=== PATIENT | female | born 1960 | race Caucasian/White ===

== ENCOUNTER → 2016-10-09 | Outpatient (CLI) | payer MEDICAID ==
[~2016-10-09] MED LIST: ACET-1680 PO; ALBU18HF2 IH; AMIO200T7 PO; ASPI325T PO; ATOR40TA64 PO; CLOP75TA33 PO; FLUT1DIS32; FURO40TA5 PO; GUAI118S23; LISI-625 PO; METO25TA6 PO; PANT40TA PO; POTA20TA87 PO; TIOT18CA3 ORAL INH
--- NOTE | 2016-10-09 10:26 | DI ---
Indication: ITS.REASON: R04.2 HEMOPTYSIS PROCEDURE: US THYROID: Encounter: Initial Comparison: Outside ultrasound dated August 23, 2016 Technique: Grayscale and color Doppler sonographic imaging of the thyroid gland was performed. Findings: Thyroid parenchyma is mildly heterogeneous. Right thyroid lobe shows a small hypoechoic 1 x 1 x 0.8 cm lesion in the lateral aspect which is stable from the comparison study allowing for differences in technique. There is also a 0.6 cm similar-appearing hypoechoic nodule in the midportion of the right thyroid lobe. Small hypoechoic 0.8 x 0.6 x 0.7 cm nodule in the superior aspect of the left lobe is also unchanged. There is an oval mixed echogenicity 0.6 x 0.4 x 0.6 cm nodule which is wider than tall in the midportion of the left lobe. This is also unchanged. Thyroid isthmus is normal measuring 0.4 cm in diameter. Right thyroid lobe measures 4.1 x 2.3 x 2 cm in size. Left thyroid lobe measures 4.5 x 1.9 x 1.5 cm in size. Impression: Small benign-appearing bilateral cystic thyroid nodules. These do not meet criteria recommendations for fine-needle aspiration or biopsy. Follow-up ultrasound could be performed in one year to document stability. .
== END ==
LOC: IMA 09:45
PROVIDERS: ATTEND Registered Nurse
DX: E04.2 Nontoxic multinodular goiter (principal); R04.2 Hemoptysis

== ENCOUNTER 2016-10-24 10:34 | Emergency (ER) | payer MEDICAID ==
[~2016-10-24] VITALS: Ht 167.6 cm; Wt 114.0 kg
[2016-10-24 10:35] VITALS: Ht 167.6 cm; Wt 114.0 kg
--- OUTSIDE RECORDS SUMMARY | 2016-10-24 10:38 | XMS REPORT | Referral Summary ---
Author Author [facility] Organization [facility] Address Unknown Phone Unavailable Care Team Providers Care Bench Assembler Operator Name Role Phone Renetta Denney Primary Care Physician [phone] Encounter VC Date(s): 07/31/16 - 07/31/16 [facility] [address] [place] [address] Discharge Disposition: 01-Home or Self Care Attending Physician: Paul Willard MD Vital Signs No data available for this section Problem List Condition Effective Dates Status Health Status Informant At risk for Active infection(Confirmed) 1 COPD(Confirmed) Active Impaired gas Active exchange(Confirmed)2 1Problem added automatically by system based on initiation of At Risk for Infection in Nutrition Plan of Care 2Problem added automatically by system based on initiation of Impaired Gas Exchange Plan of Care Allergies, Adverse Reactions, Alerts No Known Allergies Medications Advair Diskus 500 mcg-50 mcg inhalation powder 1 puffs, Inhalation, BID, in the morning and evening approximately 12 hours apart Start Date: 01/22/15 Status: Ordered Advair HFA 230 mcg-21 mcg/inh inhalation aerosol 2 puffs, Inhalation, BID, 0 Refill(s) Start Date: 12/02/13 Status: Ordered aspirin 325 mg oral tablet 325 mg, Oral, Daily, # 100 tabs, 11 Refill(s), other reason (Rx) Start Date: 12/02/13 Status: Ordered aspirin 81 mg oral tablet, chewable 81 mg 1 tabs, Oral, Daily Start Date: 01/22/15 Status: Ordered atorvastatin 40 mg oral tablet 1 tabs, Oral, Daily, # 30 tabs, 11 Refill(s), other reason (Rx) Start Date: 12/02/13 Status: Ordered clopidogrel 75 mg oral tablet 1 tabs, Oral, Daily, # 30 tabs, 11 Refill(s), other reason (Rx) Start Date: 12/02/13 Stop Date: 11/27/14 Status: Ordered furosemide 40 mg oral tablet 1 tabs, Oral, Daily, # 30 tabs, 0 Refill(s) Start Date: 11/28/13 Status: Ordered Klor-Con M20 20 mEq, Oral, Daily, With or after food, 0 Refill(s) Start Date: 11/28/13 Status: Ordered lisinopril 5 mg oral tablet 1 tabs, Oral, Daily, # 30 tabs, 6 Refill(s), other reason (Rx) Start Date: 12/02/13 Status: Ordered metoprolol tartrate 25 mg oral tablet 1 tabs, Oral, BID, # 60 tabs, 6 Refill(s), other reason (Rx) Start Date: 12/02/13 Status: Ordered nitroglycerin 0.4 mg sublingual tablet 1 tabs, SubLingual, q5min, as needed for chest pain, # 100 tabs, 0 Refill(s) Start Date: 11/28/13 Status: Ordered omeprazole 20 mg oral delayed release capsule 1 caps, Oral, Daily, 0 Refill(s) Start Date: 11/28/13 Status: Ordered Percogesic Original Strength 325 mg-12.5 mg oral tablet 1 tabs, Oral, Daily, pain, 0 Refill(s) Start Date: 11/28/13 Status: Ordered ranitidine 150 mg oral tablet 1 tabs, Oral, Daily, 0 Refill(s) Start Date: 11/28/13 Status: Ordered Spiriva 18 mcg inhalation capsule 1 Each, Inhalation, Daily, use two inhalations of one capsule for each dose, # 30 Each, 0 Refill(s), other reason (Rx) Start Date: 12/02/13 Status: Ordered Tums Ultra 1,000 mg, Chewed, Daily, indigestion, 0 Refill(s) Start Date: 11/28/13 Status: Ordered Ventolin HFA 90 mcg/inh inhalation aerosol 2 puffs, Inhalation, BID, 0 Refill(s) Start Date: 11/28/13 Status: Ordered Ventolin HFA 90 mcg/inh inhalation aerosol 2 puffs, Inhalation, q4hr, Shortness of Breath/Wheezing, 0 Refill(s) Start Date: 11/28/13 Status: Ordered verapamil 180 mg, Oral, Daily, with food Start Date: 01/22/15 Status: Ordered Results Chemistry Most recent to 1 oldest [Reference Range]: Creatinine Lvl 1.17 mg/dL [0.44-1.03 mg/dL] *HI* (07/31/16 12:30 PM) eGFR [>60] 48 1 *ABN* (07/31/16 12:30 PM) 1Result Comment: Multiply eGFR results by 1.21 for race. Immunizations Given and Recorded Vaccine Date Status Refusal Reason pneumococcal 23-polyvalent vaccine1 11/30/13 Given 1Early/Late Reason: Other : its not Procedures Procedure Date Related Diagnosis Body Site Collection of venous blood by venipuncture 07/31/16 Plastic surgery - ear right 1960 section x2 Social History Social History Type Response Smoking Status Unknown if ever smoked Assessment and Plan No data available for this section
--- OUTSIDE RECORDS SUMMARY | 2016-10-24 10:38 | XMS REPORT ---
Author Author Renetta Denney [facility] [employer] Address Unknown Phone Unavailable Care Team Providers Care Holder Pile Driving Name Role Phone Renetta Denney CP Unavailable Allergies No Known Allergies Problems Problem Type Condition Code Onset Dates Condition Status Problem Abdominal pain, generalized 789.07 Active Problem Allergic rhinitis 477.9 Active Problem Shortness of breath 786.05 Active Problem Daytime somnolence R40.0 Active Problem Atherosclerotic heart disease of [place] coronary artery without angina pectoris I25.10 Active Problem Chronic obstructive pulmonary disease, unspecified J44.9 Active Problem Essential (primary) hypertension I10 Active Problem Cardiomegaly 429.3 Active Problem Mixed hyperlipidemia E78.2 Active Problem Adjustment disorder with mixed anxiety and depressed mood F43.23 Active Assessment Chronic obstructive pulmonary disease, unspecified J44.9 Active Problem Mixed hyperlipidemia 272.2 Active Problem Coronary atherosclerosis of unspecified type of vessel, [place] or graft 414.00 Active Problem COPD 496 Active Medications No Known Medications Results No Known Results Summary Purpose eClinicalWorks Submission
--- OUTSIDE RECORDS SUMMARY | 2016-10-24 10:38 | XMS REPORT | CCD ---
Author Author SABRINA GRAFF Organization Unknown Address [address], [place] [id number] Phone 0 Care Team Providers Care Police Clerk Name Role Phone Jerrod MITCHELL Attending Physician 0 Jerrod MITCHELL Primary Surgeon 0 PAUL Galan Nurse Assisstant 0 Vital Signs Unknown or Not Available. Allergies Allergy Code Allergy Type Reaction Status No Known Drug Allergies 0 No known drug allergies Active Procedures Procedure Code Procedure Type Date CHEST [id number] 04/30/2016 History of Immunizations Unknown or Not Available. Problems Unknown or Not Available. Results CARDIAC PANEL - Collect Date/Time: 04/30/2016 10:35 Test Name Code Test Result Test Units Test Ref Range CKMB 1.3 ng/mL L=0.0 H=3.6 CPK 63 U/L L=26 H=308 CKMB% 2.1 % L=0.0 H=4.0 TROPONIN I <0.02 ng/ mL L=0.00 H=0.05 COMP METABOLIC - Collect Date/Time: 04/30/2016 10:35 Test Name Code Test Result Test Units Test Ref Range GLUCOSE 115 mg/dL L=70 H=110 BUN 14 mg/dL L=7 H=18 CREATININE 1.00 mg/ dL L=0.60 H=1.30 AGE 55 YEARS GFR 57.1 SODIUM 140 mmol/L L=136 H=145 POTASSIUM 4.6 mmol/ L L=3.5 H=5.1 CHLORIDE 105 mmol/L L=98 H=107 CO2 31 mmol/L L=21 H=32 CALCIUM 9.0 mg/dL L=8.5 H=10.1 AST 19 U/L L=15 H=37 ALT 33 U/L L=12 H=78 ALKALINE PHOS 169 U/ L L=50 H=136 TOTAL PROTEIN 7.3 g/ dL L=6.4 H=8.2 ALBUMIN 3.7 g/dL L=3.4 H=5.0 TOTAL BILI 0.50 mg/ dL L=0.00 H=1.00 PRO B-TYPE NATRIURETIC PEPTIDE - Collect Date/Time: 04/30/2016 10:35 Test Name Code Test Result Test Units Test Ref Range PBNP 305 pg/mL L=0 H=125 CBC W/ DIFF - Collect Date/Time: 04/30/2016 10:35 Test Name Code Test Result Test Units Test Ref Range WBC 10.2 x10^3 L=4.8 H=10.8 RBC 4.77 x10^6 L=4.20 H=5.40 HEMOGLOBIN 13.1 g/ dL L=12.0 H=16.0 HEMATOCRIT 39.4 % L=37.0 H=47.0 MCV 83 fL L=80 H=100 MCH 27.5 pg L=27.0 H=33.0 MCHC 33.3 g/dL L=33.0 H=37.0 RDW 15.3 % L=11.5 H=14.5 PLATELETS 257 x10^3 L=150 H=450 MPV 9.1 fL L=7.8 H=11.0 NEUTROPHILS 72.1 % L=40.0 H=80.0 LYMPHOCYTES 19.4 % L=20.0 H=45.0 MONOCYTES 6.9 % L=0.0 H=10.0 EOSINOPHILS 1.5 % L=0.0 H=5.0 BASOPHILS 0.1 % L=0.0 H=2.0 REFLEX MAN DIFF NO N /A D-DIMER, QUANTITATIVE - Collect Date/Time: 04/30/2016 10:35 Test Name Code Test Result Test Units Test Ref Range D-DIMER, QUANT 103 ng/mL L=0 H=400 LOWER RESPIRATORY CULTURE - Collect Date/Time: 04/30/2016 11:33 Test Name Code Test Result Test Units Test Ref Range SPEC SOURCE SPUTUM N /A Lower Respiratory Culture 6460-0 Final report N/A Active Medications Unknown or Not Available. Medications Administered During Visit Unknown or Not Available. Encounters Encounter Diagnosis Diagnosis Code Start Date Chronic obstructive pulmonary disease with acute lower respiratory infection J440 04/30/2016 Social History Smoking Status Code Start Date End Date Former smoker [id number] Patient Decision Aids Unknown or Not Available. Discharge Instructions You were admitted to [facility] on 04/30/2016 10:07 with a principal diagnosis of Chronic obstructive pulmon disease w acute lower resp i You had the following tests done: CARDIAC PANEL CBC W/ DIFF COMP METABOLIC D-DIMER, QUANTITATIVE LOWER RESPIRATORY CULTURE PRO B-TYPE NATRIURETIC PEPTIDE You were discharged from [facility] on 04/30/2016 11:34 Should you have any questions prior to discharge, please contact a member of your healthcare team. If you have left the hospital and have any questions, please contact your primary care physician. Chief Complaint and Reason For Visit Chief Complaint Date of Onset Hemoptysis Function Status Unknown or Not Available. Plan of Care Unknown or Not Available. Referral/Transition of Care Unknown or Not Available.
--- OUTSIDE RECORDS SUMMARY | 2016-10-24 10:38 | XMS REPORT | Referral Summary ---
Author Author [facility] Organization [facility] Address Unknown Phone Unavailable Care Team Providers Care Swimming Pool Servicer Name Role Phone Renetta Denney Primary Care Physician [phone] Encounter Date(s): 08/15/16 - 08/15/16 [facility] [address] [place] [address] [phone] Discharge Disposition: 01-Home or Self Care Attending [...] food Start Date: 01/22/15 Status: Ordered Results No data available for this section Immunizations Given and Recorded Vaccine Date Status Refusal Reason pneumococcal 23-polyvalent vaccine1 11/30/13 Given 1Early/Late Reason: Other : its not Procedures Procedure Date Related Diagnosis Body Site Plastic surgery - ear right 1960 section x2 Social History Social History Type Response Smoking Status Unknown if ever smoked Assessment and Plan No data available for this section
--- OUTSIDE RECORDS SUMMARY | 2016-10-24 10:38 | XMS REPORT ---
Author Author Renetta Denney [facility] Address Unknown Phone Unavailable Care Team Providers Care Director [facility] Name Role Phone Renetta Denney Unavailable Allergies No Known Allergies Problems Problem Type Condition Code Onset Dates Condition Status Problem Allergic rhinitis 477.9 Active Problem Shortness of breath 786.05 Active Problem Cardiomegaly 429.3 Active Problem Coronary atherosclerosis of unspecified type of vessel, [place] or graft 414.00 Active Problem Mixed hyperlipidemia 272.2 Active Problem Abdominal pain, generalized 789.07 Active Problem COPD 496 Active Medications Medication Code System Code Instructions Start Date End Date Status Dosage Spiriva HandiHaler [facility] [address]-79 18 MCG Inhalation Once a day Jan 1 capsule Pantoprazole Sodium [facility] [address]-27 40 MG Orally Once a day Mar 25, 2015 1 tablet Atorvastatin Calcium [facility] [address]-18 40 MG Orally Once a day 1 tablet Results No Known Results Summary Purpose eClinicalWorks Submission
--- OUTSIDE RECORDS SUMMARY | 2016-10-24 10:38 | XMS REPORT | Continuity of Care Document ---
Author Author [facility] Organization [facility] Address Unknown Phone Unavailable Care Team Providers Care Graphite Pan Drier Tender Name Role Phone DUYEN WOOD MD Primary Care Physician [phone] Insurance Providers Payer Name Policy Number Subscriber Name Relationship Margarette [employer] [id number] Ruthie Craft 16 Self Advance Directives Directive Response Recorded Date/Time Ordered Resuscitation Status Full Code 07/20/14 10:05am Resuscitation Documents on File No 07/20/14 9:34am Chief Complaint and Reason for Visit Chief Complaint ANTI ARYTHMIC THERAPY Reason for Visit Atrial fibrillation Problems Medical Problems Problem Onset Date Status Atrial fibrillation 07/21/2014 Active Medications Medication Dose Route Sig Days/Qty Instructions Order Date Discontinued Date Status Sodium Bicarbonate 1 Tab PO NEEDED 06/07/10 02/20/12 Discontinued Salmeterol Xinafoate/Fluticasone TWICE A DAY 02/19/12 Active Albuterol Sulfate 18 Gm IH TWICE A DAY 02/19/12 Active Aspirin 81 Mg PO DAILY 02/19/12 07/20/14 Discontinued Verapamil Hcl 180 Mg PO DAILY 02/19/12 07/20/14 Discontinued Ranitidine Hcl 150 Mg PO TWICE A DAY 02/19/12 09/11/13 Discontinued Pravastatin Sodium 20 Mg PO BEDTIME 02/19/12 09/11/13 Discontinued Calcium Carbonate 1 Tab.chew PO TWICE A DAY PRN 02/19/12 07/20/14 Discontinued Acetaminophen/Dp-Hydram Hcl 2 Tab PO BEDTIME 02/20/12 Active Omeprazole 20 Mg PO DAILY 09/11/13 07/21/14 Discontinued Furosemide 1 Tab PO DAILY 07/20/14 Active Metoprolol Tartrate 25 Mg PO TWICE DAILY WITH MEALS Take 1 tab, by mouth , two time a day with meals. 07/20/14 Active Atorvastatin Calcium 1 Tab PO BEDTIME 07/20/14 Active Potassium Chloride 20 Meq PO DAILY 07/20/14 Active Aspirin 325 Mg PO 07/20/14 Active Tiotropium [place] 1 Cap ORAL INH DAILY a day. 07/20/14 Active Lisinopril 5 Mg PO DAILY 07/20/14 Active Clopidogrel Bisulfate 1 Tab PO DAILY 07/20/14 Active Guaifenesin/Codeine Phosphate 07/20/14 Active Amiodarone HCl 400 Mg PO THREE TIMES A DAY For last dose on 07/27/14 PM 6 Days 07/21/14 Active Pantoprazole Sodium 40 Mg PO BEFORE BREAKFAST 30 Qty 07/21/14 Active Amiodarone HCl 200 Mg PO DAILY For First dose on 07/28/14 AM 30 Qty Active Social History Social History Problem Response Recorded Date/Time Chewing Tobacco Status No 09/09/2013 9:56am Hx Substance Use No 09/09/2013 9:56am Hx Alcohol Use No 09/09/2013 9:56am Has the pt used tobacco in the last 12 months No 07/20/2014 9:35am Query Response Start Date Stop Date Smoking Status Former smoker Hospital Discharge Instructions Instructions: Care Instructions: Reason for Hospitalization: RUSTY Hancock was in the hospital because (patient own words): TO START A NEW MEDICATION Discharge Diet: Heart Healthy Discharge Activity: No restriction Follow Up Appointments: Keep scheduled appointment in near future or call [phone] to schedule. FOLLOW UP APPOINTMENT IS ON 08-31-14 AT 2:30 PM. Condition at time of discharge: Good Condition at time of discharge: Good Good Notify Physician If: Fever over 100.4, increase in abdominal pain or other worrisome symptoms. Call Dr. Persaud with blood sugar levels if not controlled. Condition at time of discharge: Good Plan of Care Discharge Date 07/21/14 10:25am Disposition 01 DISCHARGED HOME, SELF-CARE Instructions/Education Provided Atrial Fibrillation Prescriptions See Medications Section Functional Status Query Response Date Recorded Physical Hygiene Self July 21, 2014 8:51am Disabilities None July 21, 2014 8:51am Devices Used None July 21, 2014 8:51am Dressing Self July 21, 2014 8:51am Ambulation Self July 21, 2014 8:51am Diet Self July 21, 2014 8:51am Mental Status Alert Oriented July 21, 2014 8:51am Disabilities None July 21, 2014 8:51am Devices Used None July 21, 2014 8:51am Physical Hygiene Self July 21, 2014 8:51am Dressing Self July 21, 2014 8:51am Ambulation Self July 21, 2014 8:51am Diet Self July 21, 2014 8:51am Allergies, Adverse Reactions, Alerts Allergen Type Severity Reaction Status Last Updated No Known Allergies Active 06/07/10 Immunizations Name Given Type Hx Influenza Vaccination N "I DON'T TAKE THOSE" Historical Hx Pneumococcal Vaccination Y OCTOBER 2013 Historical Hx Influenza Vaccination N "I DON'T TAKE THOSE" Historical Vital Signs Acute Vital Signs Vital Response Date/Time Temperature (Fahrenheit) 97.0 deg F (96.8 - 99.1) Temperature (Calculated Celsius) 36.18824 degrees C (36.0 - 37.3) Temperature Source Oral Pulse Rate (adult) 94 bpm (60 - 100) Respiratory Rate 18 breaths/min (10 - 20) O2 Sat by Pulse Oximetry 94 % (90 - 100) Oxygen Delivery Method Room Air Blood Pressure 147/83 mm Hg Height 5 ft 6 in Weight 244 lb Body Mass Index 39.0 kg/m^2 Results Test Source Date Result Interp. Ref. Range Comments Activated Partial Thromboplast Time September 11, 2013 10:58am 34.9 SEC N 24 -36 Alanine Aminotransferase (ALT/SGPT) July 20, 2014 10:43am 50 U/L N 9- 52 Albumin July 20, 2014 10:43am 4.1 G/DL N 3.5-5.0 Albumin/Globulin Ratio July 20, 2014 10:43am 1.3 RATIO N 1.1-2.2 Alkaline Phosphatase July 20, 2014 10:43am 205 U/L H 38-126 Anion Gap July 21, 2014 4:58am 7 MEQ/L N 5-15 Arterial Blood Base Excess June 07, 2010 11:45am 3.6 MMOL/L H -2.0- 2.0 Arterial Blood HCO3 June 07, 2010 11:45am 24 MEQ/L N 22-26 Arterial Blood Oxygen Saturation June 07, 2010 11:45am 97.0 % N 95.0 -98.0 Arterial Blood Partial Pressure CO2 June 07, 2010 11:45am 23 MMHG L 34-45 Arterial Blood Total CO2 June 07, 2010 11:45am 24.3 MEQ/L N 23-27 Arterial Blood pH June 07, 2010 11:45am 7.620 PH 7.350-7.450 Arterial Blood pO2 at Patient Temp June 07, 2010 11:45am 72 MMHG L 80-100 Aspartate Amino Transf (AST/SGOT) July 20, 2014 10:43am 28 U/L N 14- 36 B-Type Natriuretic Peptide June 07, 2010 11:25am < 15 PG/ML L 15- 100 BUN/Creatinine Ratio July 21, 2014 4:58am 16 RATIO N 6-26 Band Neutrophils # June 09, 2010 8:20am 0.2 T/MM3 - Band Neutrophils % June 09, 2010 8:20am 1.0 % N 0-6 Basophils # (Auto) February 20, 2012 9:20am 0.1 T/MM3 N 0-0.2 COMMENT WILL CALL WHEN THE PT GETS HERE Basophils (%) (Auto) February 20, 2012 9:20am 1.0 % N 0-2 COMMENT WILL CALL WHEN THE PT GETS HERE Blood Urea Nitrogen July 21, 2014 4:58am 17.0 MG/DL N 7-17 Calcium Level July 21, 2014 4:58am 9.5 MG/DL N 8.4-10.2 Calculated Osmolality July 21, 2014 4:58am 275 MOSM/KG N 261-280 Carbon Dioxide Level July 21, 2014 4:58am 30 MEQ/L N 22-30 Chemistry Specimen Hemolysis July 21, 2014 4:58am < 15 0-25 0-25: No Hemolysis.26-70: Slight Hemolysis - can falsely elevate K and Urine Protein. 71-285: Moderate Hemolysis - can falsely elevate K, Troponin I, CA 19-9, PTH, CSF GLucose, and Urine Protein, and can falsely decrease Phenytoin. 286-999: Gross Hemolysis - can falsely elevate K, Troponin I, CA 19-9, PTH, CSF Glucose, and Urine Protine, and can falsely decrease Phenytoin. Recommend specimen recollection. Chloride Level July 21, 2014 4:58am 104 MEQ/L N 98-107 Cholesterol Level June 02, 2012 11:25am 192 MG/DL N 132-199 Cholesterol/HDL Ratio June 02, 2012 11:25am 3.8 RATIO N 0-4.0 Conjugated Bilirubin June 07, 2010 11:25am 0.00 MG/DL N 0.00-0.30 Creatine Kinase MB June 09, 2010 8:20am 0.7 NG/ML N 0-3.4 Creatinine July 21, 2014 4:58am 1.1 MG/DL N 0.7-1.2 D-Dimer June 07, 2010 11:25am 196 NG/ML N 0-230 <224 NG/ML= PRESUMPTIVE NEGATIVE FOR PE OR DVT>224 NG/ML=ADDITIONAL EVALUATION FOR PE OR DVT RECOMMENDED Differential Total Cells Counted June 09, 2010 8:20am 100 % - Eosinophils # (Auto) February 20, 2012 9:20am 0.2 T/MM3 N 0-0.5 COMMENT WILL CALL WHEN THE PT GETS HERE Eosinophils (%) (Auto) February 20, 2012 9:20am 1.9 % N 0-4 COMMENT WILL CALL WHEN THE PT GETS HERE Erythrocyte Sedimentation Rate June 08, 2010 7:35pm 6 MM/HR N 0-20 Free Thyroxine June 08, 2010 2:00pm 1.33 NG/DL N 0.78-2.19 Free Triiodothyronine June 09, 2010 8:20am 2.50 PG/ML L 2.77-5.27 Globulin July 20, 2014 10:43am 3.1 G/DL N 2.4-3.6 Glomerular Filtration Rate Calc July 21, 2014 4:58am 52 - Glucose Level July 21, 2014 4:58am 127 MG/DL H 65-110 HDL Cholesterol Direct June 02, 2012 11:25am 50 MG/DL N 40-60 Hematocrit July 20, 2014 10:43am 38.4 % N 36-46 Hemoglobin July 20, 2014 10:43am 12.3 GM/DL N 12-16 Hepatitis A IgM Antibody August 01, 2011 9:24am Negative - Hepatitis B Core IgM Antibody August 01, 2011 9:24am Negative - Hepatitis B Surface Antigen August 01, 2011 9:24am Negative - Hepatitis C Antibody August 01, 2011 9:24am Negative - Icterus Index July 21, 2014 4:58am < 2 0-7 Immature Granulocyte # (Auto) February 20, 2012 9:20am 0.02 T/MM3 N 0.00- 0.03 COMMENT WILL CALL WHEN THE PT GETS HERE Immature Granulocyte % (Auto) February 20, 2012 9:20am 0.2 % N 0.0-0.5 COMMENT WILL CALL WHEN THE PT GETS HERE LDL Cholesterol, Calculated June 02, 2012 11:25am 142 N 66-159 Lab Scanned Report June 02, 2012 9:09pm LAB TEST FORM REQUEST [id number] - Lymphocytes # (Auto) February 20, 2012 9:20am 2.5 T/MM3 N 1-4.8 COMMENT WILL CALL WHEN THE PT GETS HERE Lymphocytes # (Manual) June 09, 2010 8:20am 0.7 T/MM3 L 1-4.8 Lymphocytes % (Manual) June 09, 2010 8:20am 3.0 % L 23-45 Lymphocytes (%) (Auto) February 20, 2012 9:20am 22.8 % L 23-45 COMMENT WILL CALL WHEN THE PT GETS HERE Magnesium Level July 21, 2014 4:58am 2.1 MG/DL N 1.6-2.3 Mean Corpuscular Hemoglobin July 20, 2014 10:43am 26.9 UUG N 26-34 Mean Corpuscular Hemoglobin Concent July 20, 2014 10:43am 32.0 GM/DL N 31-37 Mean Corpuscular Volume July 20, 2014 10:43am 84.0 UM3 N 80-100 Mean Platelet Volume July 20, 2014 10:43am 11.9 UM3 N 9.4-12.4 Monocytes # (Auto) February 20, 2012 9:20am 0.9 T/MM3 H 0-0.8 COMMENT WILL CALL WHEN THE PT GETS HERE Monocytes # (Manual) June 09, 2010 8:20am 0.4 T/MM3 N 0-0.8 Monocytes % (Manual) June 09, 2010 8:20am 2.0 % N 0-9.0 Monocytes (%) (Auto) February 20, 2012 9:20am 7.7 % N 0-9.0 COMMENT WILL CALL WHEN THE PT GETS HERE Neutrophils # (Auto) February 20, 2012 9:20am 7.3 T/MM3 N 1.8-7.7 COMMENT WILL CALL WHEN THE PT GETS HERE Neutrophils # (Manual) June 09, 2010 8:20am 20.7 T/MM3 H 1.8-7.7 Neutrophils % (Manual) June 09, 2010 8:20am 94.0 % H 33-66 Neutrophils (%) (Auto) February 20, 2012 9:20am 66.4 % H 33-66 COMMENT WILL CALL WHEN THE PT GETS HERE Oxygen Delivery Method (LAB) June 07, 2010 11:45am Room air - Platelet Count July 20, 2014 10:43am 236 T/MM3 N 130-400 Potassium Level July 21, 2014 4:58am 4.3 MEQ/L N 3.6-5 Prothromb Time International Ratio September 11, 2013 10:58am 1.01 N 0.86- 1.10 THERAPUTIC RANGE=2.00-3.00 FOR ANTI-THROMBOSIS THERAPUTIC RANGE=2.50- 3.50 FOR IMPLANTED VALVE RDW Standard Deviation July 20, 2014 10:43am 48.3 FL N 36.9-50.2 Red Blood Count July 20, 2014 10:43am 4.57 M/MM3 N 4.00-5.20 Sodium Level July 21, 2014 4:58am 141 MEQ/L N 134-144 Thyroid Stimulating Hormone (TSH) July 20, 2014 10:43am 0.98 MIU/L N 0.47-4.68 Total Bilirubin July 20, 2014 10:43am 0.30 MG/DL N 0.20-1.30 Total Creatine Kinase June 09, 2010 8:20am < 20 U/L L 30-135 Total Protein July 20, 2014 10:43am 7.2 G/DL N 6.3-8.2 Triglycerides Level June 02, 2012 11:25am 164 MG/DL H 35-135 Troponin I June 09, 2010 8:20am 0.017 ng/ml N 0-0.12 Turbidity July 21, 2014 4:58am < 20 0-20 Unconjugated Bilirubin June 07, 2010 11:25am 0.38 MG/DL N 0.00-1.10 Urine Bilirubin June 07, 2010 12:26pm Negative - Has specimen been collected/obtained? Y Urine Blood June 07, 2010 12:26pm Negative - Has specimen been collected/obtained? Y Urine Collection Type June 07, 2010 12:26pm Voided - Has specimen been collected/obtained? Y Urine Color June 07, 2010 12:26pm Yellow - Has specimen been collected/obtained? Y Urine Glucose (UA) June 07, 2010 12:26pm Negative - Has specimen been collected/obtained? Y Urine Ketones June 07, 2010 12:26pm Negative - Has specimen been collected/obtained? Y Urine Leukocyte Esterase June 07, 2010 12:26pm Negative - Has specimen been collected/obtained? Y Urine Microscopic Not Indicated June 07, 2010 12:26pm Not indicated - Has specimen been collected/obtained? Y Urine Nitrite June 07, 2010 12:26pm Negative - Has specimen been collected/obtained? Y Urine Protein June 07, 2010 12:26pm Negative - Has specimen been collected/obtained? Y Urine Specific Richards June 07, 2010 12:26pm 1.010 L - Has specimen been collected/obtained? Y Urine Turbidity June 07, 2010 12:26pm Clear - Has specimen been collected/obtained? Y Urine Urobilinogen June 07, 2010 12:26pm Normal EU/DL - Has specimen been collected/obtained? Y Urine pH June 07, 2010 12:26pm 7.0 - Has specimen been collected/ obtained? Y VLDL Cholesterol June 02, 2012 11:25am 32.8 MG/DL H 0-28 White Blood Count July 20, 2014 10:43am 10.7 T/MM3 N 4.5-11.0 Gram Stain Sputum-Expectorated Sputum June 08, 2010 7:30am Procedures No known history of procedures. Encounters Encounter Location Date/Time Discharged Inpatient [facility] 07/20/14 8:38am Recent Diagnosis Atrial fibrillation
--- OUTSIDE RECORDS SUMMARY | 2016-10-24 10:38 | XMS REPORT | CCD ---
Author Author SABRINA GRAFF Organization Unknown Address [address], [place] [id number] Phone 0 Care Team Providers Care Director Of Institutional Sales Name Role Phone MARTI BROWN Attending Physician [phone] Vital Signs Unknown or Not Available. Allergies Allergy Code Allergy Type Reaction Status No Known Drug Allergies 0 No known drug allergies Active Procedures Unknown or Not Available. History of Immunizations Unknown or Not Available. Problems Unknown or Not Available. Results Unknown or Not Available. Active Medications Unknown or Not Available. Medications Administered During Visit Unknown or Not Available. Encounters Encounter Diagnosis Diagnosis Code Start Date Abnormal results of pulmonary function studies R942 08/23/2016 Social History Smoking Status Code Start Date End Date Unknown if ever smoked [id number] Patient Decision Aids Unknown or Not Available. Discharge Instructions You were admitted to [facility] on 08/23/2016 14:36 with a principal diagnosis of Abnormal results of pulmonary function studies You were discharged from [facility] on 08/23/2016 14:36 Should you have any questions prior to discharge, please contact a member of your healthcare team. If you have left the hospital and have any questions, please contact your primary care physician. Chief Complaint and Reason For Visit Chief Complaint Date of Onset ULTRASOUND Function Status Unknown or Not Available. Plan of Care Unknown or Not Available. Referral/Transition of Care Unknown or Not Available.
--- OUTSIDE RECORDS SUMMARY | 2016-10-24 10:38 | XMS REPORT ---
Author Author Renetta Denney [facility] Address Unknown Phone Unavailable Care Team Providers Care Senior Materials Scientist Name Role Phone Renetta Denney Unavailable Allergies No Known Allergies Problems Problem Type Condition Code Onset Dates Condition Status Problem Allergic rhinitis 477.9 Active Problem Shortness of breath 786.05 Active Problem Cardiomegaly 429.3 Active Problem Coronary atherosclerosis of unspecified type of vessel, rampart or graft 414.00 Active Problem Mixed hyperlipidemia 272.2 Active Problem Abdominal pain, generalized 789.07 Active Problem COPD 496 Active Medications Medication Code System Code Instructions Start Date End Date Status Dosage Citalopram Hydrobromide [facility] [address]-56 20 MG Orally Once a day Apr 04, 2015 1 tablet Results No Known Results Summary Purpose eClinicalWorks Submission
--- OUTSIDE RECORDS SUMMARY | 2016-10-24 10:38 | XMS REPORT | Continuity of Care Document ---
Demographics Preferred Language Unknown Marital Status Unknown Evangelical Affiliation Unknown Race Unknown Ethnic Group Unknown Author Author [facility] Organization [facility] Address Unknown Phone Unavailable Allergies Active Description Code Type Severity Reaction Onset Reported/Identified Relationship to Patient Clinical Status Yes No Known Allergies No Known Allergies Drug Allergy Unknown N/A 08/21/2016 Medications Problems Procedures Results Test Result Range GRAM STAIN - 08/21/16 11:33 Microbiology FLUID CYTOLOGY - 08/21/16 11:33 FLUID CYTOLOGY SPECIMEN RECEIVED FUNGUS SMEAR - 08/21/16 11:33 Microbiology AFB SMEAR - 08/21/16 11:33 Microbiology VIRUS CULTURE COMPLETE - 08/21/16 11:33 Microbiology Encounters ACCT No. Visit Date/Time Discharge Status Pt. Type Provider Facility Loc./Unit Complaint [id number] 09/04/2016 10:40:00 ACT Unknown [id number] 06/29/2016 09:48:00 ACT Unknown [id number] 06/12/2016 08:54:00 ACT Unknown [id number] 05/30/2016 12:41:00 ACT Unknown [id number] 05/07/2016 14:04:00 ACT Unknown [id number] 12/26/2015 12:53:00 ACT Unknown [id number] 01/07/2014 08:54:00 ACT Unknown [id number] 01/07/2014 08:54:00 ACT Unknown [id number] 11/27/2013 08:15:00 ACT Unknown [id number] 11/04/2013 09:45:00 ACT Unknown [id number] 10/22/2013 13:30:00 ACT Unknown [id number] 09/01/2013 11:13:00 ACT Unknown
--- OUTSIDE RECORDS SUMMARY | 2016-10-24 10:38 | XMS REPORT ---
Author Author Renetta Denney [facility] eClinicalWorks Address Unknown Phone Unavailable Care Team Providers Care Road Machine Runner Name Role Phone Renetta Denney Unavailable Allergies No Known Allergies Problems Problem Type Condition Code Onset Dates Condition Status Problem Allergic rhinitis 477.9 Active Problem Shortness of breath 786.05 Active Problem Cardiomegaly 429.3 Active Problem Coronary atherosclerosis of unspecified type of vessel, [place] or graft 414.00 Active Problem Mixed hyperlipidemia 272.2 Active Problem Abdominal pain, generalized 789.07 Active Problem COPD 496 Active Medications Medication Code System Code Instructions Start Date End Date Status Dosage Ventolin HFA [facility] 85227402173 108 (90 Base) MCG/ACT Inhalation every 4 hrs 2 puffs as needed Results No Known Results Summary Purpose eClinicalWorks Submission
--- OUTSIDE RECORDS SUMMARY | 2016-10-24 10:38 | XMS REPORT | CCD ---
Author Author SABRINA GRAFF Organization Unknown Address [address], [place] [id number] Phone 0 Care Team Providers Care Crop Pest Control Specialist Name Role Phone JANETH CONNER Attending Physician [phone] Vital Signs Unknown or Not Available. Allergies Allergy Code Allergy Type Reaction Status No Known Drug Allergies 0 No known drug allergies Active Procedures Unknown or Not Available. History of Immunizations Unknown or Not Available. Problems Unknown or Not Available. Results ALT/SGPT - Collect Date/Time: 12/08/2015 08:40 Test Name Code Test Result Test Units Test Ref Range ALT 24 U/L L=12 H=78 AST/SGOT - Collect Date/Time: 12/08/2015 08:40 Test Name Code Test Result Test Units Test Ref Range AST 14 U/L L=15 H=37 LIPID PANEL - Collect Date/Time: 12/08/2015 08:40 Test Name Code Test Result Test Units Test Ref Range CHOLESTEROL 137 mg/ dL L=0 H=200 TRIGLYCERIDES 101 mg /dL L=30 H=150 HDL 44 mg/dL L=50 H=60 LDL, CALC 73 mg/dL L=0 H=100 VLDL 20 mg/dL L=0 H=40 CHOL/HDL RISK 3.1 RATIO L=0.0 H=4.4 PT FASTING: ? N/A THYROXINE (T4) FREE - Collect Date/Time: 12/08/2015 08:40 Test Name Code Test Result Test Units Test Ref Range FT4 1.20 ng/dL L=0.76 H=1.46 TSH - Collect Date/Time: 12/08/2015 08:40 Test Name Code Test Result Test Units Test Ref Range TSH 0.77 uIU/mL L=0.36 H=3.74 Active Medications Unknown or Not Available. Medications Administered During Visit Unknown or Not Available. Encounters Encounter Diagnosis Diagnosis Code Start Date Mixed hyperlipidemia E782 12/08/2015 Social History Smoking Status Code Start Date End Date Unknown if ever smoked [id number] Patient Decision Aids Unknown or Not Available. Discharge Instructions You were admitted to [facility] on 12/08/2015 08:34 with a principal diagnosis of Mixed hyperlipidemia You had the following tests done: ALT/ SGPT AST/SGOT LIPID PANEL THYROXINE (T4) FREE TSH You were discharged from [facility] on 12/08/2015 08:34 Should you have any questions prior to discharge, please contact a member of your healthcare team. If you have left the hospital and have any questions, please contact your primary care physician. Chief Complaint and Reason For Visit Chief Complaint Date of Onset LAB Function Status Unknown or Not Available. Plan of Care Unknown or Not Available. Referral/Transition of Care Unknown or Not Available.
--- OUTSIDE RECORDS SUMMARY | 2016-10-24 10:38 | XMS REPORT ---
Author Renetta Schumacher [facility] eClinicalWorks Address Unknown Phone Unavailable Care Team Providers Care Copy Worker Name Role Phone Renetta Denney Unavailable Allergies No Known Allergies Problems Problem Type Condition Code Onset Dates Condition Status Assessment Persistent atrial fibrillation I48.1 Active Assessment Chronic obstructive pulmonary disease, unspecified J44.9 Active Assessment Cardiomegaly I51.7 Active Assessment Other acute sinusitis J01.80 Active Problem Allergic rhinitis 477.9 Active Problem Shortness of breath 786.05 Active Problem Cardiomegaly 429.3 Active Problem Coronary atherosclerosis of unspecified type of vessel, telida or graft 414.00 Active Problem Mixed hyperlipidemia 272.2 Active Problem Abdominal pain, generalized 789.07 Active Problem COPD 496 Active Medications Medication Code System Code Instructions Start Date End Date Status Dosage Albuterol Sulfate [facility] [address]-92 (2.5 MG/3ML) 0.083% Inhalation four times daily as needed November 19, 2013 3 ml Ventolin HFA [facility] [address]-84 108 (90 Base) MCG/ACT Inhalation every 4-6 hours 1-2 puffs Spiriva HandiHaler [facility] [address]-72 18 MCG Inhalation Once a day 1 capsule Furosemide [facility] [address]-19 40 MG Orally Once a day 1 tablet Advair Diskus [facility] [address]-13 500/50 INHALE ONE DOSE BY MOUTH TWICE DAILY Klor-Con M20 [facility] [address]-63 20 MEQ Orally Once a day 1 tablet Aspirin [facility] [address]-64 325 MG Orally Once a day 1 tablet Nitroglycerin [facility] [address]-22 0.4 MG Sublingual every 5 minutes as needed for chest pain. Do not exceed a total of 3 doses in 15 minutes 1 tablet under the tongue and allow to dissolve as needed Ipratropium-Albuterol [facility] [address]-01 0.5-2.5 (3) MG/3ML Inhalation Four times a day November 16, 2013 3 ml Atorvastatin Calcium [facility] [address]-66 40 MG Orally Once a day 1 tablet Pantoprazole Sodium [facility] [address]-97 40 MG Orally Once a day Mar 25, 2015 1 tablet Lisinopril [facility] [address]-60 5 MG Orally Once a day 1 tablet Metoprolol Tartrate [facility] [address]-53 25 MG Orally Twice a day 1 tablet Citalopram Hydrobromide [facility] [address]-10 20 MG Orally Once a day Apr 04, 2015 1/2 tab for a week then 1 tab Amoxicillin [facility] [address]-68 500 MG Orally Twice a day Apr 04, 2015 Apr 14, 2015 1 capsule Clopidogrel Bisulfate [facility] [address]-50 75 MG Orally Once a day 1 tablet Procedures Procedure Coding System Code Date TSH CPT-4 47132 Apr 04, 2015 COMPLETE CBC W/AUTO DIFF WBC CPT-4 74498 Apr 04, 2015 Results No Known Results Summary Purpose eClinicalWorks Submission
--- OUTSIDE RECORDS SUMMARY | 2016-10-24 10:39 | XMS REPORT ---
Author Author Renetta Denney [facility] eClinicalWorks Address Unknown Phone Unavailable Care Team Providers Care Inventory Control Supervisor Name Role Phone Renetta Denney Unavailable Allergies No Known Allergies Problems Problem Type Condition Code Onset Dates Condition Status Problem Allergic rhinitis 477.9 Active Problem Shortness of breath 786.05 Active Problem Cardiomegaly 429.3 Active Problem Coronary atherosclerosis of unspecified type of vessel, [place] or graft 414.00 Active Problem Mixed hyperlipidemia 272.2 Active Problem Abdominal pain, generalized 789.07 Active Problem COPD 496 Active Medications Medication Code System Code Instructions Start Date End Date Status Dosage Ventolin HFA [facility] [address]-45 108 (90 Base) MCG/ACT Inhalation every 4-6 hours 1-2 puffs Results No Known Results Summary Purpose eClinicalWorks Submission
--- OUTSIDE RECORDS SUMMARY | 2016-10-24 10:39 | XMS REPORT | CCD ---
Author Author SABRINA GRAFF Organization Unknown Address [address] [place], [place] [id number] Phone 0 Care Team Providers Care Sales Exhibitor Name Role Phone SHAVON ROSS Attending Physician 0 Vital Signs Unknown or Not Available. [...] Encounters Encounter Diagnosis Diagnosis Code Start Date Cervicalgia M542 05/09/2016 Social History Smoking Status Code Start Date End Date Unknown if ever smoked [id number] Patient Decision Aids Unknown or Not Available. Discharge Instructions You were admitted to [facility] on 05/09/2016 08:39 with a principal diagnosis of Cervicalgia You were discharged from [facility] Should you have any questions prior to discharge, please contact a member of your healthcare team. If you have left the hospital and have any questions, please contact your primary care physician. Chief Complaint and Reason For Visit Chief Complaint Date of Onset PT Function Status Unknown or Not Available. Plan of Care Unknown or Not Available. Referral/Transition of Care Unknown or Not Available.
--- OUTSIDE RECORDS SUMMARY | 2016-10-24 10:39 | XMS REPORT | CCD ---
Author Author SABRINA GRAFF Organization Unknown Address [address] [place], [place] [id number] Phone 0 Care Team Providers Care Investigative Assistant Name Role Phone Jerrod MITCHELL Attending Physician 0 Jerrod MITCHELL Primary Surgeon 0 Vital Signs Unknown or Not Available. Allergies Allergy Code Allergy Type Reaction Status No Known Drug Allergies 0 No known drug allergies Active Procedures Procedure Code Procedure Type Date CHEST [id number] 06/04/2016 History of Immunizations Unknown or Not Available. Problems Unknown or Not Available. Results COMP METABOLIC - Collect Date/Time: 06/04/2016 10:35 Test Name Code Test Result Test Units Test Ref Range GLUCOSE 122 mg/dL L=70 H=110 BUN 25 mg/dL L=7 H=18 CREATININE 1.10 mg/ dL L=0.60 H=1.30 AGE 55 YEARS GFR 51.2 L=60.0 H=120 SODIUM 140 mmol/L L=136 H=145 POTASSIUM 4.0 mmol/ L L=3.5 H=5.1 CHLORIDE 102 mmol/L L=98 H=107 CO2 30 mmol/L L=21 H=32 CALCIUM 8.7 mg/dL L=8.5 H=10.1 AST 20 U/L L=15 H=37 ALT 16 U/L L=12 H=78 ALKALINE PHOS 139 U/ L L=50 H=136 TOTAL PROTEIN 7.1 g/ dL L=6.4 H=8.2 ALBUMIN 4.0 g/dL L=3.4 H=5.0 TOTAL BILI 0.30 mg/ dL L=0.00 H=1.00 CBC W/ DIFF - Collect Date/Time: 06/04/2016 10:35 Test Name Code Test Result Test Units Test Ref Range WBC 10.9 x10^3 L=4.8 H=10.8 RBC 4.41 x10^6 L=4.20 H=5.40 HEMOGLOBIN 12.1 g/ dL L=12.0 H=16.0 HEMATOCRIT 36.9 % L=37.0 H=47.0 MCV 84 fL L=80 H=100 MCH 27.4 pg L=27.0 H=33.0 MCHC 32.7 g/dL L=33.0 H=37.0 RDW 15.3 % L=11.5 H=14.5 PLATELETS 223 x10^3 L=150 H=450 MPV 10.0 fL L=7.8 H=11.0 NEUTROPHILS 73.6 % L=40.0 H=80.0 LYMPHOCYTES 20.8 % L=20.0 H=45.0 MONOCYTES 4.0 % L=0.0 H=10.0 EOSINOPHILS 0.9 % L=0.0 H=5.0 BASOPHILS 0.7 % L=0.0 H=2.0 REFLEX MAN DIFF NO N /A LOWER RESPIRATORY CULTURE - Collect Date/Time: 06/04/2016 10:49 Test Name Code Test Result Test Units Test Ref Range SPEC SOURCE R N/A Lower Respiratory Culture 6460-0 Final report N/A Active Medications Unknown or Not Available. Medications Administered During Visit Unknown or Not Available. Encounters Encounter Diagnosis Diagnosis Code Start Date Acute bronchitis, unspecified J209 2015 Social History Smoking Status Code Start Date End Date Unknown if ever smoked [id number] Patient Decision Aids Unknown or Not Available. Discharge Instructions You were admitted to [facility] on 06/04/2016 10:05 with a principal diagnosis of Acute bronchitis, unspecified You had the following tests done: CBC W / DIFF COMP METABOLIC LOWER RESPIRATORY CULTURE You were discharged from [facility] on 06/04/2016 11:45 Should you have any questions prior to discharge, please contact a member of your healthcare team. If you have left the hospital and have any questions, please contact your primary care physician. Chief Complaint and Reason For Visit Chief Complaint Date of Onset COUGHING UP BLOODY MUCUS Function Status Unknown or Not Available. Plan of Care Unknown or Not Available. Referral/Transition of Care Unknown or Not Available.
--- OUTSIDE RECORDS SUMMARY | 2016-10-24 10:39 | XMS REPORT | CCD ---
Author Author SABRINA GRAFF Organization Unknown Address [address], [place] [id number] Phone 0 Care Team Providers Care Supervisor Felting Name Role Phone Mitchell CHARLES Attending Physician 0 Vital Signs Unknown or Not Available. Allergies Allergy Code Allergy Type Reaction Status No Known Drug Allergies 0 No known drug allergies Active Procedures Procedure Code Procedure Type Date CHEST [id number] 01/16/2016 History of Immunizations Unknown or Not Available. Problems Unknown or Not Available. Results Unknown or Not Available. Active Medications Unknown or Not Available. Medications Administered During Visit Unknown or Not Available. Encounters Encounter Diagnosis Diagnosis Code Start Date Cough R05 01/16/2016 Social History Smoking Status Code Start Date End Date Unknown if ever smoked [id number] Patient Decision Aids Unknown or Not Available. Discharge Instructions You were admitted to [facility] on 01/16/2016 15:29 with a principal diagnosis of Cough You were discharged from [facility] on 01/16/2016 15:29 Should you have any questions prior to discharge, please contact a member of your healthcare team. If you have left the hospital and have any questions, please contact your primary care physician. Chief Complaint and Reason For Visit Chief Complaint Date of Onset XR CHEST RT RIBS Function Status Unknown or Not Available. Plan of Care Unknown or Not Available. Referral/Transition of Care Unknown or Not Available.
--- OUTSIDE RECORDS SUMMARY | 2016-10-24 10:39 | XMS REPORT ---
Author Renetta Schumacher eClinical[employer] Address Unknown Phone Unavailable Care Team Providers Care Patient Access Representative Name Role Phone Renetta Denney Unavailable Allergies, Adverse Reactions, Alerts Substance Reaction Event Type N.K.D.A. Info Not Available Non Drug Allergy Problems Problem Type Condition Code Onset Dates Condition Status Problem COPD 496 Active Problem Shortness of breath 786.05 Active Problem Abdominal pain, generalized 789.07 Active Problem Atherosclerotic heart disease of [place] coronary artery without angina pectoris I25.10 Active Problem Mixed hyperlipidemia E78.2 Active Problem Daytime somnolence R40.0 Active Problem Cardiomegaly 429.3 Active Problem Allergic rhinitis 477.9 Active Problem Adjustment disorder with mixed anxiety and depressed mood F43.23 Active Problem Essential (primary) hypertension I10 Active Assessment Daytime somnolence R40.0 Active Assessment Muscle spasm of right shoulder M62.838 Active Assessment Mixed hyperlipidemia E78.2 Active Assessment Atherosclerotic heart disease of [place] coronary artery without angina pectoris I25.10 Active Assessment Essential (primary) hypertension I10 Active Problem Mixed hyperlipidemia 272.2 Active Assessment Adjustment disorder with mixed anxiety and depressed mood F43.23 Active Problem Coronary atherosclerosis of unspecified type of vessel, [place] or graft 414.00 Active Medications Medication Code System Code Instructions Start Date End Date Status Dosage Melatonin [facility] [address]-62 5 MG Orally Once a day 1 tablet at bedtime as needed with food Xarelto [facility] [address]-89 20 MG Orally Once a day 1 tablet with the evening meal Ventolin HFA [facility] [id number] 108 (90 Base) MCG/ACT Inhalation every 4 hrs 2 puffs as needed Lisinopril [facility] [address]-66 5 MG Orally Once a day 1 tablet Ipratropium-Albuterol [facility] [address]-16 0.5-2.5 (3) MG/3ML Inhalation Four times a day November 16, 2013 3 ml Metoprolol Tartrate [facility] [address]-12 25 MG Orally Twice a day 1 tablet Pantoprazole Sodium [facility] [address]-70 40 MG Orally Once a day Mar 25, 2015 1 tablet Klor-Con M20 [facility] [address]-30 20 MEQ Orally Once a day 1 tablet Advair Diskus [facility] [address]-98 250-50 MCG/DOSE Inhalation Twice a day INHALE ONE DOSE BY MOUTH TWICE DAILY Albuterol Sulfate [facility] [address]-52 (2.5 MG/3ML) 0.083% Inhalation four times daily as needed November 19, 2013 3 ml Nitroglycerin [facility] [address]-65 0.4 MG Sublingual every 5 minutes as needed for chest pain. Do not exceed a total of 3 doses in 15 minutes 1 tablet under the tongue and allow to dissolve as needed Furosemide [facility] [address]-90 40 MG Orally Once a day 1 tablet Spiriva HandiHaler [facility] [address]-64 18 MCG Inhalation Once a day 1 capsule Tylenol Arthritis Pain [facility] [address]-00 650 MG Orally not defined Procedures Procedure Coding System Code Date OFFICE VISIT, EST-LOW COMPLEXITY (15 MIN.) CPT-4 45246 May 07, 2016 Vital Signs Date/Time: May 07, 2016 Temperature 98.3 F Height 65 in Weight 251.8 lbs Blood Pressure Diastolic 62 mm Hg Blood Pressure Systolic 106 mm Hg Cardiac Monitoring Heart Rate 61 /min BMI 41.90 Index Oximetry 98 % Respiratory Rate 16 /min Results No Known Results Summary Purpose eClinicalWorks Submission
--- OUTSIDE RECORDS SUMMARY | 2016-10-24 10:39 | XMS REPORT ---
Author Author Renetta Denney [facility] e[employer] Address Unknown Phone Unavailable Care Team Providers Care It Desktop Support Specialist Name Role Phone Renetta Denney Unavailable Allergies No Known Allergies Problems Problem Type Condition Code Onset Dates Condition Status Problem Allergic rhinitis 477.9 Active Problem Shortness of breath 786.05 Active Problem Cardiomegaly 429.3 Active Problem Coronary atherosclerosis of unspecified type of vessel, [place] or graft 414.00 Active Problem Mixed hyperlipidemia 272.2 Active Problem Abdominal pain, generalized 789.07 Active Problem COPD 496 Active Medications Medication Code System Code Instructions Start Date End Date Status Dosage Pantoprazole Sodium [facility] [address]-20 40 MG Orally Once a day Mar 25, 2015 1 tablet Results No Known Results Summary Purpose eClinicalWorks Submission
--- OUTSIDE RECORDS SUMMARY | 2016-10-24 10:39 | XMS REPORT ---
Author Renetta Schumacher [employer] Address Unknown Phone Unavailable Care Team Providers Care Grinder Set Up Operator Name Role Phone Renetta Denney Unavailable Allergies, Adverse Reactions, Alerts Substance Reaction Event Type N.K.D.A. Info Not Available Non Drug Allergy Problems Problem Type Condition Code Onset Dates Condition Status Assessment Mixed hyperlipidemia E78.2 Active Assessment Chronic obstructive pulmonary disease, unspecified J44.9 Active Assessment Atherosclerotic heart disease of [place] coronary artery without angina pectoris I25.10 Active Problem Allergic rhinitis 477.9 Active Problem Shortness of breath 786.05 Active Problem Cardiomegaly 429.3 Active Problem Coronary atherosclerosis of unspecified type of vessel, [place] or graft 414.00 Active Problem Mixed hyperlipidemia 272.2 Active Problem Abdominal pain, generalized 789.07 Active Problem COPD 496 Active Assessment Other acute sinusitis J01.80 Active Assessment Persistent atrial fibrillation I48.1 Active Assessment Frequency of micturition R35.0 Active Assessment Cardiomegaly I51.7 Active Assessment Adjustment disorder with mixed anxiety and depressed mood F43.23 Active Assessment Shortness of breath R06.02 Active Medications Medication Code System Code Instructions Start Date End Date Status Dosage Albuterol Sulfate [facility] [address]-27 (2.5 MG/3ML) 0.083% Inhalation four times daily as needed November 19, 2013 3 ml Clopidogrel Bisulfate [facility] [address]-15 75 MG Orally Once a day 1 tablet Ipratropium-Albuterol [facility] [address]-26 0.5-2.5 (3) MG/3ML Inhalation Four times a day November 16, 2013 3 ml Lisinopril [facility] [address]-45 5 MG Orally Once a day 1 tablet Pantoprazole Sodium [facility] [address]-22 40 MG Orally Once a day Mar 25, 2015 1 tablet Metoprolol Tartrate [facility] [address]-92 25 MG Orally Twice a day 1 tablet Spiriva HandiHaler [facility] [address]-45 18 MCG Inhalation Once a day 1 capsule Nitroglycerin [facility] [address]-68 0.4 MG Sublingual every 5 minutes as needed for chest pain. Do not exceed a total of 3 doses in 15 minutes 1 tablet under the tongue and allow to dissolve as needed Amoxicillin [facility] [address]-28 500 MG Orally Twice a day Apr 04, 2015 Apr 14, 2015 1 capsule Furosemide [facility] [address]-72 40 MG Orally Once a day 1 tablet Aspirin [facility] [address]-35 325 MG Orally Once a day 1 tablet Advair Diskus [facility] [address]-17 500/50 INHALE ONE DOSE BY MOUTH TWICE DAILY Klor-Con M20 [facility] [address]-64 20 MEQ Orally Once a day 1 tablet Atorvastatin Calcium [facility] [address]-54 40 MG Orally Once a day 1 tablet Ventolin HFA [facility] [address]-51 108 (90 Base) MCG/ACT Inhalation every 4-6 hours 1-2 puffs Citalopram Hydrobromide [facility] [address]-45 20 MG Orally Once a day Apr 04, 2015 1/2 tab for a week then 1 tab Procedures Procedure Coding System Code Date IH CMP CPT-4 65889 Apr 04, 2015 IH LIPID PANEL CPT-4 01781 Apr 04, 2015 URINALYSIS, IN HOUSE CPT-4 22402 Apr 04, 2015 OFFICE VISIT, EST-MOD. COMPLEXITY (25 MIN) CPT-4 88518 Apr 04, 2015 Vital Signs Date/Time: Apr 04, 2015 Height 65 in Weight 227.4 lbs Temperature 98.5 F Blood Pressure Diastolic 70 mm Hg Blood Pressure Systolic 110 mm Hg Cardiac Monitoring Heart Rate 88 /min BMI 37.84 Index Respiratory Rate 24 /min Results Name Result Date Reference Range Unit Abnormality Flag In House CMP Summary Purpose eClinicalWorks Submission
--- NOTE | 2016-10-24 10:50 | NUR ---
PROVIDER DR. Rosmery HERNÁNDEZ IN ROOM WITH PT.
[2016-10-24] MEDS ORDERED: ALBUTEROL/IPRATROPIUM INHAL. 2.5mg-0.5mg/3ml Neb. AEROSOL ONE (11:00)
[2016-10-24] MEDS ORDERED: ASPI81TA2 PO (11:01)
[2016-10-24] MEDS ORDERED: FLUT1DIS3 INH (11:01)
--- NOTE | 2016-10-24 11:02 | ERPDOC ---
Departure Disposition Decision Date: Oct 24, 2016 Disposition Decision Time: 13:31 Disposition: 01 DISCHARGED HOME, SELF-CARE Impression Impression Impression: Primary Impression: COPD (chronic obstructive pulmonary disease) COPD type: COPD with acute exacerbation Qualified Codes: J44.1 - Chronic obstructive pulmonary disease with (acute) exacerbation Additional Impression: Hemoptysis Severity: Moderate Condition: Improved Seen By: Physician only Referrals: Dr. Willard Appointment tomorrow 10/25/2016 Office will call you with appointment time, but if you do not receive a call by 4pm today, call the office directly SHAVON ROSS APRN (Family) Call for appointment Patient Instructions: COPD (Chronic Obstructive Pulmonary Disease) (ED), Hemoptysis (ED) Problems/Meds/Labs Reviewed?: Yes Medications reviewed and manag: Yes Follow up care ordered?: Yes Mental Status: Alert, Oriented Scripts Levofloxacin (Levaquin) 750 Mg Tablet 1 TAB PO DAILY for pneumonia for 7 Days, 0 Refills Prov: NATALIA HERNÁNDEZ DO 10/24/16 Prednisone (Prednisone) 20 Mg Tablet 40 MG PO BIDWM for SHORTNESS OF AIR for 5 Days, #20 TAB 0 Refills Take 2 (20 mg) tablets, by mouth, 2 times a day with meals. Prov: NATALIA HERNÁNDEZ DO 10/24/16 HPI - Cough/URI General Chief Complaint: Dyspnea/Respdistress Stated Complaint: DIFFICULTY BREATHING AND SPITTING UP BLOOD Time Seen by Provider: 10:53 Source: patient (Patient presents to the ER with multiple complaints. Patient apparently has COPD with chroninc cough, hemoptysis and exertional dyspnea. Patient states her exertional dyspnea has been steadily worsening, along with her hemoptysis. 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 Willard in [place], who has recently increased her home Oxygen to 3lpm. Patient also states she has had several X- Rays, CT's and US, all of which have been negative. 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 Limitations: no limitations HPI - Cough/URI Occurred At: home Onset/Timing: Changing over time Duration: other Pain/Severity Scale: Now & Worst: 0/10 Prior Episodes/Possible Cause: frequent episodes Modifying Factors: IMPROVES WITH: inhaler, nebulizer, oxygen, rest, WORSE WITH : activity, coughing Associated Symptoms: cough, fever/chills (Chills), shortness of breath, wheezing, DENIES: chest pain/soreness, dizziness, earache, facial pain, headache , lightheadedness, muscle aches, nasal congestion, nasal drainage, sinus infection, sore throat Hx of Similar Symptoms: Yes Allergies: Coded Allergies: No Known Allergies (Unverified , 10/24/16) Past History Past Medical History Pt denies signifigant PMH Hx Echocardiogram: No Respiratory: COPD, pneumonia GI: GERD Female: UTI Surgical History General: other Family History Family PMH: FOUND: other Vaccines Hx Influenza Vaccination: No ("I DON'T TAKE THOSE") Hx Pneumococcal Vaccination: Yes (OCTOBER 2013) Social History Smoking Status: Unknown if ever smoked Does patient use chewing tobac: No Second Hand Exposure: No Substance Use Type: does not use Substance last used: prior to arrival Housing: house Service: No Occupational Hazard: No Advance Directives: Yes Full Code Record Review Pertinent history updated: Yes Review of Systems Constitutional Constitutional: chills, DENIES: fever Eyes Lids/Accessories: DENIES: erythema, swelling ENMT Ears: DENIES: erythema, pain Balance: DENIES: ataxia, vertigo Sinuses: DENIES: congestion, rhinorrhea Mouth/Throat: DENIES: sore throat Cardiovascular Cardiac: dyspnea on exertion, DENIES: chest pain, orthopnea Rhythm/Rate: DENIES: tachycardia Pulmonary Respiratory: cough, dyspnea, other (Hemoptysis), sputum GI Upper Abdomen: DENIES: nausea, pain, vomiting Lower Abdomen: DENIES: constipation, diarrhea, pain General: DENIES: dysuria Musculoskeletal General: DENIES: cramps, pain, weakness Integumentary Skin: DENIES: color change, itching, rash Neurological General: DENIES: change in strength, headache, numbness, seizures, syncope, vertigo, weakness Psychiatric Psychiatric: DENIES: anxiety, depression, nervousness Hematologic/Lymphatic Hematologic/Lymphatic: DENIES: anemia Allergic/Immunological Allergic/Immunoligical: DENIES: sneezing All other Systems All Other Systems: Reviewed and Negative Physical Exam General General Nourishment: well nourished, well developed, appears stated age, adult , obese General Body Habitus: well groomed Vitals and Pain First Documented Vital Signs Date Time Temp Pulse Resp B/P Pulse Ox O2 Delivery O2 Flow Rate FiO2 10/24/16 10:35 97.6 68 22 125/60 97 Room Air 10/24/16 11:50 3.00 Weight: Kilograms: 114.000 Height (feet): 5 Height (inches): 6.00 Triage Pain Scale: RN VS reviewed by Provider: Yes Eyes (brief) Eyes Brief: found: EOMI, PERRL ENMT (brief) ENMT Brief: FOUND: TM clear, TM good light reflex, mucosa moist, NOT FOUND: pharnyx erythema Neck (brief) Neck: FOUND: trachea midline, NOT FOUND: adenopathy, tenderness, tracheal deviation Respiratory Inspection: NOT FOUND: accessory muscle use, asymmetry, audible stridor, audible wheezing, increased effort Palpation: NOT FOUND: tenderness Auscultation: FOUND: other (clears with cough), rhonchi, wheezes Cardiovascular (brief) Cardiac: FOUND: regular rate, regular rhythm Capillary Refill: <2 sec Pulses: all distal extremities, equal, strong Abdomen (brief) Abdominal Brief: FOUND: bowel normo active x4, soft, NOT FOUND: distended, tender Lymphatic (brief) Lymphatic Brief: NOT FOUND: adenopathy Musculoskeletal (brief) Musculoskeletal Brief: NOT FOUND: spasm, tenderness Integumentary (brief) Integumentary Brief: FOUND: pink, warm Neurologic (brief) Neurological Brief: FOUND: CN w/o gross def to obs, gait w/o gross def to obs, motor-no gross deficits, sensory-no gross deficits, NOT FOUND: ataxia Psychiatric (brief) Psychiatric Brief: FOUND: alert, attentive, normal affect, oriented Differential Diagnoses Differential Diagnoses Considering: Acute Bronchitis, Asthma Exacerbation, COPD Exacerbation, Pneumonia, URI, Viral Syndrome, Other Progress Results/Orders Orders Procedure Category Date Status Time Iv Lock (Ed Only) EDM 10/24/16 Transmitted 10:53 Cbc W/Auto LAB 10/24/16 Complete Diff-Reflex Manual Bmp - Basic Metabolic LAB 10/24/16 Complete Panel Troponin I W LAB 10/24/16 Complete Hemolysis Index EKG EKG 10/24/16 Taken D-Dimer LAB 10/24/16 Complete Chest 1 View RAD 10/24/16 Resulted Methylprednisolone PHA 10/24/16 Complete Sod Succ (Solu-Medrol 11:00 Albuterol/Ipratropium PHA 10/24/16 Complete (Duoneb) 11:00 Lactate - Lactic Acid LAB 10/24/16 Complete Procalcitonin LAB 10/24/16 Complete 11:45 Blood Culture SHAWNA 10/24/16 In Process 11:45 Ct Chest W/Contrast CT 10/24/16 Resulted 11:45 Iohexol (Omnipaque) PHA 10/24/16 Complete 12:00 Normal Saline (Ns) PHA 10/24/16 Complete 12:00 Saline Flush (Iv PHA 10/24/16 Complete Flush) 12:00 Lab Results Laboratory Tests Test 10/24/16 11:15 10/24/16 12:07 White Blood Count 14.6T/MM3 Red Blood Count 3.84M/MM3 Hemoglobin 8.6GM/DL Hematocrit 30.0% Mean Corpuscular Volume 78.1UM3 Mean Corpuscular Hemoglobin 22.4UUG Mean Corpuscular Hemoglobin Concent 28.7GM/DL RDW Standard Deviation 43.4FL Platelet Count 340T/MM3 Mean Platelet Volume 11.6UM3 Immature Granulocyte % (Auto) 0.3% Neutrophils (%) (Auto) 67.9% Lymphocytes (%) (Auto) 17.7% Monocytes (%) (Auto) 5.1% Eosinophils (%) (Auto) 8.5% Basophils (%) (Auto) 0.5% Absolute Immature Granulocyte (auto 0.04T/MM3 Absolute Neutrophils (auto) 10.0T/MM3 Absolute Lymphocytes (auto) 2.6T/MM3 Absolute Monocytes (auto) 0.7T/MM3 Absolute Eosinophils (auto) 1.2T/MM3 Absolute Basophils (auto) 0.1T/MM3 D-Dimer 174NG/ML Turbidity < 20 Sodium Level 142MEQ/L Potassium Level 4.7MEQ/L Chloride Level 96MEQ/L Carbon Dioxide Level 34MEQ/L Anion Gap 12MEQ/L Blood Urea Nitrogen 19.0MG/DL Creatinine 1.2MG/DL Glomerular Filtration Rate Calc 46 BUN/Creatinine Ratio 16RATIO Glucose Level 125MG/DL Calculated Osmolality 276MOSM/KG Calcium Level 9.7MG/DL Icterus Index < 2 Troponin I < 0.012ng/ml Chemistry Specimen Hemolysis < 15 Plasma Lactate 1.4MMOL/L Procalcitonin < 0.05NG/ML Medications Current ED Medications Methylprednisolone Sodium Succinate (Solu-Medrol) 125 mg O ONCE IV Last administered on 10/24/16 11:29; Start 10/24/16 at 11:00; Stop 10/24/16 at 11:01 ; Status DC Albuterol/ Ipratropium (Duoneb) 3 ml O ONCE AEROSOL Last administered on 11:48; Start 10/24/16 at 11:00; Stop 10/24/16 at 11:01; Status DC Iohexol 1 bottle 1 bottle STK-MED ONCE .ROUTE ; Start 10/24/16 at 12:00; Stop at 12:01; Status DC Sodium Chloride (NS) 100 ml @ As Directed STK-MED ONCE .ROUTE ; Start 10/24/16 at 12:00; Stop 10/24/16 at 12:01; Status DC Sodium Chloride (Iv Flush) 10 ml STK-MED ONCE .ROUTE ; Start 10/24/16 at 12:00; Stop 10/24/16 at 12:01; Status DC Progress Progress Patient is resting comfortably, reports breathing easier I recommended admission, but the patient refused. EKG EKG : Rate: 60-100 Rhythm: sinus Allen: normal QRS: normal Intervals: normal ST/T: non-specific changes Interpreted by: signing physician EKG ScImage/Picomm EKG interpreted in ScImage/Pic: No Consult/PCP Consult/PCP : Physician Contacted: Dr. Willard Time Called: 13:31 Time of first response: 13:45 Type of discussion: Phone Consult/PCP Discussion Details I spoke with Evette, in Dr. Willard's Office Will have the Doctor call us back I spoke with Dr. Willard at 13:45 hours Discussed patient examination, History, Labs and CT findings Comments 1. Start on Prednisone 2. Levaquin 3. Disk of CT results 4. Patient to follow in the office tomorrow, Xray Xray : Reason for Exam: Cough / Hemoptysis Xray: CXR Portable Interpretation: Abnormal, Reviewed Written Report (Bilateral patchy airspace disease, possibly pneumonia. [place] Neoplasm, COntrast chest CT Recommended) CT CT : Reason for Exam: Cough / Dyspnea / Hemoptysis CT: Chest IV contrast Interpretation: Abnormal, Reviewed Written Report (Scatterred Ground glass opacities throughout both lungs. Differential, hypersensitivity Pneumonitis/ drug reaction, Pulmonary Vasculitis, Pulmonary Hemorrhage and Atypical/fungal/ viral pneumonitis) NATALIA HERNÁNDEZ DO Oct 24, 2016 11:02
[2016-10-24] MEDS ORDERED: PANT40TA27 PO (11:04)
[2016-10-24] MEDS ORDERED: RANI150T7 PO (11:07)
[2016-10-24] MEDS ORDERED: CHOL200024 PO (11:07)
[2016-10-24] MEDS ORDERED: MELA1TAB17 PO (11:07)
[2016-10-24] MEDS ORDERED: CYAN100099 PO (11:07)
--- OUTSIDE RECORDS SUMMARY | 2016-10-24 11:08 | XMS REPORT | Continuity of Care Document ---
Author Author [facility] Organization [facility] Address Unknown Phone Unavailable Care Team Providers Care Cell Technician Name Role Phone DUYEN WOOD MD Primary Care Physician [phone] Insurance Providers Payer Name Policy Number Subscriber Name Relationship Margarette [employer] [id number] Ruthie Craft 16 Self Advance Directives Directive [...] Aspirin 325 Mg PO 07/20/14 Active Tiotropium [place] 1 Cap ORAL INH DAILY a day. [...] scheduled appointment in near future or call [phone] to schedule. FOLLOW UP APPOINTMENT IS ON [...] F (96.8 - 99.1) Temperature (Calculated Celsius) 36.63415 degrees C (36.0 - 37.3) Temperature Source [...] 02, 2012 9:09pm LAB TEST FORM REQUEST [id number] - Lymphocytes # (Auto) February 20, 2012 [...] Has specimen been collected/obtained? Y Urine Specific [place] June 07, 2010 12:26pm 1.010 L - [...] procedures. Encounters Encounter Location Date/Time Discharged Inpatient [facility] 07/20/14 8:38am Recent Diagnosis Atrial fibrillation
--- OUTSIDE RECORDS SUMMARY | 2016-10-24 11:09 | XMS REPORT | Continuity of Care Document ---
Demographics Preferred Language Unknown Marital Status Unknown Baptism Affiliation Unknown Race Unknown Ethnic Group Unknown Author Author [facility] Organization [facility] Address Unknown Phone Unavailable Allergies Active Description [...] Status Pt. Type Provider Facility Loc./Unit Complaint [id number] 09/04/2016 10:40:00 ACT Unknown [id number] 06/29/2016 09:48:00 ACT Unknown [id number] 06/12/2016 08:54:00 ACT Unknown [id number] 05/30/2016 12:41:00 ACT Unknown [id number] 05/07/2016 14:04:00 ACT Unknown [id number] 12/26/2015 12:53:00 ACT Unknown [id number] 01/07/2014 08:54:00 ACT Unknown [id number] 01/07/2014 08:54:00 ACT Unknown [id number] 11/27/2013 08:15:00 ACT Unknown [id number] 11/04/2013 09:45:00 ACT Unknown [id number] 10/22/2013 13:30:00 ACT Unknown [id number] 09/01/2013 11:13:00 ACT Unknown
[2016-10-24 11:23] LABS: BASOPHILS # (AUTO) 0.1 T/MM3 (0-0.2); BASOPHILS % (AUTO) 0.5 % (0-2); EOSINOPHILS # (AUTO) 1.2 T/MM3 (0-0.5); EOSINOPHILS % (AUTO) 8.5 % (0-4); HGB - HEMOGLOBIN 8.6 GM/DL (12-16); IMMATURE GRANULOCYTE # (AUTO) 0.04 T/MM3 (0.00-0.03); IMMATURE GRANULOCYTE % (AUTO) 0.3 % (0.0-0.5); LYMPHOCYTES # (AUTO) 2.6 T/MM3 (1-4.8); LYMPHOCYTES % (AUTO) 17.7 % (23-45); MEAN CORPUSCULAR HGB 22.4 UUG (26-34); MEAN CORPUSCULAR HGB CONC(MCHC 28.7 GM/DL (31-37); MEAN CORPUSCULAR VOLUME 78.1 UM3 (80-100); MEAN PLATELET VOLUME 11.6 UM3 (9.4-12.4); MONOCYTES # (AUTO) 0.7 T/MM3 (0-0.8); MONOCYTES % (AUTO) 5.1 % (0-9.0); NEUTROPHILS % (AUTO) 67.9 % (33-66); RED BLOOD COUNT 3.84 M/MM3 (4.00-5.20); WBC - WHITE BLOOD COUNT 14.6 T/MM3 (4.5-11.0)
--- NOTE | 2016-10-24 11:25 | NUR ---
XRAY PORTABLE XRAY IN ROOM.
[2016-10-24 11:32] LABS: ANION GAP 12 MEQ/L (5-15); BUN/CREATININE RATIO 16 RATIO (6-26); CALCIUM 9.7 MG/DL (8.4-10.2); CHLORIDE 96 MEQ/L (98-107); CO2 - CARBON DIOXIDE 34 MEQ/L (22-30); CREATININE 1.2 MG/DL (0.7-1.2); GLOMERULAR FILTRATION RATE 46; GLUCOSE 125 MG/DL (65-110); POTASSIUM 4.7 MEQ/L (3.6-5); SODIUM 142 MEQ/L (134-144)
--- NOTE | 2016-10-24 11:34 | DI ---
Indication: ITS.REASON: cough/hemoptysis PROCEDURE: CHEST 1 VIEW: Encounter: Initial Comparison: January 13, 2014 Findings: New patchy bilateral airspace consolidation and interstitial prominence. No pleural effusion or pneumothorax. Heart size and mediastinal contours are stable. Impression: Bilateral patchy airspace disease could be due to pneumonia. Given the history of hemoptysis other considerations include pulmonary hemorrhage and potentially neoplasm/metastatic disease. Contrast enhanced chest CT may be helpful for further evaluation. Radiographic follow-up after therapy is recommended to document clearance. .
[2016-10-24 11:50] VITALS: O2SAT 93
[2016-10-24] MEDS ORDERED: SALINE FLUSH 10ml SYRINGE ONE (12:00)
[2016-10-24] MEDS ORDERED: NORMAL SALINE 100 ML ONE (12:00)
[2016-10-24] MEDS ORDERED: IOHEXOL 300 MG/ML 75ml INJECTION ONE (12:00)
--- NOTE | 2016-10-24 13:22 | DI ---
Indication: ITS.REASON: Pneumonia / Hemoptysis / ? Neoplasm PROCEDURE: CT CHEST W/CONTRAST: Encounter: Initial Comparison: Chest x-ray from today Technique: Axial CT images were performed through the chest after the administration of intravenous contrast. Coronal and sagittal two-dimensional reformats. Automated Exposure Control and Iterative Reconstruction dose reducing techniques were utilized. Contrast: Omnipaque 300 74 mL Findings: There are scattered groundglass opacities seen throughout both lungs with a seemingly random distribution. There is mild upper lobe bronchiectasis seen in a few locations. There is no discrete pulmonary mass appreciated. No lobar consolidative pneumonia. No pneumothorax or effusion. The central airways are patent. No axillary or mediastinal adenopathy. Heart size is normal. No pericardial effusion. The upper abdomen shows cholelithiasis but no acute findings. Bone windows are unremarkable. Impression: Scattered groundglass opacities throughout both lungs. Differential diagnosis includes hypersensitivity pneumonitis/drug reaction, pulmonary vasculitis, pulmonary hemorrhage and atypical/fungal/viral pneumonitis. This does not have a typical appearance for metastatic disease. Recommend clinical and laboratory correlation. Bronchoscopy with lavage could be helpful for further evaluation. .
--- NOTE | 2016-10-24 14:09 | NUR ---
REPORT REPORT GIVEN TO SARA SALEEM.
[2016-10-24] MEDS ORDERED: LEVO750T20 PO (14:11)
[2016-10-24] MEDS ORDERED: PRED20TA PO (14:11)
[2016-10-24 14:20] VITALS: BP 108/57; PULSE 74; RESP 22; TEMP 97.6; O2SAT 93
== END 2016-10-24 14:20 | disposition home or self-care (01) ==
LOC: ED 10:34
DX: J44.1 Chronic obstructive pulmonary disease with (acute) exacerbation (principal); R04.2 Hemoptysis; Z99.81 Dependence on supplemental oxygen
CPT/HCPCS: 36415; 71010; 71260; 80048; 83605; 84145; 84484; 85025; 85379; 87040; 93005; 94640; 96374; 99284; J2930; J7050; Q9967

== ENCOUNTER 2016-12-31 11:22 | Inpatient (IN) ==
--- NOTE | 2016-12-31 11:42 | Emergency Department Report ---
General Adult HPI - General Chief complaint: Syncope Stated complaint: Syncope Time Seen by Provider: 12/31/16 11:40 Source: patient, EMS Mode of arrival: EMS Limitations: no limitations - History of Present Illness HPI narrative: 56-year-old female presents the emergency department with a chief complaint of 2 syncopal episodes earlier today. Patient did not suffer any trauma or injury. Patient denies any pain or discomfort. Patient was seen and evaluated at [facility] earlier today when she had her 2nd syncopal episode and was transferred to [facility] via EMS. Patient has a history of coronary artery disease with stent placement in the past. Patient also notes bilateral lower extremity edema which is symmetric. She has no other complaints or associated symptoms. Patient uses chronic home oxygen at 3 L nasal cannula. Patient has noted symptoms as stated above in an intermittent manner. - Related Data Home Medications Medication Instructions Recorded Confirmed Albuterol Sulfate [Ventolin Hfa] 2 puff INH Q4-6HR PRN #0 02/19/12 12/31/16 Atorvastatin Calcium 40 mg PO HS #0 07/20/14 12/31/16 Furosemide 40 mg PO DAILY #0 07/20/14 12/31/16 Lisinopril 5 mg PO DAILY #0 tab 07/20/14 12/31/16 Metoprolol Tartrate 25 mg PO BIDWM #0 07/20/14 12/31/16 Potassium Chloride 20 meq PO DAILY #0 tab 07/20/14 12/31/16 Aspirin 81 mg PO DAILY #0 10/24/16 12/31/16 Cholecalciferol (Vitamin D3) 2,000 unit PO DAILY #0 10/24/16 12/31/16 [Vitamin D3] Cyanocobalamin (Vitamin B-12) 1,000 mcg PO DAILY #0 10/24/16 12/31/16 [B-12] Fluticasone/Salmeterol [Advair 1 puff INH BID #0 10/24/16 12/31/16 250-50 Diskus] Pantoprazole Sodium 40 mg PO DAILY #0 10/24/16 12/31/16 raNITIdine HCl [Ranitidine HCl] 150 mg PO BID #0 10/24/16 12/31/16 Acetaminophen [Arthritis Pain 1,300 mg PO TID PRN 12/31/16 12/31/16 Relief] Folic Acid [Folate] 1 mg PO DAILY 12/31/16 12/31/16 Melatonin 15 mg PO HS 12/31/16 12/31/16 Nitroglycerin 0.4 mg SL Q5MIN3 PRN 12/31/16 12/31/16 Tiotropium Handihaler [Spiriva] 1 cap INH DAILY 12/31/16 12/31/16 Allergies Allergy/AdvReac Type Severity Reaction Status Date / Time No Known Allergies Allergy Verified 12/31/16 11:58 Review of Systems Constitutional: Denies: fever, chills Eyes: Denies: eye pain, vision change ENT: Denies: ear pain, throat pain Cardiovascular: Reports: syncope. Denies: chest pain, palpitations Respiratory: Denies: cough, dyspnea Gastrointestinal: Denies: abdominal pain, nausea, vomiting, diarrhea Genitourinary: Denies: urgency, dysuria Musculoskeletal: Denies: back pain, joint swelling Integumentary: Denies: erythema, rash Neurological: Denies: headache, numbness Psychiatric: Denies: anxiety, depression Endocrine: Denies: fatigue, heat or cold intolerance Hematological/Lymphatic: Denies: easy bleeding, easy bruising Allergic/Immunologic: Denies: facial swelling, urticaria PFSH Patient Stated Medical History Seizures No Cardiac Arrhythmia Yes: paroxysmal atril fib Hypertension Yes: primary pulmonary htn Hypotension No Diabetes Mellitus Type 1 No Diabetes Mellitus Type 2 No Anemia No Panic Disorder No Now No CAD, COPD Surgical History: Cardiac catheterization Family History: Reviewed and noncontributory. - Social History Smoking status: Current every day smoker Substance use type: does not use Alcohol intake frequency: does not drink Physical Exam - Limitations Limitations: no limitations - General General appearance: alert, in no apparent distress - Normal Exams: Head:: Normocephalic without trauma Eyes:: Pupils are PERRLA w/ EOMI, No scleral icterus, irritation, or foreign bodies noted ENMT:: No facial trauma, nasal exudates, pharyngeal erythema, or exudates are noted Dental: No fractured, loose, or missing teeth noted Neck:: Full range of motion, without adenopathy, JVD, bruits or thyromegaly Chest/Respirations:: with good airflow, and symmetry bilaterally Cardiovascular:: Regular rate and rhythm, without murmur or gallop (Scattered end expiratory wheezes and rhonchi bilaterally.), Pulses 2+ all extremities, capillary refill, <2 seconds all extremities Abdomen:: Bowel sounds positive, soft, non-tender, non-distended, no hepatosplenomegaly, masses or bruits noted Lymphatic:: No lymphadenopathy, or lymphedema noted Musculoskeletal:: No tenderness, or deformity noted, good range of motion, all extremities Integumentary:: No rashes, hives, or bruising noted, hair and nails, without abnormality Neurological:: Patient is alert, and oriented, cranial nerves, motor/sensory/ cerebellar, exams w/o gross deficits, to observation Psychiatric:: Patient exhibits, appropriate attention, emotion and affect Course Vital Signs Temperature 99 F 12/31/16 11:25 Pulse Rate 66 12/31/16 11:25 Respiratory Rate 26 H 12/31/16 11:25 Blood Pressure 118/56 12/31/16 11:25 Pulse Oximetry 93 12/31/16 11:25 Temperature 99 F 12/31/16 11:25 Pulse Rate 84 12/31/16 14:00 Respiratory Rate 20 12/31/16 14:00 Blood Pressure 130/59 12/31/16 14:00 Pulse Oximetry 95 12/31/16 14:00 Medical Decision Making - [facility] Narrative Medical decision making narrative: Labs / imaging were discussed in detail with the patient and family and questions are answered. Patient does not have any new productive cough. Patient states that she is typically wheezy at baseline and the COPD is why she is on the oxygen supplementation. Patient is given gentle IV hydration. She is admitted to the hospital in improved condition to the service of her answering service operator Dr. Blanc is in agreement with the current plan of management. Patient is admitted to the hospital in improved condition. No further orders from accepting physician who is in agreement with the current plan of management. Patient is in agreement with the current plan of management. - Differential Diagnosis AK, syncope, metabolic disorder, dehydration - Lab Data Result diagrams: 12/31/16 12:01 12/31/16 12:01 Lab Results 12/31/16 12/31/16 Range/Units 12:01 12:01 WBC 12.5 H (4.5-11.0) T/MM3 RBC 4.30 (4.00-5.20) M/MM3 Hgb 8.1 L (12-16) GM/DL Hct 30.1 L (36-46) % MCV 70.0 L (80-100) UM3 MCH 18.8 L (26-34) UUG MCHC 26.9 L (31-37) GM/DL RDW Std Deviation 48.3 (36.9-50.2) FL Plt Count 259 (130-400) T/MM3 MPV 11.4 (9.4-12.4) UM3 Immature Gran % (Auto) 0.2 (0.0-0.5) % Neut % (Auto) 74.8 H (33-66) % Lymph % (Auto) 18.2 L (23-45) % [place] % (Auto) 5.5 (0-9.0) % Eos % (Auto) 1.1 (0-4) % Baso % (Auto) 0.2 (0-2) % Neut # 9.3 H (1.8-7.7) T/MM3 Lymph # 2.3 (1-4.8) T/MM3 [place] # 0.7 (0-0.8) T/MM3 Eos # 0.1 (0-0.5) T/MM3 Baso # 0.0 (0-0.2) T/MM3 Abs Immat Gran (auto) 0.03 (0.00-0.03) T/MM3 Turbidity < 20 (0-20) Sodium 141 (134-144) MEQ/L Potassium 4.0 (3.6-5) MEQ/L Chloride 98 (98-107) MEQ/L Carbon Dioxide 35 H (22-30) MEQ/L Anion Gap 8 (5-15) MEQ/L BUN 23.0 H (7-17) MG/DL Creatinine 1.2 (0.7-1.2) MG/DL GFR Calculation 46 BUN/Creatinine Ratio 19 (6-26) RATIO Glucose 97 (65-110) MG/DL Calculated Osmolality 275 (261-280) MOSM/KG Calcium 9.6 (8.4-10.2) MG/DL Total Bilirubin 0.70 (0.20-1.30) MG/DL Icterus Index < 2 (0-7) AST 18 (14-36) U/L ALT 47 (9-52) U/L Alkaline Phosphatase 118 (38-126) U/L Troponin I 0.018 (0-0.12) ng/ml B-Natriuretic Peptide 647 H (0-175) pg/mL Total Protein 6.7 (6.3-8.2) G/DL Albumin 4.2 (3.5-5.0) G/DL Globulin 2.5 (2.4-3.6) G/DL Albumin/Globulin Ratio 1.7 (1.1-2.2) RATIO Specimen Hemolysis < 15 (0-25) - Radiology Data CXR - No acute processes. - EKG Data EKG #1 EKG results narrative: Sinus rhythm. 66 bpm. Normal EKG. No STEMI. Normal intervals. Disposition Prescriptions: No Action Furosemide 40 mg PO DAILY #0 Metoprolol Tartrate 25 mg PO BIDWM #0 Atorvastatin Calcium 40 mg PO HS #0 Lisinopril 5 mg PO DAILY #0 tab Fluticasone/Salmeterol [Advair 250-50 Diskus] 1 puff INH BID #0 Pantoprazole Sodium 40 mg PO DAILY #0 Cholecalciferol (Vitamin D3) [Vitamin D3] 2,000 unit PO DAILY #0 Melatonin 15 mg PO HS Folic Acid [Folate] 1 mg PO DAILY Acetaminophen [Arthritis Pain Relief] 1,300 mg PO TID PRN PRN Reason: Pain Albuterol Sulfate [Ventolin Hfa] 2 puff INH Q4-6HR PRN #0 PRN Reason: Prn Orders Potassium Chloride 20 meq PO DAILY #0 tab Aspirin 81 mg PO DAILY #0 raNITIdine HCl [Ranitidine HCl] 150 mg PO BID #0 Cyanocobalamin (Vitamin B-12) [B-12] 1,000 mcg PO DAILY #0 Nitroglycerin 0.4 mg SL Q5MIN3 PRN PRN Reason: Chest Pain Tiotropium Handihaler [Spiriva] 1 cap INH DAILY Referrals: Renetta Denney, [facility]ER [Family Provider] - Time of Disposition: 13:00 (Admit. Dr. Blanc. ) - Seen By: physician
[2016-12-31] MEDS ORDERED: ALBUTEROL/IPRATROPIUM 2.5mg-0.5mg/3ml NEB AEROSOL ONE (11:49)
--- NOTE | 2016-12-31 12:33 | XRay Report ---
Indication: SOB PROCEDURE: XR chest 1V: Encounter: Initial Comparison: October 24, 2016 Findings: Aeration of the lungs has improved with resolution of most of the prior airspace disease. No new focal consolidative process. No pleural effusion or pneumothorax. Heart size and mediastinal contours are stable. Pulmonary vascularity appears normal. Impression: Improved aeration of the lungs. No focal pneumonia. .
[2016-12-31] MEDS ORDERED: NS 1,000 ML IV ONE (12:49)
[2016-12-31 15:05] VITALS: BMI 40.7
[2016-12-31] MEDS ORDERED: --POM--ALBUTEROL HFA INHALER 8gm ORAL INH PRN (15:12)
--- NOTE | 2016-12-31 15:20 | Cardiology History & Physical ---
History of Present Illness Chief complaint: Syncope, Dyspnea HPI: This is a 56-year-old female well known to Dr. Blanc service, she presented the emergency department with a chief complaint of 2 syncopal episodes earlier today and 3 last week. Patient did not suffer any trauma or injury. Patient denies any pain or discomfort. Patient was [facility] and [facility] earlier today when she had her 2nd syncopal episode and was transferred to [facility] via EMS. Patient has a history of coronary artery disease with stent placement in the past and a history of AFIB. She was on Pradaxa but it was DC'd approximately 3 months ago for hemoptysis and recommended to f/u with PCP for work up. Patient also notes bilateral lower extremity edema which is symmetric, onset 1 month ago. She has exertional SOA that is baseline for her. Patient uses chronic home oxygen at 3 L nasal cannula. Review of Systems - Constitutional Constitutional: Present: fatigue - EENMT Eyes: Absent: loss of vision Balance: Absent: vertigo - Cardiovascular Cardiovascular: Present: syncope, dyspnea on exertion. Absent: chest pain, palpitations Vascular: Present: pedal edema - Respiratory Respiratory: Present: cough, dyspnea on exertion, wheezing - Gastrointestinal Gastrointestinal: Absent: abdominal pain, nausea - Musculoskeletal Musculoskeletal: Absent: abnormal gait - Integumentary/Breasts Integumentary: Absent: erythema, rash - Neurological Neurological: Present: focal weakness, frequent falls - Psychiatric Psychiatric: Absent: behavioral changes - Endocrine Endocrine: Absent: excessive sweating, palpitations PFSH Patient Stated Medical History Seizures No Hearing Loss Yes: LEFT HEARING AIDE, DEAF IN RIGHT EAR Cardiac Arrhythmia Yes: paroxysmal atril fib Hypertension Yes: primary pulmonary htn Hypotension No Myocardial Infarction Yes: 2013 Other Cardiology Yes: STENT PLACED IN 2013 Chronic Obstructive Pulmonary Yes Disease (COPD) Pneumonia Yes Diabetes Mellitus Type 1 No Diabetes Mellitus Type 2 No Hx Incontinence Yes Anemia No Surgical History: Cardiac catheterization Family History: Mother with CAD - Social History Smoking status: Former smoker Substance use type: does not use Medications Home Medications Medication Instructions Recorded Confirmed Type Albuterol Sulfate [Ventolin Hfa] 2 puff INH Q4-6HR PRN #0 02/19/12 12/31/16 History Atorvastatin Calcium 40 mg PO HS #0 07/20/14 12/31/16 History Furosemide 40 mg PO DAILY #0 07/20/14 12/31/16 History Lisinopril 5 mg PO DAILY #0 tab 07/20/14 12/31/16 History Potassium Chloride 20 meq PO DAILY #0 tab 07/20/14 12/31/16 History Aspirin 81 mg PO DAILY #0 10/24/16 12/31/16 History Cholecalciferol (Vitamin D3) 2,000 unit PO DAILY #0 10/24/16 12/31/16 History [Vitamin D3] Cyanocobalamin (Vitamin B-12) 1,000 mcg PO DAILY #0 10/24/16 12/31/16 History [B-12] Fluticasone/Salmeterol [Advair 1 puff INH BID #0 10/24/16 12/31/16 History 250-50 Diskus] Pantoprazole Sodium 40 mg PO DAILY #0 10/24/16 12/31/16 History raNITIdine HCl [Ranitidine HCl] 150 mg PO BID #0 10/24/16 12/31/16 History Acetaminophen [Arthritis Pain 1,300 mg PO TID PRN 12/31/16 12/31/16 History Relief] Folic Acid [Folate] 1 mg PO DAILY 12/31/16 12/31/16 History Melatonin 15 mg PO HS 12/31/16 12/31/16 History Nitroglycerin 0.4 mg SL Q5MIN3 PRN 12/31/16 12/31/16 History Tiotropium Handihaler [Spiriva] 1 cap INH DAILY 12/31/16 12/31/16 History Allergies Allergy/AdvReac Type Severity Reaction Status Date / Time No Known Allergies Allergy Verified 12/31/16 11:58 Exam Vital signs: Temperature 96.8 F 12/31/16 14:44 Pulse Rate 80 12/31/16 14:44 Respiratory Rate 20 12/31/16 14:44 Blood Pressure 127/59 12/31/16 14:44 Pulse Oximetry 93 12/31/16 14:44 Oxygen Delivery Method Nasal Cannula Oxygen Flow Rate 3 - Constitutional no acute distress - Routine HEENT Exam Head: Present: normocephalic, atraumatic Eye: Present: PERRL, conjunctivae pink ENT: Present: mucous membranes moist - Routine Neck Exam Absent: JVD, carotid bruit - Routine Chest/Breast/Axilla Exam Chest wall: Absent: tenderness, pacemaker - Routine Respiratory Exam Present: wheezes - Routine Cardiovascular Exam Present: no murmur, irregular rhythm. Absent: JVD - Routine Abdominal Exam Present: soft, normoactive bowel sounds. Absent: non tender, distended - Routine Back/Spine/Pelvis Exam Back/Spine: Present: kyphosis - Routine Skin Exam Present: intact - Routine Neurological Exam Present: alert, oriented X3 - Routine Psychiatric Exam Present: normal affect Results 01/03/17 04:15 01/03/17 04:15 Intake and Output 12/31/16 12/31/16 12/31/16 06:59 14:59 22:59 Intake Total 0 / 1000 Output Total 350 / 350 Balance -350 / 650 Intake: Oral 0 / 0 Output: Urine 350 / 350 Other: Weight 118.7 kg Patient Weight 01/01/17 06:59 Weight 118.7 kg Abnormal Lab Results 12/31/16 12/31/16 12/31/16 12:01 12:01 15:32 WBC 12.5 H RBC 4.30 Hgb 8.1 L Hct 30.1 L MCV 70.0 L MCH 18.8 L MCHC 26.9 L RDW Std Deviation 48.3 Plt Count 259 MPV 11.4 Immature Gran % (Auto) 0.2 Neut % (Auto) 74.8 H Lymph % (Auto) 18.2 L [place] % (Auto) 5.5 Eos % (Auto) 1.1 Baso % (Auto) 0.2 Neut # 9.3 H Lymph # 2.3 [place] # 0.7 Eos # 0.1 Baso # 0.0 Abs Immat Gran (auto) 0.03 Absolute Retic Percent Retic Immature Retic Fraction Retic Hgb Content CHr INR APTT Turbidity < 20 Sodium 141 Potassium 4.0 Chloride 98 Carbon Dioxide 35 H Anion Gap 8 BUN 23.0 H Creatinine 1.2 GFR Calculation 46 BUN/Creatinine Ratio 19 Glucose 97 Calculated Osmolality 275 Calcium 9.6 Magnesium 2.0 Total Bilirubin 0.70 Icterus Index < 2 AST 18 ALT 47 Alkaline Phosphatase 118 Troponin I 0.018 0.016 B-Natriuretic Peptide 647 H Total Protein 6.7 Albumin 4.2 Globulin 2.5 Albumin/Globulin Ratio 1.7 TSH Free T4 Specimen Hemolysis < 15 < 15 Stool Occult Blood Specimen Comment Tests Not Done Reason Tests Not Done Blood Type Antibody Screen Crossmatch ([facility]) Blood Product Request 0712/31/16 12/31/16 15:32 15:32 18:42 WBC 11.5 H RBC 4.22 Hgb 7.8 L Hct 29.2 L MCV 69.2 L MCH 18.5 L MCHC 26.7 L RDW Std Deviation 47.4 Plt Count 238 MPV 11.2 Immature Gran % (Auto) 0.2 Neut % (Auto) 71.0 H Lymph % (Auto) 22.2 L [place] % (Auto) 5.4 Eos % (Auto) 1.0 Baso % (Auto) 0.2 Neut # 8.2 H Lymph # 2.6 [place] # 0.6 Eos # 0.1 Baso # 0.0 Abs Immat Gran (auto) 0.02 Absolute Retic 0.1051 H Percent Retic 2.5 H Immature Retic Fraction 17.6 H Retic Hgb Content CHr 20.3 L INR APTT Turbidity Sodium Potassium Chloride Carbon Dioxide Anion Gap BUN Creatinine GFR Calculation BUN/Creatinine Ratio Glucose Calculated Osmolality Calcium Magnesium Total Bilirubin Icterus Index AST ALT Alkaline Phosphatase Troponin I B-Natriuretic Peptide Total Protein Albumin Globulin Albumin/Globulin Ratio TSH Cancelled 0.94 Free T4 Cancelled Specimen Hemolysis Stool Occult Blood Specimen Comment Tests Not Done Reason Tests Not Done Blood Type Antibody Screen Crossmatch ([facility]) Blood Product Request 12/31/16 12/31/16 12/31/16 19:15 19:16 20:27 WBC RBC Hgb Hct MCV MCH MCHC RDW Std Deviation Plt Count MPV Immature Gran % (Auto) Neut % (Auto) Lymph % (Auto) [place] % (Auto) Eos % (Auto) Baso % (Auto) Neut # Lymph # [place] # Eos # Baso # Abs Immat Gran (auto) Absolute Retic Percent Retic Immature Retic Fraction Retic Hgb Content CHr INR Cancelled APTT Cancelled Turbidity Sodium Potassium Chloride Carbon Dioxide Anion Gap BUN Creatinine GFR Calculation BUN/Creatinine Ratio Glucose Calculated Osmolality Calcium Magnesium Total Bilirubin Icterus Index AST ALT Alkaline Phosphatase Troponin I B-Natriuretic Peptide Total Protein Albumin Globulin Albumin/Globulin Ratio TSH Free T4 Specimen Hemolysis Stool Occult Blood Specimen Comment Lab to recollect Tests Not Done Inr Reason Tests Not Done Clotted specimen Blood Type O Positive Antibody Screen Negative Crossmatch ([facility]) See Detail Blood Product Request 12/31/16 12/31/16 12/31/16 22:00 22:06 22:06 WBC RBC Hgb 7.7 L Hct MCV MCH MCHC RDW Std Deviation Plt Count MPV Immature Gran % (Auto) Neut % (Auto) Lymph % (Auto) [place] % (Auto) Eos % (Auto) Baso % (Auto) Neut # Lymph # [place] # Eos # Baso # Abs Immat Gran (auto) Absolute Retic Percent Retic Immature Retic Fraction Retic Hgb Content CHr INR 1.02 APTT 25.4 Turbidity Sodium Potassium Chloride Carbon Dioxide Anion Gap BUN Creatinine GFR Calculation BUN/Creatinine Ratio Glucose Calculated Osmolality Calcium Magnesium Total Bilirubin Icterus Index AST ALT Alkaline Phosphatase Troponin I B-Natriuretic Peptide Total Protein Albumin Globulin Albumin/Globulin Ratio TSH Free T4 Specimen Hemolysis Stool Occult Blood Specimen Comment Tests Not Done Reason Tests Not Done Blood Type Antibody Screen Crossmatch ([facility]) Blood Product Request 1 unit pc issued 01/01/17 01/01/17 01/01/17 03:01 09:19 09:19 WBC RBC Hgb Hct MCV MCH MCHC RDW Std Deviation Plt Count MPV Immature Gran % (Auto) Neut % (Auto) Lymph % (Auto) [place] % (Auto) Eos % (Auto) Baso % (Auto) Neut # Lymph # [place] # Eos # Baso # Abs Immat Gran (auto) Absolute Retic Percent Retic Immature Retic Fraction Retic Hgb Content CHr INR APTT Turbidity Sodium Potassium Chloride Carbon Dioxide Anion Gap BUN Creatinine GFR Calculation BUN/Creatinine Ratio Glucose Calculated Osmolality Calcium Magnesium Total Bilirubin Icterus Index AST ALT Alkaline Phosphatase Troponin I B-Natriuretic Peptide Total Protein Albumin Globulin Albumin/Globulin Ratio TSH Free T4 Specimen Hemolysis Stool Occult Blood Negative Negative Specimen Comment Tests Not Done Reason Tests Not Done Blood Type Antibody Screen Crossmatch ([facility]) Blood Product Request 1 unit pc issued 01/01/17 01/01/17 01/01/17 09:55 09:55 09:55 WBC 10.6 RBC 4.63 Hgb 9.6 L D Hct 33.6 L D MCV 72.6 L MCH 20.7 L MCHC 28.6 L RDW Std Deviation 53.0 H Plt Count 246 MPV 11.3 Immature Gran % (Auto) 0.6 H Neut % (Auto) 77.3 H Lymph % (Auto) 16.0 L [place] % (Auto) 4.4 Eos % (Auto) 1.4 Baso % (Auto) 0.3 Neut # 8.2 H Lymph # 1.7 [place] # 0.5 Eos # 0.2 Baso # 0.0 Abs Immat Gran (auto) 0.06 H Absolute Retic Percent Retic Immature Retic Fraction Retic Hgb Content CHr INR APTT Turbidity < 20 Sodium 140 Potassium 4.7 Chloride 100 Carbon Dioxide 35 H Anion Gap 5 BUN 20.0 H Creatinine 1.2 GFR Calculation 46 BUN/Creatinine Ratio 17 Glucose 133 H Calculated Osmolality 274 Calcium 9.4 Magnesium 2.1 Total Bilirubin 1.10 Icterus Index < 2 AST 21 ALT 36 Alkaline Phosphatase 98 Troponin I 0.018 B-Natriuretic Peptide Total Protein 6.2 L Albumin 3.9 Globulin 2.3 L Albumin/Globulin Ratio 1.7 TSH Free T4 Specimen Hemolysis < 15 < 15 Stool Occult Blood Specimen Comment Tests Not Done Reason Tests Not Done Blood Type Antibody Screen Crossmatch ([facility]) Blood Product Request APTT 25.4 SEC (24-36) 12/31/16 22:06 - Imaging and Cardiology Echo: pending EKG results: image reviewed Imaging & Cardiology Narrative: 12/31/16 15:31 Tele in ED shows frequent PVC's, Bigeminal - EKG Interpretation EKG: sinus rhythm EKG interpretations - EKG EKG results cardiology: sinus rhythm, no acute changes EKG shows: sinus rhythm Hospital Course This is a general summary of the patient's hospital course. For more details refer to the complete medical record. Pt was placed in a tele bed, tele showed AFib rate as high at 160, converting to SR w/bigeminal and trigeminal runs. Breathing tx intiated. DVT Prophylaxis: SCD's Assessment and Plan (1) Syncope and collapse Problem details: Patient was anemic and transfused with PRBCs Status: Resolved Monitor, orthostatic vital signs. Acute anemia, will consult hospitalist, Dr. Kate, thank you. (2) Atrial fibrillation Problem details: Currently in SR, Started on Sotalol for antiarrhythmic therapy Status: Chronic Not an anticoagulant candidate 2/2 anemia, continue home metoprolol for rate control. Consider AAT if persistent. (3) CAD (coronary artery disease), [place] coronary artery Status: Acute Troponin mildly elevated, likley secondary to anemia. Will trend out. Hold ASA due to acute anemia. (4) COPD (chronic obstructive pulmonary disease) Status: Chronic respiratory therapy consult (5) Anemia Problem details: Iron deficient Status: Resolved Hospitalist consult - Attestation Attestation Narrative: 01/06/17 11:15 Recommendation After examining the patient I agree with the above assessment. I am involved in the formulation of the patient's plan of care. Sepsis Assessment - Evaluation Sepsis screening result: No Definite Risk
[2016-12-31] MEDS ORDERED: ENOXAPARIN 40 MG/0.4 ML INJECTION SQ SCH (18:15)
--- NOTE | 2016-12-31 18:47 | Consult Note ---
Consult Information - Data of Consult Patient: new to practice Requesting Physician: Froylan Blanc MD Primary Care Provider: Renetta Denney APRN Family Provider: Renetta Denney APRN - Consult Narrative Reason for consult: Anemia History of present illness: This is a pt that came for syncope. We are consulted for anemia. Pt is a 56 YO obese WF that came for syncope and was noted to be anemic. Pt states she had anemia on one of her pregnancies, but does not recall having anemia recently. She was admitted for syncope. Noted her HR going progressively higher and higher. Per my discussion with her RN - as high as 170. Pt states she is dizzy. She states she is on home O2, is not particularly dyspneic. No melena, no hematochezia no recent blood loss. States she was placed on a Blood thinner that starts with an "X" (Xarelto?) and stated having hemoptysis and was changed to ASA. Pt currently with a HR in the 160's in telemetry denies any CP or SOB while at rest. Discussed the possibilty of a bleed and transfussion. Pt got very anxious and requested her daughter to come to discuss this. [facility] Patient Stated Medical History Seizures No Hearing Loss Yes: LEFT HEARING AIDE, DEAF IN RIGHT EAR Cardiac Arrhythmia Yes: paroxysmal atril fib Hypertension Yes: primary pulmonary htn Hypotension No Myocardial Infarction Yes: 2013 Other Cardiology Yes: STENT PLACED IN 2013 Chronic Obstructive Pulmonary Yes Disease (COPD) Pneumonia Yes Diabetes Mellitus Type 1 No Diabetes Mellitus Type 2 No Hx Incontinence Yes Anemia No Surgical History: Cardiac catheterization - Social History Smoking status: Former smoker Review of Systems - Constitutional Constitutional: Present: fatigue - EENMT Eyes: Present: as per HPI Ears: Present: as per HPI Balance: Present: vertigo Mouth/Throat: Present: as per HPI - Cardiovascular Cardiovascular: Present: syncope. Absent: chest pain, palpitations Vascular: Present: see HPI - Gastrointestinal Gastrointestinal: Absent: change in bowel habits, change in stool character, coffee ground emesis, constipation, diarrhea, hematemesis, hematochezia, melena - Integumentary/Breasts Integumentary: Absent: erythema, rash - Neurological Neurological: Present: dizziness - Psychiatric Psychiatric: Present: as per HPI - Endocrine Endocrine: Present: as per HPI - Hematologic/Lymphatic Hematologic/Lymphatic: Present: as per HPI Medications Home Medications Medication Instructions Recorded Confirmed Type Albuterol Sulfate [Ventolin Hfa] 2 puff INH Q4-6HR PRN #0 02/19/12 12/31/16 History Atorvastatin Calcium 40 mg PO HS #0 07/20/14 12/31/16 History Furosemide 40 mg PO DAILY #0 07/20/14 12/31/16 History Lisinopril 5 mg PO DAILY #0 tab 07/20/14 12/31/16 History Metoprolol Tartrate 25 mg PO BIDWM #0 07/20/14 12/31/16 History Potassium Chloride 20 meq PO DAILY #0 tab 07/20/14 12/31/16 History Aspirin 81 mg PO DAILY #0 10/24/16 12/31/16 History Cholecalciferol (Vitamin D3) 2,000 unit PO DAILY #0 10/24/16 12/31/16 History [Vitamin D3] Cyanocobalamin (Vitamin B-12) 1,000 mcg PO DAILY #0 10/24/16 12/31/16 History [B-12] Fluticasone/Salmeterol [Advair 1 puff INH BID #0 10/24/16 12/31/16 History 250-50 Diskus] Pantoprazole Sodium 40 mg PO DAILY #0 10/24/16 12/31/16 History raNITIdine HCl [Ranitidine HCl] 150 mg PO BID #0 10/24/16 12/31/16 History Acetaminophen [Arthritis Pain 1,300 mg PO TID PRN 12/31/16 12/31/16 History Relief] Folic Acid [Folate] 1 mg PO DAILY 12/31/16 12/31/16 History Melatonin 15 mg PO HS 12/31/16 12/31/16 History Nitroglycerin 0.4 mg SL Q5MIN3 PRN 12/31/16 12/31/16 History Tiotropium Handihaler [Spiriva] 1 cap INH DAILY 12/31/16 12/31/16 History Allergies Allergy/AdvReac Type Severity Reaction Status Date / Time No Known Allergies Allergy Verified 12/31/16 11:58 Exam Vital Signs: Temperature 96.8 F 12/31/16 14:44 Pulse Rate 160 H 12/31/16 17:48 Respiratory Rate 24 12/31/16 16:35 Blood Pressure 127/91 H 12/31/16 16:35 Pulse Oximetry 95 12/31/16 16:35 Oxygen Delivery Method Nasal Cannula Oxygen Flow Rate 3 Telemetry Rhythm: Sinus Tachycardia Height: 5 ft 7.2 in Weight: 118.7 kg Body Mass Index: 40.7 - Constitutional Present: mild distress - Routine HEENT Exam Head: Present: normocephalic Eye: Present: EOMI, PERRL - Routine Neck Exam Present: supple. Absent: JVD Comments: Neck is short and thick. - Routine Chest/Breast/Axilla Exam Chest wall: Absent: tenderness Breast: Absent: tenderness Axillae: Absent: lymphadenopathy - Routine Respiratory Exam Present: CTA bilaterally. Absent: accessory muscle use - Routine Cardiovascular Exam Present: tachycardia - Routine Abdominal Exam Present: soft, non distended, non tender - Routine Extremities Exam Absent: cyanosis, clubbing, edema - Routine Skin Exam Comments: Multiple skin tags over her neck and back. - Routine Neurological Exam Present: alert, oriented X3, CN II-XII intact - Routine Psychiatric Exam Present: normal affect, cooperative, anxious Results - Labs CBC & Chem 7: 12/31/16 18:42 12/31/16 12:01 Assessment and Plan Assessment and Plan: This is a 56 YO female with obesity who came for syncope. Labs show anemia, probably acute. Will recheck her H.H now, and check anemia studies, may need a transfussion. Preliminary diagnosis 1) Anemia - symptoms point to acute anemia H.H is dropping - pt is not agreeable to a transfussion until daughter comes, she was notified. - Check B12, Folate, Ferritin, retic count, Occult blood in stools. - May need a transfussion ] - Fall precautions - Orthostatic BP checkups Q8H x 3 - Start IVF, I have requested 4Units of PRBC. Will initially give 2 units - Change PPI to IV - Add PT/INR, PTT to blood in lab. 2) Syncope could be related to GI bleed. - H Pylori stool Ag ordered. - Hemoccults ordered. Dr Blanc, we thank you for this consult will be following pt with you. Hospital Course Summary Disclaimer: The visit summary below is not to be considered part of the above Progress Note. Sepsis Assessment - Evaluation Sepsis screening result: No Definite Risk
[2016-12-31] MEDS ORDERED: ACETAMINOPHEN 325 MG TABLET PO ONE (18:52)
[2016-12-31] MEDS: FLUTICASONE ORAL INH SCH (20:07)
[2016-12-31] MEDS: SALMETEROL ORAL INH SCH (20:07)
[2016-12-31] MEDS: RANITIDINE 150 MG TABLET PO SCH (22:35)
[2016-12-31] MEDS: PANTOPRAZOLE 40 MG INJECTION IVP SCH (22:35)
[2016-12-31] MEDS: ATORVASTATIN 40 MG TABLET PO SCH (22:36)
[2017-01-01] MEDS ORDERED: MELATONIN 5 MG TABLET PO PRN (01:20)
[2017-01-01] MEDS: MELATONIN 1 MG TABLET PO SCH ×2 (01:45→22:09)
[2017-01-01] MEDS ORDERED: MELATONIN 1 MG TABLET PO PRN (06:38)
[2017-01-01] MEDS ORDERED: --POM--PANTOPRAZOLE 40 MG TABLET PO SCH (09:00)
[2017-01-01] MEDS ORDERED: POLYETHYL. GLYCOL 3350 BOTTLE 238 GM PO SCH (09:00)
[2017-01-01] MEDS ORDERED: ASPIRIN *EC* 81 MG TABLET PO SCH (09:00)
--- NOTE | 2017-01-01 09:04 | Progress Note ---
Subjective: Pt states she is feeling much better. Received 2 U of PRBC. Anemia studies done but pending. Telemetry NRS in the 90's with some PVC's Objective Vital signs: Temperature 97.0 F 01/01/17 03:00 Pulse Rate 95 01/01/17 07:37 Respiratory Rate 20 01/01/17 03:00 Blood Pressure 121/65 01/01/17 07:37 Pulse Oximetry 98 01/01/17 03:00 Oxygen Delivery Method Nasal Cannula Oxygen Flow Rate 3 Rhythm: Normal Sinus Rhythm, Premature Ventricular Contractions Weight: 119.3 kg - Constitutional Present: no acute distress, obese - Routine HEENT Exam Head: Present: normocephalic, atraumatic Eye: Present: EOMI, PERRL - Routine Cardiovascular Exam Present: irregular rhythm - Routine Abdominal Exam Present: soft, non distended, non tender - Routine Extremities Exam Absent: cyanosis, clubbing, edema - Routine Neurological Exam Present: alert, oriented X3, CN II-XII intact - Routine Psychiatric Exam Present: normal affect, cooperative, good insight Results - Labs CBC & Chem 7: 12/31/16 22:06 12/31/16 12:01 Assessment and Plan Assessment and Plan: This is a 56 YO female with obesity who came for syncope. Labs show anemia, most likely acute since there was a drop from 8.1 eary on 12/31 to 7.8 on the evening of 12/31. Pt was given 2 U of PRBC with improvement of her symptoms. Last set of orthostatic was normal. DIAGNOSIS 1) Acute Anemia, with syncope - symptoms point to acute anemia H.H is dropping - pt is not agreeable to a transfussion until daughter comes, she was notified. - (DONE PENDING) B12, Folate, Ferritin, retic count, Occult blood in stools. - Gave 2 U of PRBC - Follow seria H/H next one at 10am today - Fall precautions - Continue IV PPI. 2) Syncope could be related to GI bleed. - H Pylori stool Ag ordered. - Hemoccults ordered. Prevention SCD's + PPI Sepsis Assessment - Evaluation Sepsis screening result: No Definite Risk Hospital Course Summary Disclaimer: The visit summary below is not to be considered part of the above Progress Note.
[2017-01-01] MEDS: TIOTROPIUM ORAL INH SCH (09:20)
[2017-01-01] MEDS: HANDIHALER ORAL INH SCH (09:20)
[2017-01-01] MEDS: FLUTICASONE ORAL INH SCH ×2 (09:21→20:08)
[2017-01-01] MEDS: SALMETEROL ORAL INH SCH ×2 (09:21→20:08)
[2017-01-01] MEDS: PANTOPRAZOLE 40 MG INJECTION IVP SCH (09:33)
[2017-01-01] MEDS: SALINE FLUSH 10ml SYRINGE IVF PRN ×2 (09:34→17:31)
[2017-01-01] MEDS: LISINOPRIL 5 MG TABLET PO SCH (09:35)
[2017-01-01] MEDS: FOLIC ACID 1 MG TABLET PO SCH (09:35)
[2017-01-01] MEDS: RANITIDINE 150 MG TABLET PO SCH ×2 (09:35→22:03)
[2017-01-01] MEDS: CYANOCOBALAMIN 1000 MCG PO SCH (09:36)
--- NOTE | 2017-01-01 11:27 | Cardiology Progress Note ---
Subjective Principal diagnosis: Syncope, Anemia, Afib <Dora Mccartyca L - 01/01/17 11:38> Interval history: Pt was transfused 2 units PRBC's yesterday evening. Tele showed a run of Afib RVR yesterday afternoon, converted to SR bigeminy, trigeminy. Pt had a singular episode of dizziness/pre syncope while lying in bed after a 5 min run of trigeminy, prior to blood transfusion. She reports feeling significantly better today, after the PRBC's. ORthostatic vitals stable. Denies dizziness, chest pain , palpitations. LE edema resolved. <Dora Mccartyca L - 01/01/17 11:38> Exam Vital signs: Temperature 97.8 F 01/03/17 11:42 Pulse Rate 60 01/03/17 11:42 Respiratory Rate 18 01/03/17 11:42 Blood Pressure 115/67 01/03/17 11:42 Pulse Oximetry 96 01/03/17 11:42 Oxygen Delivery Method Nasal Cannula Oxygen Flow Rate 3 <Froylan Blanc - 01/06/17 11:16> Temperature 97.0 F 01/01/17 03:00 Pulse Rate 73 01/01/17 10:57 Respiratory Rate 16 01/01/17 09:23 Blood Pressure 102/60 01/01/17 10:57 Pulse Oximetry 98 01/01/17 09:22 Oxygen Delivery Method Nasal Cannula Oxygen Flow Rate 3 <Ximena Mccartyecca L - 01/01/17 11:38> - Constitutional no acute distress <BertramfarzadiXimenaCarlotta L - 01/01/17 11:38> - Routine HEENT Exam Head: Present: normocephalic, atraumatic <BertramfarzadXimena helmsCarlotta L - 01/01/17 11:38> Eye: Present: PERRL, conjunctivae pink <BertramfarzadiCarlotta L - 01/01/17 11:38> - Routine Neck Exam Absent: JVD <BertramfarzadiCarlotta L - 01/01/17 11:38> - Routine Respiratory Exam Present: CTA bilaterally (significantly improved aeration) <LulXimenaCarlotta L - 01/01/17 11:38> - Routine Cardiovascular Exam Present: irregular rhythm <BertramfarzadiCarlotta L - 01/01/17 11:38> - Routine Abdominal Exam Present: soft, normoactive bowel sounds <Carlotta Mccarty - 01/01/17 11:38> - Routine Extremities Exam Present: no edema <Carlotta Mccarty - 01/01/17 11:38> - Routine Skin Exam Present: intact <Carlotta Mccarty - 01/01/17 11:38> - Routine Neurological Exam Present: alert, oriented X3 <Carlotta Mccarty - 01/01/17 11:38> - Routine Psychiatric Exam Present: normal affect <Carlotta Mccarty - 01/01/17 11:38> Hospital Course This is a general summary of the patient's hospital course. For more details refer to the complete medical record. <Froylan Blanc - 01/06/17 11:16> This is a general summary of the patient's hospital course. For more details refer to the complete medical record. Laboratory Results - last 24 hr 12/31/16 12/31/16 12/31/16 12:01 12:01 15:32 WBC 12.5 H RBC 4.30 Hgb 8.1 L Hct 30.1 L MCV 70.0 L MCH 18.8 L MCHC 26.9 L RDW Std Deviation 48.3 Plt Count 259 MPV 11.4 Immature Gran % (Auto) 0.2 Neut % (Auto) 74.8 H Lymph % (Auto) 18.2 L [place] % (Auto) 5.5 Eos % (Auto) 1.1 Baso % (Auto) 0.2 Neut # 9.3 H Lymph # 2.3 [place] # 0.7 Eos # 0.1 Baso # 0.0 Abs Immat Gran (auto) 0.03 Absolute Retic Percent Retic Immature Retic Fraction Retic Hgb Content CHr INR APTT Turbidity < 20 Sodium 141 Potassium 4.0 Chloride 98 Carbon Dioxide 35 H Anion Gap 8 BUN 23.0 H Creatinine 1.2 GFR Calculation 46 BUN/Creatinine Ratio 19 Glucose 97 Calculated Osmolality 275 Calcium 9.6 Magnesium 2.0 Total Bilirubin 0.70 Icterus Index < 2 AST 18 ALT 47 Alkaline Phosphatase 118 Troponin I 0.018 0.016 B-Natriuretic Peptide 647 H Total Protein 6.7 Albumin 4.2 Globulin 2.5 Albumin/Globulin Ratio 1.7 TSH Free T4 Specimen Hemolysis < 15 < 15 Stool Occult Blood Specimen Comment Tests Not Done Reason Tests Not Done Blood Type Antibody Screen Crossmatch ([facility]) Blood Product Request 12/31/16 12/31/16 12/31/16 15:32 15:32 18:42 WBC 11.5 H RBC 4.22 Hgb 7.8 L Hct 29.2 L MCV 69.2 L MCH 18.5 L MCHC 26.7 L RDW Std Deviation 47.4 Plt Count 238 MPV 11.2 Immature Gran % (Auto) 0.2 Neut % (Auto) 71.0 H Lymph % (Auto) 22.2 L [place] % (Auto) 5.4 Eos % (Auto) 1.0 Baso % (Auto) 0.2 Neut # 8.2 H Lymph # 2.6 [place] # 0.6 Eos # 0.1 Baso # 0.0 Abs Immat Gran (auto) 0.02 Absolute Retic 0.1051 H Percent Retic 2.5 H Immature Retic Fraction 17.6 H Retic Hgb Content CHr 20.3 L INR APTT Turbidity Sodium Potassium Chloride Carbon Dioxide Anion Gap BUN Creatinine GFR Calculation BUN/Creatinine Ratio Glucose Calculated Osmolality Calcium Magnesium Total Bilirubin Icterus Index AST ALT Alkaline Phosphatase Troponin I B-Natriuretic Peptide Total Protein Albumin Globulin Albumin/Globulin Ratio TSH Cancelled 0.94 Free T4 Cancelled Specimen Hemolysis Stool Occult Blood Specimen Comment Tests Not Done Reason Tests Not Done Blood Type Antibody Screen Crossmatch ([facility]) Blood Product Request 12/31/16 12/31/16 12/31/16 19:15 19:16 20:27 WBC RBC Hgb Hct MCV MCH MCHC RDW Std Deviation Plt Count MPV Immature Gran % (Auto) Neut % (Auto) Lymph % (Auto) [place] % (Auto) Eos % (Auto) Baso % (Auto) Neut # Lymph # [place] # Eos # Baso # Abs Immat Gran (auto) Absolute Retic Percent Retic Immature Retic Fraction Retic Hgb Content CHr INR Cancelled APTT Cancelled Turbidity Sodium Potassium Chloride Carbon Dioxide Anion Gap BUN Creatinine GFR Calculation BUN/Creatinine Ratio Glucose Calculated Osmolality Calcium Magnesium Total Bilirubin Icterus Index AST ALT Alkaline Phosphatase Troponin I B-Natriuretic Peptide Total Protein Albumin Globulin Albumin/Globulin Ratio TSH Free T4 Specimen Hemolysis Stool Occult Blood Specimen Comment Lab to recollect Tests Not Done Inr Reason Tests Not Done Clotted specimen Blood Type O Positive Antibody Screen Negative Crossmatch ([facility]) See Detail Blood Product Request 12/31/16 12/31/16 12/31/16 22:00 22:06 22:06 WBC RBC Hgb 7.7 L Hct MCV MCH MCHC RDW Std Deviation Plt Count MPV Immature Gran % (Auto) Neut % (Auto) Lymph % (Auto) [place] % (Auto) Eos % (Auto) Baso % (Auto) Neut # Lymph # [place] # Eos # Baso # Abs Immat Gran (auto) Absolute Retic Percent Retic Immature Retic Fraction Retic Hgb Content CHr INR 1.02 APTT 25.4 Turbidity Sodium Potassium Chloride Carbon Dioxide Anion Gap BUN Creatinine GFR Calculation BUN/Creatinine Ratio Glucose Calculated Osmolality Calcium Magnesium Total Bilirubin Icterus Index AST ALT Alkaline Phosphatase Troponin I B-Natriuretic Peptide Total Protein Albumin Globulin Albumin/Globulin Ratio TSH Free T4 Specimen Hemolysis Stool Occult Blood Specimen Comment Tests Not Done Reason Tests Not Done Blood Type Antibody Screen Crossmatch ([facility]) Blood Product Request 1 unit pc issued 01/01/17 01/01/17 01/01/17 03:01 09:19 09:19 WBC RBC Hgb Hct MCV MCH MCHC RDW Std Deviation Plt Count MPV Immature Gran % (Auto) Neut % (Auto) Lymph % (Auto) [place] % (Auto) Eos % (Auto) Baso % (Auto) Neut # Lymph # [place] # Eos # Baso # Abs Immat Gran (auto) Absolute Retic Percent Retic Immature Retic Fraction Retic Hgb Content CHr INR APTT Turbidity Sodium Potassium Chloride Carbon Dioxide Anion Gap BUN Creatinine GFR Calculation BUN/Creatinine Ratio Glucose Calculated Osmolality Calcium Magnesium Total Bilirubin Icterus Index AST ALT Alkaline Phosphatase Troponin I B-Natriuretic Peptide Total Protein Albumin Globulin Albumin/Globulin Ratio TSH Free T4 Specimen Hemolysis Stool Occult Blood Negative Negative Specimen Comment Tests Not Done Reason Tests Not Done Blood Type Antibody Screen Crossmatch ([facility]) Blood Product Request 1 unit pc issued 01/01/17 01/01/17 01/01/17 09:55 09:55 09:55 WBC 10.6 RBC 4.63 Hgb 9.6 L D Hct 33.6 L D MCV 72.6 L MCH 20.7 L MCHC 28.6 L RDW Std Deviation 53.0 H Plt Count 246 MPV 11.3 Immature Gran % (Auto) 0.6 H Neut % (Auto) 77.3 H Lymph % (Auto) 16.0 L [place] % (Auto) 4.4 Eos % (Auto) 1.4 Baso % (Auto) 0.3 Neut # 8.2 H Lymph # 1.7 [place] # 0.5 Eos # 0.2 Baso # 0.0 Abs Immat Gran (auto) 0.06 H Absolute Retic Percent Retic Immature Retic Fraction Retic Hgb Content CHr INR APTT Turbidity < 20 Sodium 140 Potassium 4.7 Chloride 100 Carbon Dioxide 35 H Anion Gap 5 BUN 20.0 H Creatinine 1.2 GFR Calculation 46 BUN/Creatinine Ratio 17 Glucose 133 H Calculated Osmolality 274 Calcium 9.4 Magnesium 2.1 Total Bilirubin 1.10 Icterus Index < 2 AST 21 ALT 36 Alkaline Phosphatase 98 Troponin I 0.018 B-Natriuretic Peptide Total Protein 6.2 L Albumin 3.9 Globulin 2.3 L Albumin/Globulin Ratio 1.7 TSH Free T4 Specimen Hemolysis < 15 < 15 Stool Occult Blood Specimen Comment Tests Not Done Reason Tests Not Done Blood Type Antibody Screen Crossmatch ([facility]) Blood Product Request <Carlotta Mccarty - 01/01/17 11:38> DVT Prophylaxis: SCD's <Carlotta Mccarty - 01/01/17 11:38> Progress Note-A&P (1) Syncope and collapse Problem details: Patient was anemic and transfused with PRBCs Status: Resolved (2) Atrial fibrillation Problem details: Currently in SR, Started on Sotalol for antiarrhythmic therapy Status: Chronic (3) CAD (coronary artery disease), [place] coronary artery Status: Acute (4) COPD (chronic obstructive pulmonary disease) Status: Chronic (5) Anemia Problem details: Iron deficient Status: Resolved <Froylan Blanc - 01/06/17 11:16> (1) Syncope and collapse Status: Acute Assessment and plan: Hospital service, Dr. Kate, working up acute anemia. 2 units of PRBC, occult stool neg. Troponin mildly elevated, trend further. ECHO from 08/2016 shows 60% EF, mildly elevatd Pa pressures, no significant vavlular dz. (2) Atrial fibrillation Status: Chronic Assessment and plan: Not an anticoag candidate 2/2 to anemia. Remain on metoprolol 25mg bid for rate control (3) CAD (coronary artery disease), [place] coronary artery Status: Acute Assessment and plan: risk management, trend troponin, no ischemic ECG changes, (4) COPD (chronic obstructive pulmonary disease) Status: Chronic Assessment and plan: RT therapy, O2/NC prn keep sats >92 (5) Anemia Status: Acute Assessment and plan: underwent transfusion of 2 units of PRBC's, work up per hospitalist team <Carlotta Mccarty - 01/01/17 12:44> - Time Spent With Patient Total time spent is greater than 50% in coordination of care (as documented) at patient's floor/unit and/or counseling patient: <Froylan Blanc - 01/06/17 11:16> Total time spent is greater than 50% in coordination of care (as documented) at patient's floor/unit and/or counseling patient: <Carlotta Mccarty - 01/01/17 11:38> less than 15 minutes <Carlotta Mccarty - 01/01/17 11:38> - Attestation Attestation Narrative: Recommendation After examining the patient I agree with the above assessment. I am involved in the formulation of the patient's plan of care. <Froylan Blanc - 01/06/17 11:16> Sepsis Assessment - Evaluation Sepsis screening result: No Definite Risk <Carlotta Mccarty - 01/01/17 11:38>
[2017-01-01] MEDS: ATORVASTATIN 40 MG TABLET PO SCH (22:10)
[2017-01-02] MEDS: SALINE FLUSH 10ml SYRINGE IVF PRN ×3 (03:36→17:37)
--- NOTE | 2017-01-02 08:00 | Progress Note ---
Subjective: Pt states she is well today, again has been dizzy. She states she has something in her throat (Lambert was told about this by her pulmonary MD) but could not recall. H/H remains stable. Objective Vital signs: Temperature 96.1 F L 01/02/17 07:25 Pulse Rate 84 01/02/17 07:25 Respiratory Rate 24 01/02/17 07:25 Blood Pressure 129/66 01/02/17 07:25 Pulse Oximetry 95 01/02/17 07:25 Oxygen Delivery Method Nasal Cannula Oxygen Flow Rate 3 Rhythm: Normal Sinus Rhythm, Premature Ventricular Contractions Weight: 119.3 kg - Constitutional Present: no acute distress, well developed, obese - Routine HEENT Exam Head: Present: normocephalic, atraumatic Eye: Present: EOMI, PERRL - Routine Respiratory Exam Present: CTA bilaterally - Routine Cardiovascular Exam Present: RRR - Routine Abdominal Exam Present: soft, non distended, non tender - Routine Extremities Exam Absent: cyanosis, clubbing, edema - Routine Neurological Exam Present: alert, oriented X3, CN II-XII intact Results - Labs CBC & Chem 7: 01/02/17 04:19 01/02/17 04:19 Assessment and Plan Assessment and Plan: This is a 56 YO female with obesity who came for syncope. On 12/31 her H.H was dropping rather fast from 8.1 early on 12/31, to 7.8 on the evening of 12/31. At that time pt was dizzy, and her resting HR was 140 with increases to the 170's with minor activity, she was orthostatic. Pt was given 2 U of PRBC with improvement of her symptoms. She states in the past she was given Xarelto and this caused her to have hemoptysis and it was stopped. She denies having any melena, hematochezia, hematuria or any new episodes of hemoptysis. DIAGNOSIS 1) ANEMIA, OF IRON DEFICIENCY ACUTE SUPERIMPOSED ON CHRONIC - Anemia W/U suggests iron deficiency. This lady most likely has chronic blood loss and had acute blood loss as well. Her hemoccult is negative X 1, Would be better to get at least a second sample. Will check CT abdomen and pelvis to R/O occult bleed (retroperitoneal for example) and review her pulmonary MD notes ( Dr Downs @ [facility]). She says she has "Something" in her throat ? not sure if this could be a diverticula ([place] - these can bleed) or a mass ? - B12 and Folate normal - Iron is LOW at 21 - TIBC 412 (N) - Saturation - 5% - Ferritin -10.5 - S/P transfussion of 2 U of PRBC (01/01) - Continue IV PPI. - CT abd/pelvis - Follow up another H.H in the PM - if stable may consider D/C after review of Dr Downs records and CT report. - Prior to pt leaving arrangements should be made for elective EGD/Colonoscopy and if needed small jenna endoscopy (Virtual - capsule study) 2) Syncope could be related to GI bleed. - H Pylori stool Ag ordered. - Hemoccults X 1 NEGATIVE. 3) BS is going up will observe, pt denies H.O DM. Prevention SCD's + PPI Sepsis Assessment - Evaluation Sepsis screening result: No Definite Risk Hospital Course Summary Disclaimer: The visit summary below is not to be considered part of the above Progress Note.
[2017-01-02] MEDS: HANDIHALER ORAL INH SCH (08:24)
[2017-01-02] MEDS: TIOTROPIUM ORAL INH SCH (08:24)
[2017-01-02] MEDS: FLUTICASONE ORAL INH SCH ×2 (08:30→19:28)
[2017-01-02] MEDS: SALMETEROL ORAL INH SCH ×2 (08:30→19:28)
[2017-01-02] MEDS ORDERED: POLYETHYL GLYCOL 3350 17gm PACKET PO SCH ×2 (09:00→11:30)
--- NOTE | 2017-01-02 09:05 | CT Scan Report ---
Indication: Check for occult bleed. PROCEDURE: CT abdomen pelvis wo con: Encounter: Initial Comparison: CT abdomen dated June 15, 2013 Technique: Axial CT images were performed through the abdomen and pelvis without intravenous contrast. Coronal and sagittal two-dimensional reformats. Automated Exposure Control and Iterative Reconstruction dose reducing techniques were utilized. Findings: Mild atelectasis in the lower lobes of pleural scarring in the left lower lobe. The liver shows no contour deforming mass. Prominent gallstone within the gallbladder. Small hiatal hernia. The spleen is unremarkable. The pancreas is fatty replaced. The adrenal glands are normal. Kidneys are stable with a left renal cyst. No abdominal or pelvic lymphadenopathy. The bladder is within normal limits. Uterus and ovaries are normal for age. No free fluid or hemorrhage seen within the abdomen or pelvis. Sigmoid diverticulosis without evidence of acute diverticulitis. No evidence of a bowel obstruction. Bone windows are unremarkable. Impression: No evidence of abdominal or pelvic hemorrhage. No acute disease process seen. .
[2017-01-02] MEDS: LISINOPRIL 5 MG TABLET PO SCH (09:35)
[2017-01-02] MEDS: PANTOPRAZOLE 40 MG INJECTION IVP SCH (09:36)
[2017-01-02] MEDS: FOLIC ACID 1 MG TABLET PO SCH (09:36)
[2017-01-02] MEDS: RANITIDINE 150 MG TABLET PO SCH ×2 (09:36→21:14)
[2017-01-02] MEDS: CYANOCOBALAMIN 1000 MCG PO SCH (09:37)
[2017-01-02] MEDS ORDERED: POLYETHYL GLYCOL 3350 17gm PACKET PO PRN (11:22)
--- NOTE | 2017-01-02 13:56 | Cardiology Progress Note ---
Subjective Principal diagnosis: Syncope, Anemia, Afib <Angeline Bell 01/02/17 14:01> Interval history: Britt was seen in her room on [facility]. States she is feeling much better but is concerned where she is bleeding. Tele shows a run of Afib RVR, converted to SR bigeminy, trigeminy. Denies dizziness, chest pain, palpitations. LE edema resolved. <Angeline Bell 01/02/17 14:01> Exam Vital signs: Temperature 97.8 F 01/03/17 11:42 Pulse Rate 60 01/03/17 11:42 Respiratory Rate 18 01/03/17 11:42 Blood Pressure 115/67 01/03/17 11:42 Pulse Oximetry 96 01/03/17 11:42 Oxygen Delivery Method Nasal Cannula Oxygen Flow Rate 3 <Froylan Blanc - 01/06/17 11:20> Temperature 98.3 F 01/02/17 11:41 Pulse Rate 93 01/02/17 11:39 Respiratory Rate 24 01/02/17 11:41 Blood Pressure 129/64 01/02/17 11:39 Pulse Oximetry 95 01/02/17 11:41 Oxygen Delivery Method Nasal Cannula Oxygen Flow Rate 3 <Angeline Bell 01/02/17 14:01> - Constitutional no acute distress, obese, cooperative <Angeline Bell [facility] 01/02/17 14:01> - Routine HEENT Exam ENT: Present: mucous membranes moist <Angeline Bell 01/02/17 14:01> - Routine Neck Exam Absent: JVD, carotid bruit <Angeline Bell 01/02/17 14:01> - Routine Chest/Breast/Axilla Exam Chest wall: Absent: tenderness <Angeline Bell 01/02/17 14:01> - Routine Respiratory Exam Present: CTA bilaterally. Absent: rales, wheezes <Angeline Bell 01/02/17 14:01> - Routine Cardiovascular Exam Present: no murmur. Absent: irregular rhythm <Angeline Bell 01/02/17 14:01 > - Routine Abdominal Exam Present: soft, non tender <Angeline Bell 01/02/17 14:01> - Routine Extremities Exam Absent: edema <Angeline Bell - 01/02/17 14:01> - Routine Skin Exam Present: intact <Angeline Bell - 01/02/17 14:01> - Routine Neurological Exam Present: alert, oriented X3 <Angeline Bell - 01/02/17 14:01> - Routine Psychiatric Exam Present: normal affect, normal thought process <Angeline Bell - 01/02/17 14: 01> Hospital Course This is a general summary of the patient's hospital course. For more details refer to the complete medical record. <Froylan Blanc - 01/06/17 11:20> This is a general summary of the patient's hospital course. For more details refer to the complete medical record. <Angeline Bell - 01/02/17 14:01> Hospital course: 12/31/16 Pt was placed in a tele bed, tele showed AFib rate as high at 160, converting to SR w/bigeminal and trigeminal runs. Breathing tx intiated. Monitor, orthostatic vital signs. Acute anemia, will consult hospitalist, Dr. Kate, thank you. Not an anticoagulant candidate 2/2 anemia, continue home metoprolol for rate control. Consider AAT if persistent. Hold ASA due to acute anemia. 01/01/17 Hospital service, Dr. Kate, working up acute anemia. 2 units of PRBC, occult stool neg. ECHO from 08/2016 shows 60% EF, mildly elevatd Pa pressures, no significant vavlular dz. no ischemic ECG changes, Not an anticoag candidate 2/2 to anemia. Remain on metoprolol 25mg bid for rate control 01/02/17 Change Metoprolol to Sotalol 40mg BID. EKG now and again in the morning. Will need continuous telemetry monitoring overnight due to pro-arrhythmic effects of Sotalol. May discharge tomorrow if HGB stable <Angeline Bell - 01/02/17 14:01> Progress Note-A&P (1) Syncope and collapse Problem details: Patient was anemic and transfused with PRBCs Status: Resolved (2) Atrial fibrillation Problem details: Currently in SR, Started on Sotalol for antiarrhythmic therapy Status: Chronic (3) CAD (coronary artery disease), [place] coronary artery Status: Acute (4) COPD (chronic obstructive pulmonary disease) Status: Chronic (5) Anemia Problem details: Iron deficient Status: Resolved <Froylan Blanc - 01/06/17 11:20> (1) Syncope and collapse Status: Acute (2) Atrial fibrillation Status: Chronic Assessment and plan: Change Metoprolol to Sotalol 40mg BID. EKG now and again in the morning. Will need continuous telemetry monitoring overnight due to pro-arrhythmic effects of Sotalol. May discharge tomorrow if HGB stable (3) CAD (coronary artery disease), [place] coronary artery Status: Acute (4) COPD (chronic obstructive pulmonary disease) Status: Chronic (5) Anemia Status: Acute <Angeline Bell - 01/03/17 13:00> - Time Spent With Patient Total time spent is greater than 50% in coordination of care (as documented) at patient's floor/unit and/or counseling patient: <Froylan Blanc - 01/06/17 11:20> Total time spent is greater than 50% in coordination of care (as documented) at patient's floor/unit and/or counseling patient: <Angeline Bell - 01/02/17 14:01> less than 15 minutes <Angeline Bell - 01/03/17 13:00> - Attestation Attestation Narrative: Recommendation After examining the patient I agree with the above assessment. I am involved in the formulation of the patient's plan of care. <Froylan Blanc 01/06/17 11:20> Sepsis Assessment - Evaluation Sepsis screening result: No Definite Risk <Angeline Bell - 01/02/17 14:01>
[2017-01-02] MEDS: SOTALOL 80 MG TABLET PO SCH ×2 (14:19→17:36)
[2017-01-02] MEDS: MULTI-VITAMIN + MINERAL TABLET PO SCH (14:20)
--- NOTE | 2017-01-02 14:52 | Echocardiogram ---
DATE OF PROCEDURE December 31, 2016 This is a two-dimensional echo with spectral Doppler, color-flow and M-mode. It was obtained in a patient with edema and shortness of breath. Left atrial dimension is normal. Left ventricle end-diastolic dimension is normal. Left ventricle wall thickness is normal. LV systolic function is normal with ejection fraction of 70%. Right atrium is normal. Right ventricle is normal. Aortic root dimension is normal. Mitral, aortic, tricuspid, and pulmonary valves are morphologically normal with trace of mitral and trace of tricuspid regurgitation with normal estimated pulmonary artery systolic pressure of 19. There is no pericardial effusion. IMPRESSION 1. Normal LV systolic function with ejection fraction of 70%. 2. Trace of mitral regurgitation. 3. Trace of tricuspid regurgitation with normal estimated pulmonary artery systolic pressure of 19. MTDD
--- NOTE | 2017-01-02 16:58 | XRay Report ---
INDICATION: Check for infiltrates ? of alveolar hemorrhage PROCEDURE: CHEST 2-VIEWS UPRIGHT (PA & LAT) Encounter: Initial COMPARISON: December 31, 2016 FINDINGS: The lungs are stable in appearance. No new airspace disease. There is no pleural effusion or pneumothorax. The heart size, mediastinal contours and pulmonary vascularity are unchanged. IMPRESSION: Stable chest without acute cardiopulmonary disease. .
[2017-01-02] MEDS: FERROUS SULFATE 324 MG TABLET PO SCH (17:36)
[2017-01-02] MEDS: ATORVASTATIN 40 MG TABLET PO SCH (21:14)
[2017-01-02] MEDS: MELATONIN 1 MG TABLET PO SCH (21:14)
[2017-01-03] MEDS: SALINE FLUSH 10ml SYRINGE IVF PRN ×2 (05:39→10:04)
[2017-01-03] MEDS: SOTALOL 80 MG TABLET PO SCH (05:39)
[2017-01-03] MEDS: HANDIHALER ORAL INH SCH (07:08)
[2017-01-03] MEDS: TIOTROPIUM ORAL INH SCH (07:08)
[2017-01-03 07:41] VITALS: RESP 18
[2017-01-03] MEDS: FLUTICASONE ORAL INH SCH (09:09)
[2017-01-03] MEDS: SALMETEROL ORAL INH SCH (09:09)
[2017-01-03] MEDS: FERROUS SULFATE 324 MG TABLET PO SCH (09:56)
[2017-01-03] MEDS: FOLIC ACID 1 MG TABLET PO SCH (09:56)
[2017-01-03] MEDS: PANTOPRAZOLE 40 MG INJECTION IVP SCH (09:57)
[2017-01-03] MEDS: MULTI-VITAMIN + MINERAL TABLET PO SCH (09:57)
[2017-01-03] MEDS: LISINOPRIL 5 MG TABLET PO SCH (09:57)
[2017-01-03] MEDS: CYANOCOBALAMIN 1000 MCG PO SCH (09:57)
[2017-01-03] MEDS: RANITIDINE 150 MG TABLET PO SCH (09:57)
--- NOTE | 2017-01-03 11:15 | Progress Note ---
<Farzana Rivera V - Last Filed: 01/03/17 11:12> Subjective: Ruthie is seen today in follow up. She is up at side of bed and states that she had some double vision earlier this morning following Sotolol dose however it has now resolved. She had similar symptoms yesterday with Sotolol. Denies feeling lightheaded,dizzy, chest pain or other symptoms. Her bowels have moved several times today however she states this is normal. Pulse noted 50-60's. Objective Vital signs: Temperature 95.9 F L 01/03/17 07:39 Pulse Rate 59 L 01/03/17 08:00 Respiratory Rate 18 01/03/17 07:39 Blood Pressure 126/69 01/03/17 07:39 Pulse Oximetry 94 01/03/17 07:39 Oxygen Delivery Method Nasal Cannula Oxygen Flow Rate 3 Rhythm: Sinus Bradycardia Weight: 119.7 kg - Constitutional Present: no acute distress - Routine HEENT Exam Head: Present: normocephalic, atraumatic Eye: Present: EOMI, PERRL ENT: Present: mucous membranes moist - Routine Respiratory Exam Present: CTA bilaterally - Routine Cardiovascular Exam Present: RRR, S1, S2 - Routine Abdominal Exam Present: soft, normoactive bowel sounds - Routine Extremities Exam Present: full ROM - Routine Back/Spine/Pelvis Exam Back/Spine: Present: full ROM - Routine Skin Exam Present: intact, dry, warm - Routine Neurological Exam Present: alert, oriented X3, CN II-XII intact - Routine Psychiatric Exam Present: normal affect Results - Labs CBC & Chem 7: 01/03/17 04:15 01/03/17 04:15 Assessment and Plan Assessment and Plan: 01/03/17 Cardiac care as per Dr Blanc Anemia- Hgb remains stable at 9.0. Received 2 units of PRBCs on 01/01. Hemocult stool x2 negative. B12 and Folate normal, Iron is LOW at 21 Continue PO Iron BID Continue PPI for GI protection H-Pylori pending Recommend follow up with PCP for CBC on sunday 01/07. Also discuss with PCP regarding scheduling EGD/Colonoscopy for further workup in the outpatinet setting Continue with chronic oxygen, Spiriva and albuterol inhaler use Prevention- SCD's + PPI Pt verbalizes her wish to discharge today Sepsis Assessment - Evaluation Sepsis screening result: No Definite Risk Hospital Course Summary Disclaimer: The visit summary below is not to be considered part of the above Progress Note. Hospital Course: 12/31/16 Pt was placed in a tele bed, tele showed AFib rate as high at 160, converting to SR w/bigeminal and trigeminal runs. Breathing tx intiated. Monitor, orthostatic vital signs. Acute anemia, will consult hospitalist, Dr. Kate, thank you. Not an anticoagulant candidate 2/2 anemia, continue home metoprolol for rate control. Consider AAT if persistent. Hold ASA due to acute anemia. 01/01/17 Hospital service, Dr. Kate, working up acute anemia. 2 units of PRBC, occult stool neg. ECHO from 08/2016 shows 60% EF, mildly elevatd Pa pressures, no significant vavlular dz. no ischemic ECG changes, Not an anticoag candidate 2/2 to anemia. Remain on metoprolol 25mg bid for rate control 01/02/17 Change Metoprolol to Sotalol 40mg BID. EKG now and again in the morning. Will need continuous telemetry monitoring overnight due to pro-arrhythmic effects of Sotalol. May discharge tomorrow if HGB stable 01/03/17 Cardiac care as per Dr Balnc Anemia- Hgb remains stable at 9.0. Received 2 units of PRBCs on 01/01. Hemocult stool x2 negative. B12 and Folate normal, Iron is LOW at 21 Continue PO Iron BID Continue PPI for GI protection H-Pylori pending Recommend follow up with PCP for CBC on sunday 01/07. Also discuss with PCP regarding scheduling EGD/Colonoscopy for further workup in the outpatinet setting Continue with chronic oxygen, Spiriva and albuterol inhaler use Prevention- SCD's + PPI <Giselle Torres - Last Filed: 01/03/17 17:11> Objective Vital signs: Temperature 97.8 F 01/03/17 11:42 Pulse Rate 60 01/03/17 11:42 Respiratory Rate 18 01/03/17 11:42 Blood Pressure 115/67 01/03/17 11:42 Pulse Oximetry 96 01/03/17 11:42 Oxygen Delivery Method Nasal Cannula Oxygen Flow Rate 3 Results - Labs CBC & Chem 7: 01/03/17 04:15 01/03/17 04:15 Assessment and Plan (1) CAD (coronary artery disease), [place] coronary artery Status: Acute (2) Vasovagal syncope Status: Acute (3) Atrial fibrillation Problem details: Currently in SR, Started on Sotalol for antiarrhythmic therapy Status: Chronic (4) COPD (chronic obstructive pulmonary disease) Status: Chronic (5) Anemia Problem details: Iron deficient Status: Resolved (6) Syncope and collapse Problem details: Patient was anemic and transfused with PRBCs Status: Resolved Assessment and Plan: I have independently evaluated and examined this patient. I reviewed the chart, the patient's history, and the RN ONCOLOGY's documented findings as above. We discussed and formulated the assessment and plan as above with additions as below: Mrs. Craft describes increased drowsiness and mild diplopia yesterday evening and today which worsens after doses of sotalol. In retrospect she thinks she was sleepy than usual yesterday morning which would precede initiation of sotalol but she doesn't recall the visual symptoms. She denies focal weakness or numbness in her arms or legs. She been able to ambulate to and from the bathroom. Gaze is conjugate and pupils are round and symmetric. EOMI with patient describing increasing difficulty with blurring of vision and some double vision on far right and far left gaze. No nystagmus is present. Facial structures are symmetric, tongue midline. [employer] are symmetric and the patient is able to raise each knee off the ground with symmetric power. Respirations nonlabored, good airflow, breath sounds clear. Hemoglobin stable following transfusion, further outpatient evaluation as described above. Continue iron supplement twice a day. Mild bradycardia-heart rate around 60. If persistent excessive fatigue and visual changes may need to reconsider sotalol or dose. Stable for discharge from my perspective. Hospital Course Summary Disclaimer: The visit summary below is not to be considered part of the above Progress Note.
[2017-01-03 11:43] VITALS: BP 115/67; PULSE 60; TEMP 97.8; O2SAT 96
--- NOTE | 2017-01-03 14:05 | Discharge Summary ---
<Angeline Bell - Last Filed: 01/03/17 14:18> Discharge Information Date of admission: 01/01/17 11:15 Anticipated date of discharge: 01/03/17 Attending Physician: Froylan Blanc MD Primary care physician: Renetta Denney APRN - Discharge Diagnosis (1) Syncope and collapse Problem Details: Patient was anemic and transfused with PRBCs Status: Resolved (2) Atrial fibrillation Qualifiers: Atrial fibrillation type: paroxysmal Qualified Code(s): I48.0 - Paroxysmal atrial fibrillation Problem Details: Currently in SR, Started on Sotalol for antiarrhythmic therapy Status: Chronic (3) CAD (coronary artery disease), [place] coronary artery Status: Acute (4) COPD (chronic obstructive pulmonary disease) Status: Chronic (5) Anemia Status: Resolved - Laboratory Labs: 01/03/17 04:15 01/03/17 04:15 Laboratory Results - last 48 hr 12/31/16 01/01/17 01/01/17 18:42 17:48 22:20 WBC RBC Hgb 9.5 L Hct MCV MCH MCHC RDW Std Deviation Plt Count MPV Immature Gran % (Auto) Neut % (Auto) Lymph % (Auto) [place] % (Auto) Eos % (Auto) Baso % (Auto) Neut # Lymph # [place] # Eos # Baso # Abs Immat Gran (auto) Neutrophils % (Manual) Band Neutrophils % Lymphocytes % (Manual) Monocytes % (Manual) Eosinophils % (Manual) Neutrophils # (Manual) Band Neutrophils # Lymphocytes # (Manual) Monocytes # (Manual) Eosinophils # (Manual) Nucleated RBCs RBC Morph Comment Haptoglobin Turbidity Sodium Potassium Chloride Carbon Dioxide Anion Gap BUN Creatinine GFR Calculation BUN/Creatinine Ratio Glucose Calculated Osmolality Calcium Magnesium Iron 21 L TIBC 412 % Saturation 5 L Ferritin 10.5 L Total Bilirubin Icterus Index AST ALT Alkaline Phosphatase Lactate Dehydrogenase Total Protein Albumin Globulin Albumin/Globulin Ratio Vitamin B12 > 1000 H Folate > 20.0 H Specimen Hemolysis Ur Collection Type Urine, clean catch Urine Color Yellow Urine Clarity Clear Urine pH 6.5 Ur Specific [place] 1.010 L Urine Protein Negative Urine Glucose (UA) Negative Urine Ketones Negative Urine Occult Blood Negative Urine Nitrate Negative Urine Bilirubin Negative Urine Urobilinogen 0.2 Ur Leukocyte Esterase Negative Urinalysis Comment Microscopic not ind. 01/02/17 01/02/17 01/02/17 04:15 04:19 04:19 WBC 9.6 RBC 4.45 Hgb 9.1 L Hct 32.7 L MCV 73.5 L MCH 20.4 L MCHC 27.8 L RDW Std Deviation 53.5 H Plt Count 232 MPV 12.0 Immature Gran % (Auto) Not performed Neut % (Auto) Not performed Lymph % (Auto) Not performed [place] % (Auto) Not performed Eos % (Auto) Not performed Baso % (Auto) Not performed Neut # Not performed Lymph # Not performed Kim[place] # Not performed Eos # Not performed Baso # Not performed Abs Immat Gran (auto) Not performed Neutrophils % (Manual) 69.0 H Band Neutrophils % 3.0 Lymphocytes % (Manual) 20.0 L Monocytes % (Manual) 5.0 Eosinophils % (Manual) 3.0 Neutrophils # (Manual) 6.6 Band Neutrophils # 0.3 Lymphocytes # (Manual) 1.9 Monocytes # (Manual) 0.5 Eosinophils # (Manual) 0.3 Nucleated RBCs 1 RBC Morph Comment Abnormal Haptoglobin Turbidity < 20 Sodium 137 Potassium 4.1 Chloride 99 Carbon Dioxide 35 H Anion Gap 3 L BUN 17.0 Creatinine 1.2 GFR Calculation 46 BUN/Creatinine Ratio 14 Glucose 127 H Calculated Osmolality 268 Calcium 9.3 Magnesium Iron TIBC % Saturation Ferritin Total Bilirubin 0.50 Icterus Index < 2 AST 20 ALT 40 Alkaline Phosphatase 95 Lactate Dehydrogenase 769 H Total Protein 5.8 L Albumin 3.6 Globulin 2.2 L Albumin/Globulin Ratio 1.6 Vitamin B12 Folate Specimen Hemolysis < 15 Ur Collection Type Urine Color Urine Clarity Urine pH Ur Specific [place] Urine Protein Urine Glucose (UA) Urine Ketones Urine Occult Blood Urine Nitrate Urine Bilirubin Urine Urobilinogen Ur Leukocyte Esterase Urinalysis Comment 01/02/17 01/02/17 01/03/17 11:12 15:41 04:15 WBC 8.9 9.4 RBC 4.55 4.46 Hgb 9.5 L 9.0 L Hct 33.6 L 33.2 L MCV 73.8 L 74.4 L MCH 20.9 L 20.2 L MCHC 28.3 L 27.1 L RDW Std Deviation 54.7 H 55.7 H Plt Count 258 244 MPV 11.2 11.8 Immature Gran % (Auto) Neut % (Auto) Lymph % (Auto) [place] % (Auto) Eos % (Auto) Baso % (Auto) Neut # Lymph # [place] # Eos # Baso # Abs Immat Gran (auto) Neutrophils % (Manual) Band Neutrophils % Lymphocytes % (Manual) Monocytes % (Manual) Eosinophils % (Manual) Neutrophils # (Manual) Band Neutrophils # Lymphocytes # (Manual) Monocytes # (Manual) Eosinophils # (Manual) Nucleated RBCs RBC Morph Comment Haptoglobin 162 Turbidity Sodium Potassium Chloride Carbon Dioxide Anion Gap BUN Creatinine GFR Calculation BUN/Creatinine Ratio Glucose Calculated Osmolality Calcium Magnesium Iron TIBC % Saturation Ferritin Total Bilirubin Icterus Index AST ALT Alkaline Phosphatase Lactate Dehydrogenase Total Protein Albumin Globulin Albumin/Globulin Ratio Vitamin B12 Folate Specimen Hemolysis Ur Collection Type Urine Color Urine Clarity Urine pH Ur Specific [place] Urine Protein Urine Glucose (UA) Urine Ketones Urine Occult Blood Urine Nitrate Urine Bilirubin Urine Urobilinogen Ur Leukocyte Esterase Urinalysis Comment 01/03/17 04:15 WBC RBC Hgb Hct MCV MCH MCHC RDW Std Deviation Plt Count MPV Immature Gran % (Auto) Neut % (Auto) Lymph % (Auto) [place] % (Auto) Eos % (Auto) Baso % (Auto) Neut # Lymph # [place] # Eos # Baso # Abs Immat Gran (auto) Neutrophils % (Manual) Band Neutrophils % Lymphocytes % (Manual) Monocytes % (Manual) Eosinophils % (Manual) Neutrophils # (Manual) Band Neutrophils # Lymphocytes # (Manual) Monocytes # (Manual) Eosinophils # (Manual) Nucleated RBCs RBC Morph Comment Haptoglobin Turbidity < 20 Sodium 139 Potassium 4.5 Chloride 98 Carbon Dioxide 35 H Anion Gap 6 BUN 16.0 Creatinine 1.1 GFR Calculation 51 BUN/Creatinine Ratio 15 Glucose 112 H Calculated Osmolality 270 Calcium 9.5 Magnesium 2.1 Iron TIBC % Saturation Ferritin Total Bilirubin Icterus Index < 2 AST ALT Alkaline Phosphatase Lactate Dehydrogenase Total Protein Albumin Globulin Albumin/Globulin Ratio Vitamin B12 Folate Specimen Hemolysis < 15 Ur Collection Type Urine Color Urine Clarity Urine pH Ur Specific [place] Urine Protein Urine Glucose (UA) Urine Ketones Urine Occult Blood Urine Nitrate Urine Bilirubin Urine Urobilinogen Ur Leukocyte Esterase Urinalysis Comment - Radiology Radiology: Date of Exam: 01/02/17 Ordering Provider: Anand Kate MD Type of Exam(s): CT abdomen pelvis wo con Reason for Exam(s): Check for occult bleed. Indication: Check for occult bleed. PROCEDURE: CT abdomen pelvis wo con: Encounter: Initial Comparison: CT abdomen dated June 15, 2013 Technique: Axial CT images were performed through the abdomen and pelvis without intravenous contrast. Coronal and sagittal two-dimensional reformats. Automated Exposure Control and Iterative Reconstruction dose reducing techniques were utilized. Findings: Mild atelectasis in the lower lobes of pleural scarring in the left lower lobe. The liver shows no contour deforming mass. Prominent gallstone within the gallbladder. Small hiatal hernia. The spleen is unremarkable. The pancreas is fatty replaced. The adrenal glands are normal. Kidneys are stable with a left renal cyst. No abdominal or pelvic lymphadenopathy. The bladder is within normal limits. Uterus and ovaries are normal for age. No free fluid or hemorrhage seen within the abdomen or pelvis. Sigmoid diverticulosis without evidence of acute diverticulitis. No evidence of a bowel obstruction. Bone windows are unremarkable. Impression: No evidence of abdominal or pelvic hemorrhage. No acute disease process seen. Date of Exam: 01/02/17 Ordering Provider: Anand Kate MD Type of Exam(s): XR chest 2V Reason for Exam(s): Check for infiltrates ? of alveolar hemorrhage INDICATION: Check for infiltrates ? of alveolar hemorrhage PROCEDURE: CHEST 2-VIEWS UPRIGHT (PA & LAT) Encounter: Initial COMPARISON: December 31, 2016 FINDINGS: The lungs are stable in appearance. No new airspace disease. There is no pleural effusion or pneumothorax. The heart size, mediastinal contours and pulmonary vascularity are unchanged. IMPRESSION: Stable chest without acute cardiopulmonary disease. History of Present Illness HPI: This is a 56-year-old female well known to Dr. Blanc service, she presented the emergency department with a chief complaint of 2 syncopal episodes earlier today and 3 last week. Patient did not suffer any trauma or injury. Patient denies any pain or discomfort. [facility] when she had her 2nd syncopal episode and was transferred to [facility] via EMS. Patient has a history of coronary artery disease with stent placement in the past and a history of AFIB. She was on Pradaxa but it was DC'd approximately 3 months ago for hemoptysis and recommended to f/u with PCP for work up. Patient also notes bilateral lower extremity edema which is symmetric, onset 1 month ago. She has exertional SOA that is baseline for her. Patient uses chronic home oxygen at 3 L nasal cannula. Hospital Course This is a general summary of the patient's hospital course. For more details refer to the complete medical record. Hospital course: 12/31/16 Pt was placed in a tele bed, tele showed AFib rate as high at 160, converting to SR w/bigeminal and trigeminal runs. Breathing tx intiated. Monitor, orthostatic vital signs. Acute anemia, will consult hospitalist, Dr. Kate, thank you. Not an anticoagulant candidate 2/2 anemia, continue home metoprolol for rate control. Consider AAT if persistent. Hold ASA due to acute anemia. 01/01/17 Hospital service, Dr. Ktae, working up acute anemia. 2 units of PRBC, occult stool neg. ECHO from 08/2016 shows 60% EF, mildly elevatd Pa pressures, no significant vavlular dz. no ischemic ECG changes, Not an anticoag candidate 2/2 to anemia. Remain on metoprolol 25mg bid for rate control 01/02/17 Change Metoprolol to Sotalol 40mg BID. EKG now and again in the morning. Will need continuous telemetry monitoring overnight due to pro-arrhythmic effects of Sotalol. May discharge tomorrow if HGB stable. 01/03/17 Discharged to home with appointment for Holter monitor, prescriptions for 3 repeat CBCs, on Saturday, then 1 week and 3 weeks. Instructed to follow up with PCP regarding anemia Exam Vital signs: Temperature 97.8 F 01/03/17 11:42 Pulse Rate 60 01/03/17 11:42 Respiratory Rate 18 01/03/17 11:42 Blood Pressure 115/67 01/03/17 11:42 Pulse Oximetry 96 01/03/17 11:42 Oxygen Delivery Method Nasal Cannula Oxygen Flow Rate 3 - Constitutional no acute distress, obese, cooperative - Routine HEENT Exam ENT: Present: mucous membranes moist - Routine Neck Exam Absent: JVD, carotid bruit - Routine Chest/Breast/Axilla Exam Chest wall: Absent: tenderness - Routine Respiratory Exam Present: CTA bilaterally. Absent: rales, crackles - Routine Cardiovascular Exam Present: irregular rhythm. Absent: no murmur - Routine Abdominal Exam Present: soft, normoactive bowel sounds - Routine Extremities Exam Present: edema (LE) - Routine Skin Exam Present: intact - Routine Neurological Exam Present: alert, oriented X3 - Routine Psychiatric Exam Present: normal affect, normal thought process Results 01/03/17 04:15 01/03/17 04:15 CBC 01/02/17 01/03/17 Range/Units 15:41 04:15 WBC 8.9 9.4 (4.5-11.0) T/MM3 RBC 4.55 4.46 (4.00-5.20) M/MM3 Hgb 9.5 L 9.0 L (12-16) GM/DL Hct 33.6 L 33.2 L (36-46) % Plt Count 258 244 (130-400) T/MM3 Comprehensive Metabolic Panel 01/03/17 Range/Units 04:15 Sodium 139 (134-144) MEQ/L Potassium 4.5 (3.6-5) MEQ/L Chloride 98 (98-107) MEQ/L Carbon Dioxide 35 H (22-30) MEQ/L BUN 16.0 (7-17) MG/DL Creatinine 1.1 (0.7-1.2) MG/DL Glucose 112 H (65-110) MG/DL Calcium 9.5 (8.4-10.2) MG/DL Intake and Output 01/02/17 01/03/17 01/03/17 22:59 06:59 14:59 Intake Total 550 / 550 500 / 500 790 / 790 Output Total 450 / 450 650 / 650 925 / 925 Balance 100 / 100 -150 / -150 -135 / -135 Intake: Oral 550 / 550 500 / 500 790 / 790 Output: Urine 450 / 450 650 / 650 925 / 925 Other: # Voids 1 1 # Bowel Movements 1 Weight 263 lb 14.293 oz Patient Weight 01/04/17 06:59 Weight 263 lb 14.293 oz - Imaging and Cardiology EKG results: image reviewed - EKG Interpretation EKG: sinus rhythm (QT/QTc 374/389) Discharge Plan - Med Rec/Dispo Referrals/Follow Up: Froylan Blanc MD [Physician] - 01/04/17 2:00 pm [place] Instructions: Syncope (DC) Additional Instructions: Please check lab on Saturday, then in 1 week and 3 weeks, Follow up with PCP FOR A FOLLOW-UP EGD/COLONOSCOPY. Have 24H Holter monitor placed tomorrow at 2:00pm and then follow up on 01/18/17 at 9:20 Prescriptions: New Sotalol [Betapace] 40 mg PO ACBID #60 tablet Continue Furosemide 40 mg PO DAILY #0 Atorvastatin Calcium 40 mg PO HS #0 Lisinopril 5 mg PO DAILY #0 tab Fluticasone/Salmeterol [Advair 250-50 Diskus] 1 puff INH BID #0 Pantoprazole Sodium 40 mg PO DAILY #0 Cholecalciferol (Vitamin D3) [Vitamin D3] 2,000 unit PO DAILY #0 Melatonin 15 mg PO HS Folic Acid [Folate] 1 mg PO DAILY Acetaminophen [Arthritis Pain Relief] 1,300 mg PO TID PRN PRN Reason: Pain Albuterol Sulfate [Ventolin Hfa] 2 puff INH Q4-6HR PRN #0 PRN Reason: Prn Orders Potassium Chloride 20 meq PO DAILY #0 tab Aspirin 81 mg PO DAILY #0 raNITIdine HCl [Ranitidine HCl] 150 mg PO BID #0 Cyanocobalamin (Vitamin B-12) [B-12] 1,000 mcg PO DAILY #0 Nitroglycerin 0.4 mg SL Q5MIN3 PRN PRN Reason: Chest Pain Tiotropium Handihaler [Spiriva] 1 cap INH DAILY Discontinued Metoprolol Tartrate 25 mg PO BIDWM #0 - Disposition 01 Discharged Home, Self-Care <Froylan Blanc - Last Filed: 01/06/17 11:24> Discharge Information Date of admission: 01/01/17 11:15 Attending Physician: Froylan Blanc MD Primary care physician: Renetta Denney, TECHNICAL TRAINING MANAGER - Discharge Diagnosis (1) Syncope and collapse Problem Details: Patient was anemic and transfused with PRBCs Status: Resolved (2) Atrial fibrillation Qualifiers: Atrial fibrillation type: paroxysmal Qualified Code(s): I48.0 - Paroxysmal atrial fibrillation Problem Details: Currently in SR, Started on Sotalol for antiarrhythmic therapy Status: Chronic (3) CAD (coronary artery disease), [place] coronary artery Status: Acute (4) COPD (chronic obstructive pulmonary disease) Status: Chronic (5) Anemia Problem Details: Iron deficient Status: Resolved - Laboratory Labs: 01/03/17 04:15 01/03/17 04:15 Hospital Course This is a general summary of the patient's hospital course. For more details refer to the complete medical record. Exam Vital signs: Temperature 97.8 F 01/03/17 11:42 Pulse Rate 60 01/03/17 11:42 Respiratory Rate 18 01/03/17 11:42 Blood Pressure 115/67 01/03/17 11:42 Pulse Oximetry 96 01/03/17 11:42 Oxygen Delivery Method Nasal Cannula Oxygen Flow Rate 3 Results 01/03/17 04:15 01/03/17 04:15 Discharge Plan - Med Rec/Dispo - Attestation Attestation Narrative: 01/06/17 11:24 Recommendation After examining the patient I agree with the above assessment. I am involved in the formulation of the patient's plan of care.
== END 2017-01-03 16:12 | disposition home or self-care (01) | DRG 812 ==
LOC: ED 11:22 → SRG 11:22
PROVIDERS: ADMIT Internal Medicine Cardiovascular Disease; ATTEND Internal Medicine Cardiovascular Disease

== ENCOUNTER 2017-02-20 07:39 | Inpatient (IN) ==
[2017-02-20 08:12] VITALS: BMI 43.4
[2017-02-20] MEDS: LR 1,000 ML IV SCH ×2 (09:05→12:15)
--- NOTE | 2017-02-20 09:23 | Anesthesia Preoperative Report ---
Anesthesia Preoperative Record - Date and Time Date: 02/20/17 Preoperative Diagnosis: C scope/EGD D50.9 Proposed Procedure: EGD, colonoscopy NPO Since Date: 02/19/17 NPO Since Time: 23:00 Allergies/Adverse Reactions: Allergies Allergy/AdvReac Type Severity Reaction Status Date / Time No Known Allergies Allergy Verified 12/31/16 11:58 - Vital Signs Vital Signs: Temperature 97.7 F 02/20/17 08:11 Pulse Rate 70 02/20/17 08:44 Respiratory Rate 19 02/20/17 08:11 Blood Pressure 138/67 02/20/17 08:11 Pulse Oximetry 93 02/20/17 08:11 Oxygen Delivery Method Nasal Cannula Oxygen Flow Rate 3 Height and Weight: Height 5 ft 6 in Weight 122 kg Body Mass Index 43.4 - Medications Inpatient Medications: Current Medications Lactated Ringer's (Lactated Ringers) 1,000 mls @ 50 mls/hr IV .Q20H NIGEL Last Admin: 02/20/17 09:05 Dose: 50 mls/hr Lidocaine HCl (Xylocaine-Mpf 1% Vial) 1 mg ID O ONE Stop: 02/20/17 15:38 Last Admin: 02/20/17 09:05 Dose: 1 mg Home Medications: Home Medications Medication Instructions Recorded Confirmed Type Albuterol Sulfate [Ventolin Hfa] 2 puff INH Q4-6HR PRN #0 02/19/12 02/20/17 History Atorvastatin Calcium 40 mg PO HS #0 07/20/14 02/20/17 History Furosemide 40 mg PO DAILY #0 07/20/14 02/20/17 History Potassium Chloride 20 meq PO DAILY #0 tab 07/20/14 02/20/17 History Aspirin 81 mg PO DAILY #0 10/24/16 02/20/17 History Cholecalciferol (Vitamin D3) 2,000 unit PO DAILY #0 10/24/16 02/20/17 History [Vitamin D3] Cyanocobalamin (Vitamin B-12) 2 tab PO DAILY #0 10/24/16 02/20/17 History [B-12] Fluticasone/Salmeterol [Advair 1 puff INH BID #0 10/24/16 02/20/17 History 250-50 Diskus] Pantoprazole Sodium 40 mg PO DAILY #0 10/24/16 02/20/17 History Acetaminophen [Arthritis Pain 1,300 mg PO TID PRN 12/31/16 02/20/17 History Relief] Melatonin 5 mg PO HS 12/31/16 02/20/17 History Nitroglycerin 0.4 mg SL Q5MIN3 PRN 12/31/16 02/20/17 History Tiotropium Handihaler [Spiriva] 1 cap INH DAILY 12/31/16 02/20/17 History Metoprolol Tartrate [Lopressor] 25 mg PO BID 02/20/17 02/20/17 History PredniSONE [Deltasone] 10 mg PO DAILY 02/20/17 02/20/17 History Ropinirole [Requip] 0.25 mg PO HS 02/20/17 02/20/17 History Is Patient on Beta Hood?: No - Medical History Respiratory: Reports: Asthma, Chronic Obstructive Pulmonary Disease (COPD) (3L O2 at all times, + SOB with exertion) Cardiovascular: Reports: Angina (hx), Coronary Artery Disease, Myocardial Infarction (2013 stent- asymptomatic since ) Gastrointestional: Reports: Gastroesophageal Reflux Disease, Gastrointestinal Bleeding Neuro/Musculoskeletal: Denies: Cerebrovascular Accident, Seizures Other History: DENIES: Anesthesia Reactions - Surgical History HEENT Surgeries: Reports: Ear Surgery (HX CHILD) Cardiac Surgeries/Treatments: Reports: Cardiac Catheterization (2014) Respiratory Surgery/Treatments: Reports: Oxygen Administration (CONTINUOUS 3L O2 ) Reproductive Surgery/Treatment: Reports: Section, Tubal Ligation Anesthesia Reactions: None Hx Family Anesthesia Reaction: No History of Motion Sickness: No - Social History Smoking Status: Former smoker Hx Chewing Tobacco Use: No Second Hand Exposure: No Substance Use Type: does not use - Physical Exam Respiratory Exam: Present: wheezing (slight- pt denies SOB and states this is her norm. Took neb tx this am) Cardiovascular Exam: Present: regular rate and rhythm - Airway Assessment Mallampati Score: II TMD: 3 Fingerbreadths Neck Extension: good Teeth: upper dentures (left at home) Overall Assessment: may be difficult mask vent - ASA ASA Score: 3 - Plan Anesthesia: General TIVA - Discussion Discussion: Discussed risks/options/alternatives of anesthesia and questions answered. Patient consents. Nursing pain assessment noted. Present for Discussion: family member Attestation Statement: Prior to the delivery of any anesthetic medication, I examined the patient, developed the plan, obtained the patient's consent and discussed the risk and benefits of the procedure with the patient/guardian. - Additional Information Seen by Anesthesia: Yes
[2017-02-20] MEDS ORDERED: PROPOFOL 500 MG/50 ML VIAL IV ONE ×2 (09:52→09:53)
[2017-02-20] MEDS ORDERED: LIDOCAINE VISCOUS 2% ORAL LIQUID 15ml ONE (10:51)
[2017-02-20] MEDS ORDERED: ESMOLOL 100 MG/10 ML INJECTION IVP ONE (11:51)
[2017-02-20] MEDS ORDERED: CETACAINE SPRAY 20 G ONE (12:02)
[2017-02-20] MEDS ORDERED: Ipratropium Inh NEB 0.02% (0.5mg/2.5ml) AEROSOL PRN (12:40)
--- NOTE | 2017-02-20 13:03 | General Surgery Procedure Note ---
Date of Procedure: 02/20/17 Surgeon: Guanako Anesthesia: General TIVA ASA Score: 3 Postoperative Diagnosis: Hiatal hernia, multiple colon polyps, possible submucosal mass of ascending colon, iron deficiency anemia Procedure: EGD, Colonoscopy with polypectomies and biopsies Complications: A-fib with RVR during procedure. Difficulty maintaining O2 sats with lung problems.
[2017-02-20] MEDS ORDERED: AMIODARONE 150 MG in NS 100 ML IV ONE (14:00)
[2017-02-20] MEDS ORDERED: FLUMAZENIL 0.5mg/5ml INJECTION IVP ONE (14:17)
[2017-02-20] MEDS ORDERED: FentaNYL 100 MCG/2 ML INJECTION IVP ONE (14:17)
[2017-02-20] MEDS ORDERED: MIDAZOLAM 2mg/2ml INJECTION IVP ONE (14:17)
--- NOTE | 2017-02-20 14:23 | Cardiology History & Physical ---
History of Present Illness Chief complaint: atrial fibrillation HPI: Ruthie is a 56 year old patient who is well known to Dr. Blanc's practice who has a history of syncope and collapse, atrial fibrillation, CAD, COPD and anemia who underwent a colonoscopy earlier today by Dr. Mujica and was then found to be in A Fib RVR in the recovery room. She remained NPO and after obtaining consent from next of kin, she was given sedation and direct cardioversion was successful to convert to sinus rhythm. She is placed in CCU for observation and antiarrhythmic therapy on Sotalol. Review of Systems - Constitutional Constitutional: Absent: chills, fever(s) - EENMT Eyes: Present: change in vision Balance: Absent: vertigo Mouth/Throat: Absent: sore throat - Cardiovascular Cardiovascular: Present: palpitations, edema. Absent: syncope Vascular: Present: pedal edema - Respiratory Respiratory: Present: cough, dyspnea, wheezing - Gastrointestinal Gastrointestinal: Absent: diarrhea, nausea, vomiting - Genitourinary Genitourinary: Absent: dysuria - Integumentary/Breasts Integumentary: Absent: rash - Neurological Neurological: Present: numbness. Absent: dizziness, headache(s) - Endocrine Endocrine: Present: heat intolerance - Hematologic/Lymphatic Hematologic/Lymphatic: Present: easy bruising PFSH Patient Stated Medical History Cerebrovascular Accident No Seizures No Hearing Loss Angina Yes: hx Cardiac Arrhythmia Yes: paroxysmal atril fib Coronary Artery Disease Yes Hypertension Yes Hypotension No Myocardial Infarction Yes: 2013 stent- asymptomatic since Other Cardiology Yes: STENT PLACED IN 2013 Asthma Yes Bronchitis Yes Chronic Obstructive Pulmonary Yes: 3L O2 at all times, + SOB with exertion Disease (COPD) Pneumonia Yes Sleep Apnea No Diabetes Mellitus Type 1 No Diabetes Mellitus Type 2 No Gastroesophageal Reflux Yes Disease Gastrointestinal Bleeding Yes Hepatitis Yes: TORIBIO Hx Incontinence Yes Anemia Yes Anesthesia Reactions No Blood Transfusions Yes: no reaction Depression Yes Panic Disorder No Post Menopausal Yes Now No Clinic Medical History Hypoxemia (Chronic Medical) Screener Operator: Dr. Paul Willard 3L ON Restless leg syndrome (Chronic Medical) Bronchitis (Acute Medical) Nonalcoholic steatohepatitis (TORIBIO) (Chronic Medical) Myocardial infarct (Resolved Medical 10/2013) Iron deficiency anemia (Acute Medical) Diagnosed 12/31/2016 - treated with transfusion 2 units pRBCs. Depression (Chronic Medical) Hypertension (Chronic Medical) High cholesterol (Chronic Medical) Syncope and collapse (Chronic Medical) Patient was anemic and transfused with PRBCs Atrial fibrillation (Chronic Medical) Currently in SR, Started on Sotalol for antiarrhythmic therapy CAD (coronary artery disease), king salmon coronary artery (Chronic Medical) Stenting of LAD 11/28/2013 COPD (chronic obstructive pulmonary disease) (Chronic Medical) Hearing loss of right ear (Chronic Medical) Surgical History: * Cardiac catheterization with stent placement in LAD - [address] Perez at [facility] [place]. Medtronic Resolute Integrity RX stent. * Heart cath - 02/20/2012. * Right ear surgery - 1959. * section - 07/27/1988. * section - 04/18/1984 Family History: Family History Daughter Cervical cancer Mother Heart attack High blood pressure Father Cancer - Social History Smoking status: Former smoker Substance use type: does not use Alcohol intake frequency: a few times a month Household members: spouse Current occupational status: disabled Does patient use chewing tobacco?: No Medications Home Medications Medication Instructions Recorded Confirmed Type Albuterol Sulfate [Ventolin Hfa] 2 puff INH Q4-6HR PRN #0 02/19/12 02/20/17 History Atorvastatin Calcium 40 mg PO HS #0 07/20/14 02/20/17 History Furosemide 40 mg PO DAILY #0 07/20/14 02/20/17 History Potassium Chloride 20 meq PO DAILY #0 tab 07/20/14 02/20/17 History Aspirin 81 mg PO DAILY #0 10/24/16 02/20/17 History Cholecalciferol (Vitamin D3) 2,000 unit PO DAILY #0 10/24/16 02/20/17 History [Vitamin D3] Cyanocobalamin (Vitamin B-12) 2 tab PO DAILY #0 10/24/16 02/20/17 History [B-12] Fluticasone/Salmeterol [Advair 1 puff INH BID #0 10/24/16 02/20/17 History 250-50 Diskus] Pantoprazole Sodium 40 mg PO DAILY #0 10/24/16 02/20/17 History Acetaminophen [Arthritis Pain 1,300 mg PO TID PRN 12/31/16 02/20/17 History Relief] Melatonin 5 mg PO HS 12/31/16 02/20/17 History Nitroglycerin 0.4 mg SL Q5MIN3 PRN 12/31/16 02/20/17 History Tiotropium Handihaler [Spiriva] 1 cap INH DAILY 12/31/16 02/20/17 History Metoprolol Tartrate [Lopressor] 25 mg PO BID 02/20/17 02/20/17 History PredniSONE [Deltasone] 10 mg PO DAILY 02/20/17 02/20/17 History Ropinirole [Requip] 0.25 mg PO HS 02/20/17 02/20/17 History Allergies Allergy/AdvReac Type Severity Reaction Status Date / Time No Known Allergies Allergy Verified 12/31/16 11:58 Exam Vital signs: Temperature 97.6 F 02/20/17 12:25 Pulse Rate 93 02/20/17 14:15 Respiratory Rate 30 H 02/20/17 14:15 Blood Pressure 133/71 02/20/17 14:15 Pulse Oximetry 95 02/20/17 14:15 Oxygen Delivery Method BiPAP Oxygen Flow Rate 15 - Constitutional mild distress, morbidly obese, cooperative - Routine HEENT Exam Head: Present: normocephalic ENT: Present: mucous membranes moist - Routine Neck Exam Absent: JVD, carotid bruit - Routine Chest/Breast/Axilla Exam Chest wall: Absent: tenderness - Routine Respiratory Exam Present: decreased breath sounds, wheezes (bilateral). Absent: CTA bilaterally - Routine Cardiovascular Exam Present: RRR, no murmur. Absent: JVD - Routine Abdominal Exam Present: soft, normoactive bowel sounds - Routine Extremities Exam Present: edema - Routine Skin Exam Present: intact, dry, warm - Routine Neurological Exam Present: alert, oriented X3 - Routine Psychiatric Exam Present: normal affect, normal thought process Results 02/21/17 05:25 02/21/17 05:25 Intake and Output 02/19/17 02/20/17 02/20/17 22:59 06:59 14:59 Intake Total 1000 / 1000 Balance 1000 / 1000 Intake: IV 1000 / 1000 Lactated Ringers 1,000 ml 1000 / 1000 @ 50 mls/hr IV .Q20H [facility] Rx#:[id number] Other: # Voids 1 Weight 268 lb 15.423 oz Patient Weight 02/21/17 06:59 Weight 268 lb 15.423 oz Laboratory Results - last 48 hr 02/20/17 02/20/17 02/20/17 08:42 09:15 15:41 Glucometer 118 112 Magnesium 1.8 Specimen Hemolysis < 15 Laboratory Results - last 48 hr 02/20/17 02/20/17 02/20/17 08:42 09:15 15:41 Glucometer 118 112 Magnesium 1.8 Specimen Hemolysis < 15 Laboratory Results - last 48 hr 02/20/17 02/20/17 02/20/17 08:42 09:15 15:41 Glucometer 118 112 Magnesium 1.8 Troponin I 0.026 TSH 1.00 Specimen Hemolysis < 15 - Imaging and Cardiology EKG results: image reviewed - EKG Interpretation EKG: sinus rhythm (occasional PVCs) EKG interpretations - EKG EKG results cardiology: sinus rhythm - Dysrhythmias Ventricular dysrhythmias: ventricular premature complexes Hospital Course This is a general summary of the patient's hospital course. For more details refer to the complete medical record. Time spent with patient: 25 - 35 minutes Assessment and Plan (1) Atrial fibrillation with RVR Problem details: acute on chronic Current visit: Yes Status: Acute S/P DCCV, started on Sotalol. Now sinus with frequent PACs and occasional PVCs. Continue to monitor cardiac telemetry and repeat EKG in the morning. Patient underwent colonoscopy without active bleeding, HGB 11.1 today, will start Lovenox and monitor for worsening anemia. (2) Hypoxemia Problem details: Screener Operator: Dr. Paul Willard 3L ON Current visit: No Status: Chronic Continue Bi-Pap, (3) CAD (coronary artery disease), king salmon coronary artery Problem details: Stenting of LAD 11/28/2013 Current visit: No Status: Chronic (4) COPD (chronic obstructive pulmonary disease) Current visit: No Status: Chronic (5) Hypertension Current visit: No Status: Chronic Continue home Lasix (6) High cholesterol Current visit: No Status: Chronic - Attestation Attestation Narrative: 02/21/17 14:50 Recommendation After examining the patient I agree with the above assessment. I am involved in the formulation of the patient's plan of care. Sepsis Assessment - Evaluation Sepsis screening result: No Definite Risk
--- NOTE | 2017-02-20 14:42 | DC Cardioversion ---
DATE OF PROCEDURE February 20, 2017 INDICATIONS The patient is a 56-year-old lady who had colonoscopy and during colonoscopy this morning she went into atrial fibrillation and was referred for DC cardioversion. INFORMED CONSENT Informed consent was obtained after explaining the procedure and the potential risks to the patient who agreed to proceed with the procedure. PROCEDURE 1. DC cardioversion. Conscious sedation was performed using Versed and fentanyl. Anterior-posterior Zoll pads were applied. 360 joules of energy was delivered in synchronized manner and patient converted from atrial fibrillation to sinus rhythm. She tolerated the procedure well with no complications. IMPRESSION 1. Successful DC cardioversion of atrial fibrillation to sinus rhythm. PLAN Will start her on anticoagulation and start her on antiarrhythmics to maintain sinus. MARTHAD
[2017-02-20] MEDS ORDERED: AMIODARONE 900 MG in NS 500ml 500 ML IV SCH (14:45)
[2017-02-20] MEDS ORDERED: LIDOCAINE 1% (10mg/ml) 2mL INJ PF SDV ID ONE (15:37)
--- NOTE | 2017-02-20 16:03 | XRay Report ---
Indication: atrial fibrillation PROCEDURE: XR chest 1V: Encounter: Initial Comparison: January 02, 2017 Findings: New airspace consolidation in the left mid to lower lung field. Right lung appears stable and grossly clear. No pneumothorax. No obvious pleural effusion. Heart size and mediastinal contours are stable. Pulmonary vascularity is slightly indistinct. Impression: New airspace consolidation in the left lung could be due to pneumonia, aspiration or atelectasis. .
[2017-02-20] MEDS: SOTALOL 80 MG TABLET PO SCH (16:10)
[2017-02-20] MEDS ORDERED: ALBUTEROL 2.5mg/3ml (0.083%) NEB AEROSOL PRN (17:11)
[2017-02-20] MEDS ORDERED: NITROGLYCERIN 0.4 MG SUBLINGUAL TABLET SL PRN (17:11)
--- NOTE | 2017-02-20 17:51 | Anesthesia Postoperative Note ---
- Date and Time Date: 02/20/17 Time: 17:50 - Status Patient Participated in Evaluation: Other (questioned RN) Vital Signs: Temperature 97.2 F 02/20/17 14:19 Pulse Rate 83 02/20/17 16:30 Respiratory Rate 27 H 02/20/17 16:30 Blood Pressure 161/74 H 02/20/17 16:30 Pulse Oximetry 95 02/20/17 16:30 Oxygen Delivery Method BiPAP Oxygen Flow Rate 50 Fraction of Inspired Oxygen 50 SaO2/FiO2 Ratio 182 Respiratory Function: Airway Patent (currently resting with BiPAP) Cardiovascular Function: Irregular Pulse (SR with ectopic beats) Mental Status: Alert and Oriented (per RN) Pain Intensity: 0 Unable to Assess Pain Due to: Patient Sleeping Hydration: Taking PO Fluids Complications During Recover: None Apparent - Follow-Up Instructions Instructions: Per Surgeon
[2017-02-20] MEDS ORDERED: MELATONIN 5 MG TABLET PO SCH (21:00)
[2017-02-20] MEDS: ATORVASTATIN 40 MG TABLET PO SCH (22:57)
[2017-02-20] MEDS: MELATONIN 5 MG TABLET PO SCH (22:59)
[2017-02-20] MEDS: ROPINIROLE 0.25 MG TABLET PO SCH (23:00)
[2017-02-21] MEDS: SOTALOL 80 MG TABLET PO SCH (06:12)
[2017-02-21] MEDS: PANTOPRAZOLE 40 MG TABLET PO SCH (06:12)
[2017-02-21] MEDS ORDERED: FUROSEMIDE 40 MG/4 ML INJECTION IVP ONE (07:15)
[2017-02-21] MEDS: TIOTROPIUM 18mcg/cap HANDIHALER ORAL INH SCH (08:16)
[2017-02-21] MEDS: ASPIRIN 81 MG CHEWABLE TABLET PO SCH (10:58)
[2017-02-21] MEDS: CYANOCOBALAMIN (B-12) 500mcg TABLET PO SCH (10:58)
[2017-02-21] MEDS: PredniSONE 10 MG TABLET PO SCH (10:59)
[2017-02-21] MEDS: FUROSEMIDE 40 MG TABLET PO SCH (10:59)
[2017-02-21] MEDS ORDERED: DiltiaZEM 25 MG/5 ML INJECTION IVP ONE (11:20)
[2017-02-21] MEDS ORDERED: DiltiaZEM Drip 125 MG in NS 100 ML IV SCH (12:00)
[2017-02-21] MEDS: ENOXAPARIN 120 MG/0.8 ML INJECTION SQ SCH ×2 (12:30→21:43)
--- NOTE | 2017-02-21 13:40 | Consult Note ---
<Farzana Rivera V - Last Filed: 02/21/17 14:10> Consult Information - Data of Consult Patient: known to practice within the last 3 years Consult date: 02/21/17 Requesting Physician: Froylan Blanc MD Primary Care Provider: Renetta Denney APRN - Consult Narrative Reason for consult: hypoxia History of present illness: Ruthie is a 56 yr old female who is known to the hospitalist service from admission in December 2016 at which time she had a syncopal episode and was found to be anemic. During that hospitalization, she did receive a blood transfusion and hemoglobin was monitored. She was scheduled for a outpatient colonoscopy yesterday 02/20/17 and the care of Dr. Mujica. Postoperatively in the recovery room. She was found to be in atrial fibrillation with RVR and was then admitted to the ICU under care of Dr. Blanc. She underwent a direct cardioversion that was successful and was monitored on Sotalol overnight. It is reported that both during the procedure as well as in PACU yesterday she required manual Bagging with BVM for adequate oxygenation. Overnight she refused to use Bi-pap due to feeling claustrophobic. An ABG was ordered this morning revealing a pH of 7.360, pCO2 78, pO2 58, bicarbonate 44. While off Bi- pap she is requiring 12 liters of oxygen by nasal cannula to maintain saturations. Given continuing and worsening respiratory needs. The hospitalist services were consulted by cardiology team for further evaluation and treatment. Ruthie is seen in the ICU while eating lunch. She is currently on 12 liters with mild respiratory distress during conversation. She denies having any pain on examination. [facility] Medical History Chronic Hypoxemia-Uses 3 L chronically ( Online Marketing Director: Dr. Paul Willard Nonalcoholic steatohepatitis (TORIBIO) Myocardial infarct-10/2013 Iron deficiency anemia-12/31/2016 - treated with transfusion 2 units pRBCs. Depression Hypertension Hypercholesterolemia Atrial fibrillation CAD- resighini coronary artery Stenting of LAD 11/28/2013 COPD (chronic obstructive pulmonary disease) GERD RLS Hearing loss of right ear-chronic Depression Surgical History: * Cardiac catheterization with stent placement in LAD - [address] Perez at [facility]. Medtronic Resolute Integrity RX stent. * Heart cath - 02/20/2012. * Right ear surgery reconstruction - 1959. * section - 07/27/1988. 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 Blanc Review of Systems Comprehensive ROS: completed and no additional positive findings except those as stated - Cardiovascular Cardiovascular: Present: dyspnea on exertion, orthopnea Medications Home Medications Medication Instructions Recorded Confirmed Type Albuterol Sulfate [Ventolin Hfa] 2 puff INH Q4-6HR PRN #0 02/19/12 02/20/17 History Atorvastatin Calcium 40 mg PO HS #0 07/20/14 02/20/17 History Furosemide 40 mg PO DAILY #0 07/20/14 02/20/17 History Potassium Chloride 20 meq PO DAILY #0 tab 07/20/14 02/20/17 History Aspirin 81 mg PO DAILY #0 10/24/16 02/20/17 History Cholecalciferol (Vitamin D3) 2,000 unit PO DAILY #0 10/24/16 02/20/17 History [Vitamin D3] Cyanocobalamin (Vitamin B-12) 2 tab PO DAILY #0 10/24/16 02/20/17 History [B-12] Fluticasone/Salmeterol [Advair 1 puff INH BID #0 10/24/16 02/20/17 History 250-50 Diskus] Pantoprazole Sodium 40 mg PO DAILY #0 10/24/16 02/20/17 History Acetaminophen [Arthritis Pain 1,300 mg PO TID PRN 12/31/16 02/20/17 History Relief] Melatonin 5 mg PO HS 12/31/16 02/20/17 History Nitroglycerin 0.4 mg SL Q5MIN3 PRN 12/31/16 02/20/17 History Tiotropium Handihaler [Spiriva] 1 cap INH DAILY 12/31/16 02/20/17 History Metoprolol Tartrate [Lopressor] 25 mg PO BID 02/20/17 02/20/17 History PredniSONE [Deltasone] 10 mg PO DAILY 02/20/17 02/20/17 History Ropinirole [Requip] 0.25 mg PO HS 02/20/17 02/20/17 History Allergies Allergy/AdvReac Type Severity Reaction Status Date / Time No Known Allergies Allergy Verified 12/31/16 11:58 Exam Vital Signs: Temperature 99.3 F 02/21/17 04:00 Pulse Rate 120 H 02/21/17 12:00 Respiratory Rate 39 H 02/21/17 11:45 Blood Pressure 107/72 02/21/17 11:00 Pulse Oximetry 99 02/21/17 11:30 Oxygen Delivery Method High Flow Nasal Cannula Oxygen Flow Rate 8 Fraction of Inspired Oxygen 12 SaO2/FiO2 Ratio 182 Telemetry Rhythm: A-fib with RVR Height/Weight/BMI: Height 1.68 m Weight 122 kg Body Mass Index 43.4 - Constitutional Present: mild distress, obese - Routine HEENT Exam Head: Present: normocephalic (Right ear defect and reconstruction with deafness) Eye: Present: EOMI ENT: Present: mucous membranes moist - Routine Neck Exam Present: supple, full ROM - Routine Respiratory Exam Present: wheezes, crackles (coarse breath sounds bilateral bases) - Routine Cardiovascular Exam Present: S1, S2, irregular rhythm (atrial fibrillation, RVR) - Routine Abdominal Exam Present: soft, normoactive bowel sounds - Routine Extremities Exam Present: full ROM - Routine Back/Spine/Pelvis Exam Back/Spine: Present: full ROM - Routine Skin Exam Present: intact, dry, warm - Routine Neurological Exam Present: alert, oriented X3, moving all extremities CN 3-12 intact - Routine Psychiatric Exam Present: normal affect, normal thought process Results - Labs CBC & Chem 7: 02/21/17 05:25 02/21/17 05:25 - ABG Interpretation ABG results: 02/21/17 10:47 ABG pH 7.360 ABG pCO2 78 H* ABG pO2 58 L ABG HCO3 44 H ABG Total CO2 46.5 H ABG O2 Saturation 89.0 L ABG Base Excess 15.1 H Assessment and Plan (1) Atrial fibrillation with RVR Problem details: acute on chronic Current visit: Yes Status: Acute (2) Acute respiratory failure with hypoxia Current visit: Yes Status: Acute DVT Prophylaxis: Lovenox Resuscitation Status: Full Code Assessment and Plan: Impression Acute respiratory failure with known chronic hypoxia COPD with chronic oxygen dependence Atrial fibrillation with rapid ventricular rate Coronary artery disease Anemia Hypertension Hypercholesterolemia Plan Continue cardiac care as per Dr. Blanc. Unfortunately, patient did go into atrial fibrillation RVR this morning. Currently on Cardizem drip. Chest x-ray reviewed, there is concern for infiltrate versus atelectasis. Given the patient did have respiratory decline yesterday requiring manual bagging Postoperatively, accompanied with increased leukocytosis and increased oxygen needs. Will cover patient for possible aspiration pneumonia. Have ordered Unasym 3 gm IV BID for antimicrobial coverage. Given the pulmonary complexity will place consultation to Dr Frye for his expertise. Did place albuterol on hold as this can influence increased heart rate. Can utilize scheduled Xopenex. Lovenox 120 twice a day for anticoagulation Monitor routine labs. Hemoglobin remained stable at 10.5. Colon Polypectomy performed yesterday, pathology pending. Appreciate medical consultation. The hospitalist services will continue to follow patient medically manage her existing comorbidities. At time of discharge her medical care will return to her primary care provider, Renetta Darling APRN at [facility] Course Summary Disclaimer: The visit summary below is not to be considered part of the above Progress Note. Hospital Course: 02/21/17 14:09 Impression Acute respiratory failure with known chronic hypoxia COPD with chronic oxygen dependence Atrial fibrillation with rapid ventricular rate Coronary artery disease Anemia Hypertension Hypercholesterolemia Plan Continue cardiac care as per Dr. Blanc. Unfortunately, patient did go into atrial fibrillation RVR this morning. Currently on Cardizem drip. Chest x-ray reviewed, there is concern for infiltrate versus atelectasis. Given the patient did have respiratory decline yesterday requiring manual bagging Postoperatively, accompanied with increased leukocytosis and increased oxygen needs. Will cover patient for possible aspiration pneumonia. Have ordered Unasym 3 gm IV BID for antimicrobial coverage. Given the pulmonary complexity will place consultation to Dr Frye for his expertise. Did place albuterol on hold as this can influence increased heart rate. Can utilize scheduled Xopenex. Lovenox 120 twice a day for anticoagulation Monitor routine labs. Hemoglobin remained stable at 10.5. Colon Polypectomy performed yesterday, pathology pending. Appreciate medical consultation. The hospitalist services will continue to follow patient medically manage her existing comorbidities. At time of discharge her medical care will return to her primary care provider, Renetta Darling APRN at [facility] Sepsis Assessment - Evaluation Sepsis screening result: No Definite Risk <Giselle Torres - Last Filed: 02/21/17 16:29> Consult Information - Data of Consult Requesting Physician: Froylan Blanc MD Primary Care Provider: Renetta Denney APRN [facility] Patient Stated Medical History Cerebrovascular Accident No Seizures No Hearing Loss Angina Yes: hx Cardiac Arrhythmia Yes: paroxysmal atril fib Coronary Artery Disease Yes Hypertension Yes Hypotension No Myocardial Infarction Yes: 2013 stent- asymptomatic since Other Cardiology Yes: STENT PLACED IN 2013 Asthma Yes Bronchitis Yes Chronic Obstructive Pulmonary Yes: 3L O2 at all times, + SOB with exertion Disease (COPD) Pneumonia Yes Sleep Apnea No Diabetes Mellitus Type 1 No Diabetes Mellitus Type 2 No Gastroesophageal Reflux Yes Disease Gastrointestinal Bleeding Yes Hepatitis Yes: TORIBIO Hx Incontinence Yes Anemia Yes Anesthesia Reactions No Blood Transfusions Yes: no reaction Depression Yes Panic Disorder No Post Menopausal Yes Now No Clinic Medical History Hypoxemia (Chronic Medical) Online Marketing Director: Dr. Paul Willard 3L ON Restless leg syndrome (Chronic Medical) Bronchitis (Acute Medical) Nonalcoholic steatohepatitis (TORIBIO) (Chronic Medical) Myocardial infarct (Resolved Medical 10/2013) Iron deficiency anemia (Acute Medical) Diagnosed 12/31/2016 - treated with transfusion 2 units pRBCs. Depression (Chronic Medical) Hypertension (Chronic Medical) High cholesterol (Chronic Medical) Syncope and collapse (Chronic Medical) Patient was anemic and transfused with PRBCs Atrial fibrillation (Chronic Medical) Currently in SR, Started on Sotalol for antiarrhythmic therapy CAD (coronary artery disease), resighini coronary artery (Chronic Medical) Stenting of LAD 11/28/2013 COPD (chronic obstructive pulmonary disease) (Chronic Medical) Hearing loss of right ear (Chronic Medical) Family History: Family History (Last Reviewed 02/21/17 @ 11:37 by Hesham Beltran, SPIN TABLE OPERATOR) Daughter Cervical cancer Mother Heart attack High blood pressure Father Cancer Exam Vital Signs: Temperature 99.3 F 02/21/17 04:00 Pulse Rate 120 H 02/21/17 12:00 Respiratory Rate 22 02/21/17 15:56 Blood Pressure 107/72 02/21/17 11:00 Pulse Oximetry 92 02/21/17 15:56 Oxygen Delivery Method BiPAP Oxygen Flow Rate 8 Fraction of Inspired Oxygen 50 SaO2/FiO2 Ratio 184 Height/Weight/BMI: Height 1.68 m Weight 122.7 kg Body Mass Index 43.4 Results - Labs CBC & Chem 7: 02/21/17 05:25 02/21/17 05:25 Microbiology Results: Microbiology 02/21/17 14:55 Sputum, Expectorated Gram Stain - Final 02/21/17 14:55 Sputum, Expectorated Sputum Culture - Preliminary Culture Initiated - Results Pending - ABG Interpretation ABG results: 02/21/17 10:47 ABG pH 7.360 ABG pCO2 78 H* ABG pO2 58 L ABG HCO3 44 H ABG Total CO2 46.5 H ABG O2 Saturation 89.0 L ABG Base Excess 15.1 H Assessment and Plan (1) Acute and chronic respiratory failure with hypoxia Current visit: Yes Status: Acute (2) Acute and chronic respiratory failure with hypercapnia Current visit: Yes Status: Acute (3) Atrial fibrillation with RVR Problem details: acute on chronic Current visit: Yes Status: Acute Assessment and Plan: I have independently evaluated and examined this patient. I reviewed the chart, the patient's history, and the METAL FILER/PA's documented findings as above. We discussed and formulated the assessment and plan as above with additions as below: Mrs. Craft is an obese female who underwent endoscopic studies as described yesterday for evaluation of an deficiency anemia. She required ventilatory assistance during the procedures. Her DPOA is at bedside and reports that the patient has had a chronic cough typically productive of clear sputum although for several days secretions of been slightly discolored and today have been "nasty". The patient is somnolent having received lorazepam prior to midline placement prior to my arrival and does not awaken to respond to questions. DPOA is not aware of any emesis yesterday prior to, during, or after the procedures. She indicated the patient had a recent MRI of the brain demonstrating significant sinusitis for which ENT follow-up as scheduled early next week. Study is not available for review in the [facility] EMR. Hypoxia was identified yesterday with identification of hypercarbia (compensated) by blood gases morning. The patient moans slightly to exam but does not participate otherwise. Temperature 99.3 Breath sounds are diminished with faint rhonchi and wheezing at the posterior lateral left lung field. Cardiac rhythm is regular with sinus rhythm now demonstrated on telemetry. Trace edema bilateral lower extremities Leukocytosis noted in addition to previously described blood gas abnormalities. Chest x-ray reviewed by myself-infiltrate at the left base from prior film last admission. Patient has known chronic hypoxic respiratory failure typically on 3 L. Blood gas clearly is compatible with chronic hypercarbia which may be slightly worse now than at baseline. BiPAP is being utilized. Probable obesity hypoventilation syndrome. Dr. Frye consulted and case discussed with him. Plans reviewed with Dr. Blanc earlier today. Patient is high risk for aspiration during endoscopic procedures yesterday empirically covered with Unasyn. Sputum culture to be obtained. Morbid obesity-BMI 43.7 and acute on chronic hypoxic/hypercarbic respiratory failure should be added to list of impressions. Hospital Course Summary Disclaimer: The visit summary below is not to be considered part of the above Progress Note.
--- NOTE | 2017-02-21 13:56 | Cardiology Progress Note ---
Subjective Principal diagnosis: A Fib RVR <Angeline Bell - 02/21/17 13:58> Interval history: Ruthie is seen in her room in CCU, her [id number] is at the bedside. Explained to the patient that her heart is likely responding to the issues with the lungs when is returned to atrial fibrillation earlier this morning. She denies chest pain or feeling palpitations. <Angeline Bell - 02/22/17 11:58> Exam Vital signs: Temperature 96.5 F L 02/25/17 03:43 Pulse Rate 99 02/25/17 08:35 Respiratory Rate 15 02/25/17 11:50 Blood Pressure 147/89 H 02/25/17 07:33 Pulse Oximetry 96 02/25/17 07:33 Oxygen Delivery Method Nasal Cannula,High Flow Nasal Cannula Oxygen Flow Rate 6 Fraction of Inspired Oxygen 40 SaO2/FiO2 Ratio 184 <Froylan Blanc - 02/25/17 15:15> Temperature 99.3 F 02/21/17 04:00 Pulse Rate 120 H 02/21/17 12:00 Respiratory Rate 39 H 02/21/17 11:45 Blood Pressure 107/72 02/21/17 11:00 Pulse Oximetry 99 02/21/17 11:30 Oxygen Delivery Method High Flow Nasal Cannula Oxygen Flow Rate 8 Fraction of Inspired Oxygen 12 SaO2/FiO2 Ratio 182 <Angeline Bell 02/21/17 13:58> - Constitutional mild distress, morbidly obese, cooperative <Angeline Bell 02/21/17 13:58> - Routine HEENT Exam Head: Present: normocephalic <Angeline Bell 02/21/17 13:58> ENT: Present: mucous membranes moist <Angeline Bell 02/21/17 13:58> - Routine Neck Exam Absent: JVD, carotid bruit <Angeline Bell 02/21/17 13:58> - Routine Chest/Breast/Axilla Exam Chest wall: Absent: tenderness <Angeline Bell 02/21/17 13:58> - Routine Respiratory Exam Present: decreased breath sounds, wheezes (bilateral). Absent: CTA bilaterally <Angeline Bell 02/21/17 13:58> - Routine Cardiovascular Exam Present: no murmur, irregular rhythm. Absent: JVD <Angeline Bell - 02/21/17 13:58> - Routine Abdominal Exam Present: soft, normoactive bowel sounds <Angeline Bell 02/21/17 13:58> - Routine Extremities Exam Present: no edema <Angeline Bell 02/21/17 13:58> - Routine Skin Exam Present: intact, dry, warm <Angeline Bell 02/21/17 13:58> - Routine Neurological Exam Present: alert, oriented X3 <Angeline Bell 02/21/17 13:58> - Routine Psychiatric Exam Present: normal affect, normal thought process <Angeline Bell 02/21/17 13: 58> - Additional findings Additional findings: Laboratory Results - last 48 hr 02/20/17 02/20/17 02/20/17 08:42 09:15 15:41 WBC RBC Hgb Hct MCV MCH MCHC RDW Std Deviation Plt Count MPV Immature Gran % (Auto) Neut % (Auto) Lymph % (Auto) [place] % (Auto) Eos % (Auto) Baso % (Auto) Neut # Lymph # [place] # Eos # Baso # Abs Immat Gran (auto) Neutrophils % (Manual) Band Neutrophils % Lymphocytes % (Manual) Monocytes % (Manual) Neutrophils # (Manual) Band Neutrophils # Lymphocytes # (Manual) Monocytes # (Manual) RBC Morph Comment ABG pH ABG pCO2 ABG pO2 ABG HCO3 ABG Total CO2 ABG O2 Saturation ABG Base Excess O2 Delivery Method FiO2 (liters per min) Turbidity Sodium Potassium Chloride Carbon Dioxide Anion Gap BUN Creatinine GFR Calculation BUN/Creatinine Ratio Glucose Glucometer 118 112 Calculated Osmolality Calcium Magnesium 1.8 Icterus Index Troponin I 0.026 TSH 1.00 Specimen Hemolysis < 15 02/20/17 02/20/17 02/21/17 18:49 18:49 05:25 WBC 17.4 H 18.8 H RBC 4.68 4.47 Hgb 11.1 L 10.5 L Hct 39.7 38.3 MCV 84.8 85.7 MCH 23.7 L 23.5 L MCHC 28.0 L 27.4 L RDW Std Deviation 72.8 H 71.7 H Plt Count 276 238 MPV 11.7 11.8 Immature Gran % (Auto) Not performed Neut % (Auto) Not performed Lymph % (Auto) Not performed [place] % (Auto) Not performed Eos % (Auto) Not performed Baso % (Auto) Not performed Neut # Not performed Lymph # Not performed [place] # Not performed Eos # Not performed Baso # Not performed Abs Immat Gran (auto) Not performed Neutrophils % (Manual) 90.0 H Band Neutrophils % 4.0 Lymphocytes % (Manual) 5.0 L Monocytes % (Manual) 1.0 Neutrophils # (Manual) 15.7 H Band Neutrophils # 0.7 Lymphocytes # (Manual) 0.9 L Monocytes # (Manual) 0.2 RBC Morph Comment Normal ABG pH ABG pCO2 ABG pO2 ABG HCO3 ABG Total CO2 ABG O2 Saturation ABG Base Excess O2 Delivery Method FiO2 (liters per min) Turbidity < 20 Sodium 142 Potassium 4.4 Chloride 97 L Carbon Dioxide 39 H Anion Gap 6 BUN 11.0 Creatinine 0.9 GFR Calculation 64 BUN/Creatinine Ratio 12 Glucose 110 Glucometer Calculated Osmolality 273 Calcium 9.2 Magnesium Icterus Index < 2 Troponin I TSH Specimen Hemolysis 18 02/21/17 02/21/17 02/21/17 05:25 05:51 10:47 WBC RBC Hgb Hct MCV MCH MCHC RDW Std Deviation Plt Count MPV Immature Gran % (Auto) Neut % (Auto) Lymph % (Auto) [place] % (Auto) Eos % (Auto) Baso % (Auto) Neut # Lymph # [place] # Eos # Baso # Abs Immat Gran (auto) Neutrophils % (Manual) Band Neutrophils % Lymphocytes % (Manual) Monocytes % (Manual) Neutrophils # (Manual) Band Neutrophils # Lymphocytes # (Manual) Monocytes # (Manual) RBC Morph Comment ABG pH 7.360 ABG pCO2 78 H* ABG pO2 58 L ABG HCO3 44 H ABG Total CO2 46.5 H ABG O2 Saturation 89.0 L ABG Base Excess 15.1 H O2 Delivery Method Nasal cannula, liter FiO2 (liters per min) 12 Turbidity < 20 Sodium 141 Potassium 4.1 Chloride 96 L Carbon Dioxide 43 H* Anion Gap 2 L BUN 12.0 Creatinine 1.0 GFR Calculation 57 BUN/Creatinine Ratio 12 Glucose 144 H Glucometer Calculated Osmolality 274 Calcium 9.3 Magnesium 2.0 Icterus Index < 2 Troponin I 0.018 TSH Specimen Hemolysis < 15 < 15 Acetaminophen (Tylenol Arthritis) 1,300 mg PO TID PRN PRN Reason: Pain Albuterol Sulfate (Proventil Neb (0.083%)) 2.5 mg AEROSOL Q4-6HR PRN PRN Reason: PRN orders Aspirin (Asa) 81 mg PO DAILY [facility] Last Admin: 02/21/17 10:58 Dose: 81 mg Atorvastatin Calcium (Lipitor) 40 mg PO HS [facility] Last Admin: 02/20/17 22:57 Dose: 40 mg Cholecalciferol (Vit. D-3) 2,000 unit PO DAILY [facility] Last Admin: 02/21/17 10:58 Dose: 2,000 unit Cyanocobalamin (Vit. B-12) 1,000 mcg PO DAILY [facility] Last Admin: 02/21/17 10:58 Dose: 1,000 mcg Diltiazem HCl (Cardizem Cd) 360 mg PO DAILY [facility] Enoxaparin Sodium (Lovenox) 120 mg SQ BID [facility] Last Admin: 02/21/17 12:30 Dose: 120 mg Furosemide (Lasix) 40 mg PO DAILY [facility] Last Admin: 02/21/17 10:59 Dose: 40 mg Diltiazem HCl 125 mg/ Sodium (Chloride) 125 mls @ 0 mls/hr IV PRN NIGEL PRN Reason: Protocol Last Infusion: 02/21/17 13:21 Dose: 10 mls/hr Ampicillin Sodium/Sulbactam (Sodium 3 g/ Sodium Chloride) 100 mls @ 200 mls/hr IV Q12H [facility] Ipratropium [place] (Atrovent (0.02%)) 0.5 mg AEROSOL PRN PRN Last Admin: 02/20/17 13:06 Dose: 0.5 mg Levalbuterol HCl (Xopenex 1.25mg/3ml) 1.25 mg AEROSOL RTTID [facility] Lorazepam (Ativan Inj) 0.5 - 1 mg IVP Q2H PRN Melatonin (Melatonin) 15 mg PO HS [facility] Last Admin: 02/20/17 22:59 Dose: 15 mg Nitroglycerin (Nitrostat) 0.4 mg SL Q5MIN3 PRN PRN Reason: Chest pain Pantoprazole Sodium (Protonix Tab) 40 mg PO ACB [facility] Last Admin: 02/21/17 06:12 Dose: 40 mg Potassium Chloride (K-Dur) 20 meq PO WB [facility] Last Admin: 02/21/17 10:59 Dose: 20 meq Prednisone (Deltasone) 10 mg PO WB [facility] Last Admin: 02/21/17 10:59 Dose: 10 mg Ropinirole HCl (Requip) 0.25 mg PO HS [facility] Last Admin: 02/20/17 23:00 Dose: 0.25 mg Fluticasone/Salmeterol (Advair Diskus) 1 puff ORAL INH BID [facility] Last Admin: 02/21/17 10:40 Dose: 1 puff Tiotropium [place] (Spiriva) 1 cap ORAL INH DAILY [facility] Last Admin: 02/21/17 08:16 Dose: 1 cap <Angeline Bell 02/21/17 13:58> Progress Note-A&P (1) CAD (coronary artery disease), [place] coronary artery Problem details: Stenting of LAD 11/28/2013 Status: Chronic Current Visit: No (2) COPD (chronic obstructive pulmonary disease) Status: Chronic Current Visit: No (3) High cholesterol Status: Chronic Current Visit: No (4) Hypertension Status: Chronic Current Visit: No (5) Hypoxemia Problem details: [employer] Drier Tender: Dr. Paul Willard 3L ON Status: Chronic Current Visit: No (6) Atrial fibrillation with RVR Problem details: acute on chronic Status: Acute Current Visit: Yes <Froylan Blanc - 02/25/17 15:15> (1) CAD (coronary artery disease), [place] coronary artery Problem details: Stenting of LAD 11/28/2013 Status: Chronic Current Visit: No (2) COPD (chronic obstructive pulmonary disease) Status: Chronic Current Visit: No (3) High cholesterol Status: Chronic Current Visit: No (4) Hypertension Status: Chronic Current Visit: No (5) Hypoxemia Problem details: [employer] Drier Tender: Dr. Paul Willard 3L ON Status: Chronic Assessment and plan: Consult the hospitalist service for assistance with management of possible aspiration pneumonia? Thank you Dr. Torres. Current Visit: No (6) Atrial fibrillation with RVR Problem details: acute on chronic Status: Acute Assessment and plan: - Plan is rate control and refer for ablation as an outpatient - Start Cardizem 360mg po daily, May need to add BB as well but will avoid if possible due to respiratory. - Lovenox 1mg/kg SQ BID for stroke prevention, monitor for decrease in HGB Current Visit: Yes <Angeline Bell 08/25/17 11:57> - Time Spent With Patient Total time spent is greater than 50% in coordination of care (as documented) at patient's floor/unit and/or counseling patient: <Froylan Blanc 02/25/17 15:15> Total time spent is greater than 50% in coordination of care (as documented) at patient's floor/unit and/or counseling patient: <Angeline Bell 02/21/17 13:58> less than 15 minutes <Angeline Bell 02/21/17 14:15> - Attestation Attestation Narrative: Recommendation After examining the patient I agree with the above assessment. I am involved in the formulation of the patient's plan of care. <Froylan Blanc 02/25/17 15:15> Sepsis Assessment - Evaluation Sepsis screening result: No Definite Risk <Angeline Bell 02/21/17 13:58> Hospital Course Summary Disclaimer: The visit summary below is not to be considered part of the above Progress Note. <Froylan Blanc 02/25/17 15:15> The visit summary below is not to be considered part of the above Progress Note. <Angeline Bell 02/21/17 13:58>
[2017-02-21] MEDS: DiltiaZEM CD 360 MG CAPSULE PO SCH (14:29)
[2017-02-21] MEDS: AMPICILLIN/SULBACTAM 3 G in NS 100 ML IV SCH ×2 (14:29→15:30)
--- NOTE | 2017-02-21 14:37 | Pulmonology Consult Note ---
History of Present Illness Consult date: 02/21/17 Requesting physician: Froylan Blanc Chief complaint: possible pneumonia History of present illness: 56 year old lady with colonoscopy done 02/20/17. Post op she developed acute hypoxemic respiratory failure. CXR shows dense left basilar consolidation. I was asked to see her regarding her respiratory problems. She was found to have atrial fibrillation post op as well. she is admitted by Dr Blanc for management of that. She underwent d/c cardioversion. She is currently on 12 lpm HFNC. She is normally on 3 lpm at home. She is a patient of Dr Willard with the diagnosis of COPD. on 12 lpm HFNC. She has also been treated with bipap but she is not very tolerant of that. The notes from the hospitalist [employer]OCIATE PROF[employer]STATIST[employer] indicate: Ruthie is a 56 yr old female who is known to the hospitalist service from admission in December 2016 at which time she had a syncopal episode and was found to be anemic. During that hospitalization, she did receive a blood transfusion and hemoglobin was monitored. She was scheduled for a outpatient colonoscopy yesterday 02/20/17 and the care of Dr. Mujica. Postoperatively in the recovery room. She was found to be in atrial fibrillation with RVR and was then admitted to the ICU under care of Dr. Blanc. She underwent a direct cardioversion that was successful and was monitored on Sotalol overnight. It is reported that both during the procedure as well as in PACU yesterday she required manual Bagging with BVM for adequate oxygenation. Overnight she refused to use Bi-pap due to feeling claustrophobic. An ABG was ordered this morning revealing a pH of 7.360, pCO2 78, pO2 58, bicarbonate 44. While off Bi- pap she is requiring 12 liters of oxygen by nasal cannula to maintain saturations. Given continuing and worsening respiratory needs. The hospitalist services were consulted by cardiology team for further evaluation and treatment. Ruthie is seen in the ICU while eating lunch. She is currently on 12 liters with mild respiratory distress during conversation. She denies having any pain on examination. PFSH Medical History Chronic Hypoxemia-Uses 3 L chronically ( [place] [facility] Director: Dr. Paul Willard Nonalcoholic steatohepatitis (TORIBIO) Myocardial infarct-10/2013 Iron deficiency anemia-12/31/2016 - treated with transfusion 2 units pRBCs. Depression Hypertension Hypercholesterolemia Atrial fibrillation CAD- [place] coronary artery Stenting of LAD 11/28/2013 COPD (chronic obstructive pulmonary disease) GERD RLS Hearing loss of right ear-chronic Depression Surgical History: * Cardiac catheterization with stent placement in LAD - [address] Perez at [facility]. Medtronic Resolute Integrity RX stent. * Heart cath - 02/20/2012. * Right ear surgery reconstruction - 1959. * section - 07/27/1988. * section - 04/18/1984 Family History: Family History Mother Heart attack High blood pressure Father Cancer - Social History Smoking status: Former smoker (quit 6 years ago) Substance use type: does not use Alcohol intake: current Alcohol intake frequency: holidays/special occasions only Does patient use chewing tobacco?: No Social history: [facility] provider [facility] Blanc Review of Systems All systems: reviewed and no additional remarkable complaints except as stated PFSH Patient Stated Medical History Cerebrovascular Accident No Seizures No Hearing Loss Angina Yes: hx Cardiac Arrhythmia Yes: paroxysmal atril fib Coronary Artery Disease Yes Hypertension Yes Hypotension No Myocardial Infarction Yes: 2013 stent- asymptomatic since Other Cardiology Yes: STENT PLACED IN 2013 Asthma Yes Bronchitis Yes Chronic Obstructive Pulmonary Yes: 3L O2 at all times, + SOB with exertion Disease (COPD) Pneumonia Yes Sleep Apnea No Diabetes Mellitus Type 1 No Diabetes Mellitus Type 2 No Gastroesophageal Reflux Yes Disease Gastrointestinal Bleeding Yes Hepatitis Yes: TORIBIO Hx Incontinence Yes Anemia Yes Anesthesia Reactions No Blood Transfusions Yes: no reaction Depression Yes Panic Disorder No Post Menopausal Yes Now No Clinic Medical History Hypoxemia (Chronic Medical) [place] Library Director: Dr. Paul Willard 3L ON Restless leg syndrome (Chronic Medical) Bronchitis (Acute Medical) Nonalcoholic steatohepatitis (TORIBIO) (Chronic Medical) Myocardial infarct (Resolved Medical 10/2013) Iron deficiency anemia (Acute Medical) Diagnosed 12/31/2016 - treated with transfusion 2 units pRBCs. Depression (Chronic Medical) Hypertension (Chronic Medical) High cholesterol (Chronic Medical) Syncope and collapse (Chronic Medical) Patient was anemic and transfused with PRBCs Atrial fibrillation (Chronic Medical) Currently in SR, Started on Sotalol for antiarrhythmic therapy CAD (coronary artery disease), [place] coronary artery (Chronic Medical) Stenting of LAD 11/28/2013 COPD (chronic obstructive pulmonary disease) (Chronic Medical) Hearing loss of right ear (Chronic Medical) Surgical History: * Cardiac catheterization with stent placement in LAD - [address] Perez at [facility]. Medtronic Resolute Integrity RX stent. * Heart cath - 02/20/2012. * Right ear surgery reconstruction - 1959. * section - 07/27/1988. * section - 04/18/1984 Family History: Family History (Last Reviewed 02/21/17 @ 11:37 by Hesham Beltran, [employer]) Daughter Cervical cancer Mother Heart attack High blood pressure Father Cancer - Social History Smoking status: Former smoker (quit 6 years ago) Does patient use chewing tobacco?: No Medications Home Medications Medication Instructions Recorded Confirmed Type Albuterol Sulfate [Ventolin Hfa] 2 puff INH Q4-6HR PRN #0 02/19/12 02/20/17 History Atorvastatin Calcium 40 mg PO HS #0 07/20/14 02/20/17 History Furosemide 40 mg PO DAILY #0 07/20/14 02/20/17 History Potassium Chloride 20 meq PO DAILY #0 tab 07/20/14 02/20/17 History Aspirin 81 mg PO DAILY #0 10/24/16 02/20/17 History Cholecalciferol (Vitamin D3) 2,000 unit PO DAILY #0 10/24/16 02/20/17 History [Vitamin D3] Cyanocobalamin (Vitamin B-12) 2 tab PO DAILY #0 10/24/16 02/20/17 History [B-12] Fluticasone/Salmeterol [Advair 1 puff INH BID #0 10/24/16 02/20/17 History 250-50 Diskus] Pantoprazole Sodium 40 mg PO DAILY #0 10/24/16 02/20/17 History Metoprolol Tartrate [Lopressor] 25 mg PO BID 02/20/17 02/20/17 History PredniSONE [Deltasone] 10 mg PO DAILY 02/20/17 02/20/17 History Ropinirole [Requip] 0.25 mg PO HS 02/20/17 02/20/17 History Allergies Allergy/AdvReac Type Severity Reaction Status Date / Time No Known Allergies Allergy Verified 12/31/16 11:58 Exam Vital signs: Temperature 99.3 F 02/21/17 04:00 Pulse Rate 120 H 02/21/17 12:00 Respiratory Rate 39 H 02/21/17 11:45 Blood Pressure 107/72 02/21/17 11:00 Pulse Oximetry 99 02/21/17 11:30 Oxygen Delivery Method High Flow Nasal Cannula Oxygen Flow Rate 8 Fraction of Inspired Oxygen 12 SaO2/FiO2 Ratio 182 - Constitutional no acute distress, cooperative - Routine HEENT Exam Head: Present: normocephalic, atraumatic Eye: Present: PERRL ENT: Present: mucous membranes moist - Routine Neck Exam Present: supple. Absent: JVD - Routine Respiratory Exam Present: decreased breath sounds, prolonged expiratory phase. Absent: accessory muscle use - Routine Cardiovascular Exam Present: RRR, S1, S2, no murmur - Routine Abdominal Exam Present: soft - Routine Extremities Exam Absent: cyanosis, clubbing - Routine Skin Exam Present: intact. Absent: cyanosis - Routine Neurological Exam Present: alert, oriented X3 Results - Laboratory Findings CBC and BMP: 02/21/17 05:25 02/21/17 05:25 ABG ABG pH 7.360 (7.350-7.450) 02/21/17 10:47 ABG pCO2 78 MMHG (34-45) H* 02/21/17 10:47 ABG pO2 58 MMHG (80-100) L 02/21/17 10:47 ABG O2 Saturation 89.0 % (95.0-98.0) L 02/21/17 10:47 Abnormal lab findings: Abnormal Labs 02/20/17 02/20/17 02/21/17 18:49 18:49 05:25 WBC 17.4 H 18.8 H Hgb 11.1 L 10.5 L MCH 23.7 L 23.5 L MCHC 28.0 L 27.4 L RDW Std Deviation 72.8 H 71.7 H Neutrophils % (Manual) 90.0 H Lymphocytes % (Manual) 5.0 L Neutrophils # (Manual) 15.7 H Lymphocytes # (Manual) 0.9 L ABG pCO2 ABG pO2 ABG HCO3 ABG Total CO2 ABG O2 Saturation ABG Base Excess Chloride 97 L Carbon Dioxide 39 H Anion Gap Glucose 02/21/17 02/21/17 05:25 10:47 WBC Hgb MCH MCHC RDW Std Deviation Neutrophils % (Manual) Lymphocytes % (Manual) Neutrophils # (Manual) Lymphocytes # (Manual) ABG pCO2 78 H* ABG pO2 58 L ABG HCO3 44 H ABG Total CO2 46.5 H ABG O2 Saturation 89.0 L ABG Base Excess 15.1 H Chloride 96 L Carbon Dioxide 43 H* Anion Gap 2 L Glucose 144 H - Diagnostic Findings Chest x-ray: report reviewed, image reviewed Assessment and Plan (1) Pneumonia Current visit: Yes Status: Acute dense LLL consolidation. Leukocytosis suggestive of acute process. I will repeat a CXR and if needed CT chest. IV Unasyn to cover possible aspiration. Sputum C and S is pending. (2) Acute and chronic respiratory failure with hypercapnia Current visit: Yes Status: Acute She is an excellent candidate for a home vent to mask. She has high risk of deterioration and increased morbidity and mortality unless we can control her hypercapnic failure. I recommend BIPAP ST while she is in the hospital and we will transition her to pressure ventilation as an outpatient (3) Atrial fibrillation with RVR Problem details: acute on chronic Current visit: Yes Status: Acute controlled following cardioversion and medical therapy (4) COPD (chronic obstructive pulmonary disease) Current visit: No Status: Chronic managed on prednisone, advair and Spiriva. Recommend nebulized albuterol/ ipratropium while she is in the hospital.
--- NOTE | 2017-02-21 14:57 | Operative Note ---
DATE OF OPERATION 02/20/2017 SURGEON Yoav Mujica MD PREOPERATIVE DIAGNOSIS Iron deficiency anemia. POSTOPERATIVE DIAGNOSES 1. 1.5 cm sessile polyp of the ascending colon. 2. 0.5 cm sessile polyp of the cecum. 3. Less than 0.5 cm sessile polyp of the cecum. 4. Possible 2 cm submucosal mass of the ascending colon. 5. Less than 0.5 cm sessile polyp of the hepatic flexure. 6. 1 cm pedunculated polyp of the distal transverse colon. 7. 0.5 cm sessile polyp of the descending colon. 8. 0.7 cm sessile polyps of the sigmoid colon x 2. 9. Multiple, less than 0.5 cm sessile polyps of the sigmoid colon (grossly consistent with hyperplastic polyps, five polyps removed). 10. Iron-deficiency anemia. 11. Moderate sliding hiatal hernia. PROCEDURE 1. Esophagogastroduodenoscopy. 2. Colonoscopy with hot snare polypectomy x 5, hot biopsy forceps polypectomy x 5, mucosal biopsies of the ascending colon, and cold biopsy forceps polypectomy x 3. ANESTHESIA TIVA ASA CLASS 3 INDICATIONS The patient is a 56-year-old female who had been diagnosed with iron deficiency anemia. She was in need of upper and lower endoscopy prior to additional cardiac workup so that if anticoagulation or antiplatelet therapy were needed it would be reasonable to start the therapy without risk of further anemia. FINDINGS EGD was normal. Colonoscopy revealed multiple polyps as described above. There was also an apparent submucosal mass that seemed consistent with a submucosal lipoma in the ascending colon. It was also possibly simply a fold of the colon causing the appearance of a submucosal mass. Some small apparently hyperplastic polyps were left in the region of the sigmoid colon, but five were biopsied. The larger polyps were able to be totally removed. DESCRIPTION OF PROCEDURE After informed consent was obtained the patient was taken to the endoscopy suite and placed in left lateral decubitus position. IV anesthesia was administered by the anesthesia team. A bite block was inserted followed by an Olympus video gastroscope. The gastroscope was advanced into the esophagus under direct vision. It was then advanced to the third portion of the duodenum under direct vision. Scope was slowly withdrawn examining the mucosa circumferentially. In the stomach the scope was retroflexed to examine the cardiac and fundic portions of the stomach. A moderate-sized hiatal hernia was noted. The scope was withdrawn into the esophagus and the GE junction was noted to be approximately 4 cm proximal to the diaphragmatic hiatus. The distal esophagus was grossly normal. The scope was withdrawn examining the esophagus circumferentially. During EGD, in combination with sedation the patient had had some hypoxia and so anesthesia managed this with an oral airway and assistance of the patient's spontaneous respirations with an Ambu bag. Once the patient was stabilized, she was repositioned for colonoscopy. DESCRIPTION OF PROCEDURE A digital rectal exam was performed and was normal. An Olympus video colonoscope with an AmplifEYE device was inserted and retroflexed to examine the distal rectum. No significant internal hemorrhoidal tissue was noted. The patient had received a MiraLAX/Dulcolax bowel prep the day prior. The bowel prep was good with minimal residual adherent contents of the colon that were able to be irrigated with the colonoscope and then evacuated. These were predominantly in the right colon. The scope was advanced to the level of the cecum without difficulty. Cecum was identified by the appendiceal orifice and ileocecal valve. There had been a large polyp in the ascending colon that was the first polyp removed. A polypectomy snare was placed around the base of the polyp and tightened to elevate the mucosa. The snare was used to divide the base of the polyp with cautery. This did appear to excise the polyp completely with one application of the snare. Attempts were made to remove the polyp with biopsy forceps but it would not withdraw into the colonoscope, so it was retrieved via a suction trap and retrieved fragments of the polyp were sent to pathology. The scope was returned to the cecum and two small polyps were encountered. The larger 0.5 cm polyp was encircled with the polypectomy snare and removed with snare polypectomy technique. It was retrieved via biopsy forceps and sent to pathology. The smaller polyp was grasped with hot biopsy forceps and the mucosa was elevated. Cautery was applied to destroy the base of the polyp and the polyp was removed and was sent to pathology. In the ascending colon there was another confluence of folds versus a subcutaneous mass that did not appear to be polypoid in etiology, but to confirm this biopsies of the mucosa overlying the region were taken and were sent to pathology. The scope was withdrawn to the hepatic flexure where a small, less than 0.5 cm polyp was noted. It was removed with hot biopsy forceps polypectomy technique and sent to pathology. The scope was withdrawn to the distal transverse colon where a larger pedunculated polyp was noted. The snare was placed around the stalk of the polyp and the polyp was removed with a snare polypectomy technique. It was suctioned against the end of the scope and the scope was withdrawn to retrieve the polyp which was sent to pathology. The scope was reintroduced back to the level of the polypectomy and slowly withdrawn. In the descending colon a polyp was noted that was removed with hot biopsy forceps polypectomy technique. It was sent to pathology. In the sigmoid colon there were two larger 0.7 cm polyps that were able to be resected and retrieved via a snare polypectomy technique and withdrawn with biopsy forceps. These polyps were sent to pathology. In the sigmoid colon there were multiple other smaller polyps. Two of the larger polyps were removed with hot biopsy forceps polypectomy technique and three of the smaller polyps were removed with cold biopsy forceps polypectomy technique. All of these five polyps were sent to pathology for analysis. The scope was withdrawn to the rectum. The carbon dioxide insufflation was evacuated and the scope was removed. The patient did have episodes of apparent atrial fibrillation with rapid ventricular response up to a pulse of 130-150. Anesthesia was also managing this throughout the procedure. The patient was transferred to the recovery room in stable condition but still with the irregular heart rhythm. Cardiology was consulted at this point in time. Please see other documentation. RECOMMENDATIONS 1. Await pathology results to determine if further management is needed or when the next repeat colonoscopy would be recommended. 2. Continue with cardiac workup and management of current conditions and other issues. After one week of allowing the polypectomy sites to heal, I think it would be reasonable to start antiplatelet or anticoagulation if needed. If antiplatelet and anticoagulation can safely be withheld for two weeks, this would be advantageous given the larger polypectomy site in the ascending colon. MTDD
[2017-02-21] MEDS: DiltiaZEM Drip 125 MG in NS 100 ML IV PRN (21:06)
[2017-02-21] MEDS: ATORVASTATIN 40 MG TABLET PO SCH (21:43)
[2017-02-21] MEDS: MELATONIN 5 MG TABLET PO SCH (21:44)
[2017-02-21] MEDS: ROPINIROLE 0.25 MG TABLET PO SCH (21:45)
[2017-02-22] MEDS: AMPICILLIN/SULBACTAM 3 G in NS 100 ML IV SCH ×2 (01:13→13:47)
[2017-02-22] MEDS: PANTOPRAZOLE 40 MG TABLET PO SCH (06:45)
[2017-02-22] MEDS ORDERED: DiltiaZEM 25 MG/5 ML INJECTION IVP ONE (07:10)
[2017-02-22] MEDS: DiltiaZEM Drip 125 MG in NS 100 ML IV PRN ×3 (07:35→23:48)
--- NOTE | 2017-02-22 07:40 | Pulmonology Progress Note ---
Subjective Principal diagnosis: A Fib RVR Interval history: Back in A fib. No chest pain. mild cough and sputum. wore bipap all night Exam Vital signs: Temperature 97.4 F 02/22/17 04:00 Pulse Rate 80 02/22/17 04:00 Respiratory Rate 22 02/22/17 06:58 Blood Pressure 137/73 02/22/17 04:00 Pulse Oximetry 100 02/22/17 06:58 Oxygen Delivery Method Nasal Cannula Oxygen Flow Rate 2 Fraction of Inspired Oxygen 50 SaO2/FiO2 Ratio 184 - Constitutional no acute distress Comments: no agitation or somnolence - Routine HEENT Exam Eye: Present: PERRL. Absent: conjunctival icterus - Routine Neck Exam Present: supple, full ROM - Routine Respiratory Exam Present: decreased breath sounds Comments: mild rales, decreased breath sounds on left - Routine Cardiovascular Exam Present: tachycardia. Absent: murmur - Routine Abdominal Exam Present: soft. Absent: guarding Progress Note-A&P (1) Pneumonia Status: Acute Assessment and plan: CXR 02/21 shows volume loss and possible small effusion left base. Still fairly dense consolidation as well. WBC improved on Unasyn Gram stain of sputum = Gram + cocci pairs/clusters, culture pending. continue current. repeat CXR. If not improving over the weekend check CT chest Add expansion therapies to RT treatments today (EZPAP, Therapep or IPPB) Current Visit: Yes (2) Acute and chronic respiratory failure with hypercapnia Status: Acute Assessment and plan: PCO2 controlled, baseline 78. Tolerating BIPAP 18/6, rate 12, FiO2 40%. Wore last night. Current Visit: Yes (3) Atrial fibrillation with RVR Problem details: acute on chronic Status: Acute Assessment and plan: Back in Afib, RVR following cardioversion yesterday. Cardizem ordered. No contraindication to Amiodarone if needed Current Visit: Yes (4) COPD (chronic obstructive pulmonary disease) Status: Chronic Assessment and plan: Add Duoneb with expansion therapy q4 [place] Current Visit: No - Time Spent With Patient Total time spent is greater than 50% in coordination of care (as documented) at patient's floor/unit and/or counseling patient: less than 15 minutes Sepsis Assessment - Evaluation Sepsis screening result: Sepsis Risk
[2017-02-22] MEDS ORDERED: FALL RISK - PHARMACY CONSULT MC PRN (08:11)
--- NOTE | 2017-02-22 08:29 | XRay Report ---
Indication: pneumonia PROCEDURE: XR chest 1V: Encounter: Initial Comparison: February 20, 2017 Findings: Continued severe airspace consolidation in the left lower lobe. Possible left effusion as well. Developing consolidation in the medial right base. No gross pneumothorax. Heart size is obscured. Mediastinal contours are stable. Impression: Bilateral lower lobe airspace disease could be due to pneumonia or aspiration. .
[2017-02-22] MEDS: TIOTROPIUM 18mcg/cap HANDIHALER ORAL INH SCH (09:06)
[2017-02-22] MEDS: ASPIRIN 81 MG CHEWABLE TABLET PO SCH (09:16)
[2017-02-22] MEDS: DiltiaZEM CD 360 MG CAPSULE PO SCH ×2 (09:17→11:31)
[2017-02-22] MEDS: FUROSEMIDE 40 MG TABLET PO SCH (09:17)
[2017-02-22] MEDS: ENOXAPARIN 120 MG/0.8 ML INJECTION SQ SCH ×2 (09:17→20:56)
[2017-02-22] MEDS: CYANOCOBALAMIN (B-12) 500mcg TABLET PO SCH (09:18)
[2017-02-22] MEDS: PredniSONE 10 MG TABLET PO SCH (09:49)
[2017-02-22] MEDS: ALBUTEROL/IPRATROPIUM 2.5mg-0.5mg/3ml NEB IPPB SCH ×3 (11:35→21:35)
--- NOTE | 2017-02-22 12:12 | Cardiology Progress Note ---
Subjective Principal diagnosis: A Fib RVR <Angeline Bell - 02/22/17 12:27> Interval history: Ruthie is seen in her room in CCU, her sister in law is at the bedside. She is sitting up in the recliner in mild distress with O2 / NC at 15L. I explained that the goal at this time is heart rate control and anticoagulation for now with Ablation in the future at some point. She denies chest pain or pressure, no dizziness or lightheadedness. <Angeline Bell Gerald - 02/22/17 15:50> Exam Vital signs: Temperature 96.5 F L 02/25/17 03:43 Pulse Rate 99 02/25/17 08:35 Respiratory Rate 15 02/25/17 11:50 Blood Pressure 147/89 H 02/25/17 07:33 Pulse Oximetry 96 02/25/17 07:33 Oxygen Delivery Method Nasal Cannula,High Flow Nasal Cannula Oxygen Flow Rate 6 Fraction of Inspired Oxygen 40 SaO2/FiO2 Ratio 184 <JayashreeFroylan - 02/25/17 15:18> Temperature 99.1 F 02/22/17 07:30 Pulse Rate 150 H 02/22/17 09:45 Respiratory Rate 23 02/22/17 11:34 Blood Pressure 131/73 02/22/17 09:45 Pulse Oximetry 94 02/22/17 09:45 Oxygen Delivery Method Nasal Cannula Oxygen Flow Rate 15 Fraction of Inspired Oxygen 50 SaO2/FiO2 Ratio 184 <Angeline Bell - 02/22/17 12:27> - Constitutional mild distress, obese, cooperative <Ray,Angeline Duarte - 02/22/17 12:27> - Routine HEENT Exam Head: Present: normocephalic <Angeline Bell - 02/22/17 12:27> ENT: Present: mucous membranes moist <RayAngeline - 02/22/17 12:27> - Routine Chest/Breast/Axilla Exam Chest wall: Absent: tenderness <Angeline Bell Gerald Leonel 02/22/17 12:27> - Routine Respiratory Exam Present: decreased breath sounds (left), rales. Absent: CTA bilaterally < RayAngeline knight Gerald 02/22/17 12:27> - Routine Cardiovascular Exam Present: no murmur, tachycardia. Absent: JVD <Angeline Bell 02/22/17 12:27 > - Routine Abdominal Exam Present: soft, normoactive bowel sounds <Angeline Bell - 02/22/17 12:27> - Routine Skin Exam Present: intact, dry, warm <Angeline Bell - 02/22/17 12:27> - Routine Neurological Exam Present: alert, oriented X3 <Angeline Bell - 02/22/17 12:27> - Routine Psychiatric Exam Present: normal affect, normal thought process <Angeline Bell - 02/22/17 12: 27> - Additional findings Additional findings: Laboratory Results - last 48 hr 02/20/17 02/20/17 02/20/17 15:41 18:49 18:49 WBC 17.4 H RBC 4.68 Hgb 11.1 L Hct 39.7 MCV 84.8 MCH 23.7 L MCHC 28.0 L RDW Std Deviation 72.8 H Plt Count 276 MPV 11.7 Immature Gran % (Auto) Not performed Neut % (Auto) Not performed Lymph % (Auto) Not performed [place] % (Auto) Not performed Eos % (Auto) Not performed Baso % (Auto) Not performed Neut # Not performed Lymph # Not performed [place] # Not performed Eos # Not performed Baso # Not performed Abs Immat Gran (auto) Not performed Neutrophils % (Manual) 90.0 H Band Neutrophils % 4.0 Lymphocytes % (Manual) 5.0 L Monocytes % (Manual) 1.0 Neutrophils # (Manual) 15.7 H Band Neutrophils # 0.7 Lymphocytes # (Manual) 0.9 L Monocytes # (Manual) 0.2 RBC Morph Comment Normal ABG pH ABG pCO2 ABG pO2 ABG HCO3 ABG Total CO2 ABG O2 Saturation ABG Base Excess O2 Delivery Method FiO2 (liters per min) Turbidity < 20 Sodium 142 Potassium 4.4 Chloride 97 L Carbon Dioxide 39 H Anion Gap 6 BUN 11.0 Creatinine 0.9 GFR Calculation 64 BUN/Creatinine Ratio 12 Glucose 110 Calculated Osmolality 273 Calcium 9.2 Magnesium 1.8 Icterus Index < 2 Troponin I 0.026 Plasma Lactate TSH 1.00 Specimen Hemolysis < 15 18 02/21/17 02/21/17 02/21/17 05:25 05:25 05:51 WBC 18.8 H RBC 4.47 Hgb 10.5 L Hct 38.3 MCV 85.7 MCH 23.5 L MCHC 27.4 L RDW Std Deviation 71.7 H Plt Count 238 MPV 11.8 Immature Gran % (Auto) Neut % (Auto) Lymph % (Auto) [place] % (Auto) Eos % (Auto) Baso % (Auto) Neut # Lymph # [place] # Eos # Baso # Abs Immat Gran (auto) Neutrophils % (Manual) Band Neutrophils % Lymphocytes % (Manual) Monocytes % (Manual) Neutrophils # (Manual) Band Neutrophils # Lymphocytes # (Manual) Monocytes # (Manual) RBC Morph Comment ABG pH ABG pCO2 ABG pO2 ABG HCO3 ABG Total CO2 ABG O2 Saturation ABG Base Excess O2 Delivery Method FiO2 (liters per min) Turbidity < 20 Sodium 141 Potassium 4.1 Chloride 96 L Carbon Dioxide 43 H* Anion Gap 2 L BUN 12.0 Creatinine 1.0 GFR Calculation 57 BUN/Creatinine Ratio 12 Glucose 144 H Calculated Osmolality 274 Calcium 9.3 Magnesium 2.0 Icterus Index < 2 Troponin I 0.018 Plasma Lactate TSH Specimen Hemolysis < 15 < 15 02/21/17 02/21/17 02/21/17 10:47 18:29 22:34 WBC RBC Hgb Hct MCV MCH MCHC RDW Std Deviation Plt Count MPV Immature Gran % (Auto) Neut % (Auto) Lymph % (Auto) [place] % (Auto) Eos % (Auto) Baso % (Auto) Neut # Lymph # [place] # Eos # Baso # Abs Immat Gran (auto) Neutrophils % (Manual) Band Neutrophils % Lymphocytes % (Manual) Monocytes % (Manual) Neutrophils # (Manual) Band Neutrophils # Lymphocytes # (Manual) Monocytes # (Manual) RBC Morph Comment ABG pH 7.360 ABG pCO2 78 H* ABG pO2 58 L ABG HCO3 44 H ABG Total CO2 46.5 H ABG O2 Saturation 89.0 L ABG Base Excess 15.1 H O2 Delivery Method Nasal cannula, liter FiO2 (liters per min) 12 Turbidity Sodium Potassium Chloride Carbon Dioxide Anion Gap BUN Creatinine GFR Calculation BUN/Creatinine Ratio Glucose Calculated Osmolality Calcium Magnesium Icterus Index Troponin I Plasma Lactate 1.1 1.7 TSH Specimen Hemolysis 02/22/17 02/22/17 04:54 04:54 WBC 14.7 H RBC 4.20 Hgb 10.0 L Hct 36.6 MCV 87.1 MCH 23.8 L MCHC 27.3 L RDW Std Deviation 72.8 H Plt Count 214 MPV 10.9 Immature Gran % (Auto) 0.3 Neut % (Auto) 84.1 H Lymph % (Auto) 8.0 L [place] % (Auto) 6.5 Eos % (Auto) 1.0 Baso % (Auto) 0.1 Neut # 12.3 H Lymph # 1.2 [place] # 1.0 H Eos # 0.1 Baso # 0.0 Abs Immat Gran (auto) 0.04 H Neutrophils % (Manual) Band Neutrophils % Lymphocytes % (Manual) Monocytes % (Manual) Neutrophils # (Manual) Band Neutrophils # Lymphocytes # (Manual) Monocytes # (Manual) RBC Morph Comment ABG pH ABG pCO2 ABG pO2 ABG HCO3 ABG Total CO2 ABG O2 Saturation ABG Base Excess O2 Delivery Method FiO2 (liters per min) Turbidity < 20 Sodium 142 Potassium 4.1 Chloride 95 L Carbon Dioxide 44 H* Anion Gap 3 L BUN 15.0 Creatinine 1.0 GFR Calculation 57 BUN/Creatinine Ratio 15 Glucose 146 H Calculated Osmolality 277 Calcium 9.2 Magnesium Icterus Index < 2 Troponin I Plasma Lactate TSH Specimen Hemolysis < 15 Acetaminophen (Tylenol Arthritis) 1,300 mg PO TID PRN PRN Reason: Pain Albuterol/Ipratropium (Duoneb) 3 ml IPPB Q4WA [facility] Last Admin: 02/22/17 11:35 Dose: 3 ml Aspirin (Asa) 81 mg PO DAILY [facility] Last Admin: 02/22/17 09:16 Dose: 81 mg Atorvastatin Calcium (Lipitor) 40 mg PO HS [facility] Last Admin: 02/21/17 21:43 Dose: 40 mg Cholecalciferol (Vit. D-3) 2,000 unit PO DAILY [facility] Last Admin: 02/22/17 09:18 Dose: 2,000 unit Cyanocobalamin (Vit. B-12) 1,000 mcg PO DAILY [facility] Last Admin: 02/22/17 09:18 Dose: 1,000 mcg Digoxin (Lanoxin) 500 mcg IVP DAILY [facility] Last Admin: 02/22/17 12:17 Dose: 500 mcg Diltiazem HCl (Cardizem Cd) 360 mg PO DAILY [facility] Last Admin: 02/22/17 11:31 Dose: 360 mg Enoxaparin Sodium (Lovenox) 120 mg SQ BID [facility] Last Admin: 02/22/17 09:17 Dose: 120 mg Furosemide (Lasix) 40 mg PO DAILY [facility] Last Admin: 02/22/17 09:17 Dose: 40 mg Ampicillin Sodium/Sulbactam (Sodium 3 g/ Sodium Chloride) 100 mls @ 200 mls/hr IV Q12H [facility] Last Infusion: 02/22/17 01:43 Dose: Infused Diltiazem HCl 125 mg/ Sodium (Chloride) 125 mls @ 0 mls/hr IV PRN PRN PRN Reason: Protocol Last Infusion: 02/22/17 08:16 Dose: 15 mls/hr Lorazepam (Ativan Inj) 0.5 - 1 mg IVP Q2H PRN Last Admin: 02/22/17 03:03 Dose: 0.5 mg Melatonin (Melatonin) 15 mg PO HS [facility] Last Admin: 02/21/17 21:44 Dose: 15 mg Nitroglycerin (Nitrostat) 0.4 mg SL Q5MIN3 PRN PRN Reason: Chest pain Pantoprazole Sodium (Protonix Tab) 40 mg PO ACB [facility] Last Admin: 02/22/17 06:45 Dose: 40 mg Potassium Chloride (K-Dur) 20 meq PO WB [facility] Last Admin: 02/22/17 07:57 Dose: 20 meq Prednisone (Deltasone) 10 mg PO WB [facility] Last Admin: 02/22/17 09:49 Dose: Not Given Ropinirole HCl (Requip) 0.25 mg PO HS [facility] Last Admin: 02/21/17 21:45 Dose: 0.25 mg Fluticasone/Salmeterol (Advair Diskus) 1 puff ORAL INH BID [facility] Last Admin: 02/22/17 10:05 Dose: 1 puff Tiotropium [place] (Spiriva) 1 cap ORAL INH DAILY [facility] Last Admin: 02/22/17 09:06 Dose: 1 cap <Angeline Bell M - 02/22/17 12:27> Progress Note-A&P (1) CAD (coronary artery disease), [place] coronary artery Problem details: Stenting of LAD 11/28/2013 Status: Chronic Current Visit: No (2) COPD (chronic obstructive pulmonary disease) Status: Chronic Current Visit: No (3) High cholesterol Status: Chronic Current Visit: No (4) Hypertension Status: Chronic Current Visit: No (5) Hypoxemia Problem details: 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 Thank you Dr. Torres. Current Visit: No (6) Atrial fibrillation with RVR Problem details: acute on chronic Status: Acute Assessment and plan: Back in Afib RVR as of 614 this morning, rate 150s, gave bolus IV cardizem, restarted drip - Plan is rate control and refer for ablation as an outpatient - Continue Cardizem 360mg po daily, Continue Cardizem drip as need for rate control. - Digoxin 500mcg IV x1 - Add Metoprolol 25mg PO TID, nurses instructed to give 2 doses today. - Lovenox 1mg/kg SQ BID for stroke prevention, monitor for decrease in HGB Current Visit: Yes <Angeline Bell - 02/22/17 15:47> - Time Spent With Patient Total time spent is greater than 50% in coordination of care (as documented) at patient's floor/unit and/or counseling patient: <Froylan Blanc - 02/25/17 15:18> Total time spent is greater than 50% in coordination of care (as documented) at patient's floor/unit and/or counseling patient: <Angeline Bell - 02/22/17 12:27> 25 - 35 minutes <Angeline Bell - 02/22/17 15:50> - Attestation Attestation Narrative: Recommendation After examining the patient I agree with the above assessment. I am involved in the formulation of the patient's plan of care. <Froylan Blanc - 02/25/17 15:18> Sepsis Assessment - Evaluation Sepsis screening result: No Definite Risk <RayAngeline Duarte - 02/22/17 12:27> Hospital Course Summary Disclaimer: The visit summary below is not to be considered part of the above Progress Note. <PaulaFroylan tamez - 02/25/17 15:18> The visit summary below is not to be considered part of the above Progress Note. <Angeline Bell - 02/22/17 12:27> Hospital Course: 02/21/17 14:09 Impression Acute respiratory failure with known chronic hypoxia COPD with chronic oxygen dependence Atrial fibrillation with rapid ventricular rate Coronary artery disease Anemia Hypertension Hypercholesterolemia Plan Continue cardiac care as per Dr. Blanc. Unfortunately, patient did go into atrial fibrillation RVR this morning. Currently on Cardizem drip. Chest x-ray reviewed, there is concern for infiltrate versus atelectasis. Given the patient did have respiratory decline yesterday requiring manual bagging Postoperatively, accompanied with increased leukocytosis and increased oxygen needs. Will cover patient for possible aspiration pneumonia. Have ordered Unasym 3 gm IV BID for antimicrobial coverage. Given the pulmonary complexity will place consultation to Dr Frye for his expertise. Did place albuterol on hold as this can influence increased heart rate. Can utilize scheduled Xopenex. Lovenox 120 twice a day for anticoagulation Monitor routine labs. Hemoglobin remained stable at 10.5. Colon Polypectomy performed yesterday, pathology pending. Appreciate medical consultation. The hospitalist services will continue to follow patient medically manage her existing comorbidities. At time of discharge her medical care will return to her primary care provider, Renetta Darling APRN at [facility] 02/22/17 Cardiology Back in Afib RVR as of 614 this morning, rate 150s, gave bolus IV cardizem, restarted drip - Plan is rate control and refer for ablation as an outpatient - Continue Cardizem 360mg po daily, Continue Cardizem drip as need for rate control. - Digoxin 500mcg IV x1 - Add Metoprolol 25mg PO TID, nurses instructed to give 2 doses today. <Angeline Bell - 02/22/17 15:50>
[2017-02-22] MEDS: DIGOXIN 500 MCG/2 ML INJECTION IVP SCH (12:17)
[2017-02-22] MEDS ORDERED: METOPROLOL 5mg/5ml INJECTION IVP ONE (12:29)
[2017-02-22] MEDS ORDERED: NS FLUSH BAG 500ml IV PRN (13:50)
[2017-02-22] MEDS ORDERED: PredniSONE 20 MG TABLET PO SCH (14:56)
--- NOTE | 2017-02-22 15:01 | Progress Note ---
Subjective: Mrs. Craft was seen this am, her DPOA joined us prior to my departure to provide supplemental hx. The pt used BiPAP overnight and reports minimal dyspnea currently although his had increased cough with green/islas sputum production. Atrial fibrillation with RVR returned about 6:30 this morning and she is currently on a diltiazem drip with persistent tachycardia but she denied chest pain and indicated no lightheadedness or discomfort. She denies nausea or heartburn, and reports no fever. The patient refused prednisone this morning advising the nurse that she has been tapering herself off and is currently taking half a tablet every other day. In further discussion with the patient and her DPOA history was obtained of the patient being on prednisone 40 mg 3 times a day starting in May and continuing until 3 weeks ago when the patient began tapering the medication on her own. Her DPOA reports that the patient gained approximately 90 pounds during that time interval. She briefly stopped taking prednisone and lost 25 pounds over 4-5 days. Objective Vital signs: Temperature 99.1 F 02/22/17 07:30 Pulse Rate 141 H 02/22/17 13:00 Respiratory Rate 22 02/22/17 13:00 Blood Pressure 109/76 02/22/17 13:00 Pulse Oximetry 94 02/22/17 13:00 Oxygen Delivery Method Nasal Cannula Oxygen Flow Rate 15L Fraction of Inspired Oxygen 50% EXAM General-NAD, mild confusion-unable to recall dosing information regarding home medications HEENT-conjunctiva clear, sclera anicteric, conjugate gaze Lungs-respirations nonlabored, diminished breath sounds throughout, slightly coarse at the bases bilaterally, wheezing left base Cardiac-regular, tachycardia, S1-S2-heart rate approximately 145 at time of assessment; atrial fibrillation on monitor Abd-obese, soft, nontender, diminished bowel sounds Ext-+1 edema bilateral lower extremities Neuro-MAEW Psych-anxious - Height/Weight/BMI: Height 1.68 m Weight 124.5 kg Body Mass Index 43.4 Results - Labs CBC & Chem 7: 02/22/17 04:54 02/22/17 04:54 Microbiology Results: Microbiology 02/21/17 14:55 Sputum, Expectorated Gram Stain - few gram-positive cocci in clusters and pairs; presence of leukocytes not noted 02/21/17 14:55 Sputum, Expectorated Sputum Culture - Preliminary Culture Initiated - Results Pending - ABG Interpretation ABG results: 02/21/17 10:47 ABG pH 7.360 ABG pCO2 78 H* ABG pO2 58 L ABG HCO3 44 H ABG Total CO2 46.5 H ABG O2 Saturation 89.0 L ABG Base Excess 15.1 H Assessment and Plan (1) Acute and chronic respiratory failure with hypoxia Current visit: Yes Status: Acute (2) Acute and chronic respiratory failure with hypercapnia Current visit: Yes Status: Acute (3) Atrial fibrillation with RVR Problem details: acute on chronic Current visit: Yes Status: Acute Resuscitation Status: Full Code Assessment and Plan: Acute respiratory failure with known chronic hypoxia COPD with chronic oxygen dependence Aspiration pneumonia Hypersensitivity pneumonitis Chronic steroid use Atrial fibrillation with rapid ventricular rate Coronary artery disease Anemia Hypertension Hypercholesterolemia Morbid obesity-BMI 43.7 on admission Mrs. Craft describes excessively high dose prednisone therapy for prolonged time period which makes no sense. This was discussed with both Dr. Frye and subsequently Dr. Willard. The patient was initially evaluated for hemoptysis and underwent CT chest demonstrating bilateral infiltrates. Bronchoscopy was performed and ultimately patient was treated for chronic hypersensitivity pneumonitis with steroids however not at the dose that the patient and her DPOA thought she was on and apparently took nor was the described duration of therapy intended. Dr. Willard additionally indicated that they've been trying to schedule outpatient sleep study and medical approval has been pending. Hypoxia is persistent. Good tolerance of BiPAP and will reassess blood gas in the morning. Have advised patient that prednisone should be utilized currently and tapered after acute respiratory symptoms stabilized. Chest x-ray in a.m. Continue Unasyn pending culture results. Blood pressure stable, minor [id number] to be monitored. Discussed with cardiology in addition to pulmonology; also discussed with nursing. - Time spent with patient greater than 35 minutes Coordination of Care: >50% of visit spent providing counseling/coordination of care Sepsis Assessment - Evaluation Sepsis screening result: No Definite Risk Hospital Course Summary Disclaimer: The visit summary below is not to be considered part of the above Progress Note. Hospital Course: 02/21/17 14:09 Impression Acute respiratory failure with known chronic hypoxia COPD with chronic oxygen dependence Atrial fibrillation with rapid ventricular rate Coronary artery disease Anemia, normocytic Hypertension Hypercholesterolemia Plan Continue cardiac care as per Dr. Blanc. Unfortunately, patient did go into atrial fibrillation RVR this morning. Currently on Cardizem drip. Chest x-ray reviewed, there is concern for infiltrate versus atelectasis. Given the patient did have respiratory decline yesterday requiring manual bagging Postoperatively, accompanied with increased leukocytosis and increased oxygen needs. Will cover patient for possible aspiration pneumonia. Have ordered Unasym 3 gm IV BID for antimicrobial coverage. Given the pulmonary complexity will place consultation to Dr Frye for his expertise. Did place albuterol on hold as this can influence increased heart rate. Can utilize scheduled Xopenex. Lovenox 120 twice a day for anticoagulation Monitor routine labs. Hemoglobin remained stable at 10.5. Colon Polypectomy performed yesterday, pathology pending. Appreciate medical consultation. The hospitalist services will continue to follow patient medically manage her existing comorbidities. At time of discharge her medical care will return to her primary care provider, Renetta Darling APRN at [facility] 02/22/17 Cardiology Back in Afib RVR as of 614 this morning, rate 150s, gave bolus IV cardizem, restarted drip - Plan is rate control and refer for ablation as an outpatient - Continue Cardizem 360mg po daily, Continue Cardizem drip as need for rate control. - Digoxin 500mcg IV x1 with 250mcg IV Q6h X2. - May need to add BB as well but will avoid if possible due to respiratory. - Lovenox 1mg/kg SQ BID for stroke prevention, monitor for decrease in HGB 02/22/17 15:30-Brian Mrs. Craft describes excessively high dose prednisone therapy for prolonged time period which makes no sense. This was discussed with both Dr. Frye and subsequently Dr. Willard. The patient was initially evaluated for hemoptysis and underwent CT chest demonstrating bilateral infiltrates. Bronchoscopy was performed and ultimately patient was treated for chronic hypersensitivity pneumonitis with steroids however not at the dose that the patient and her DPOA thought she was on and apparently took nor was the described duration of therapy intended. Dr. Willard additionally indicated that they've been trying to schedule outpatient sleep study and medical approval has been pending. Hypoxia is persistent. Good tolerance of BiPAP and will reassess blood gas in the morning. Have advised patient that prednisone should be utilized currently and tapered after acute respiratory symptoms stabilized. Chest x-ray in a.m. Continue Unasyn pending culture results. Blood pressure stable, minor [id number] to be monitored.
[2017-02-22] MEDS: MethylPREDNISolone 4 MG TABLET PO SCH (17:05)
[2017-02-22] MEDS: MELATONIN 5 MG TABLET PO SCH (20:56)
[2017-02-22] MEDS: ROPINIROLE 0.25 MG TABLET PO SCH (20:57)
[2017-02-22] MEDS: ATORVASTATIN 40 MG TABLET PO SCH (20:57)
[2017-02-23] MEDS: AMPICILLIN/SULBACTAM 3 G in NS 100 ML IV SCH ×2 (01:37→13:01)
[2017-02-23] MEDS: PANTOPRAZOLE 40 MG TABLET PO SCH (05:39)
[2017-02-23] MEDS: ALBUTEROL/IPRATROPIUM 2.5mg-0.5mg/3ml NEB IPPB SCH ×4 (07:32→21:59)
[2017-02-23] MEDS: ENOXAPARIN 120 MG/0.8 ML INJECTION SQ SCH ×2 (08:35→21:45)
[2017-02-23] MEDS: DIGOXIN 500 MCG/2 ML INJECTION IVP SCH (08:35)
[2017-02-23] MEDS: CYANOCOBALAMIN (B-12) 500mcg TABLET PO SCH (08:35)
[2017-02-23] MEDS: ASPIRIN 81 MG CHEWABLE TABLET PO SCH (08:36)
[2017-02-23] MEDS: DiltiaZEM CD 360 MG CAPSULE PO SCH (08:36)
[2017-02-23] MEDS: FUROSEMIDE 40 MG TABLET PO SCH (08:36)
[2017-02-23] MEDS: MethylPREDNISolone 4 MG TABLET PO SCH (10:46)
[2017-02-23] MEDS: TIOTROPIUM 18mcg/cap HANDIHALER ORAL INH SCH (11:30)
--- NOTE | 2017-02-23 13:47 | Pulmonology Progress Note ---
Subjective Principal diagnosis: A Fib RVR Interval history: up to chair. no distress. still on HFNC at 15 lpm. ABG stable. Still with some coughing and sputum. Sputum culture is pending still. Remains on Unasyn CXR is improving. Exam Vital signs: Temperature 97 F 02/23/17 04:00 Pulse Rate 87 02/23/17 12:00 Respiratory Rate 41 H 02/23/17 12:00 Blood Pressure 111/61 02/23/17 12:00 Pulse Oximetry 88 L 02/23/17 12:00 Oxygen Delivery Method High Flow Nasal Cannula Oxygen Flow Rate 15 Fraction of Inspired Oxygen 45 SaO2/FiO2 Ratio 184 - Constitutional no acute distress, obese - Routine HEENT Exam Head: Present: normocephalic, atraumatic - Routine Neck Exam Present: supple, full ROM - Routine Respiratory Exam Present: decreased breath sounds. Absent: respiratory distress - Routine Cardiovascular Exam Present: irregularly irregular - Routine Abdominal Exam Present: soft - Routine Extremities Exam Absent: cyanosis, clubbing Progress Note-A&P (1) Pneumonia Status: Acute Assessment and plan: doing well on Unasyn. CXR is improving with better aeration left lung base. We will recheck Saturday AM. Watch for final sputum culture Current Visit: Yes (2) Acute and chronic respiratory failure with hypercapnia Status: Acute Assessment and plan: Encourage BIPAP use at night and with naps. wean O2 as tolerated to keep sats > 90%. ABG is improved Current Visit: Yes (3) Atrial fibrillation with RVR Problem details: acute on chronic Status: Acute Current Visit: Yes (4) COPD (chronic obstructive pulmonary disease) Status: Chronic Assessment and plan: Possible history of hypersensitivity pneumonitis. continue oral corticosteroids and wean as tolerated. Current Visit: No - Time Spent With Patient Total time spent is greater than 50% in coordination of care (as documented) at patient's floor/unit and/or counseling patient: less than 15 minutes Sepsis Assessment - Evaluation Sepsis screening result: Severe Sepsis Risk
--- NOTE | 2017-02-23 15:55 | Cardiology Progress Note ---
Subjective Principal diagnosis: A Fib RVR <Brooklyn Lyons - 02/23/17 16:20> Interval history: F/U A-fib. Pt is seen in ICU sitting up in chair in no distress. still in Af-ib, HR better controlled 80's to 90-'s. O2 sats goo on HFNC at 15 lpm cont. She states she was able to wear to Bipap longer last night. ABG better. Denies chest pain, palpitations or SOB while sitting in chair. <Brooklyn Lyons - 02/23/17 16:20> Exam Vital signs: Temperature 96.5 F L 02/25/17 03:43 Pulse Rate 99 02/25/17 08:35 Respiratory Rate 15 02/25/17 11:50 Blood Pressure 147/89 H 02/25/17 07:33 Pulse Oximetry 96 02/25/17 07:33 Oxygen Delivery Method Nasal Cannula,High Flow Nasal Cannula Oxygen Flow Rate 6 Fraction of Inspired Oxygen 40 SaO2/FiO2 Ratio 184 <Froylan Blanc - 02/25/17 15:22> Temperature 97 F 02/23/17 04:00 Pulse Rate 109 H 02/23/17 20:30 Respiratory Rate 35 H 02/23/17 20:30 Blood Pressure 135/69 02/23/17 20:30 Pulse Oximetry 95 02/23/17 20:30 Oxygen Delivery Method High Flow Nasal Cannula Oxygen Flow Rate 15 Fraction of Inspired Oxygen 45 SaO2/FiO2 Ratio 184 <JesusVictorino camachov - 02/23/17 22:02> Temperature 97 F 02/23/17 04:00 Pulse Rate 87 02/23/17 12:00 Respiratory Rate 24 02/23/17 13:55 Blood Pressure 111/61 02/23/17 12:00 Pulse Oximetry 96 02/23/17 13:55 Oxygen Delivery Method High Flow Nasal Cannula Oxygen Flow Rate 15 Fraction of Inspired Oxygen 45 SaO2/FiO2 Ratio 184 <Brooklyn Lyons - 02/23/17 16:20> - Constitutional no acute distress, obese <Brooklyn Lyons 02/23/17 16:20> - Routine HEENT Exam Head: Present: normocephalic <Brooklyn Lyons 02/23/17 16:20> ENT: Present: mucous membranes moist <Brooklyn Lyons 02/23/17 16:20> - Routine Neck Exam Absent: JVD <Brooklyn Lyons 02/23/17 16:20> - Routine Respiratory Exam Present: decreased breath sounds. Absent: respiratory distress <Brooklyn Lyons 02/23/17 16:20> - Routine Cardiovascular Exam Present: irregularly irregular <Brooklyn Lyons 02/23/17 16:20> - Routine Abdominal Exam Present: soft <Brooklyn Lyons 02/23/17 16:20> - Routine Extremities Exam Present: edema (+1) <Brooklyn Lyons 02/23/17 16:20> - Routine Skin Exam Present: intact, dry, warm <Brooklyn Lyons 02/23/17 16:20> - Routine Neurological Exam Present: alert, oriented X3 <Brooklyn Lyons 02/23/17 16:20> - Routine Psychiatric Exam Present: normal affect <Brooklyn Lyons 02/23/17 16:20> Progress Note-A&P (1) CAD (coronary artery disease), [place] coronary artery Problem details: Stenting of LAD 11/28/2013 Status: Chronic Current Visit: No (2) COPD (chronic obstructive pulmonary disease) Status: Chronic Current Visit: No (3) High cholesterol Status: Chronic Current Visit: No (4) Hypertension Status: Chronic Current Visit: No (5) Hypoxemia Problem details: Barrel Bander: Dr. Paul Willard 3L ON Status: Chronic Current Visit: No (6) Atrial fibrillation with RVR Problem details: acute on chronic Status: Acute Current Visit: Yes <Froylan Blanc - 02/25/17 15:22> (1) CAD (coronary artery disease), [place] coronary artery Problem details: Stenting of LAD 11/28/2013 Status: Chronic Assessment and plan: Cont ASA and statin. Current Visit: No (2) COPD (chronic obstructive pulmonary disease) Status: Chronic Assessment and plan: Managed by ultrasound technician. Current Visit: No (3) High cholesterol Status: Chronic Current Visit: No (4) Hypertension Status: Chronic Current Visit: No (5) Hypoxemia Problem details: Barrel Bander: Dr. Paul Willard 3L ON Status: Chronic Assessment and plan: Barrel Bander consulted, Dr. Frye / Dr. Willard. - Maintaining O2 sats > 90 - cont on 15 L hifow and Bipap at night. . Current Visit: No (6) Atrial fibrillation with RVR Problem details: acute on chronic Status: Acute Assessment and plan: Afib - chronic at this point - plan on rate control. - HR 80's to 90's today - better controlled after starting metoprolol yest, - Cont Metoprolol 25mg PO TID - Change Dig 25mg po daily from Dig 5mg IV daily - received 2 doses - dig level in 5 days. - Cont Lovenox 1mg/kg SQ BID for stroke prevention, monitor for decrease in HGB - Will change to oral anticoagulant when HR better controlled (otherwise may consider ablation sooner.) - Plan to refer to EPS for ablation in the future as outpt. Current Visit: Yes <Brooklyn Lyons - 02/23/17 15:52> (1) CAD (coronary artery disease), [place] coronary artery Problem details: Stenting of LAD 11/28/2013 Status: Chronic Current Visit: No (2) COPD (chronic obstructive pulmonary disease) Status: Chronic Current Visit: No (3) High cholesterol Status: Chronic Current Visit: No (4) Hypertension Status: Chronic Current Visit: No (5) Hypoxemia Problem details: Barrel Bander: Dr. Paul Willard 3L ON Status: Chronic Current Visit: No (6) Atrial fibrillation with RVR Problem details: acute on chronic Status: Acute Current Visit: Yes <Clifford Lee - 02/23/17 22:02> - Time Spent With Patient Total time spent is greater than 50% in coordination of care (as documented) at patient's floor/unit and/or counseling patient: <Froylan Blanc - 02/25/17 15:22> Total time spent is greater than 50% in coordination of care (as documented) at patient's floor/unit and/or counseling patient: <Clifford Lee - 02/23/17 22:02> Total time spent is greater than 50% in coordination of care (as documented) at patient's floor/unit and/or counseling patient: <Brooklyn Lyons - 02/23/17 16:20> 25 - 35 minutes <Brooklyn Lyons - 02/23/17 16:20> - Attestation Attestation Narrative: Recommendation After examining the patient I agree with the above assessment. I am involved in the formulation of the patient's plan of care. <Fabrizio Blancin - 02/25/17 15:22> Sepsis Assessment - Evaluation Sepsis screening result: Severe Sepsis Risk <Brooklyn Lyons - 02/23/17 16:20 > Hospital Course Summary Disclaimer: The visit summary below is not to be considered part of the above Progress Note. <Fabrizio Blancin - 02/25/17 15:22> The visit summary below is not to be considered part of the above Progress Note. <Clifford Lee - 02/23/17 22:02> The visit summary below is not to be considered part of the above Progress Note. <Brooklyn Lyons - 02/23/17 16:20> Hospital Course: 02/21/17 14:09 Impression Acute respiratory failure with known chronic hypoxia COPD with chronic oxygen dependence Atrial fibrillation with rapid ventricular rate Coronary artery disease Anemia Hypertension Hypercholesterolemia Plan Continue cardiac care as per Dr. Blanc. Unfortunately, patient did go into atrial fibrillation RVR this morning. Currently on Cardizem drip. Chest x-ray reviewed, there is concern for infiltrate versus atelectasis. Given the patient did have respiratory decline yesterday requiring manual bagging Postoperatively, accompanied with increased leukocytosis and increased oxygen needs. Will cover patient for possible aspiration pneumonia. Have ordered Unasym 3 gm IV BID for antimicrobial coverage. Given the pulmonary complexity will place consultation to Dr Frye for his expertise. Did place albuterol on hold as this can influence increased heart rate. Can utilize scheduled Xopenex. Lovenox 120 twice a day for anticoagulation Monitor routine labs. Hemoglobin remained stable at 10.5. Colon Polypectomy performed yesterday, pathology pending. Appreciate medical consultation. The hospitalist services will continue to follow patient medically manage her existing comorbidities. At time of discharge her medical care will return to her [facility] 02/22/17 Cardiology Back in Afib RVR as of 614 this morning, rate 150s, gave bolus IV cardizem, restarted drip - Plan is rate control and refer for ablation as an outpatient - Continue Cardizem 360mg po daily, Continue Cardizem drip as need for rate control. - Digoxin 500mcg IV x1 - Add Metoprolol 25mg PO TID, nurses instructed to give 2 doses today. 02/23/17 16:15 chronic A-fib, HR better controlled after addition of metoprolol. Afib - chronic at this point - plan on rate control. - HR 80's to 90's today - better controlled after starting metoprolol yest, - Cont Metoprolol 25mg PO TID - Change Dig 25mg po daily from Dig 5mg IV daily - received 2 doses - dig level in 5 days. - Cont Lovenox 1mg/kg SQ BID for stroke prevention, monitor for decrease in HGB - Will change to oral anticoagulant when HR better controlled (otherwise may consider ablation sooner.) - Plan to refer to EPS for ablation in the future as outpt. <Brooklyn Lyons - 02/23/17 16:20> Addendum entered and electronically signed by Brooklyn Lyons APRN 02/23/17 16:22: Stop Cardizem gtt at 5 mg/hr
--- NOTE | 2017-02-23 17:58 | Progress Note ---
Subjective: Mrs. Hong has redeveloped minor hemoptysis (presenting symptom prior to pulmonary workup last year) since anticoagulation has been resumed. She reports that dyspnea is improving but that cough and sputum persist. She is noted some swelling in her legs which is worse than it was prior to hospitalization. She denied chest pain and is not aware of palpitations. She denied nausea or vomiting and reports that she tolerated BiPAP well last night. Telemetry continues to show atrial fibrillation with low-grade tachycardia. Objective Vital signs: Temperature 97 F 02/23/17 04:00 Pulse Rate 115 H 02/23/17 16:00 Respiratory Rate 24 02/23/17 13:55 Blood Pressure 111/61 02/23/17 12:00 Pulse Oximetry 96 02/23/17 13:55 Oxygen Delivery Method High Flow Nasal Cannula Oxygen Flow Rate 15 I/O 1383/600 Weight is up 2.5 kg from admission EXAM General-NAD, alert, hard of hearing HEENT-PER, EOMI, conjunctiva clear Lungs-respirations nonlabored, diminished airflow throughout, faint wheezing anteriorly/posteriorly, inspiratory/expiratory crackles nursing home up posterior lung hendrix Cardiac-irregular rhythm, S1-S2, low-grade tachycardia Abd-obese, soft, nontender, bowel sounds present Ext-+2 edema bilateral lower extremities Neuro-moving extremities well Psych-cooperative - Height/Weight/BMI: Height 1.68 m Weight 124.5 kg Body Mass Index 43.4 Results - Labs CBC & Chem 7: 02/23/17 04:30 02/23/17 04:30 Labs: A.m. blood gas: 7.41/64/79/41 90% saturated on 15 L per nasal cannula Accu-Cheks 179-225 Microbiology Results: Microbiology 02/23/17 10:00 Sputum, Expectorated Gram Stain -moderate WBCs, mixed dulce per chart report 02/23/17 10:00 Sputum, Expectorated Sputum Culture - Preliminary Culture Initiated - Results Pending 02/21/17 14:55 Sputum, Expectorated Gram Stain - few gram-positive cocci in clusters and gram-positive cocci in pairs 02/21/17 14:55 Sputum, Expectorated Sputum Culture - Preliminary Culture Initiated - Results Pending - ABG Interpretation ABG results: 02/21/17 02/23/17 10:47 07:10 ABG pH 7.360 7.410 ABG pCO2 78 H* 64 H* ABG pO2 58 L 59 L ABG HCO3 44 H 41 H ABG Total CO2 46.5 H 42.6 H ABG O2 Saturation 89.0 L 90.0 L ABG Base Excess 15.1 H 13.3 H - Imaging and Cardiology Chest x-ray Status: image reviewed by me (increased interstitial markings bilaterally, left lower lobe infiltrate-slightly less dense than on prior film) Assessment and Plan (1) Acute and chronic respiratory failure with hypoxia Current visit: Yes Status: Acute (2) Acute and chronic respiratory failure with hypercapnia Current visit: Yes Status: Acute (3) Atrial fibrillation with RVR Problem details: acute on chronic Current visit: Yes Status: Acute DVT Prophylaxis: Lovenox GI Prophylaxis: Protonix Resuscitation Status: Full Code Assessment and Plan: Assessment: Acute respiratory failure with known chronic hypoxia COPD with chronic oxygen dependence Aspiration pneumonia Hypersensitivity pneumonitis Chronic steroid use Atrial fibrillation with rapid ventricular rate Hyperglycemia, likely steroid-induced Coronary artery disease Anemia Hypertension Hypercholesterolemia Morbid obesity-BMI 43.7 on admission Plan: Clinically stable although continues to require high flow oxygen to maintain saturation. Tolerating nocturnal BiPAP, recommended she use BiPAP with naps. PCO2 improved on today's blood gas with ventilatory support. Sputum cultures pending but afebrile on Unasyn and chest x-ray slightly improved. Persistent leukocytosis however steroids on board will interfere with interpretation of white count. Moderate hyperglycemia, diabetes not reported. Check A1c; corrective insulin available. Blood pressure well-controlled, low-grade tachycardia persists-medications being managed by Dr. Balnc service. Discussed with Brooklyn Lyons APRN, nursing, chest x-ray reviewed by myself, laboratory data reviewed. Sepsis Assessment - Evaluation Sepsis screening result: Severe Sepsis Risk Hospital Course Summary Disclaimer: The visit summary below is not to be considered part of the above Progress Note. Hospital Course: 02/21/17 14:09 Impression Acute respiratory failure with known chronic hypoxia COPD with chronic oxygen dependence Atrial fibrillation with rapid ventricular rate Coronary artery disease Anemia Hypertension Hypercholesterolemia Plan Continue cardiac care as per Dr. Blanc. Unfortunately, patient did go into atrial fibrillation RVR this morning. Currently on Cardizem drip. Chest x-ray reviewed, there is concern for infiltrate versus atelectasis. Given the patient did have respiratory decline yesterday requiring manual bagging Postoperatively, accompanied with increased leukocytosis and increased oxygen needs. Will cover patient for possible aspiration pneumonia. Have ordered Unasym 3 gm IV BID for antimicrobial coverage. Given the pulmonary complexity will place consultation to Dr Frye for his expertise. Did place albuterol on hold as this can influence increased heart rate. Can utilize scheduled Xopenex. Lovenox 120 twice a day for anticoagulation Monitor routine labs. Hemoglobin remained stable at 10.5. Colon Polypectomy performed yesterday, pathology pending. Appreciate medical consultation. The hospitalist services will continue to follow patient medically manage her existing comorbidities. At time of discharge her medical care will return to her primary care provider, Renetta Darling APRN at [facility] 02/22/17 Cardiology Back in Afib RVR as of 614 this morning, rate 150s, gave bolus IV cardizem, restarted drip - Plan is rate control and refer for ablation as an outpatient - Continue Cardizem 360mg po daily, Continue Cardizem drip as need for rate control. - Digoxin 500mcg IV x1 - Add Metoprolol 25mg PO TID, nurses instructed to give 2 doses today. 02/23/17 16:15 chronic A-fib, HR better controlled after addition of metoprolol. Afib - chronic at this point - plan on rate control. - HR 80's to 90's today - better controlled after starting metoprolol yest, - Cont Metoprolol 25mg PO TID - Change Dig 25mg po daily from Dig 5mg IV daily - received 2 doses - dig level in 5 days. - Cont Lovenox 1mg/kg SQ BID for stroke prevention, monitor for decrease in HGB - Will change to oral anticoagulant when HR better controlled (otherwise may consider ablation sooner.) - Plan to refer to EPS for ablation in the future as outpt.
[2017-02-23] MEDS: ATORVASTATIN 40 MG TABLET PO SCH (21:44)
[2017-02-23] MEDS: INSULIN ASPART 100unit/ml INJECTION SQ PRN (21:44)
[2017-02-23] MEDS: ROPINIROLE 0.25 MG TABLET PO SCH (21:44)
[2017-02-23] MEDS: MELATONIN 5 MG TABLET PO SCH (23:14)
[2017-02-24] MEDS: AMPICILLIN/SULBACTAM 3 G in NS 100 ML IV SCH (01:46)
[2017-02-24] MEDS: ALBUTEROL/IPRATROPIUM 2.5mg-0.5mg/3ml NEB IPPB SCH ×5 (01:48→22:25)
[2017-02-24] MEDS: FUROSEMIDE 40 MG TABLET PO SCH (08:23)
[2017-02-24] MEDS: ASPIRIN 81 MG CHEWABLE TABLET PO SCH (08:23)
[2017-02-24] MEDS: DiltiaZEM CD 360 MG CAPSULE PO SCH (08:23)
[2017-02-24] MEDS: PANTOPRAZOLE 40 MG TABLET PO SCH (08:23)
[2017-02-24] MEDS: CYANOCOBALAMIN (B-12) 500mcg TABLET PO SCH (08:25)
[2017-02-24] MEDS: MethylPREDNISolone 4 MG TABLET PO SCH (08:25)
[2017-02-24] MEDS: ENOXAPARIN 120 MG/0.8 ML INJECTION SQ SCH ×2 (08:26→22:09)
[2017-02-24] MEDS: DIGOXIN 125 MCG TABLET PO SCH (08:27)
--- NOTE | 2017-02-24 09:28 | XRay Report ---
Indication: pneumonia, atelectasis PROCEDURE: XR chest 1V: Encounter: Initial Comparison: February 21, 2017 Findings: Improving aeration of the left base with residual consolidation in the left mid to lower lung field. Right basilar airspace disease is unchanged. Increased interstitial prominence, similar to the prior study. No gross pneumothorax or right-sided effusion. Cardiac silhouette remains enlarged. Mediastinal contours are stable. Impression: Improved appearance of the left lower lobe. .
[2017-02-24] MEDS: TIOTROPIUM 18mcg/cap HANDIHALER ORAL INH SCH (10:40)
[2017-02-24] MEDS: CLINDAMYCIN 300 MG CAPSULE PO SCH ×4 (12:16→22:09)
[2017-02-24] MEDS: INSULIN ASPART 100unit/ml INJECTION SQ PRN ×3 (14:25→20:04)
--- NOTE | 2017-02-24 16:32 | Cardiology Progress Note ---
Subjective Principal diagnosis: A Fib RVR Interval history: F/U A-fib. Pt is seen in ICU sitting up in chair in no distress. still in A-fib HR controlled in 70's to 90's. HR up to 101 with activity. She her O2 decreased from 15L to 5LHFNC. But she desated , therefore increased to 7LHFNC. Now O2 sats > 90% on 7L. She states she was able to wear to Bipap only with the relaxing medicine. The mask in claustrophobic. Denies chest pain, or SOB and she does not feel palpitations. she gets SOB with movement to the commode. She coughed up some dark brown this am. No active bleed. Pt and family want pt to DC to home with home health assistance including house keeping. Exam Vital signs: Temperature 96.8 F 02/24/17 10:00 Pulse Rate 87 02/24/17 13:00 Respiratory Rate 24 02/24/17 14:16 Blood Pressure 130/69 02/24/17 13:00 Pulse Oximetry 92 02/24/17 13:00 Oxygen Delivery Method High Flow Nasal Cannula Oxygen Flow Rate 5 Fraction of Inspired Oxygen 45 SaO2/FiO2 Ratio 184 - Constitutional no acute distress, obese, cooperative - Routine HEENT Exam ENT: Present: mucous membranes moist - Routine Neck Exam Absent: JVD - Routine Respiratory Exam Present: dyspnea (with activity), crackles (in bases ) - Routine Cardiovascular Exam Present: no murmur, irregular rhythm - Routine Abdominal Exam Present: soft, non tender - Routine Extremities Exam Present: edema (+2 pitting in legs luciano. ) - Routine Skin Exam Present: intact, dry, warm - Routine Neurological Exam Present: alert, oriented X3 - Routine Psychiatric Exam Present: normal affect - Additional findings Additional findings: 02/23/2017 CXR Findings: Improving aeration of the left base with residual consolidation in the left mid to lower lung field. Right basilar airspace disease is unchanged. Increased interstitial prominence, similar to the prior study. No gross pneumothorax or right-sided effusion. Cardiac silhouette remains enlarged. Mediastinal contours are stable. Impression: Improved appearance of the left lower lobe. Laboratory Results - last 24 hr 02/23/17 02/24/17 02/24/17 20:08 04:38 10:15 Turbidity < 20 Sodium 139 Potassium 4.5 Chloride 95 L Carbon Dioxide 39 H Anion Gap 5 BUN 22.0 H Creatinine 1.1 GFR Calculation 51 BUN/Creatinine Ratio 20 Glucose 174 H Glucometer 259 150 Hemoglobin A1c 5.6 L Calculated Osmolality 275 Calcium 9.3 Icterus Index < 2 Specimen Hemolysis < 15 02/24/17 14:19 Turbidity Sodium Potassium Chloride Carbon Dioxide Anion Gap BUN Creatinine GFR Calculation BUN/Creatinine Ratio Glucose Glucometer 230 Hemoglobin A1c Calculated Osmolality Calcium Icterus Index Specimen Hemolysis Intake & Output 02/22/17 02/23/17 02/24/17 02/25/17 06:59 06:59 06:59 06:59 Intake Total 505.000 / 344.338 6535.166 / 5941.865 4462.500 / 1606.500 240 / 240 Output Total 775 / 775 600 / 600 701 / 701 1025 / 1025 Balance -270.000 / -270.000 783.166 / 783.166 905.500 / 905.500 -785 / -785 Weight 270 lb 8.115 oz 274 lb 7.608 oz 277 lb 12.519 oz Acetaminophen (Tylenol Arthritis) 1,300 mg PO TID PRN PRN Reason: Pain Last Admin: 02/24/17 08:24 Dose: 1,300 mg Albuterol/Ipratropium (Duoneb) 3 ml IPPB Q4WA [facility] Last Admin: 02/24/17 07:08 Dose: 3 ml Aspirin (Asa) 81 mg PO DAILY [facility] Last Admin: 02/24/17 08:23 Dose: 81 mg Atorvastatin Calcium (Lipitor) 40 mg PO HS [facility] Last Admin: 02/23/17 21:44 Dose: 40 mg Cholecalciferol (Vit. D-3) 2,000 unit PO DAILY [facility] Last Admin: 02/24/17 08:24 Dose: 2,000 unit Clindamycin HCl (Cleocin) 300 mg PO QID [facility] Last Admin: 02/24/17 16:28 Dose: 300 mg Cyanocobalamin (Vit. B-12) 1,000 mcg PO DAILY [facility] Last Admin: 02/24/17 08:25 Dose: 1,000 mcg Digoxin (Lanoxin) 125 mcg PO DAILY [facility] Last Admin: 02/24/17 08:27 Dose: 125 mcg Diltiazem HCl (Cardizem Cd) 360 mg PO DAILY [facility] Last Admin: 02/24/17 08:23 Dose: 360 mg Enoxaparin Sodium (Lovenox) 120 mg SQ BID [facility] Last Admin: 02/24/17 08:26 Dose: 120 mg Furosemide (Lasix) 40 mg PO DAILY [facility] Last Admin: 02/24/17 08:23 Dose: 40 mg Insulin Aspart (Novolog) 0 unit SQ SS PRN; Protocol PRN Reason: Hyperglycemia Last Admin: 02/24/17 14:25 Dose: 3 unit Lorazepam (Ativan Inj) 0.5 - 1 mg IVP Q2H PRN Last Admin: 02/24/17 03:49 Dose: 0.5 mg Melatonin (Melatonin) 15 mg PO HS [facility] Last Admin: 02/23/17 23:14 Dose: 15 mg Methylprednisolone (Medrol) 16 mg PO DAILY [facility] Last Admin: 02/24/17 08:25 Dose: 16 mg Metoprolol Tartrate (Lopressor) 25 mg PO TID [facility] Last Admin: 02/24/17 16:28 Dose: 25 mg Nitroglycerin (Nitrostat) 0.4 mg SL Q5MIN3 PRN PRN Reason: Chest pain Pantoprazole Sodium (Protonix Tab) 40 mg PO ACB [facility] Last Admin: 02/24/17 08:23 Dose: 40 mg Potassium Chloride (K-Dur) 20 meq PO WB [facility] Last Admin: 02/24/17 08:39 Dose: 20 meq Ropinirole HCl (Requip) 0.25 mg PO HS [facility] Last Admin: 02/23/17 21:44 Dose: 0.25 mg Fluticasone/Salmeterol (Advair Diskus) 1 puff ORAL INH BID [facility] Last Admin: 02/24/17 09:26 Dose: 1 puff Sodium Chloride (Normal Saline) 500 ml IV PRN PRN Last Admin: 02/22/17 13:53 Dose: 500 ml Tiotropium Ayr (Spiriva) 1 cap ORAL INH DAILY [facility] Last Admin: 02/24/17 10:40 Dose: 1 cap Progress Note-A&P (1) CAD (coronary artery disease), nikolai coronary artery Problem details: Stenting of LAD 11/28/2013 Status: Chronic Assessment and plan: Cont ASA and statin. Current Visit: No (2) COPD (chronic obstructive pulmonary disease) Status: Chronic Assessment and plan: Managed by manager clinical research. O2 sats > 90%. On 7 L HFNC. Cont on steroid taper. Breathing treatments. Current Visit: No (3) High cholesterol Status: Chronic Current Visit: No (4) Hypertension Status: Chronic Assessment and plan: Well controlled. Current Visit: No (5) Hypoxemia Problem details: Sports Medicine Specialist: Dr. Paul Willard 3L ON Status: Chronic Assessment and plan: Sports Medicine Specialist consulted, Dr. Frye / Dr. Willard. - Maintaining O2 sats > 90 - on 7 L hifow and Bipap at night. . Current Visit: No (6) Atrial fibrillation with RVR Problem details: acute on chronic Status: Acute Assessment and plan: Afib - chronic at this point - plan on rate control. - HR 70's to 90's today and yesterday. HR upto 101 with activity. - Cont Metoprolol 25mg PO TID - Cont Dig 25mg po daily - dig level in 4 days. - Cont Lovenox 1mg/kg SQ BID for stroke prevention, Hbg stable. - Will change to oral anticoagulant in am. - Plan to refer to EPS for ablation in the future as outpt. Current Visit: Yes - Time Spent With Patient Total time spent is greater than 50% in coordination of care (as documented) at patient's floor/unit and/or counseling patient: 25 - 35 minutes - Attestation Attestation Narrative: Provided heart failure instructions: weight daily, no salt diet. Provided A-fib information verbally and in writing. Sepsis Assessment - Evaluation Sepsis screening result: Sepsis Risk Hospital Course Summary Disclaimer: The visit summary below is not to be considered part of the above Progress Note. Hospital Course: 02/21/17 14:09 Impression Acute respiratory failure with known chronic hypoxia COPD with chronic oxygen dependence Atrial fibrillation with rapid ventricular rate Coronary artery disease Anemia Hypertension Hypercholesterolemia Plan Continue cardiac care as per Dr. Blanc. Unfortunately, patient did go into atrial fibrillation RVR this morning. Currently on Cardizem drip. Chest x-ray reviewed, there is concern for infiltrate versus atelectasis. Given the patient did have respiratory decline yesterday requiring manual bagging Postoperatively, accompanied with increased leukocytosis and increased oxygen needs. Will cover patient for possible aspiration pneumonia. Have ordered Unasym 3 gm IV BID for antimicrobial coverage. Given the pulmonary complexity will place consultation to Dr Frye for his expertise. Did place albuterol on hold as this can influence increased heart rate. Can utilize scheduled Xopenex. Lovenox 120 twice a day for anticoagulation Monitor routine labs. Hemoglobin remained stable at 10.5. Colon Polypectomy performed yesterday, pathology pending. Appreciate medical consultation. The hospitalist services will continue to follow patient medically manage her existing comorbidities. At time of discharge her medical care will return to her primary care provider, Renetta Darling APRN at [facility] 02/22/17 Cardiology Back in Afib RVR as of 614 this morning, rate 150s, gave bolus IV cardizem, restarted drip - Plan is rate control and refer for ablation as an outpatient - Continue Cardizem 360mg po daily, Continue Cardizem drip as need for rate control. - Digoxin 500mcg IV x1 - Add Metoprolol 25mg PO TID, nurses instructed to give 2 doses today. 02/23/17 16:15 chronic A-fib, HR better controlled after addition of metoprolol. Afib - chronic at this point - plan on rate control. - HR 80's to 90's today - better controlled after starting metoprolol yest, - Cont Metoprolol 25mg PO TID - Change Dig 25mg po daily from Dig 5mg IV daily - received 2 doses - dig level in 5 days. - Cont Lovenox 1mg/kg SQ BID for stroke prevention, monitor for decrease in HGB - Will change to oral anticoagulant when HR better controlled (otherwise may consider ablation sooner.) - Plan to refer to EPS for ablation in the future as outpt. 02/24/17 17:06 Pt is seen in ICU sitting up in chair in no distress. still in A-fib HR controlled in 70's to 90's. HR up to 101 with activity. She her O2 decreased from 15L to 5LHFNC. But she desated , therefore increased to 7LHFNC. Now O2 sats > 90% on 7L. She states she was able to wear to Bipap only with the relaxing medicine. The mask in claustrophobic. Denies chest pain, or SOB and she does not feel palpitations. she gets SOB with movement to the commode. She coughed up some dark brown this am. No active bleed. Hbg stable. 08/27/17 17:07 Afib - chronic at this point - plan on rate control. - HR 70's to 90's today and yesterday. HR upto 101 with activity. - Cont Metoprolol 25mg PO TID - Cont Dig 25mg po daily - dig level in 4 days. - Cont Lovenox 1mg/kg SQ BID for stroke prevention, Hbg stable. - Will change to oral anticoagulant in am. - Plan to refer to EPS for ablation in the future as outpt. Transferred to floor. Ok with Dr Torres per nursing. consulted PT for DC planning.
--- NOTE | 2017-02-24 17:26 | Progress Note ---
Subjective: Ruthie was up in a chair with visitors the bedside. She reports that she generally feels good today. She denied dyspnea and reports that cough has improved in the sputum production is decreasing. She indicated that she feels swollen in her extremities. Nursing reports that she was in sinus rhythm overnight but reverted back to atrial fibrillation with fairly good rate control this morning. She tolerated BiPAP overnight and has been weaned to 5 L supplemental O2 by nasal cannula this morning. The patient denied palpitations, nausea, fevers, or lightheadedness. Her appetite tight is been good. Objective Vital signs: Temperature 96.8 F 02/24/17 10:00 Pulse Rate 86 02/24/17 16:00 Respiratory Rate 24 02/24/17 14:16 Blood Pressure 130/69 02/24/17 13:00 Pulse Oximetry 92 02/24/17 13:00 Oxygen Delivery Method High Flow Nasal Cannula Oxygen Flow Rate 5 I/O 5625/3101-cumulative since admission, weight up 4 kg from admission EXAM General-NAD, alert HEENT-oropharynx clear, conjugate gaze Lungs-respirations nonlabored, decreased airflow throughout, breath sounds clear , no wheezing present Cardiac-irregular rhythm, S1-S2 Abd-soft, nontender, diminished bowel sounds, obese Ext-+1 edema bilateral lower extremities, no edema noted upper extremities Neuro-moving upper extremities spontaneously/symmetrically Psych-in good spirits, interacts normally - Height/Weight/BMI: Height 1.68 m Weight 126 kg Body Mass Index 43.4 Results - Labs CBC & Chem 7: 02/23/17 04:30 02/24/17 04:38 Labs: Accu-Cheks 259 yesterday evening; 150-230 postprandially today Microbiology Results: Microbiology 02/21/17 14:55 Sputum, Expectorated Gram Stain - Final 02/21/17 14:55 Sputum, Expectorated Sputum Culture - Final Staphylococcus aureus-CIARA Normal Priya 02/23/17 10:00 Sputum, Expectorated Gram Stain - Final 02/23/17 10:00 Sputum, Expectorated Sputum Culture - Preliminary Early growth - ABG Interpretation ABG results: 02/21/17 02/23/17 10:47 07:10 ABG pH 7.360 7.410 ABG pCO2 78 H* 64 H* ABG pO2 58 L 59 L ABG HCO3 44 H 41 H ABG Total CO2 46.5 H 42.6 H ABG O2 Saturation 89.0 L 90.0 L ABG Base Excess 15.1 H 13.3 H Assessment and Plan (1) Acute and chronic respiratory failure with hypoxia Current visit: Yes Status: Acute (2) Acute and chronic respiratory failure with hypercapnia Current visit: Yes Status: Acute (3) Atrial fibrillation with RVR Problem details: acute on chronic Current visit: Yes Status: Acute DVT Prophylaxis: Lovenox Resuscitation Status: Full Code Assessment and Plan: Assessment: Acute respiratory failure with known chronic hypoxia COPD with chronic oxygen dependence Aspiration pneumonia-CIARA cultured Hypersensitivity pneumonitis Chronic steroid use Atrial fibrillation with rapid ventricular rate Hyperglycemia, likely steroid-induced; A1c 5.6 Coronary artery disease Anemia Hypertension Hypercholesterolemia Morbid obesity-BMI 43.7 on admission Plan: Clinically stable, oxygenation improving. Sensitive staph aureus cultured. Unasyn discontinued, oral clindamycin initiated. Tolerating nocturnal BiPAP, recommended she use BiPAP with naps. PCO2 improved on today's blood gas with ventilatory support. Weight up, edema present, and fluid balance positive-extra dose Lasix tonight and reassess in the morning Moderate hyperglycemia, A1c 5.6-consistent with steroid/stress induced; corrective insulin available. Blood pressure well-controlled, low-grade tachycardia persists-medications being managed by Dr. Blanc service. Discussed with Brooklyn Lyons APRN, nursing, laboratory data reviewed. Sepsis Assessment - Evaluation Sepsis screening result: Sepsis Risk Hospital Course Summary Disclaimer: The visit summary below is not to be considered part of the above Progress Note. Hospital Course: 02/21/17 14:09 Impression Acute respiratory failure with known chronic hypoxia COPD with chronic oxygen dependence Atrial fibrillation with rapid ventricular rate Coronary artery disease Anemia Hypertension Hypercholesterolemia Plan Continue cardiac care as per Dr. Blanc. Unfortunately, patient did go into atrial fibrillation RVR this morning. Currently on Cardizem drip. Chest x-ray reviewed, there is concern for infiltrate versus atelectasis. Given the patient did have respiratory decline yesterday requiring manual bagging Postoperatively, accompanied with increased leukocytosis and increased oxygen needs. Will cover patient for possible aspiration pneumonia. Have ordered Unasym 3 gm IV BID for antimicrobial coverage. Given the pulmonary complexity will place consultation to Dr Frye for his expertise. Did place albuterol on hold as this can influence increased heart rate. Can utilize scheduled Xopenex. Lovenox 120 twice a day for anticoagulation Monitor routine labs. Hemoglobin remained stable at 10.5. Colon Polypectomy performed yesterday, pathology pending. Appreciate medical consultation. The hospitalist services will continue to follow patient medically manage her existing comorbidities. At time of discharge her medical care will return to her primary care provider, Renetta Darling APRN at [facility] 02/22/17 Cardiology Back in Afib RVR as of 614 this morning, rate 150s, gave bolus IV cardizem, restarted drip - Plan is rate control and refer for ablation as an outpatient - Continue Cardizem 360mg po daily, Continue Cardizem drip as need for rate control. - Digoxin 500mcg IV x1 - Add Metoprolol 25mg PO TID, nurses instructed to give 2 doses today. 02/23/17 16:15 chronic A-fib, HR better controlled after addition of metoprolol. Afib - chronic at this point - plan on rate control. - HR 80's to 90's today - better controlled after starting metoprolol yest, - Cont Metoprolol 25mg PO TID - Change Dig 25mg po daily from Dig 5mg IV daily - received 2 doses - dig level in 5 days. - Cont Lovenox 1mg/kg SQ BID for stroke prevention, monitor for decrease in HGB - Will change to oral anticoagulant when HR better controlled (otherwise may consider ablation sooner.) - Plan to refer to EPS for ablation in the future as outpt. 02/24/17 17:06 Pt is seen in ICU sitting up in chair in no distress. still in A-fib HR controlled in 70's to 90's. HR up to 101 with activity. She her O2 decreased from 15L to 5LHFNC. But she desated , therefore increased to 7LHFNC. Now O2 sats > 90% on 7L. She states she was able to wear to Bipap only with the relaxing medicine. The mask in claustrophobic. Denies chest pain, or SOB and she does not feel palpitations. she gets SOB with movement to the commode. She coughed up some dark brown this am. No active bleed. Hbg stable. 02/24/17 17:07 Afib - chronic at this point - plan on rate control. - HR 70's to 90's today and yesterday. HR upto 101 with activity. - Cont Metoprolol 25mg PO TID - Cont Dig 25mg po daily - dig level in 4 days. - Cont Lovenox 1mg/kg SQ BID for stroke prevention, Hbg stable. - Will change to oral anticoagulant in am. - Plan to refer to EPS for ablation in the future as outpt. Transferred to floor. Ok with Dr Torres per nursing. consulted PT for DC planning.
[2017-02-24] MEDS ORDERED: FUROSEMIDE 20 MG/2 ML INJECTION IVP ONE (17:33)
[2017-02-24] MEDS: ATORVASTATIN 40 MG TABLET PO SCH (22:09)
[2017-02-24] MEDS: MELATONIN 5 MG TABLET PO SCH (22:09)
[2017-02-24] MEDS: ROPINIROLE 0.25 MG TABLET PO SCH (22:09)
[2017-02-25] MEDS: PANTOPRAZOLE 40 MG TABLET PO SCH (06:53)
[2017-02-25] MEDS: ALBUTEROL/IPRATROPIUM 2.5mg-0.5mg/3ml NEB IPPB SCH ×4 (07:00→22:00)
[2017-02-25] MEDS: ASPIRIN 81 MG CHEWABLE TABLET PO SCH (08:34)
[2017-02-25] MEDS: MethylPREDNISolone 4 MG TABLET PO SCH (08:34)
[2017-02-25] MEDS: ENOXAPARIN 120 MG/0.8 ML INJECTION SQ SCH (08:34)
[2017-02-25] MEDS: CLINDAMYCIN 300 MG CAPSULE PO SCH ×4 (08:34→21:08)
[2017-02-25] MEDS: FUROSEMIDE 40 MG TABLET PO SCH (08:35)
[2017-02-25] MEDS: DIGOXIN 125 MCG TABLET PO SCH (08:35)
[2017-02-25] MEDS: CYANOCOBALAMIN (B-12) 500mcg TABLET PO SCH (08:35)
[2017-02-25] MEDS: DiltiaZEM CD 360 MG CAPSULE PO SCH (08:35)
[2017-02-25] MEDS: TIOTROPIUM 18mcg/cap HANDIHALER ORAL INH SCH (09:32)
--- NOTE | 2017-02-25 11:23 | Cardiology Progress Note ---
Subjective Principal diagnosis: A Fib RVR <Angeline Bell - 02/25/17 11:23> Interval history: F/U A-fib. Ruthie is seen sitting up in the recliner. She denies chest pain or pressure, she asks about discharge plans and states she is ready to go home. <Angeline Bell - 02/26/17 14:07> Exam Vital signs: Temperature 96.0 F L 02/27/17 08:00 Pulse Rate 67 02/27/17 08:00 Respiratory Rate 20 02/27/17 11:20 Blood Pressure 155/82 H 02/27/17 08:00 Pulse Oximetry 95 02/27/17 08:00 <Froylan Blanc - 02/28/17 10:30> Temperature 96.5 F L 02/25/17 03:43 Pulse Rate 99 02/25/17 08:35 Respiratory Rate 16 02/25/17 09:25 Blood Pressure 147/89 H 02/25/17 07:33 Pulse Oximetry 96 02/25/17 07:33 Oxygen Delivery Method Nasal Cannula,High Flow Nasal Cannula Oxygen Flow Rate 6 Fraction of Inspired Oxygen 40 SaO2/FiO2 Ratio 184 <Angeline Bell - 02/25/17 11:23> - Constitutional mild distress, morbidly obese, cooperative <Angeline Bell 02/26/17 14:07> - Routine HEENT Exam Head: Present: normocephalic <Angeline Bell 02/26/17 14:07> ENT: Present: mucous membranes moist <Angeline Bell 02/26/17 14:07> - Routine Neck Exam Absent: JVD, carotid bruit <Angeline Bell 02/26/17 14:07> - Routine Chest/Breast/Axilla Exam Chest wall: Absent: tenderness <Angeline Bell 02/26/17 14:07> - Routine Respiratory Exam Present: dyspnea (with activity), crackles (bibasilar). Absent: CTA bilaterally , rales <Angeline Bell 02/26/17 14:07> - Routine Cardiovascular Exam Present: no murmur, irregularly irregular <Angeline Bell 02/26/17 14:07> - Routine Abdominal Exam Present: soft, normoactive bowel sounds <Angeline Bell - 02/26/17 14:07> - Routine Extremities Exam Present: edema <Angeline Bell - 02/26/17 14:07> - Routine Skin Exam Present: intact, dry, warm <Angeline Bell - 02/26/17 14:07> - Routine Neurological Exam Present: alert, oriented X3 <Angeline Bell - 02/26/17 14:07> - Routine Psychiatric Exam Present: normal affect, normal thought process <Angeline Bell 02/26/17 14: 07> Progress Note-A&P (1) CAD (coronary artery disease), [place] coronary artery Problem details: Stenting of LAD 11/28/2013 Status: Chronic (2) COPD (chronic obstructive pulmonary disease) Status: Chronic (3) High cholesterol Status: Chronic (4) Hypertension Status: Chronic (5) Hypoxemia Problem details: Marker Machine Attendant: Dr. Paul Willard 3L ON Status: Chronic (6) Atrial fibrillation with RVR Problem details: acute on chronic Status: Acute <PaulaarleenLashon helmsFroylan - 02/28/17 10:30> (1) CAD (coronary artery disease), [place] coronary artery Problem details: Stenting of LAD 11/28/2013 Status: Chronic Assessment and plan: Cont ASA and statin. (2) COPD (chronic obstructive pulmonary disease) Status: Chronic Assessment and plan: Managed by legal contracts specialist. O2 sats > 90%. On 7 L HFNC. Cont on steroid taper. Breathing treatments. (3) High cholesterol Status: Chronic (4) Hypertension Status: Chronic Assessment and plan: Well controlled. 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 Paul Willard 3L ON Status: Chronic Assessment and plan: Marker Machine Attendant consulted, Dr. Frye / Dr. Willard. - Maintaining O2 sats > 90 - on 7 L hifow and Bipap at night. . (6) Atrial fibrillation with RVR Problem details: acute on chronic Status: Acute Assessment and plan: Afib - chronic at this point - plan on rate control. - HR 70's to 90's today. - Cont Metoprolol 25mg PO TID - Cont Dig 125mcg po daily - dig level tomorrow. - Hold Lovenox, Hbg 8.7 today, recheck this afternoon. - Plan to refer to EPS for ablation in the future as outpt. <Angeline Bell - 02/26/17 14:03> - Time Spent With Patient Total time spent is greater than 50% in coordination of care (as documented) at patient's floor/unit and/or counseling patient: <Lashon Blancsein - 02/28/17 10:30> Total time spent is greater than 50% in coordination of care (as documented) at patient's floor/unit and/or counseling patient: <Angeline Bell - 02/25/17 11:23> less than 15 minutes <Angeline Bell - 02/26/17 14:07> - Attestation Attestation Narrative: Recommendation After examining the patient I agree with the above assessment. I am involved in the formulation of the patient's plan of care. <Froylan Blanc - 02/28/17 10:30> Sepsis Assessment - Evaluation Sepsis screening result: No Definite Risk <RayAngeline knight 02/25/17 11:23> Hospital Course Summary Disclaimer: The visit summary below is not to be considered part of the above Progress Note. <JayashreeFroylan - 02/28/17 10:30> The visit summary below is not to be considered part of the above Progress Note. <RayAngeline knight - 02/25/17 11:23> Hospital Course: 02/21/17 14:09 Impression Acute respiratory failure with known chronic hypoxia COPD with chronic oxygen dependence Atrial fibrillation with rapid ventricular rate Coronary artery disease Anemia Hypertension Hypercholesterolemia Plan Continue cardiac care as per Dr. Blanc. Unfortunately, patient did go into atrial fibrillation RVR this morning. Currently on Cardizem drip. Chest x-ray reviewed, there is concern for infiltrate versus atelectasis. Given the patient did have respiratory decline yesterday requiring manual bagging Postoperatively, accompanied with increased leukocytosis and increased oxygen needs. Will cover patient for possible aspiration pneumonia. Have ordered Unasym 3 gm IV BID for antimicrobial coverage. Given the pulmonary complexity will place consultation to Dr Frye for his expertise. Did place albuterol on hold as this can influence increased heart rate. Can utilize scheduled Xopenex. Lovenox 120 twice a day for anticoagulation Monitor routine labs. Hemoglobin remained stable at 10.5. Colon Polypectomy performed yesterday, pathology pending. Appreciate medical consultation. The hospitalist services will continue to follow patient medically manage her existing comorbidities. At time of discharge her medical care will [facility] Cardiology Back in Afib RVR as of 614 this morning, rate 150s, gave bolus IV cardizem, restarted drip - Plan is rate control and refer for ablation as an outpatient - Continue Cardizem 360mg po daily, Continue Cardizem drip as need for rate control. - Digoxin 500mcg IV x1 - Add Metoprolol 25mg PO TID, nurses instructed to give 2 doses today. 02/23/17 16:15 chronic A-fib, HR better controlled after addition of metoprolol. Afib - chronic at this point - plan on rate control. - HR 80's to 90's today - better controlled after starting metoprolol yest, - Cont Metoprolol 25mg PO TID - Change Dig 25mg po daily from Dig 5mg IV daily - received 2 doses - dig level in 5 days. - Cont Lovenox 1mg/kg SQ BID for stroke prevention, monitor for decrease in HGB - Will change to oral anticoagulant when HR better controlled (otherwise may consider ablation sooner.) - Plan to refer to EPS for ablation in the future as outpt. 02/24/17 17:06 Pt is seen in ICU sitting up in chair in no distress. still in A-fib HR controlled in 70's to 90's. HR up to 101 with activity. She her O2 decreased from 15L to 5LHFNC. But she desated , therefore increased to 7LHFNC. Now O2 sats > 90% on 7L. She states she was able to wear to Bipap only with the relaxing medicine. The mask in claustrophobic. Denies chest pain, or SOB and she does not feel palpitations. she gets SOB with movement to the commode. She coughed up some dark brown this am. No active bleed. Hbg stable. 02/24/17 17:07 Afib - chronic at this point - plan on rate control. - HR 70's to 90's today and yesterday. HR upto 101 with activity. - Cont Metoprolol 25mg PO TID - Cont Dig 125mcg po daily - dig level in 4 days. - Cont Lovenox 1mg/kg SQ BID for stroke prevention, Hbg stable. - Will change to oral anticoagulant in am. - Plan to refer to EPS for ablation in the future as outpt. Transferred to floor. Ok with Dr Torres per nursing. consulted PT for DC planning. 02/25/17 11:22 <Angeline Bell - 02/25/17 11:23>
--- NOTE | 2017-02-25 16:31 | Progress Note ---
<Madison Vences - Last Filed: 02/25/17 16:39> Subjective: Patient is today lying in her bed. She arouses easily from rest. She states she is feeling very well. Her breathing is much better. She is looking forward to going home tomorrow. No chest pain. No abdominal pain. Reports bowels are moving. Nurses noted a red/brown BM today. Objective Vital signs: Temperature 97.1 F 02/25/17 16:00 Pulse Rate 60 02/25/17 16:00 Respiratory Rate 22 02/25/17 16:00 Blood Pressure 117/66 02/25/17 16:00 Pulse Oximetry 95 02/25/17 16:00 Height/Weight/BMI: Height 1.68 m Weight 126.4 kg Body Mass Index 43.4 - Constitutional Present: no acute distress, well nourished, well developed, obese - Routine HEENT Exam Head: Present: normocephalic, atraumatic - Routine Respiratory Exam Present: CTA bilaterally, diminished air movement. Absent: wheezes - Routine Cardiovascular Exam Present: irregularly irregular. Absent: murmur - Routine Abdominal Exam Present: soft, normoactive bowel sounds, non distended. Absent: tenderness - Routine Extremities Exam Present: edema (2-3+ bilateral pitting), normal capillary refill - Routine Skin Exam Present: dry, warm - Routine Neurological Exam Present: alert, oriented X3 - Routine Lymphatic Exam Lymphatic: Absent: adenopathy - Routine Psychiatric Exam Present: normal affect, normal thought process Results - Labs CBC & Chem 7: 02/25/17 13:44 02/25/17 03:38 Microbiology Results: Microbiology 02/21/17 14:55 Sputum, Expectorated Gram Stain - Final 02/21/17 14:55 Sputum, Expectorated Sputum Culture - Final Staphylococcus aureus Normal Priya 02/23/17 10:00 Sputum, Expectorated Gram Stain - Final 02/23/17 10:00 Sputum, Expectorated Sputum Culture - Preliminary Early growth - ABG Interpretation ABG results: 02/21/17 02/23/17 10:47 07:10 ABG pH 7.360 7.410 ABG pCO2 78 H* 64 H* ABG pO2 58 L 59 L ABG HCO3 44 H 41 H ABG Total CO2 46.5 H 42.6 H ABG O2 Saturation 89.0 L 90.0 L ABG Base Excess 15.1 H 13.3 H Assessment and Plan (1) Atrial fibrillation with RVR Problem details: acute on chronic Current visit: Yes Status: Acute (2) Acute and chronic respiratory failure with hypercapnia Current visit: Yes Status: Acute Assessment and Plan: Assessment: Melena - likely from recent polypectomy Anemia - likely acute blood loss anemia Acute respiratory failure with known chronic hypoxia COPD with chronic oxygen dependence Aspiration pneumonia-CIARA cultured Hypersensitivity pneumonitis Chronic steroid use Atrial fibrillation with rapid ventricular rate Hyperglycemia, likely steroid-induced; A1c 5.6 Coronary artery disease Hypertension -controlled Hypercholesterolemia Morbid obesity-BMI 43.7 on admission Plan: Weight remains up, edema still present, give extra dose Lasix IV again now and reassess in the morning. BMP in am. Cardiac medications being managed by Dr. Blanc service. Lovenox being held due to melena. She will need to resume anticoagulation given her atrial fibrillation when bleeding stops. Hemoglobin dropped from 10.2 (on 04/25) to 8.9 today (04/27). Will follow. CBC in am. Sepsis Assessment - Evaluation Sepsis screening result: No Definite Risk Hospital Course Summary Disclaimer: The visit summary below is not to be considered part of the above Progress Note. Hospital Course: 02/21/17 14:09 Impression Acute respiratory failure with known chronic hypoxia COPD with chronic oxygen dependence Atrial fibrillation with rapid ventricular rate Coronary artery disease Anemia Hypertension Hypercholesterolemia Plan Continue cardiac care as per Dr. Blanc. Unfortunately, patient did go into atrial fibrillation RVR this morning. Currently on Cardizem drip. Chest x-ray reviewed, there is concern for infiltrate versus atelectasis. Given the patient did have respiratory decline yesterday requiring manual bagging Postoperatively, accompanied with increased leukocytosis and increased oxygen needs. Will cover patient for possible aspiration pneumonia. Have ordered Unasym 3 gm IV BID for antimicrobial coverage. Given the pulmonary complexity will place consultation to Dr Frye for his expertise. Did place albuterol on hold as this can influence increased heart rate. Can utilize scheduled Xopenex. Lovenox 120 twice a day for anticoagulation Monitor routine labs. Hemoglobin remained stable at 10.5. Colon Polypectomy performed yesterday, pathology pending. Appreciate medical consultation. The hospitalist services will continue to follow patient medically manage her existing comorbidities. At time of discharge her medical care will return to her primary care provider, Renetta Darling APRN at [facility] 02/22/17 Cardiology Back in Afib RVR as of 614 this morning, rate 150s, gave bolus IV cardizem, restarted drip - Plan is rate control and refer for ablation as an outpatient - Continue Cardizem 360mg po daily, Continue Cardizem drip as need for rate control. - Digoxin 500mcg IV x1 - Add Metoprolol 25mg PO TID, nurses instructed to give 2 doses today. 02/23/17 16:15 chronic A-fib, HR better controlled after addition of metoprolol. Afib - chronic at this point - plan on rate control. - HR 80's to 90's today - better controlled after starting metoprolol yest, - Cont Metoprolol 25mg PO TID - Change Dig 25mg po daily from Dig 5mg IV daily - received 2 doses - dig level in 5 days. - Cont Lovenox 1mg/kg SQ BID for stroke prevention, monitor for decrease in HGB - Will change to oral anticoagulant when HR better controlled (otherwise may consider ablation sooner.) - Plan to refer to EPS for ablation in the future as outpt. 02/24/17 17:06 Pt is seen in ICU sitting up in chair in no distress. still in A-fib HR controlled in 70's to 90's. HR up to 101 with activity. She her O2 decreased from 15L to 5LHFNC. But she desated , therefore increased to 7LHFNC. Now O2 sats > 90% on 7L. She states she was able to wear to Bipap only with the relaxing medicine. The mask in claustrophobic. Denies chest pain, or SOB and she does not feel palpitations. she gets SOB with movement to the commode. She coughed up some dark brown this am. No active bleed. Hbg stable. 02/24/17 17:07 Afib - chronic at this point - plan on rate control. - HR 70's to 90's today and yesterday. HR upto 101 with activity. - Cont Metoprolol 25mg PO TID - Cont Dig 125mcg po daily - dig level in 4 days. - Cont Lovenox 1mg/kg SQ BID for stroke prevention, Hbg stable. - Will change to oral anticoagulant in am. - Plan to refer to EPS for ablation in the future as outpt. Transferred to floor. Ok with Dr Torres per nursing. consulted PT for DC planning. 02/25/17 Weight remains up, edema still present, give extra dose Lasix IV again now and reassess in the morning. Cardiac medications being managed by Dr. Blanc service. Lovenox being held due to melena. She will need to resume anticoagulation given her atrial fibrillation when bleeding stops. Hemoglobin dropped from 10.2 (on 04/25) to 8.9 today (04/27). <Giselle Torres - Last Filed: 02/25/17 17:13> Objective Vital signs: Temperature 97.1 F 02/25/17 16:00 Pulse Rate 60 02/25/17 16:00 Respiratory Rate 20 02/25/17 16:26 Blood Pressure 117/66 02/25/17 16:00 Pulse Oximetry 95 02/25/17 16:00 Oxygen Delivery Method High Flow Nasal Cannula Oxygen Flow Rate 6 Fraction of Inspired Oxygen 40 SaO2/FiO2 Ratio 184 Height/Weight/BMI: Height 1.68 m Weight 126.4 kg Body Mass Index 43.4 Results - Labs CBC & Chem 7: 02/25/17 13:44 02/25/17 03:38 Microbiology Results: Assessment and Plan (1) Atrial fibrillation with RVR Problem details: acute on chronic Current visit: Yes Status: Acute (2) Acute and chronic respiratory failure with hypercapnia Current visit: Yes Status: Acute Assessment and Plan: I have independently evaluated and examined this patient. I reviewed the chart, the patient's history, and the PRINTER TECHNICIAN/PA's documented findings as above. We discussed and formulated the assessment and plan as above with additions as below: Ruthie for that she felt great this morning. She denied dyspnea and has minimal cough or sputum production. The patient denied any GI symptoms when seen but nursing subsequently advised us of some rectal bleeding as noted above. Respirations are nonlabored with faint crackles at the right base. Irregular rhythm with distant heart tones Obese abdomen, soft and nontender Lovenox on hold-Dr. Mujica notified of bleeding in the event any intervention needed but unlikely at this point. Discussed with cardiology. Hemoglobin stable this afternoon; if further bloody stools will repeat hemoglobin again tonight. Discussed with Dr. Frye-anticipate home with Trilogy for ventilatory support. Day 5 antibiotics for aspiration. Telemetry reviewed by myself-atrial fibrillation with adequate rate control. Hospital Course Summary Disclaimer: The visit summary below is not to be considered part of the above Progress Note.
[2017-02-25] MEDS ORDERED: FUROSEMIDE 20 MG/2 ML INJECTION IVP ONE (17:09)
[2017-02-25] MEDS: ROPINIROLE 0.25 MG TABLET PO SCH (21:08)
[2017-02-25] MEDS: MELATONIN 5 MG TABLET PO SCH (21:09)
[2017-02-25] MEDS: ATORVASTATIN 40 MG TABLET PO SCH (21:09)
[2017-02-26] MEDS: PANTOPRAZOLE 40 MG TABLET PO SCH (06:46)
[2017-02-26] MEDS: ALBUTEROL/IPRATROPIUM 2.5mg-0.5mg/3ml NEB IPPB SCH ×5 (08:07→20:05)
[2017-02-26] MEDS: CYANOCOBALAMIN (B-12) 500mcg TABLET PO SCH (09:22)
[2017-02-26] MEDS: ASPIRIN 81 MG CHEWABLE TABLET PO SCH (09:22)
[2017-02-26] MEDS: MethylPREDNISolone 4 MG TABLET PO SCH (09:22)
[2017-02-26] MEDS: CLINDAMYCIN 300 MG CAPSULE PO SCH ×4 (09:22→20:26)
[2017-02-26] MEDS: FUROSEMIDE 40 MG TABLET PO SCH (09:23)
[2017-02-26] MEDS: DIGOXIN 125 MCG TABLET PO SCH (09:23)
--- NOTE | 2017-02-26 09:23 | XRay Report ---
INDICATION: pneumonia PROCEDURE: CHEST 2-VIEWS UPRIGHT (PA & LAT) Encounter: Initial COMPARISON: February 23, 2017 FINDINGS: Improving aeration of the left lung with residual left lower lobe consolidation and a small left effusion. New right basilar atelectasis. No pneumothorax. Heart size and mediastinal contours are stable. Impression: Improving left lung pneumonia. .
[2017-02-26] MEDS: DiltiaZEM CD 360 MG CAPSULE PO SCH (09:31)
[2017-02-26] MEDS: TIOTROPIUM 18mcg/cap HANDIHALER ORAL INH SCH (11:10)
--- NOTE | 2017-02-26 12:16 | Progress Note ---
<Madison Vences - Last Filed: 02/26/17 12:12> Subjective: Patient is seen sitting up in bed. She reports she feels good. She wants to go home. She feels her breathing is good. No chest pain, no nausea or vomiting. Bowels are moving. Nurses report she still had a slight amount of blood with a bowel movement last evening. Nurses report she had quite a bit of urine output with the extra IV dose of Lasix. Objective Vital signs: Temperature 96.9 F 02/26/17 08:00 Pulse Rate 79 02/26/17 09:23 Respiratory Rate 20 02/26/17 11:25 Blood Pressure 157/83 H 02/26/17 08:00 Pulse Oximetry 97 02/26/17 10:19 Oxygen Delivery Method Nasal Cannula Oxygen Flow Rate 3 Height/Weight/BMI: Height 1.68 m Weight 123.6 kg Body Mass Index 43.4 - Constitutional Present: no acute distress, well nourished, well developed, obese - Routine HEENT Exam Head: Present: normocephalic, atraumatic ENT: Present: mucous membranes moist - Routine Respiratory Exam Present: CTA bilaterally. Absent: wheezes Comments: There are very faint rales right lower lobe - Routine Cardiovascular Exam Present: RRR, S1, S2. Absent: murmur - Routine Abdominal Exam Present: soft, normoactive bowel sounds, non distended. Absent: tenderness - Routine Extremities Exam Present: edema (2+ pitting bilaterally), normal capillary refill - Routine Skin Exam Present: dry, warm - Routine Neurological Exam Present: alert, oriented X3 - Routine Lymphatic Exam Lymphatic: Absent: adenopathy - Routine Psychiatric Exam Present: normal affect, normal thought process, cooperative Results - Labs CBC & Chem 7: 02/26/17 04:19 02/26/17 04:19 Microbiology Results: Microbiology 02/21/17 14:55 Sputum, Expectorated Gram Stain - Final 02/21/17 14:55 Sputum, Expectorated Sputum Culture - Final Staphylococcus aureus Normal Priya 02/23/17 10:00 Sputum, Expectorated Gram Stain - Final 02/23/17 10:00 Sputum, Expectorated Sputum Culture - Preliminary Early growth - ABG Interpretation ABG results: 02/21/17 02/23/17 10:47 07:10 ABG pH 7.360 7.410 ABG pCO2 78 H* 64 H* ABG pO2 58 L 59 L ABG HCO3 44 H 41 H ABG Total CO2 46.5 H 42.6 H ABG O2 Saturation 89.0 L 90.0 L ABG Base Excess 15.1 H 13.3 H Assessment and Plan (1) Atrial fibrillation with RVR Problem details: acute on chronic Current visit: Yes Status: Acute (2) Acute and chronic respiratory failure with hypercapnia Current visit: Yes Status: Acute Assessment and Plan: Impression: Melena - likely from recent polypectomy Anemia - likely acute blood loss anemia Leukocytosis-likely steroid-induced Acute respiratory failure with known chronic hypoxia COPD with chronic oxygen dependence Aspiration pneumonia-CIARA cultured Hypersensitivity pneumonitis Chronic steroid use Atrial fibrillation with rapid ventricular rate-converted spontaneously to normal sinus rhythm 02/26/17 Hyperglycemia, likely steroid-induced; A1c 5.6 Coronary artery disease Hypertension -controlled Hypercholesterolemia Morbid obesity-BMI 43.7 on admission Plan: Lovenox remains on hold. She continued to have small amount of blood with stools yesterday. Hemoglobin is down to 8.4 from 8.9 yesterday. She has diuresed with the extra dose of 40 mg IV Lasix the past 2 days and has lost 3 kg. Creatinine has slowly trended up over the past few days to 1.3. She converted to normal sinus rhythm at approximately 650 this morning. She continues in normal sinus rhythm with rates in the 70s. Will discuss further plan of care with attending, Dr. Torres Sepsis Assessment - Evaluation Sepsis screening result: No Definite Risk Hospital Course Summary Disclaimer: The visit summary below is not to be considered part of the above Progress Note. Hospital Course: 02/21/17 14:09 Impression Acute respiratory failure with known chronic hypoxia COPD with chronic oxygen dependence Atrial fibrillation with rapid ventricular rate Coronary artery disease Anemia Hypertension Hypercholesterolemia Plan Continue cardiac care as per Dr. Blanc. Unfortunately, patient did go into atrial fibrillation RVR this morning. Currently on Cardizem drip. Chest x-ray reviewed, there is concern for infiltrate versus atelectasis. Given the patient did have respiratory decline yesterday requiring manual bagging Postoperatively, accompanied with increased leukocytosis and increased oxygen needs. Will cover patient for possible aspiration pneumonia. Have ordered Unasym 3 gm IV BID for antimicrobial coverage. Given the pulmonary complexity will place consultation to Dr Frye for his expertise. Did place albuterol on hold as this can influence increased heart rate. Can utilize scheduled Xopenex. Lovenox 120 twice a day for anticoagulation Monitor routine labs. Hemoglobin remained stable at 10.5. Colon Polypectomy performed yesterday, pathology pending. Appreciate medical consultation. The hospitalist services will continue to follow patient medically manage her existing comorbidities. At time of discharge her medical care will return to her primary care provider, Renetta Darling APRN at [facility] 02/22/17 Cardiology Back in Afib RVR as of 614 this morning, rate 150s, gave bolus IV cardizem, restarted drip - Plan is rate control and refer for ablation as an outpatient - Continue Cardizem 360mg po daily, Continue Cardizem drip as need for rate control. - Digoxin 500mcg IV x1 - Add Metoprolol 25mg PO TID, nurses instructed to give 2 doses today. 02/23/17 16:15 chronic A-fib, HR better controlled after addition of metoprolol. Afib - chronic at this point - plan on rate control. - HR 80's to 90's today - better controlled after starting metoprolol yest, - Cont Metoprolol 25mg PO TID - Change Dig 25mg po daily from Dig 5mg IV daily - received 2 doses - dig level in 5 days. - Cont Lovenox 1mg/kg SQ BID for stroke prevention, monitor for decrease in HGB - Will change to oral anticoagulant when HR better controlled (otherwise may consider ablation sooner.) - Plan to refer to EPS for ablation in the future as outpt. 02/24/17 17:06 Pt is seen in ICU sitting up in chair in no distress. still in A-fib HR controlled in 70's to 90's. HR up to 101 with activity. She her O2 decreased from 15L to 5LHFNC. But she desated , therefore increased to 7LHFNC. Now O2 sats > 90% on 7L. She states she was able to wear to Bipap only with the relaxing medicine. The mask in claustrophobic. Denies chest pain, or SOB and she does not feel palpitations. she gets SOB with movement to the commode. She coughed up some dark brown this am. No active bleed. Hbg stable. 02/24/17 17:07 Afib - chronic at this point - plan on rate control. - HR 70's to 90's today and yesterday. HR upto 101 with activity. - Cont Metoprolol 25mg PO TID - Cont Dig 125mcg po daily - dig level in 4 days. - Cont Lovenox 1mg/kg SQ BID for stroke prevention, Hbg stable. - Will change to oral anticoagulant in am. - Plan to refer to EPS for ablation in the future as outpt. Transferred to floor. Ok with Dr Torres per nursing. consulted PT for DC planning. 02/25/17 Weight remains up, edema still present, give extra dose Lasix IV again now and reassess in the morning. Cardiac medications being managed by Dr. Jayashree avila. Lovenox being held due to melena. She will need to resume anticoagulation given her atrial fibrillation when bleeding stops. Hemoglobin dropped from 10.2 (on 04/25) to 8.9 today (04/27). 02/26/17 Lovenox remains on hold. She continued to have small amount of blood with stools yesterday. Hemoglobin is down to 8.4 from 8.9 yesterday. She has diuresed with the extra dose of 40 mg IV Lasix the past 2 days and has lost 3 kg. Creatinine has slowly trended up over the past few days to 1.3. She converted to normal sinus rhythm at approximately 650 this morning. She continues in normal sinus rhythm with rates in the 70s. <Giselle Torres - Last Filed: 02/26/17 14:56> Objective Vital signs: Temperature 96.9 F 02/26/17 08:00 Pulse Rate 79 02/26/17 09:23 Respiratory Rate 20 02/26/17 11:25 Blood Pressure 157/83 H 02/26/17 08:00 Pulse Oximetry 97 02/26/17 10:19 Height/Weight/BMI: Height 1.68 m Weight 123.6 kg Body Mass Index 43.4 Results - Labs CBC & Chem 7: 02/26/17 04:19 02/26/17 04:19 Microbiology Results: - ABG Interpretation ABG results: Assessment and Plan (1) Atrial fibrillation with RVR Problem details: acute on chronic Current visit: Yes Status: Acute (2) Acute and chronic respiratory failure with hypercapnia Current visit: Yes Status: Acute Assessment and Plan: I have independently evaluated and examined this patient. I reviewed the chart, the patient's history, and the CROP ROLLER/PA's documented findings as above. We discussed and formulated the assessment and plan as above with additions as below: Ruthie continues to describe feeling well. She had minor difficulty wearing BiPAP overnight because the posterior strap was tight but reports she worked most of the night. Nursing reports small amount of blood in the stool this morning but improved from yesterday. Rhythm converted to sinus earlier today and she is titrated to 3 L supplemental oxygen-usual flow rate at home. NAD, alert Respirations nonlabored with good airflow, breath sounds clear bilaterally Regular rhythm, +2 edema bilateral lower extremities Chest x-ray reviewed by myself-significant improvement in left lower lobe infiltrate, minimal residual Discussed with cardiology-continued with hold anticoagulation due to GI blood loss; repeat hemoglobin in a.m.-anticipate discharge home tomorrow if hemoglobin stable and no further dysrhythmias. BUN/creatinine up slightly as previously noted, no supplemental Lasix to be given at this time. Multiple conversations with case management throughout the day, discussed with nursing. [id number] being coordinated-for clarity the patient has: - Chronic hypercapnic respiratory failure and - Acute on chronic hypoxic respiratory failure Hospital Course Summary Disclaimer: The visit summary below is not to be considered part of the above Progress Note.
--- NOTE | 2017-02-26 14:03 | Cardiology Progress Note ---
Subjective Principal diagnosis: A Fib RVR <Angeline Bell - 02/26/17 14:03> Interval history: F/U A-fib. Ruthie is seen in her room on Medical. She asks when she can go home. She denies chest pain or palpitations. She remains on O2/NC at 3L <Angeline Bell - 02/26/17 14:03> Exam Vital signs: Temperature 96.0 F L 02/27/17 08:00 Pulse Rate 67 02/27/17 08:00 Respiratory Rate 20 02/27/17 11:20 Blood Pressure 155/82 H 02/27/17 08:00 Pulse Oximetry 95 02/27/17 08:00 <Froylan Blanc - 02/28/17 10:39> Temperature 96.9 F 02/26/17 08:00 Pulse Rate 79 02/26/17 09:23 Respiratory Rate 20 02/26/17 11:25 Blood Pressure 157/83 H 02/26/17 08:00 Pulse Oximetry 97 02/26/17 10:19 <Angeline Bell 02/26/17 14:03> - Constitutional no acute distress, morbidly obese, cooperative <Angeline Bell 02/26/17 14: 14> - Routine HEENT Exam Head: Present: normocephalic <Angeline Bell 02/26/17 14:14> ENT: Present: mucous membranes moist <Angeline Bell 02/26/17 14:14> - Routine Neck Exam Absent: JVD, carotid bruit <Angeline Bell 02/26/17 14:14> - Routine Chest/Breast/Axilla Exam Chest wall: Absent: tenderness <Angeline Bell 02/26/17 14:14> - Routine Respiratory Exam Present: dyspnea (with activity), wheezes (bibasilar). Absent: CTA bilaterally <Angeline Bell 02/26/17 14:14> - Routine Cardiovascular Exam Present: RRR, no murmur. Absent: JVD <Angeline Bell 02/26/17 14:14> - Routine Abdominal Exam Present: soft, normoactive bowel sounds <Angeline Bell 02/26/17 14:14> - Routine Extremities Exam Present: edema <Angeline Bell - 02/26/17 14:14> - Routine Skin Exam Present: intact, dry, warm <Angeline Bell - 02/26/17 14:14> - Routine Neurological Exam Present: alert, oriented X3 <Angeline Bell - 02/26/17 14:14> - Routine Psychiatric Exam Present: normal affect, normal thought process <Angeline Bell - 02/26/17 14: 14> Progress Note-A&P (1) CAD (coronary artery disease), [place] coronary artery Problem details: Stenting of LAD 11/28/2013 Status: Chronic (2) COPD (chronic obstructive pulmonary disease) Status: Chronic (3) High cholesterol Status: Chronic (4) Hypertension Status: Chronic (5) Hypoxemia Problem details: Division Service Manager: Dr. Paul Willard 3L ON Status: Chronic (6) Atrial fibrillation with RVR Problem details: acute on chronic Status: Acute <PaulaarleenLashon helmsFroylan - 02/28/17 10:39> (1) CAD (coronary artery disease), [place] coronary artery Problem details: Stenting of LAD 11/28/2013 Status: Chronic Assessment and plan: Cont ASA and statin. (2) COPD (chronic obstructive pulmonary disease) Status: Chronic Assessment and plan: Managed by pants maker. O2 sats > 90%. On 7 L HFNC. Cont on steroid taper. Breathing treatments. (3) High cholesterol Status: Chronic (4) Hypertension Status: Chronic Assessment and plan: Well controlled. (5) Hypoxemia Problem details: Division Service Manager: Dr. Paul Willard 3L ON Status: Chronic Assessment and plan: Division Service Manager consulted, Dr. Frye / Dr. Willard. - Maintaining O2 sats > 90 - on 7 L hifow and Bipap at night. . (6) Atrial fibrillation with RVR Problem details: acute on chronic Status: Acute Assessment and plan: Afib - self converted this am. - HR 70's to 90's today. - Cont Metoprolol 25mg PO TID - Cont Dig 125mcg po daily - dig level pending. - Lovenox stopped as Hbg 8.4 today, - Plan to refer to EPS for ablation in the future as outpt. <Angeline Bell - 02/26/17 14:07> - Time Spent With Patient Total time spent is greater than 50% in coordination of care (as documented) at patient's floor/unit and/or counseling patient: <Froylan Blanc - 02/28/17 10:39> Total time spent is greater than 50% in coordination of care (as documented) at patient's floor/unit and/or counseling patient: <Angeline Bell - 02/26/17 14:03> less than 15 minutes <Angeline Bell - 02/26/17 14:14> - Attestation Attestation Narrative: Recommendation After examining the patient I agree with the above assessment. I am involved in the formulation of the patient's plan of care. <Froylan Blanc - 02/28/17 10:39> Sepsis Assessment - Evaluation Sepsis screening result: No Definite Risk <Angeline Bell 02/26/17 14:03> Hospital Course Summary Disclaimer: The visit summary below is not to be considered part of the above Progress Note. <Froylan Blanc - 02/28/17 10:39> The visit summary below is not to be considered part of the above Progress Note. <Angeline Bell - 02/26/17 14:03> Hospital Course: 02/21/17 14:09 Impression Acute respiratory failure with known chronic hypoxia COPD with chronic oxygen dependence Atrial fibrillation with rapid ventricular rate Coronary artery disease Anemia Hypertension Hypercholesterolemia Plan Continue cardiac care as per Dr. Blanc. Unfortunately, patient did go into atrial fibrillation RVR this morning. Currently on Cardizem drip. Chest x-ray reviewed, there is concern for infiltrate versus atelectasis. Given the patient did have respiratory decline yesterday requiring manual bagging Postoperatively, accompanied with increased leukocytosis and increased oxygen needs. Will cover patient for possible aspiration pneumonia. Have ordered Unasym 3 gm IV BID for antimicrobial coverage. Given the pulmonary complexity will place consultation to Dr Frye for his expertise. Did place albuterol on hold as this can influence increased heart rate. Can utilize scheduled Xopenex. Lovenox 120 twice a day for anticoagulation Monitor routine labs. Hemoglobin remained stable at 10.5. Colon Polypectomy performed yesterday, pathology pending. Appreciate medical consultation. The hospitalist services will continue to follow patient medically manage her existing comorbidities. At time of discharge her medical care will [facility]17 Cardiology Back in Afib RVR as of 614 this morning, rate 150s, gave bolus IV cardizem, restarted drip - Plan is rate control and refer for ablation as an outpatient - Continue Cardizem 360mg po daily, Continue Cardizem drip as need for rate control. - Digoxin 500mcg IV x1 - Add Metoprolol 25mg PO TID, nurses instructed to give 2 doses today. 02/23/17 16:15 chronic A-fib, HR better controlled after addition of metoprolol. Afib - chronic at this point - plan on rate control. - HR 80's to 90's today - better controlled after starting metoprolol yest, - Cont Metoprolol 25mg PO TID - Change Dig 25mg po daily from Dig 5mg IV daily - received 2 doses - dig level in 5 days. - Cont Lovenox 1mg/kg SQ BID for stroke prevention, monitor for decrease in HGB - Will change to oral anticoagulant when HR better controlled (otherwise may consider ablation sooner.) - Plan to refer to EPS for ablation in the future as outpt. 02/24/17 17:06 Pt is seen in ICU sitting up in chair in no distress. still in A-fib HR controlled in 70's to 90's. HR up to 101 with activity. She her O2 decreased from 15L to 5LHFNC. But she desated , therefore increased to 7LHFNC. Now O2 sats > 90% on 7L. She states she was able to wear to Bipap only with the relaxing medicine. The mask in claustrophobic. Denies chest pain, or SOB and she does not feel palpitations. she gets SOB with movement to the commode. She coughed up some dark brown this am. No active bleed. Hbg stable. 02/24/17 17:07 Afib - chronic at this point - plan on rate control. - HR 70's to 90's today and yesterday. HR upto 101 with activity. - Cont Metoprolol 25mg PO TID - Cont Dig 125mcg po daily - dig level in 4 days. - Cont Lovenox 1mg/kg SQ BID for stroke prevention, Hbg stable. - Will change to oral anticoagulant in am. - Plan to refer to EPS for ablation in the future as outpt. Transferred to floor. Ok with Dr Torres per nursing. consulted PT for DC planning. 02/25/17 Weight remains up, edema still present, give extra dose Lasix IV again now and reassess in the morning. Cardiac medications being managed by Dr. Jayashree avila. Lovenox being held due to melena. She will need to resume anticoagulation given her atrial fibrillation when bleeding stops. Hemoglobin dropped from 10.2 (on 04/25) to 8.9 today (04/27). 02/25/17 Cardiology Afib - chronic at this point - plan on rate control. - HR 70's to 90's today. - Cont Metoprolol 25mg PO TID - Cont Dig 125mcg po daily - dig level tomorrow. - Hold Lovenox, Hbg 8.7 today, recheck this afternoon. - Plan to refer to EPS for ablation in the future as outpt. 02/26/17 Lovenox remains on hold. She continued to have small amount of blood with stools yesterday. Hemoglobin is down to 8.4 from 8.9 yesterday. She has diuresed with the extra dose of 40 mg IV Lasix the past 2 days and has lost 3 kg. Creatinine has slowly trended up over the past few days to 1.3. She converted to normal sinus rhythm at approximately 650 this morning. She continues in normal sinus rhythm with rates in the 70s. 02/26/17 Cardiology Afib - self converted this am. - HR 70's to 90's today. - Cont Metoprolol 25mg PO TID - Cont Dig 125mcg po daily - dig level pending. - Lovenox stopped as Hbg 8.4 today, - Plan to refer to EPS for ablation in the future as outpt. <Angeline Bell - 02/26/17 14:14>
--- NOTE | 2017-02-26 15:51 | Pulmonology Progress Note ---
Subjective Principal diagnosis: A Fib RVR Interval history: doing well. on 6 lpm O2 by NC. wants to go home. eating well Exam Vital signs: Temperature 96.9 F 02/26/17 08:00 Pulse Rate 79 02/26/17 09:23 Respiratory Rate 20 02/26/17 15:36 Blood Pressure 157/83 H 02/26/17 08:00 Pulse Oximetry 97 02/26/17 10:19 - Constitutional no acute distress - Routine HEENT Exam Head: Present: normocephalic - Routine Neck Exam Present: supple, full ROM - Routine Respiratory Exam Present: decreased breath sounds - Routine Cardiovascular Exam Present: RRR, S1, S2. Absent: murmur - Routine Abdominal Exam Present: soft. Absent: guarding Progress Note-A&P (1) Pneumonia Status: Acute Assessment and plan: CXR reviewed. much improved aeration LLL. Need to followup until clear or CT scan should be performed to rule out mass lesion Current Visit: Yes (2) Acute and chronic respiratory failure with hypercapnia Status: Acute Assessment and plan: recommend Bipap ST at night and with exertion. We will follow up as outpatient to ensure compliance Current Visit: Yes (3) Atrial fibrillation with RVR Problem details: acute on chronic Status: Acute Assessment and plan: controlled and followed by Dr Blanc Current Visit: Yes (4) COPD (chronic obstructive pulmonary disease) Status: Chronic Assessment and plan: continue neb bronchodilators, will follow as outpatient. Current Visit: No - Time Spent With Patient Total time spent is greater than 50% in coordination of care (as documented) at patient's floor/unit and/or counseling patient: less than 15 minutes Sepsis Assessment - Evaluation Sepsis screening result: No Definite Risk
[2017-02-26] MEDS ORDERED: MethylPREDNISolone 4 MG TABLET PO SCH (18:46)
[2017-02-26] MEDS: ROPINIROLE 0.25 MG TABLET PO SCH (20:26)
[2017-02-26] MEDS: ATORVASTATIN 40 MG TABLET PO SCH (20:26)
[2017-02-26] MEDS: INSULIN ASPART 100unit/ml INJECTION SQ PRN (21:17)
[2017-02-26] MEDS: MELATONIN 5 MG TABLET PO SCH (21:19)
[2017-02-27] MEDS: PANTOPRAZOLE 40 MG TABLET PO SCH (05:37)
[2017-02-27] MEDS: ALBUTEROL/IPRATROPIUM 2.5mg-0.5mg/3ml NEB IPPB SCH ×3 (07:52→11:31)
[2017-02-27] MEDS: FUROSEMIDE 40 MG TABLET PO SCH (08:15)
[2017-02-27] MEDS: DiltiaZEM CD 360 MG CAPSULE PO SCH (08:18)
[2017-02-27] MEDS: DIGOXIN 125 MCG TABLET PO SCH (08:19)
[2017-02-27] MEDS: ASPIRIN 81 MG CHEWABLE TABLET PO SCH (08:21)
[2017-02-27] MEDS: CYANOCOBALAMIN (B-12) 500mcg TABLET PO SCH (08:23)
[2017-02-27] MEDS: CLINDAMYCIN 300 MG CAPSULE PO SCH (08:26)
[2017-02-27] MEDS: TIOTROPIUM 18mcg/cap HANDIHALER ORAL INH SCH ×2 (08:30→09:16)
[2017-02-27 08:32] VITALS: BP 155/82; PULSE 67; TEMP 96; O2SAT 95
[2017-02-27] MEDS ORDERED: MethylPREDNISolone 4 MG TABLET PO SCH ×2 (09:27→11:08)
[2017-02-27] MEDS ORDERED: AMOX/CLAV 875 MG/125 MG TABLET PO SCH (10:00)
--- NOTE | 2017-02-27 10:00 | Progress Note ---
Subjective: The patient states she is feeling well this morning. She wants to be discharged today because she has an appointment for hearing aids this afternoon that she has been waiting for for 3 months. She denies shortness of breath. She wore her mask with Trilogy vent last night and tolerated it well. She is eating and drinking well. She denies any chest pain. She had a small amount of blood in her stools yesterday but it was less than the day before. She denies any lightheadedness. She is up walking without difficulties. She is on her usual 3 L of oxygen at rest. Objective Vital signs: Temperature 96.0 F L 02/27/17 08:00 Pulse Rate 67 02/27/17 08:00 Respiratory Rate 18 02/27/17 08:00 Blood Pressure 155/82 H 02/27/17 08:00 Pulse Oximetry 95 02/27/17 08:00 Height/Weight/BMI: Height 1.68 m Weight 123.6 kg Body Mass Index 43.4 Comments: GEN-alert, oriented, no acute distress CV-regular rate and rhythm CHEST-clear to auscultation bilaterally ABD-soft, nontender with positive bowel sounds -no Crowley EXT-+1-2 pretibial edema, the patient states she has had edema for a month at least NEURO-no focal deficits SKIN-warm and dry and without rashes Results - Labs CBC & Chem 7: 02/27/17 04:09 02/27/17 04:09 Microbiology Results: Microbiology 02/23/17 10:00 Sputum, Expectorated Gram Stain - Final 02/23/17 10:00 Sputum, Expectorated Sputum Culture - Final Haemophilus influenzae Normal Respiratory Priya 02/21/17 14:55 Sputum, Expectorated Gram Stain - Final 02/21/17 14:55 Sputum, Expectorated Sputum Culture - Final Staphylococcus aureus Normal Priya - ABG Interpretation ABG results: 02/21/17 02/23/17 10:47 07:10 ABG pH 7.360 7.410 ABG pCO2 78 H* 64 H* ABG pO2 58 L 59 L ABG HCO3 44 H 41 H ABG Total CO2 46.5 H 42.6 H ABG O2 Saturation 89.0 L 90.0 L ABG Base Excess 15.1 H 13.3 H Assessment and Plan (1) Atrial fibrillation with RVR Problem details: acute on chronic Current visit: Yes Status: Acute (2) Acute and chronic respiratory failure with hypercapnia Current visit: Yes Status: Acute Assessment and Plan: Impression Melena - likely from recent polypectomy-improved Anemia - likely acute blood loss anemia-slight drop in hemoglobin today, Lovenox was previously discontinued Leukocytosis-likely steroid-induced Acute respiratory failure with known chronic hypoxia COPD with chronic oxygen dependence Aspiration pneumonia-CIARA and Haemophilus influenza from sputum Hypersensitivity pneumonitis Chronic steroid use Atrial fibrillation with rapid ventricular rate-converted spontaneously to normal sinus rhythm 02/26/17 Hyperglycemia, likely steroid-induced; A1c 5.6 Coronary artery disease Hypertension -controlled Hypercholesterolemia Morbid obesity-BMI 43.7 on admission Plan Discussed today with Dr. Mujica regarding patient's mild drop in hemoglobin which she is tolerating well. He stated that with her anticoagulation being stopped, she could be discharged to home with follow-up hemoglobin tomorrow. Hemoglobin needs to be called to Dr. Mujica and the [facility]. Regarding the patient's nocturnal hypoxia, she did qualify for a trilogy ventilator and started that last night and has done well. She will be dismissed to home with her trilogy event at the same settings. Regarding pneumonia with sputum positive for OSS a and Haemophilus influenza, I did speak with Dr. Frye and the patient will be discharged on Augmentin for 1 week. Regarding the patient's steroid use, will give 8 mg of prednisone daily until she is seen in follow-up by Dr. Frye and he can decide at that time on further tapering. The patient will follow-up with Dr. Frye regarding pneumonia and possible hypersensitivity pneumonitis. She will need follow-up chest x-ray or CAT scan to make sure her infiltrate completely clears. The patient states she does have a home nebulizer and has albuterol and Atrovent for her nebulizer. Greater than 35 minutes of time was spent seeing and evaluating the patient today and talking with case management, respiratory therapy, Dr. Frye, Dr. Cochran, and with ARIANNA Marcus for Dr. Blanc. Sepsis Assessment - Evaluation Sepsis screening result: No Definite Risk Hospital Course Summary Disclaimer: The visit summary below is not to be considered part of the above Progress Note. Hospital Course: 02/21/17 14:09 Impression Acute respiratory failure with known chronic hypoxia COPD with chronic oxygen dependence Atrial fibrillation with rapid ventricular rate Coronary artery disease Anemia Hypertension Hypercholesterolemia Plan Continue cardiac care as per Dr. Blanc. Unfortunately, patient did go into atrial fibrillation RVR this morning. Currently on Cardizem drip. Chest x-ray reviewed, there is concern for infiltrate versus atelectasis. Given the patient did have respiratory decline yesterday requiring manual bagging Postoperatively, accompanied with increased leukocytosis and increased oxygen needs. Will cover patient for possible aspiration pneumonia. Have ordered Unasym 3 gm IV BID for antimicrobial coverage. Given the pulmonary complexity will place consultation to Dr Frye for his expertise. Did place albuterol on hold as this can influence increased heart rate. Can utilize scheduled Xopenex. Lovenox 120 twice a day for anticoagulation Monitor routine labs. Hemoglobin remained stable at 10.5. Colon Polypectomy performed yesterday, pathology pending. Appreciate medical consultation. The hospitalist services will continue to follow patient medically manage her existing comorbidities. At time of discharge her medical care will return to her primary care provider, Renetta Darling APRN at [facility] 02/22/17 Cardiology Back in Afib RVR as of 614 this morning, rate 150s, gave bolus IV cardizem, restarted drip - Plan is rate control and refer for ablation as an outpatient - Continue Cardizem 360mg po daily, Continue Cardizem drip as need for rate control. - Digoxin 500mcg IV x1 - Add Metoprolol 25mg PO TID, nurses instructed to give 2 doses today. 02/23/17 16:15 chronic A-fib, HR better controlled after addition of metoprolol. Afib - chronic at this point - plan on rate control. - HR 80's to 90's today - better controlled after starting metoprolol yest, - Cont Metoprolol 25mg PO TID - Change Dig 25mg po daily from Dig 5mg IV daily - received 2 doses - dig level in 5 days. - Cont Lovenox 1mg/kg SQ BID for stroke prevention, monitor for decrease in HGB - Will change to oral anticoagulant when HR better controlled (otherwise may consider ablation sooner.) - Plan to refer to [facility] for ablation in the future as outpt. 02/24/17 17:06 Pt is seen in ICU sitting up in chair in no distress. still in A-fib HR controlled in 70's to 90's. HR up to 101 with activity. She her O2 decreased from 15L to 5LHFNC. But she desated , therefore increased to 7LHFNC. Now O2 sats > 90% on 7L. She states she was able to wear to Bipap only with the relaxing medicine. The mask in claustrophobic. Denies chest pain, or SOB and she does not feel palpitations. she gets SOB with movement to the commode. She coughed up some dark brown this am. No active bleed. Hbg stable. 02/24/17 17:07 Afib - chronic at this point - plan on rate control. - HR 70's to 90's today and yesterday. HR upto 101 with activity. - Cont Metoprolol 25mg PO TID - Cont Dig 125mcg po daily - dig level in 4 days. - Cont Lovenox 1mg/kg SQ BID for stroke prevention, Hbg stable. - Will change to oral anticoagulant in am. - Plan to refer to EPS for ablation in the future as outpt. Transferred to floor. Ok with Dr Torres per nursing. consulted PT for DC planning. 02/25/17 Weight remains up, edema still present, give extra dose Lasix IV again now and reassess in the morning. Cardiac medications being managed by Dr. Blanc service. Lovenox being held due to melena. She will need to resume anticoagulation given her atrial fibrillation when bleeding stops. Hemoglobin dropped from 10.2 (on 04/25) to 8.9 today (04/27). 02/25/17 Cardiology Afib - chronic at this point - plan on rate control. - HR 70's to 90's today. - Cont Metoprolol 25mg PO TID - Cont Dig 125mcg po daily - dig level tomorrow. - Hold Lovenox, Hbg 8.7 today, recheck this afternoon. - Plan to refer to EPS for ablation in the future as outpt. 02/26/17 Lovenox remains on hold. She continued to have small amount of blood with stools yesterday. Hemoglobin is down to 8.4 from 8.9 yesterday. She has diuresed with the extra dose of 40 mg IV Lasix the past 2 days and has lost 3 kg. Creatinine has slowly trended up over the past few days to 1.3. She converted to normal sinus rhythm at approximately 650 this morning. She continues in normal sinus rhythm with rates in the 70s. 02/26/17 Cardiology Afib - self converted this am. - HR 70's to 90's today. - Cont Metoprolol 25mg PO TID - Cont Dig 125mcg po daily - dig level pending. - Lovenox stopped as Hbg 8.4 today, - Plan to refer to EPS for ablation in the future as outpt.
--- NOTE | 2017-02-27 10:41 | Pulmonology Progress Note ---
Subjective Principal diagnosis: A Fib RVR Interval history: Pt is doing well, ambulating in room on 3lpm O2 by AL. States she is breathing ok, no SOB, cough or sputum noted. Wanting to go home. Exam Vital signs: Temperature 96.0 F L 02/27/17 08:00 Pulse Rate 67 02/27/17 08:00 Respiratory Rate 16 02/27/17 10:00 Blood Pressure 155/82 H 02/27/17 08:00 Pulse Oximetry 95 02/27/17 08:00 - Constitutional no acute distress, obese - Routine HEENT Exam Head: Present: normocephalic, atraumatic - Routine Neck Exam Present: supple, full ROM - Routine Respiratory Exam Present: crackles Comments: faint crackles bases - Routine Cardiovascular Exam Present: RRR, no murmur - Routine Abdominal Exam Present: soft, normoactive bowel sounds - Routine Extremities Exam Present: edema, full ROM - Routine Back/Spine/Pelvis Exam Back/Spine: Present: full ROM - Routine Skin Exam Present: intact, dry, pallor - Routine Neurological Exam Present: alert, oriented X3, CN II-XII intact - Routine Psychiatric Exam Present: normal affect, normal thought process Progress Note-A&P (1) Acute and chronic respiratory failure with hypercapnia Status: Acute Assessment and plan: Pt currently on O2 at 3L per NC (home O2), used her trilogy vent last noc without issues and actually likes it. Encouraged use at noc and with naps during the day. Will need to f/u in clinic in [address] Frye. Current Visit: Yes (2) Pneumonia Status: Acute Assessment and plan: Noted with CIARA and haemophilus influenza, unasyn switched to augmentin and will cont op as already instructed. Possible Hx of sensitivity pneumonitis cont on methylprednisolone but change to 8mg daily till seen in clinic. Will schedule OP CT scan prior to appt in 2 weeks. my staff will call with appt times. Current Visit: Yes (3) COPD (chronic obstructive pulmonary disease) Status: Chronic Assessment and plan: Currently on advair 250/50 BID, spiriva daily and ventolin prn at home. Will continue these, instructed to use her neb albuterol 2-3 times a day at home if needed. Current Visit: No (4) Atrial fibrillation with RVR Problem details: acute on chronic Status: Acute Assessment and plan: Currently NSR on cardizem per CV Current Visit: Yes - Time Spent With Patient Total time spent is greater than 50% in coordination of care (as documented) at patient's floor/unit and/or counseling patient: less than 15 minutes Sepsis Assessment - Evaluation Sepsis screening result: No Definite Risk
--- NOTE | 2017-02-27 10:54 | Discharge Summary ---
<Angeline Bell - Last Filed: 02/27/17 11:46> Discharge Information Date of admission: 02/21/17 14:14 Anticipated date of discharge: 02/27/17 Attending Physician: Froylan Blanc MD Primary care physician: Renetta Denney APRN Consults: 02/21/17 12:02 Physician Consult [CONS] Routine Consulting Provider: Giselle Torres Reason For Exam: respiratory failure Ordering Provider has Notified Timber Faller: Yes 02/21/17 13:48 Physician Consult [CONS] Routine Consulting Provider: Yoav Frye Reason For Exam: increased hypoxia, ? Aspiration Ordering Provider has Notified Timber Faller: Yes - Discharge Diagnosis Discharge Diagnosis: Melena - Anemia - Leukocytosis- Acute respiratory failure with known chronic hypoxia COPD with chronic oxygen dependence Aspiration pneumonia-CIARA and Haemophilus influenza from sputum Hypersensitivity pneumonitis Chronic steroid use Atrial fibrillation with rapid ventricular rate- Hyperglycemia, Coronary artery disease Hypertension - Hypercholesterolemia Morbid obesity- - Procedures Procedures: DATE OF OPERATION 02/20/2017 SURGEON Yoav Mujica MD PREOPERATIVE DIAGNOSIS Iron deficiency anemia. POSTOPERATIVE DIAGNOSES 1. 1.5 cm sessile polyp of the ascending colon. 2. 0.5 cm sessile polyp of the cecum. 3. Less than 0.5 cm sessile polyp of the cecum. 4. Possible 2 cm submucosal mass of the ascending colon. 5. Less than 0.5 cm sessile polyp of the hepatic flexure. 6. 1 cm pedunculated polyp of the distal transverse colon. 7. 0.5 cm sessile polyp of the descending colon. 8. 0.7 cm sessile polyps of the sigmoid colon x 2. 9. Multiple, less than 0.5 cm sessile polyps of the sigmoid colon (grossly consistent with hyperplastic polyps, five polyps removed). 10. Iron-deficiency anemia. 11. Moderate sliding hiatal hernia. PROCEDURE 1. Esophagogastroduodenoscopy. 2. Colonoscopy with hot snare polypectomy x 5, hot biopsy forceps polypectomy x 5, mucosal biopsies of the ascending colon, and cold biopsy forceps polypectomy x 3. ANESTHESIA TIVA ASA CLASS 3 INDICATIONS The patient is a 56-year-old female who had been diagnosed with iron deficiency anemia. She was in need of upper and lower endoscopy prior to additional cardiac workup so that if anticoagulation or antiplatelet therapy were needed it would be reasonable to start the therapy without risk of further anemia. FINDINGS EGD was normal. Colonoscopy revealed multiple polyps as described above. There was also an apparent submucosal mass that seemed consistent with a submucosal lipoma in the ascending colon. It was also possibly simply a fold of the colon causing the appearance of a submucosal mass. Some small apparently hyperplastic polyps were left in the region of the sigmoid colon, but five were biopsied. The larger polyps were able to be totally removed. DESCRIPTION OF PROCEDURE After informed consent was obtained the patient was taken to the endoscopy suite and placed in left lateral decubitus position. IV anesthesia was administered by the anesthesia team. A bite block was inserted followed by an Olympus video gastroscope. The gastroscope was advanced into the esophagus under direct vision. It was then advanced to the third portion of the duodenum under direct vision. Scope was slowly withdrawn examining the mucosa circumferentially. In the stomach the scope was retroflexed to examine the cardiac and fundic portions of the stomach. A moderate-sized hiatal hernia was noted. The scope was withdrawn into the esophagus and the GE junction was noted to be approximately 4 cm proximal to the diaphragmatic hiatus. The distal esophagus was grossly normal. The scope was withdrawn examining the esophagus circumferentially. During EGD, in combination with sedation the patient had had some hypoxia and so anesthesia managed this with an oral airway and assistance of the patient's spontaneous respirations with an Ambu bag. Once the patient was stabilized, she was repositioned for colonoscopy. DESCRIPTION OF PROCEDURE A digital rectal exam was performed and was normal. An Olympus video colonoscope with an AmplifEYE device was inserted and retroflexed to examine the distal rectum. No significant internal hemorrhoidal tissue was noted. The patient had received a MiraLAX/Dulcolax bowel prep the day prior. The bowel prep was good with minimal residual adherent contents of the colon that were able to be irrigated with the colonoscope and then evacuated. These were predominantly in the right colon. The scope was advanced to the level of the cecum without difficulty. Cecum was identified by the appendiceal orifice and ileocecal valve. There had been a large polyp in the ascending colon that was the first polyp removed. A polypectomy snare was placed around the base of the polyp and tightened to elevate the mucosa. The snare was used to divide the base of the polyp with cautery. This did appear to excise the polyp completely with one application of the snare. Attempts were made to remove the polyp with biopsy forceps but it would not withdraw into the colonoscope, so it was retrieved via a suction trap and retrieved fragments of the polyp were sent to pathology. The scope was returned to the cecum and two small polyps were encountered. The larger 0.5 cm polyp was encircled with the polypectomy snare and removed with snare polypectomy technique. It was retrieved via biopsy forceps and sent to pathology. The smaller polyp was grasped with hot biopsy forceps and the mucosa was elevated. Cautery was applied to destroy the base of the polyp and the polyp was removed and was sent to pathology. In the ascending colon there was another confluence of folds versus a subcutaneous mass that did not appear to be polypoid in etiology, but to confirm this biopsies of the mucosa overlying the region were taken and were sent to pathology. The scope was withdrawn to the hepatic flexure where a small, less than 0.5 cm polyp was noted. It was removed with hot biopsy forceps polypectomy technique and sent to pathology. The scope was withdrawn to the distal transverse colon where a larger pedunculated polyp was noted. The snare was placed around the stalk of the polyp and the polyp was removed with a snare polypectomy technique. It was suctioned against the end of the scope and the scope was withdrawn to retrieve the polyp which was sent to pathology. The scope was reintroduced back to the level of the polypectomy and slowly withdrawn. In the descending colon a polyp was noted that was removed with hot biopsy forceps polypectomy technique. It was sent to pathology. In the sigmoid colon there were two larger 0.7 cm polyps that were able to be resected and retrieved via a snare polypectomy technique and withdrawn with biopsy forceps. These polyps were sent to pathology. In the sigmoid colon there were multiple other smaller polyps. Two of the larger polyps were removed with hot biopsy forceps polypectomy technique and three of the smaller polyps were removed with cold biopsy forceps polypectomy technique. All of these five polyps were sent to pathology for analysis. The scope was withdrawn to the rectum. The carbon dioxide insufflation was evacuated and the scope was removed. The patient did have episodes of apparent atrial fibrillation with rapid ventricular response up to a pulse of 130-150. Anesthesia was also managing this throughout the procedure. The patient was transferred to the recovery room in stable condition but still with the irregular heart rhythm. Cardiology was consulted at this point in time. Please see other documentation. RECOMMENDATIONS 1. Await pathology results to determine if further management is needed or when the next repeat colonoscopy would be recommended. 2. Continue with cardiac workup and management of current conditions and other issues. After one week of allowing the polypectomy sites to heal, I think it would be reasonable to start antiplatelet or anticoagulation if needed. If antiplatelet and anticoagulation can safely be withheld for two weeks, this would be advantageous given the larger polypectomy site in the ascending colon. DATE OF PROCEDURE February 20, 2017 INDICATIONS The patient is a 56-year-old lady who had colonoscopy and during colonoscopy this morning she went into atrial fibrillation and was referred for DC cardioversion. INFORMED CONSENT Informed consent was obtained after explaining the procedure and the potential risks to the patient who agreed to proceed with the procedure. PROCEDURE 1. DC cardioversion. Conscious sedation was performed using Versed and fentanyl. Anterior-posterior Zoll pads were applied. 360 joules of energy was delivered in synchronized manner and patient converted from atrial fibrillation to sinus rhythm. She tolerated the procedure well with no complications. IMPRESSION 1. Successful DC cardioversion of atrial fibrillation to sinus rhythm. PLAN Will start her on anticoagulation and start her on antiarrhythmics to maintain sinus. - Laboratory Labs: 02/27/17 04:09 02/27/17 04:09 Laboratory Last Values WBC 17.5 T/MM3 (4.5-11.0) H 02/27/17 04:09 RBC 3.39 M/MM3 (4.00-5.20) L 02/27/17 04:09 Hgb 8.0 GM/DL (12-16) L 02/27/17 04:09 Hct 28.3 % (36-46) L 02/27/17 04:09 MCV 83.5 UM3 (80-100) 02/27/17 04:09 MCH 23.6 UUG (26-34) L 02/27/17 04:09 MCHC 28.3 GM/DL (31-37) L 02/27/17 04:09 RDW Std Deviation 67.7 FL (36.9-50.2) H 02/27/17 04:09 Plt Count 283 T/MM3 (130-400) 02/27/17 04:09 MPV 11.9 UM3 (9.4-12.4) 02/27/17 04:09 Immature Gran % (Auto) Not performed 02/26/17 04:19 Neut % (Auto) Not performed 02/26/17 04:19 Lymph % (Auto) Not performed 02/26/17 04:19 [place] % (Auto) Not performed 02/26/17 04:19 Eos % (Auto) Not performed 02/26/17 04:19 Baso % (Auto) Not performed 02/26/17 04:19 Neut # Not performed 02/26/17 04:19 Lymph # Not performed 02/26/17 04:19 [place] # Not performed 02/26/17 04:19 Eos # Not performed 02/26/17 04:19 Baso # Not performed 02/26/17 04:19 Abs Immat Gran (auto) Not performed 02/26/17 04:19 Neutrophils % (Manual) 73.0 % (33-66) H 02/26/17 04:19 Band Neutrophils % 1.0 % (0-6) 02/26/17 04:19 Lymphocytes % (Manual) 16.0 % (23-45) L 02/26/17 04:19 Monocytes % (Manual) 8.0 % (0-9.0) 02/26/17 04:19 Metamyelocytes % 1.0 % (0-0) H 02/26/17 04:19 Myelocytes % 1.0 % (0-0) H 02/26/17 04:19 Neutrophils # (Manual) 12.5 T/MM3 (1.8-7.7) H 02/26/17 04:19 Band Neutrophils # 0.2 T/MM3 02/26/17 04:19 Lymphocytes # (Manual) 2.7 T/MM3 (1-4.8) 02/26/17 04:19 Monocytes # (Manual) 1.4 T/MM3 (0-0.8) H 02/26/17 04:19 Metamyelocytes # 0.2 T/MM3 02/26/17 04:19 Myelocytes # 0.2 T/MM3 02/26/17 04:19 Nucleated RBCs 1 02/25/17 03:38 Hypochromasia 1+ 02/26/17 04:19 Poikilocytosis 2+ 02/26/17 04:19 Anisocytosis 1+ 02/26/17 04:19 Ovalocytes 2+ 02/26/17 04:19 RBC Morph Comment Abnormal 02/26/17 04:19 ABG pH 7.410 (7.350-7.450) 02/23/17 07:10 ABG pCO2 64 MMHG (34-45) H* 02/23/17 07:10 ABG pO2 59 MMHG (80-100) L 02/23/17 07:10 ABG HCO3 41 MEQ/L (22-26) H 02/23/17 07:10 ABG Total CO2 42.6 MEQ/L (23-27) H 02/23/17 07:10 ABG O2 Saturation 90.0 % (95.0-98.0) L 02/23/17 07:10 ABG Base Excess 13.3 MMOL/L (-2.0-2.0) H 02/23/17 07:10 O2 Delivery Method Nasal cannula, liter 02/23/17 07:10 FiO2 (liters per min) 15.0 02/23/17 07:10 Turbidity < 20 (0-20) 02/27/17 04:09 Sodium 139 MEQ/L (134-144) 02/27/17 04:09 Potassium 4.1 MEQ/L (3.6-5) 02/27/17 04:09 Chloride 97 MEQ/L (98-107) L 02/27/17 04:09 Carbon Dioxide 34 MEQ/L (22-30) H 02/27/17 04:09 Anion Gap 8 MEQ/L (5-15) 02/27/17 04:09 BUN 39.0 MG/DL (7-17) H 02/27/17 04:09 Creatinine 1.1 MG/DL (0.7-1.2) D 02/27/17 04:09 GFR Calculation 51 02/27/17 04:09 BUN/Creatinine Ratio 36 RATIO (6-26) H 02/27/17 04:09 Glucose 138 MG/DL (65-110) H 02/27/17 04:09 Glucometer 143 mg/dL (65-110) 02/27/17 10:01 Hemoglobin A1c 5.6 % (6.1-7.9) L 02/24/17 04:38 Calculated Osmolality 279 MOSM/KG (261-280) 02/27/17 04:09 Calcium 9.2 MG/DL (8.4-10.2) 02/27/17 04:09 Phosphorus 3.5 MG/DL (2.5-4.5) 02/25/17 03:38 Magnesium 2.1 MG/DL (1.6-2.3) 02/25/17 03:38 Icterus Index < 2 (0-7) 02/27/17 04:09 Troponin I 0.018 ng/ml (0-0.12) 02/21/17 05:51 Albumin 3.4 G/DL (3.5-5.0) L 02/25/17 03:38 Plasma Lactate 1.7 MMOL/L (0.6-2.2) 02/21/17 22:34 TSH 1.00 MIU/L (0.47-4.68) 02/20/17 15:41 Specimen Hemolysis < 15 (0-25) 02/27/17 04:09 Digoxin 1.1 NG/ML (0.8-2.0) 02/26/17 14:14 - Microbiology Microbiology 02/23/17 10:00 Sputum, Expectorated Gram Stain - Final 02/23/17 10:00 Sputum, Expectorated Sputum Culture - Final Haemophilus influenzae Normal Respiratory Priya 02/21/17 14:55 Sputum, Expectorated Gram Stain - Final 02/21/17 14:55 Sputum, Expectorated Sputum Culture - Final Staphylococcus aureus Normal Priya - Radiology Radiology: Date of Exam: 02/26/17 Ordering Provider: Yoav Frye MD Type of Exam(s): XR chest 2V Reason for Exam(s): pneumonia INDICATION: pneumonia PROCEDURE: CHEST 2-VIEWS UPRIGHT (PA & LAT) Encounter: Initial COMPARISON: February 23, 2017 FINDINGS: Improving aeration of the left lung with residual left lower lobe consolidation and a small left effusion. New right basilar atelectasis. No pneumothorax. Heart size and mediastinal contours are stable. Impression: Improving left lung pneumonia. History of Present Illness HPI: Ruthie is a 56 year old patient who is well known to Dr. Blanc's practice who has a history of syncope and collapse, atrial fibrillation, CAD, COPD and anemia who underwent a colonoscopy earlier today by Dr. Mujica and was then found to be in A Fib RVR in the recovery room. She remained NPO and after obtaining consent from next of kin, she was given sedation and direct cardioversion was successful to convert to sinus rhythm. She is placed in CCU for observation and antiarrhythmic therapy on Sotalol. Hospital Course This is a general summary of the patient's hospital course. For more details refer to the complete medical record. Hospital course: 02/21/17 14:09 Impression Acute respiratory failure with known chronic hypoxia COPD with chronic oxygen dependence Atrial fibrillation with rapid ventricular rate Coronary artery disease Anemia Hypertension Hypercholesterolemia Plan Continue cardiac care as per Dr. Blanc. Unfortunately, patient did go into atrial fibrillation RVR this morning. Currently on Cardizem drip. Chest x-ray reviewed, there is concern for infiltrate versus atelectasis. Given the patient did have respiratory decline yesterday requiring manual bagging Postoperatively, accompanied with increased leukocytosis and increased oxygen needs. Will cover patient for possible aspiration pneumonia. Have ordered Unasym 3 gm IV BID for antimicrobial coverage. Given the pulmonary complexity will place consultation to Dr Frye for his expertise. Did place albuterol on hold as this can influence increased heart rate. Can utilize scheduled Xopenex. Lovenox 120 twice a day for anticoagulation Monitor routine labs. Hemoglobin remained stable at 10.5. Colon Polypectomy performed yesterday, pathology pending. Appreciate medical consultation. The hospitalist services will continue to follow patient medically manage her existing comorbidities. At time of discharge her medical care will return to her primary care provider, Renetta Darling APRN at [facility] 02/22/17 Cardiology Back in Afib RVR as of 614 this morning, rate 150s, gave bolus IV cardizem, restarted drip - Plan is rate control and refer for ablation as an outpatient - Continue Cardizem 360mg po daily, Continue Cardizem drip as need for rate control. - Digoxin 500mcg IV x1 - Add Metoprolol 25mg PO TID, nurses instructed to give 2 doses today. 02/23/17 16:15 chronic A-fib, HR better controlled after addition of metoprolol. Afib - chronic at this point - plan on rate control. - HR 80's to 90's today - better controlled after starting metoprolol yest, - Cont Metoprolol 25mg PO TID - Change Dig 25mg po daily from Dig 5mg IV daily - received 2 doses - dig level in 5 days. - Cont Lovenox 1mg/kg SQ BID for stroke prevention, monitor for decrease in HGB - Will change to oral anticoagulant when HR better controlled (otherwise may consider ablation sooner.) - Plan to refer to EPS for ablation in the future as outpt. 02/24/17 17:06 Pt is seen in ICU sitting up in chair in no distress. still in A-fib HR controlled in 70's to 90's. HR up to 101 with activity. She her O2 decreased from 15L to 5LHFNC. But she desated , therefore increased to 7LHFNC. Now O2 sats > 90% on 7L. She states she was able to wear to Bipap only with the relaxing medicine. The mask in claustrophobic. Denies chest pain, or SOB and she does not feel palpitations. she gets SOB with movement to the commode. She coughed up some dark brown this am. No active bleed. Hbg stable. 02/24/17 17:07 Afib - chronic at this point - plan on rate control. - HR 70's to 90's today and yesterday. HR upto 101 with activity. - Cont Metoprolol 25mg PO TID - Cont Dig 125mcg po daily - dig level in 4 days. - Cont Lovenox 1mg/kg SQ BID for stroke prevention, Hbg stable. - Will change to oral anticoagulant in am. - Plan to refer to EPS for ablation in the future as outpt. Transferred to floor. Ok with Dr Torres per nursing. consulted PT for DC planning. 02/25/17 Weight remains up, edema still present, give extra dose Lasix IV again now and reassess in the morning. Cardiac medications being managed by Dr. Jayashree avila. Lovenox being held due to melena. She will need to resume anticoagulation given her atrial fibrillation when bleeding stops. Hemoglobin dropped from 10.2 (on 04/25) to 8.9 today (04/27). 02/25/17 Cardiology Afib - chronic at this point - plan on rate control. - HR 70's to 90's today. - Cont Metoprolol 25mg PO TID - Cont Dig 125mcg po daily - dig level tomorrow. - Hold Lovenox, Hbg 8.7 today, recheck this afternoon. - Plan to refer to EPS for ablation in the future as outpt. 02/26/17 Lovenox remains on hold. She continued to have small amount of blood with stools yesterday. Hemoglobin is down to 8.4 from 8.9 yesterday. She has diuresed with the extra dose of 40 mg IV Lasix the past 2 days and has lost 3 kg. Creatinine has slowly trended up over the past few days to 1.3. She converted to normal sinus rhythm at approximately 650 this morning. She continues in normal sinus rhythm with rates in the 70s. 02/26/17 Cardiology Afib - self converted this am. - HR 70's to 90's today. - Cont Metoprolol 25mg PO TID - Cont Dig 125mcg po daily - dig level pending. - Lovenox stopped as Hbg 8.4 today, - Plan to refer to EPS for ablation in the future as outpt. 02/27/17 Impression Melena - likely from recent polypectomy-improved Anemia - likely acute blood loss anemia-slight drop in hemoglobin today, Lovenox was previously discontinued Leukocytosis-likely steroid-induced Acute respiratory failure with known chronic hypoxia COPD with chronic oxygen dependence Aspiration pneumonia-CIARA and Haemophilus influenza from sputum Hypersensitivity pneumonitis Chronic steroid use Atrial fibrillation with rapid ventricular rate-converted spontaneously to normal sinus rhythm 02/26/17 Hyperglycemia, likely steroid-induced; A1c 5.6 Coronary artery disease Hypertension -controlled Hypercholesterolemia Morbid obesity-BMI 43.7 on admission Plan Discussed today with Dr. Mujica regarding patient's mild drop in hemoglobin which she is tolerating well. He stated that with her anticoagulation being stopped, she could be discharged to home with follow-up hemoglobin tomorrow. Hemoglobin needs to be called to Dr. Mujica and the patient's nurse practitioner Renetta Denney at [facility]. Regarding the patient's nocturnal hypoxia, she did qualify for a trilogy ventilator and started that last night and has done well. She will be dismissed to home with her trilogy event at the same settings. Regarding pneumonia with sputum positive for OSS a and Haemophilus influenza, I did speak with Dr. Frye and the patient will be discharged on Augmentin for 1 week. Regarding the patient's steroid use, will give 8 mg of prednisone daily until she is seen in follow-up by Dr. Frye and he can decide at that time on further tapering. The patient will follow-up with Dr. Frye regarding pneumonia and possible hypersensitivity pneumonitis. She will need follow-up chest x-ray or CAT scan to make sure her infiltrate completely clears. The patient states she does have a home nebulizer and has albuterol and Atrovent for her nebulizer. Greater than 35 minutes of time was spent seeing and evaluating the patient today and talking with case management, respiratory therapy, Dr. Frye, Dr. Cochran, and with ARIANNA Marcus for Dr. Blanc. Time spent with patient: 25 - 35 minutes DVT Prophylaxis: other (contraindicated due to known GI bleed) Exam Vital signs: Temperature 96.0 F L 02/27/17 08:00 Pulse Rate 67 02/27/17 08:00 Respiratory Rate 16 02/27/17 10:00 Blood Pressure 155/82 H 02/27/17 08:00 Pulse Oximetry 95 02/27/17 08:00 - Constitutional no acute distress, morbidly obese, cooperative - Routine HEENT Exam Head: Present: normocephalic ENT: Present: mucous membranes moist - Routine Neck Exam Absent: JVD, carotid bruit - Routine Chest/Breast/Axilla Exam Chest wall: Absent: tenderness - Routine Respiratory Exam Present: CTA bilaterally. Absent: rales, wheezes - Routine Cardiovascular Exam Present: RRR, no murmur. Absent: JVD - Routine Abdominal Exam Present: soft, normoactive bowel sounds - Routine Extremities Exam Present: edema - Routine Skin Exam Present: intact, dry, warm - Routine Neurological Exam Present: alert, oriented X3 - Routine Psychiatric Exam Present: normal affect, normal thought process Results 02/27/17 04:09 02/27/17 04:09 CBC 02/27/17 Range/Units 04:09 WBC 17.5 H (4.5-11.0) T/MM3 RBC 3.39 L (4.00-5.20) M/MM3 Hgb 8.0 L (12-16) GM/DL Hct 28.3 L (36-46) % Plt Count 283 (130-400) T/MM3 Comprehensive Metabolic Panel 02/27/17 Range/Units 04:09 Sodium 139 (134-144) MEQ/L Potassium 4.1 (3.6-5) MEQ/L Chloride 97 L (98-107) MEQ/L Carbon Dioxide 34 H (22-30) MEQ/L BUN 39.0 H (7-17) MG/DL Creatinine 1.1 D (0.7-1.2) MG/DL Glucose 138 H (65-110) MG/DL Calcium 9.2 (8.4-10.2) MG/DL Intake and Output 02/26/17 02/27/17 02/27/17 22:59 06:59 14:59 Intake Total 750 / 750 300 / 300 240 / 240 Output Total 1650 / 1650 1000 / 1000 Balance -900 / -900 -700 / -700 240 / 240 Intake: Oral 750 / 750 300 / 300 240 / 240 Output: Urine 1650 / 1650 1000 / 1000 Other: Urine Appearance Clear Clear Urine Color Pale Bright Yellow Yellow Urine Odor Normal Normal Size of Bowel Movement Moderate # Voids 1 # Bowel Movements 1 - EKG Interpretation EKG: sinus rhythm Discharge Plan - Med Rec/Dispo Referrals/Follow Up: Froylan Blanc MD [Physician] - 03/20/17 11:50 am (APPOITMENT 03/20 AT 11:50.) [place] Instructions: A-fib (Atrial Fibrillation) (GEN) Additional Instructions: Follow-up hemoglobin to be drawn tomorrow. Hemoglobin needs to be called to Dr. Mujica. Continue to use Trilogy ventilator at night and when napping. Prescriptions: New DiltiaZEM CD [Cardizem Cd] 360 mg PO DAILY #30 cap Metoprolol Tartrate [Lopressor] 25 mg PO TIDWM #90 tab Amoxicillin/Potassium Clav [Amox-Clav 875-125 mg Tablet] 875 mg PO Q12HR #13 tab MethylPREDNISolone TAB [Medrol] 8 mg PO DAILY #21 tab Continue Furosemide 40 mg PO DAILY #0 Atorvastatin Calcium 40 mg PO HS #0 Fluticasone/Salmeterol [Advair 250-50 Diskus] 1 puff INH BID #0 Pantoprazole Sodium 40 mg PO DAILY #0 Cholecalciferol (Vitamin D3) [Vitamin D3] 2,000 unit PO DAILY #0 Melatonin 5 mg PO HS Acetaminophen [Arthritis Pain Relief] 1,300 mg PO TID PRN PRN Reason: Pain Ropinirole [Requip] 0.25 mg PO HS Albuterol Sulfate [Ventolin Hfa] 2 puff INH Q4-6HR PRN #0 PRN Reason: Prn Orders Potassium Chloride 20 meq PO DAILY #0 tab Aspirin 81 mg PO DAILY #0 Cyanocobalamin (Vitamin B-12) [B-12] 2 tab PO DAILY #0 Nitroglycerin 0.4 mg SL Q5MIN3 PRN PRN Reason: Chest Pain Tiotropium Handihaler [Spiriva] 1 cap INH DAILY Discontinued PredniSONE [Deltasone] 10 mg PO DAILY PredniSONE [Deltasone] 20 mg PO Q48H Metoprolol Tartrate [Lopressor] 25 mg PO BID - Disposition 01 Discharged Home, Self-Care <Froylan Blanc - Last Filed: 02/28/17 10:41> Discharge Information Date of admission: 02/21/17 14:14 Attending Physician: Froylan Blanc MD Primary care physician: Renetta Denney APRN Consults: 02/21/17 12:02 Physician Consult [CONS] Routine Consulting Provider: Giselle Torres Reason For Exam: respiratory failure Ordering Provider has Notified Timber Faller: Yes 02/21/17 13:48 Physician Consult [CONS] Routine Consulting Provider: Yoav Frye Reason For Exam: increased hypoxia, ? Aspiration Ordering Provider has Notified Timber Faller: Yes - Laboratory Labs: 02/27/17 04:09 02/27/17 04:09 - Microbiology Microbiology 02/23/17 10:00 Sputum, Expectorated Gram Stain - Final 02/23/17 10:00 Sputum, Expectorated Sputum Culture - Final Haemophilus influenzae Normal Respiratory Priya 02/21/17 14:55 Sputum, Expectorated Gram Stain - Final 02/21/17 14:55 Sputum, Expectorated Sputum Culture - Final Staphylococcus aureus Normal Priya Hospital Course This is a general summary of the patient's hospital course. For more details refer to the complete medical record. Exam Vital signs: Temperature 96.0 F L 02/27/17 08:00 Pulse Rate 67 02/27/17 08:00 Respiratory Rate 20 02/27/17 11:20 Blood Pressure 155/82 H 02/27/17 08:00 Pulse Oximetry 95 02/27/17 08:00 Results 02/27/17 04:09 02/27/17 04:09 Discharge Plan - Med Rec/Dispo - Attestation Attestation Narrative: 02/28/17 10:41 Recommendation After examining the patient I agree with the above assessment. I am involved in the formulation of the patient's plan of care.
[2017-02-27] MEDS ORDERED: PredniSONE 5 MG TABLET PO SCH (11:15)
[2017-02-27 11:35] VITALS: RESP 20
== END 2017-02-27 12:35 | disposition home or self-care (01) | DRG 308 ==
LOC: CCU 07:39 → SUR 07:39 → MED 02-24 19:21
PROVIDERS: ADMIT Internal Medicine Cardiovascular Disease; ATTEND Internal Medicine Cardiovascular Disease
PROC: END.EGD (2017-02-20 09:20)

== ENCOUNTER 2017-03-12 10:44 | Inpatient (IN) ==
--- OUTSIDE RECORDS SUMMARY | 2017-03-12 16:00 | External Medical Summary ---
:1960 Author Organization e[employer] Care Team Providers Name Role Phone Renetta Denney Provider Role Unavailable Allergies No Known Allergies Problems Problem Type Condition Code Onset Dates Condition Status Problem Allergic rhinitis 477.9 Active Problem Shortness of breath 786.05 Active Problem Cardiomegaly 429.3 Active Problem Coronary atherosclerosis of 414.00 Active unspecified type of vessel, [place] or graft Problem Mixed hyperlipidemia 272.2 Active Problem Abdominal pain, generalized 789.07 Active Problem COPD 496 Active Medications Medication Code System Code Instructions Start End Date Status Dosage Date Citalopram [facility] 25556-35 20 MG Orally Oct 05, 1 tablet Hydrobromide 41-01 Once a day 2014 Results No Known Results Summary Purpose eClinicalWorks Submission
--- OUTSIDE RECORDS SUMMARY | 2017-03-12 16:00 | External Medical Summary ---
:1960 Author Organization [employer] Care Team Providers Name Role Phone Олег, Renetta Provider Role Unavailable Allergies No Known Allergies Problems Problem Type Condition Code Onset Dates Condition Status Problem Allergic rhinitis 477.9 Active Problem Shortness of breath 786.05 Active Problem Cardiomegaly 429.3 Active Problem Coronary atherosclerosis of 414.00 Active unspecified type of vessel, [place] or graft Problem Mixed hyperlipidemia 272.2 Active Problem Abdominal pain, generalized 789.07 Active Problem COPD 496 Active Medications Medication Code Code Instructions Start End Date Status Dosage System Date Spiriva [facility] 68672-10 18 MCG Feb 28, 1 capsule HandiHaler 75-41 Inhalation Once 2015 a day Pantoprazole [facility] 49572-44 40 MG Orally Mar 25, 1 tablet Sodium 07-01 Once a day 2014 Atorvastatin [facility] 87835-86 40 MG Orally 1 tablet Calcium 21-05 Once a day Results No Known Results Summary Purpose eClinicalWorks Submission
--- OUTSIDE RECORDS SUMMARY | 2017-03-12 16:00 | External Medical Summary | Referral Summary ---
:1960 Author Organization [facility] Address [address] [place] [address] Care Team Providers Name Role Phone Renetta Denney Primary Care Physician Encounter VC Date(s): 08/15/16 - 08/15/16 [facility] [address] [place] [address] [phone] Discharge Disposition: 01-Home or Self Care Attending Physician: Paul Willard MD Vital Signs No data available for this section Problem List Condition Effective Dates Status Health Status Informant At risk for infection(Confirmed)1 Active COPD(Confirmed) Active Impaired gas exchange(Confirmed)2 Active 1Problem added automatically by system based on initiation of At Risk for Infection in Nutrition Planof [id number] added automatically by system based on initiation of Impaired Gas Exchange Plan of Care Allergies, Adverse Reactions, Alerts No Known Allergies Medications Advair Diskus 500 mcg-50 mcg inhalation powder 1 puffs, Inhalation, BID, in the morning and evening approximately 12 hours apart Start Date: 01/22/15 Status: OrderedAdvair HFA 230 mcg-21 mcg/inh inhalation aerosol 2 puffs, Inhalation, BID, 0 Refill(s) Start Date: 12/02/13 Status: Orderedaspirin 325 mg oral tablet 325 mg, Oral, Daily, # 100 tabs, 11 Refill(s), other reason (Rx) Start Date: 12/02/13 Status: Orderedaspirin 81 mg oral tablet, chewable 81 mg 1 tabs, Oral, Daily Start Date: 01/22/15 Status: Orderedatorvastatin 40 mg oral tablet 1 tabs, Oral, Daily, # 30 tabs, 11 Refill(s), other reason (Rx) Start Date: 12/02/13 Status: Orderedclopidogrel 75 mg oral tablet 1 tabs, Oral, Daily, # 30 tabs, 11 Refill(s), other reason (Rx) Start Date: 12/02/13 Stop Date: 11/27/14 Status: Orderedfurosemide 40 mg oral tablet 1 tabs, Oral, Daily, # 30 tabs, 0 Refill(s) Start Date: 11/28/13 Status: OrderedKlor-Con M20 20 mEq, Oral, Daily, With or after food, 0 Refill(s) Start Date: 11/28/13 Status: Orderedlisinopril 5 mg oral tablet 1 tabs, Oral, Daily, # 30 tabs, 6 Refill(s), other reason (Rx) Start Date: 12/02/13 Status: Orderedmetoprolol tartrate 25 mg oral tablet 1 tabs, Oral, BID, # 60 tabs, 6 Refill(s), other reason (Rx) Start Date: 12/02/13 Status: Orderednitroglycerin 0.4 mg sublingual tablet 1 tabs, SubLingual, q5min, as needed for chest pain, # 100 tabs, 0 Refill(s) Start Date: 11/28/13 Status: Orderedomeprazole 20 mg oral delayed release capsule 1 caps, Oral, Daily, 0 Refill(s) Start Date: 11/28/13 Status: OrderedPercogesic Original Strength 325 mg-12.5 mg oral tablet 1 tabs, Oral, Daily, pain, 0 Refill(s) Start Date: 11/28/13 Status: Orderedranitidine 150 mg oral tablet 1 tabs, Oral, Daily, 0 Refill(s) Start Date: 11/28/13 Status: OrderedSpiriva 18 mcg inhalation capsule 1 Each, Inhalation, Daily, use two inhalations of one capsule for each dose, # 30 Each, 0 Refill(s),other reason (Rx) Start Date: 12/02/13 Status: OrderedTums Ultra 1,000 mg, Chewed, Daily, indigestion, 0 Refill(s) Start Date: 11/28/13 Status: OrderedVentolin HFA 90 mcg/inh inhalation aerosol 2 puffs, Inhalation, BID, 0 Refill(s) Start Date: 11/28/13 Status: OrderedVentolin HFA 90 mcg/inh inhalation aerosol 2 puffs, Inhalation, q4hr, Shortness of Breath/Wheezing, 0 Refill(s) Start Date: 11/28/13 Status: Orderedverapamil 180 mg, Oral, Daily, with food Start [...]
--- OUTSIDE RECORDS SUMMARY | 2017-03-12 16:00 | External Medical Summary ---
:1960 Author Organization [facility] Care Team Providers Name Role Phone Renetta Denney Provider Role Unavailable Allergies No Known Allergies Problems Problem Type Condition Code Onset Dates Condition Status Assessment Persistent atrial fibrillation I48.1 Active Assessment Chronic obstructive pulmonary J44.9 Active disease, unspecified Assessment Cardiomegaly I51.7 Active Assessment Other acute sinusitis J01.80 Active Problem Allergic rhinitis 477.9 Active Problem Shortness of breath 786.05 Active Problem Cardiomegaly 429.3 Active Problem Coronary atherosclerosis of 414.00 Active unspecified type of vessel, [place] or graft Problem Mixed hyperlipidemia 272.2 Active Problem Abdominal pain, generalized 789.07 Active Problem COPD 496 Active Medications Medication Code Code Instructions Start End Status Dosage System Date Date Albuterol Sulfate [facility] 04062-51 (2.5 MG/3ML) November 19, 3 ml 90-52 0.083% 2013 Inhalation four times daily as needed Ventolin HFA [facility] 58929-84 108 (90 Base) 1-2 puffs 82-20 MCG/ACT Inhalation every 4-[address] [facility] 85285-92 18 MCG 1 capsule HandiHaler 75-41 [place] [address]-40 40 MG Orally 1 tablet 99-25 Once a day Advair Diskus [facility] 93963-37 500/50 INHALE ONE 97-00 DOSE BY MOUTH TWICE DAILY Klor-Con M20 [facility] 47267-69 20 MEQ Orally 1 tablet 58-01 [place] [address]-69 325 MG Orally 1 tablet 16-78 Once a day Nitroglycerin [facility] 09319-69 0.4 MG 1 tablet 97-25 Sublingual every under the 5 minutes as tongue and needed for chest allow to pain. Do not dissolve as exceed a total needed of 3 doses in 15 minutes Ipratropium-Albut [facility] 45872-53 0.5-2.5 (3) October 19, 3 ml lucy 23-73 MG/3ML 2013 Inhalation [place] [address]-45 40 MG Orally 1 tablet Calcium 21-05 Once a day Pantoprazole [facility] 82477-47 40 MG Orally Sept 25, 1 tablet Sodium 07-01 Once a day [address] [facility] 57817-04 5 MG Orally Once 1 tablet 66-01 a day Metoprolol [facility] 59322-44 25 MG Orally 1 tablet Tartrate 18-01 Twice a day Citalopram [facility] 48615-43 20 MG Orally Apr 04, 1/2 tab for Hydrobromide 41-01 Once a day 2014 a week then [address] [facility] 95289-64 500 MG Orally Apr 04, Apr 14, 1 capsule 09-05 Twice a day 2014 [address] [facility] 47898-01 75 MG Orally 1 tablet Bisulfate 14-05 Once a day Procedures Procedure Coding System Code Date TSH CPT-4 02199 Apr 04, 2015 COMPLETE CBC W/AUTO DIFF WBC CPT-4 28886 Apr 04, 2015 Results No Known Results Summary Purpose eClinicalWorks Submission
--- OUTSIDE RECORDS SUMMARY | 2017-03-12 16:00 | External Medical Summary ---
:1960 Author Organization [facility] Care Team Providers Name Role Phone Олег, Renetta Provider Role Unavailable Allergies No Known Allergies Problems Problem Type Condition Code Onset Dates Condition Status Problem Abdominal pain, generalized 789.07 Active Problem Allergic rhinitis 477.9 Active Problem Shortness of breath 786.05 Active Problem Daytime somnolence R40.0 Active Problem Atherosclerotic heart disease of I25.10 Active [place] coronary artery without angina pectoris Problem Chronic obstructive pulmonary J44.9 Active disease, unspecified Problem Essential (primary) hypertension I10 Active Problem Cardiomegaly 429.3 Active Problem Mixed hyperlipidemia E78.2 Active Problem Adjustment disorder with mixed F43.23 Active anxiety and depressed mood Assessment Chronic obstructive pulmonary J44.9 Active disease, unspecified Problem Mixed hyperlipidemia 272.2 Active Problem Coronary atherosclerosis of 414.00 Active unspecified type of vessel, [place] or graft Problem COPD 496 Active Medications No Known Medications Results No Known Results Summary Purpose [facility] Submission
[2017-03-12 16:20] VITALS: BMI 42.0
--- NOTE | 2017-03-12 16:29 | History & Physical Report ---
<Farzana Rivera V - Last Filed: 03/12/17 16:21> History of Present Illness Date: 03/12/17 Chief complaint: hypoxia HPI: Ruthie is a 56 year old female who is known to the hospitalist services as she was recently admitted for A-fib with RVR following a colonoscopy on 02/21/17. She also was found to have pneumonia. She was treated and discharged on 02/27/17 and has been at home with her since that time. Today she presented to see Dr Frye (her order expediter) for posthospitalization follow-up. Upon arrival to the clinic she was on her baseline oxygen of 3 liters, however, was found to be hypoxic at 81%. Ruthie admitted to having significant depression over the past 1 week to the point of making comments to family about not wanting to live. Due to the worsening hypoxia, accompanied with significant feelings of depression and anxiety. The hospitalist services were contacted and accepted patient for direct admission as an outpatient for further evaluation and treatment. Monique is seen on arrival to [facility] accompanied with her daughter. She is alert, oriented, emotionally labile during examination. We discussed in great detail regarding her depression. She states that over the past 2 weeks since discharge she has had severe depression that she attributes to 3 different things. 1- being hard of hearing (only 20% hearing in 1 ear), unable to communicate. 2-physically not feeling well, inability to do daily tasks. 3- feeling afraid that she is going to . Due to the severity of her physical illnesses. Major depression screen, index completed on admission reveals 35 points, indicating severe depression. Review of Systems Comprehensive ROS: completed and no additional positive findings except those as stated - Constitutional Constitutional: Present: chills, increased appetite (? related to steroid use) - Cardiovascular Cardiovascular: Present: dyspnea on exertion - Respiratory Respiratory: Present: cough, dyspnea - Psychiatric Psychiatric: Present: as per HPI, abnormal sleep pattern, anxiety, depression, difficulty concentrating, hopelessness [facility] Patient Stated Medical History Atrial fibrillation COPD- chronic oxygen at 3 liters (Changing order expediter to Dr. Frye) Hypertension Hypercholesterolemia. Severe hearing loss of right ear-(Only 20% hearing) CAD (coronary artery disease), [place] coronary artery Stenting of LAD 11/28/2013 Nonalcoholic steatohepatitis ([place]) Restless leg syndrome HX Gi bleeding History of iron deficiency anemia GERD History of Tobacco dependence Surgical History: * Cardiac catheterization with stent placement in LAD - [address] Perez at [facility]. Medtronic Resolute Integrity RX stent. * Heart cath - 02/20/2012. * Right ear surgery reconstruction - 1959. * section - 07/27/1988. * section - 04/18/1984 Family History: Daughter Cervical cancer Mother Heart attack High blood pressure Father Cancer - Social History Smoking status: Former smoker (Quit 6 years ago) Substance use type: does not use Alcohol intake frequency: does not drink Housing: house Household members: spouse Current residence: Apartment/Private Home Social history: Primary care provider-Renetta Denney APRN at [facility]. 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 Medications Home Medications Medication Instructions Recorded Confirmed Type Albuterol Sulfate [Ventolin Hfa] 2 puff INH Q4-6HR PRN #0 02/19/12 03/12/17 History Atorvastatin Calcium 40 mg PO HS #0 07/20/14 03/12/17 History Furosemide 40 mg PO DAILY #0 07/20/14 03/12/17 History Potassium Chloride 20 meq PO DAILY #0 tab 07/20/14 03/12/17 History Aspirin 81 mg PO DAILY #0 10/24/16 03/12/17 History Cholecalciferol (Vitamin D3) 2,000 unit PO DAILY #0 10/24/16 03/12/17 History [Vitamin D3] Cyanocobalamin (Vitamin B-12) 2 tab PO DAILY #0 10/24/16 03/12/17 History [B-12] Fluticasone/Salmeterol [Advair 1 puff INH BID #0 10/24/16 03/12/17 History 250-50 Diskus] Pantoprazole Sodium 40 mg PO HS #0 10/24/16 03/12/17 History Acetaminophen [Arthritis Pain 1,300 mg PO TID PRN 12/31/16 03/12/17 History Relief] Melatonin 15 mg PO HS 12/31/16 03/12/17 History Nitroglycerin 0.4 mg SL Q5MIN3 PRN 12/31/16 03/12/17 History Tiotropium Handihaler [Spiriva] 1 cap INH DAILY 12/31/16 03/12/17 History Ropinirole [Requip] 0.25 mg PO HS 02/20/17 03/12/17 History Ferrous Sulfate [Iron] 325 mg PO DAILY 03/12/17 03/12/17 History Lisinopril [Prinivil] 5 mg PO HS 03/12/17 03/12/17 History PredniSONE [Deltasone] 3 mg PO DAILY 03/12/17 03/12/17 History Ropinirole [Requip] 0.25 mg PO HS 03/12/17 03/12/17 History Sotalol [Betapace] 40 mg PO BID 03/12/17 03/12/17 History predniSONE [Prednisone] 5 mg PO DAILY 03/12/17 03/12/17 History Allergies Allergy/AdvReac Type Severity Reaction Status Date / Time No Known Allergies Allergy Verified 12/31/16 11:58 Exam Vital Signs: Temperature 98.6 F 03/12/17 16:15 Pulse Rate 60 03/12/17 16:15 Respiratory Rate 22 03/12/17 16:15 Blood Pressure 118/67 03/12/17 16:15 Pulse Oximetry 96 03/12/17 16:15 Height/Weight/BMI: Height 1.7 m Weight 121.6 kg Body Mass Index 42.0 - Constitutional Present: no acute distress, well nourished, well developed Comments: Hard of hearing - Routine HEENT Exam Eye: Present: EOMI ENT: Present: mucous membranes moist, dentition normal - Routine Neck Exam Present: supple, full ROM - Routine Respiratory Exam Present: crackles (expiratory), diminished air movement (Bases) - Routine Cardiovascular Exam Present: RRR, S1, S2. Absent: murmur - Routine Abdominal Exam Present: soft, normoactive bowel sounds, non distended. Absent: tenderness - Routine Extremities Exam Present: edema (1+ bilateral lower ext), normal capillary refill - Routine Back/Spine/Pelvis Exam Back/Spine: Present: full ROM - Routine Skin Exam Present: intact, dry, warm - Routine Neurological Exam Present: alert, oriented X3, CN II-XII intact - Routine Psychiatric Exam Present: cooperative, depressed, anxious Results - Labs CBC & Chem 7: 03/12/17 16:07 03/12/17 16:07 Assessment and Plan (1) Acute respiratory failure with hypoxia Current visit: No Status: Acute (2) Severe depression Current visit: Yes Status: Acute DVT Prophylaxis: EDILSON Hose Resuscitation Status: Full Code Assessment and Plan: Impression Respiratory failure with hypoxia-requiring increased oxygen demands from baseline 3 liters. Acute Depression COPD with chronic oxygen use-3L Coronary artery disease Hypertension Hypercholesterolemia Atrial fibrillation. Hearing loss-chronic OGD[place] GERD Restless leg syndrome Plan Initially patient is admitted as an outpatient, however, will change her to inpatient following evaluation. Patient's initial saturations on her baseline oxygen. When presented to order expediter office was low at 81% on 3 liters. Since that time she has required 4 liters of oxygen by nasal cannula to maintain saturations. On admission to [facility]. She is found to be tachypnea, breathing 22 times per minute. Will obtain the following laboratory studies, CBC, CMP, venous lactate, pro calcitonin, troponin and sputum Culture Will obtain a chest x-ray given patient's recent diagnosis of pneumonia. Consultation place to Dr Frye for his recommendations given increased hypoxia and steroid use. MDI- Major depression index score 35= severe depression. Consult placed to Dr Jimenez for his expertise and recommendations on treatment options Monitor on cardiac telemetry given known history of A-fib Edilson Hose to bilateral lower ext for compression given peripheral edema Did discuss in detail with patient and daughter regarding ability to care for self at home. She is interested in rehabilitation options once medically stable with custodial goal of returning home with . She does wish to be a Full Code and this order is written Will discuss further orders and plan of care with attending, Dr Bourgeois At time of discharge medical care is to return to Renetta Darling APRN at [facility] - Time spent with patient Coordination of Care: >50% of visit spent providing counseling/coordination of care Sepsis Assessment - Evaluation Sepsis screening result: No Definite Risk Hospital Course Summary Disclaimer: The visit summary below is not to be considered part of the above Progress Note. Hospital Course: 03/12/17 16:59 Impression Respiratory failure with hypoxia-requiring increased oxygen demands from baseline 3 liters. Acute Depression COPD with chronic oxygen use-3L Coronary artery disease Hypertension Hypercholesterolemia Atrial fibrillation. Hearing loss-chronic OGDEN GERD Restless leg syndrome Plan Initially patient is admitted as an outpatient, however, will change her to inpatient following evaluation. Patient's initial saturations on her baseline oxygen. When presented to order expediter office was low at 81% on 3 liters. Since that time she has required 4 liters of oxygen by nasal cannula to maintain saturations. On admission to [facility]. She is found to be tachypnea, breathing 22 times per minute. Will obtain the following laboratory studies, CBC, CMP, venous lactate, pro calcitonin, troponin and sputum Culture Will obtain a chest x-ray given patient's recent diagnosis of pneumonia. Consultation place to Dr Frye for his recommendations given increased hypoxia and steroid use. MDI- Major depression index score 35= severe depression. Consult placed to Dr Jimenez for his expertise and recommendations on treatment options Monitor on cardiac telemetry given known history of A-fib Edilson Hose to bilateral lower ext for compression given peripheral edema Did discuss in detail with patient and daughter regarding ability to care for self at home. She is interested in rehabilitation options once medically stable with custodial goal of returning home with . She does wish to be a Full Code and this order is written Home medications will need to be reviewed and ordered once reconciled. Will discuss further orders and plan of care with attending, Dr Bourgeois At time of discharge medical care is to return to Renetta Darling APRN at [facility] <Uri Bourgeois - Last Filed: 03/12/17 20:56> History of Present Illness Date: 03/12/17 [facility] Patient Stated Medical History Cerebrovascular Accident No Seizures No Hearing Loss Yes Angina Yes: hx Cardiac Arrhythmia Yes: paroxysmal atril fib Coronary Artery Disease Yes Hypertension Yes Hypotension No Myocardial Infarction Yes: 2013 stent- asymptomatic since Other Cardiology Yes: STENT PLACED IN 2013 Asthma Yes Bronchitis Yes Chronic Obstructive Pulmonary Yes: 4L O2 at all times, + SOB with exertion Disease (COPD) Pneumonia Yes Sleep Apnea Yes Diabetes Mellitus Type 1 No Diabetes Mellitus Type 2 No Gastroesophageal Reflux Yes Disease Gastrointestinal Bleeding Yes Hepatitis Yes: OGDEN Hx Incontinence Yes Anemia Yes Anesthesia Reactions No Blood Transfusions Yes: no reaction Depression Yes Panic Disorder No Post Menopausal Yes Now No Clinic Medical History Hypoxemia (Chronic Medical) 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 Depression (Chronic Medical) Hypertension (Chronic Medical) High cholesterol (Chronic Medical) Syncope and collapse (Chronic Medical) Patient was anemic and transfused with PRBCs Atrial fibrillation (Chronic Medical) Currently in SR, Started on Sotalol for antiarrhythmic therapy CAD (coronary artery disease), [place] coronary artery (Chronic Medical) Stenting of LAD 11/28/2013 COPD (chronic obstructive pulmonary disease) (Chronic Medical) Hearing loss of right ear (Chronic Medical) Family History: Family History (Last Reviewed 02/21/17 @ 11:37 by Hesham Beltran, FORESTRY FACULTY MEMBER) Daughter Cervical cancer Mother Heart attack High blood pressure Father Cancer Exam Vital Signs: Temperature 98.6 F 03/12/17 16:15 Pulse Rate 59 L 03/12/17 20:15 Respiratory Rate 18 03/12/17 19:50 Blood Pressure 111/55 03/12/17 20:15 Pulse Oximetry 97 03/12/17 20:15 Height/Weight/BMI: Height 1.7 m Weight 121.6 kg Body Mass Index 42.0 Results - Labs CBC & Chem 7: 03/12/17 16:07 03/12/17 16:07 Assessment and Plan (1) Acute respiratory failure with hypoxia Current visit: No Status: Acute (2) Severe depression Current visit: Yes Status: Acute DVT Prophylaxis: Lovenox GI Prophylaxis: Protonix (For treatment of her GERD) Assessment and Plan: Impression Respiratory failure with hypoxia-requiring increased oxygen demands from baseline 3 liters. Acute Depression COPD with chronic oxygen use-3L Coronary artery disease Hypertension Hypercholesterolemia Atrial fibrillation Hearing loss-chronic OGDEN GERD Restless leg syndrome Pulmonary debility Morbid Obesity Have independently interviewed and examined pt. Chart reviewed. Case discussed with Dr Frye and my PLATER PRODUCTION. Care plan developed with my supervision; agree with above. Increasing respiratory difficulty. Progressively more SOA with activities. Notes chest congestion-hard to mobilize sputum. Chest wall sore from coughing. Hard to tolerate BiPAP machine due to anxiety. Functional status deteriorating- becoming more anxious and emotional, much more depressed (and she is not a ' depressed' person. Increased LE edema. Appetite stable. No increase reflux symptoms. Bowels stable. Lungs: decreased, end expiratory wheezes CV: regular AB: Soft obese NT/ND +BS EXT: +3 bilateral LE edema MSE: awake alert Psych: some emotional lability (not as profound as when my PLATER PRODUCTION was in to see her). Plan: Inpatient admission. Increase Prednisone to 20mg (Pulm recommends between 20 and 30mg). Neb treatments of Duoneb and Budesonide. Mucinex DM to decrease cough and congestion. Nasal saline to help decrease sinus congestion. Lorazepam prn anxiety and air hunger. Pulm consult for further pulmonary recommendations. PT/OT due to her pulm debility. Psych consult initiated - Zoloft recommended and patient agreeable. EDILSON hose to decrease edema. Lovenox for DVT prevention. Full code as per her requests. Hospital Course Summary Disclaimer: The visit summary below is not to be considered part of the above Progress Note.
--- NOTE | 2017-03-12 16:47 | Pulmonology Consult Note ---
History of Present Illness Consult date: 03/12/17 Reason for consult: dyspnea History of present illness: She was seen in the office today for multiple complaints. Mainly, she and her daughter are concerned that she cannot take care of herself. She is very short of breath and hypoxemic on her normal O2 flow of 3 lpm (SPO2 is 82%). She has chronic hypoxemic hypercapnic respiratory failure, COPD, hypersensitivity pneumonitis (diagnosed by Dr Willard) and recent LLL pneumonia. When we last saw her we noted: Assessment and Plan (1) Pneumonia Current visit: Yes Status: Acute dense LLL consolidation. Leukocytosis suggestive of acute process. I will repeat a CXR and if needed CT chest. IV Unasyn to cover possible aspiration. Sputum C and S is pending. (2) Acute and chronic respiratory failure with hypercapnia Current visit: Yes Status: Acute She is an excellent candidate for a home vent to mask. She has high risk of deterioration and increased morbidity and mortality unless we can control her hypercapnic failure. I recommend BIPAP ST while she is in the hospital and we will transition her to pressure ventilation as an outpatient (3) Atrial fibrillation with RVR Problem details: acute on chronic Current visit: Yes Status: Acute controlled following cardioversion and medical therapy (4) COPD (chronic obstructive pulmonary disease) Current visit: No Status: Chronic managed on prednisone, advair and Spiriva. Recommend nebulized albuterol/ ipratropium while she is in the hospital. The patient is currently on prednisone 8 mg daily. She feels that she needs to get off the prednisone due to weight gain and swelling, however she acknowledges that last time it was stopped she had a flareup of her lung disease. After her last hospitalization we recommend a followup CT chest due to her recent pneumonia, however her insurance denied that study. She is using her home vent to mask, but only 3-4 hours/day at this time. Review of Systems All systems: reviewed and no additional remarkable complaints except as stated PFSH Patient Stated Medical History Cerebrovascular Accident No Seizures No Hearing Loss Yes Angina Yes: hx Cardiac Arrhythmia Yes: paroxysmal atril fib Coronary Artery Disease Yes Hypertension Yes Hypotension No Myocardial Infarction Yes: 2013 stent- asymptomatic since Other Cardiology Yes: STENT PLACED IN 2013 Asthma Yes Bronchitis Yes Chronic Obstructive Pulmonary Yes: 4L O2 at all times, + SOB with exertion Disease (COPD) Pneumonia Yes Sleep Apnea Yes Diabetes Mellitus Type 1 No Diabetes Mellitus Type 2 No Gastroesophageal Reflux Yes Disease Gastrointestinal Bleeding Yes Hepatitis Yes: TORIBIO Hx Incontinence Yes Anemia Yes Anesthesia Reactions No Blood Transfusions Yes: no reaction Depression Yes Panic Disorder No Post Menopausal Yes Now No Clinic Medical History Hypoxemia (Chronic Medical) 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 Depression (Chronic Medical) Hypertension (Chronic Medical) High cholesterol (Chronic Medical) Syncope and collapse (Chronic Medical) Patient was anemic and transfused with PRBCs Atrial fibrillation (Chronic Medical) Currently in SR, Started on Sotalol for antiarrhythmic therapy CAD (coronary artery disease), [place] coronary artery (Chronic Medical) Stenting of LAD 11/28/2013 COPD (chronic obstructive pulmonary disease) (Chronic Medical) Hearing loss of right ear (Chronic Medical) Surgical History: * Cardiac catheterization with stent placement in LAD - [address] Perez at [facility]. Medtronic Resolute Integrity RX stent. * Heart cath - 02/20/2012. * Right ear surgery reconstruction - 1959. * section - 07/27/1988. * section - 04/18/1984 Family History: Family History (Last Reviewed 02/21/17 @ 11:37 by Hesham Beltran, HUMAN RESOURCES SUPERVISOR) Daughter Cervical cancer Mother Heart attack High blood pressure Father Cancer - Social History Smoking status: Former smoker (Quit 6 years ago) Current residence: Apartment/Private Home Medications Home Medications Medication Instructions Recorded Confirmed Type Albuterol Sulfate [Ventolin Hfa] 2 puff INH Q4-6HR PRN #0 02/19/12 02/20/17 History Atorvastatin Calcium 40 mg PO HS #0 07/20/14 02/20/17 History Furosemide 40 mg PO DAILY #0 07/20/14 02/20/17 History Potassium Chloride 20 meq PO DAILY #0 tab 07/20/14 02/20/17 History Aspirin 81 mg PO DAILY #0 10/24/16 02/20/17 History Cholecalciferol (Vitamin D3) 2,000 unit PO DAILY #0 10/24/16 02/20/17 History [Vitamin D3] Cyanocobalamin (Vitamin B-12) 2 tab PO DAILY #0 10/24/16 02/20/17 History [B-12] Fluticasone/Salmeterol [Advair 1 puff INH BID #0 10/24/16 02/20/17 History 250-50 Diskus] Pantoprazole Sodium 40 mg PO DAILY #0 10/24/16 02/20/17 History Ferrous Sulfate [Iron] 325 mg PO DAILY 03/12/17 03/12/17 History Lisinopril [Prinivil] 5 mg PO HS 03/12/17 03/12/17 History PredniSONE [Deltasone] 3 mg PO DAILY 03/12/17 03/12/17 History Ropinirole [Requip] 0.25 mg PO HS 03/12/17 03/12/17 History Sotalol [Betapace] 40 mg PO BID 03/12/17 03/12/17 History predniSONE [Prednisone] 5 mg PO DAILY 03/12/17 03/12/17 History Allergies Allergy/AdvReac Type Severity Reaction Status Date / Time No Known Allergies Allergy Verified 12/31/16 11:58 Exam Vital signs: Temperature 98.6 F 03/12/17 16:15 Pulse Rate 60 03/12/17 16:15 Respiratory Rate 22 03/12/17 16:15 Blood Pressure 118/67 03/12/17 16:15 Pulse Oximetry 96 03/12/17 16:15 - Constitutional mild distress - Routine HEENT Exam Head: Present: normocephalic, atraumatic Eye: Present: EOMI, PERRL Nose: moist mucous membranes - Routine Neck Exam Present: supple, full ROM - Routine Respiratory Exam Present: decreased breath sounds. Absent: wheezes, crackles - Routine Cardiovascular Exam Present: RRR, S1, S2. Absent: murmur - Routine Abdominal Exam Present: soft. Absent: guarding - Routine Extremities Exam Present: edema. Absent: cyanosis, clubbing - Routine Back/Spine/Pelvis Exam Back/Spine: Present: full ROM, CVA tenderness - Routine Skin Exam Present: intact. Absent: cyanosis - Routine Psychiatric Exam Present: anxious Results - Laboratory Findings CBC and BMP: 03/12/17 16:07 03/12/17 16:07 Abnormal lab findings: Abnormal Labs 03/12/17 03/12/17 16:07 16:07 WBC 14.0 H Hgb 9.6 L Hct 34.8 L MCH 23.5 L MCHC 27.6 L RDW Std Deviation 64.7 H Neut % (Auto) 77.5 H Lymph % (Auto) 15.4 L Neut # 10.9 H [place] # 0.9 H Sodium 145 H Carbon Dioxide 36 H BUN 23.0 H Calculated Osmolality 283 H Assessment and Plan - Attestation Attestation Narrative: 03/12/17 16:49 Acute and chronic hypoxemic hypercapnic respiratory failure COPD Hypersensitivity pneumonitis MILE Obesity Recommend: Continue vent to mask at least 6-8 hours/day O2 to keep sat >90% repeat CT chest continue prednisone, modest dosing 20-30/day and taper as tolerated. Consider placement in assisted living facility on discharge.
[2017-03-12] MEDS ORDERED: NITROGLYCERIN 0.4 MG SUBLINGUAL TABLET SL PRN (17:41)
[2017-03-12] MEDS ORDERED: ALBUTEROL/IPRATROPIUM 2.5mg-0.5mg/3ml NEB AEROSOL PRN (17:44)
--- NOTE | 2017-03-12 18:23 | XRay Report ---
INDICATION: Dyspnea PROCEDURE: CHEST 2-VIEWS UPRIGHT (PA & LAT) Encounter: Initial COMPARISON: February 26, 2017 FINDINGS: Airspace consolidation in the left lower lobe continues to improve with minimal residual opacity present. Aeration of the right base is also better. No new areas of airspace disease. No pleural effusion or pneumothorax. Heart size and mediastinal contours are stable. Pulmonary vascularity is stable. Impression: Continued improvement in appearance of the chest with near resolution of the prior lower lobe pneumonia. .
[2017-03-12] MEDS: ENOXAPARIN 40 MG/0.4 ML INJECTION SQ SCH (18:24)
--- NOTE | 2017-03-12 19:15 | Neuropsychiatric Consult ---
[facility] HPI Date: 03/12/17 Reason for Consultation: Depression Start Time: 18:30 Stop Time: 19:00 History of Present Illness: HPI: 56 Y/O CF with a hx of COPD admitted for low O2 sats. Pt reported to medical team she was depressed and having morbid thoughts and so psych was consulted. On face to face the pt states she was doing well up until about two weeks ago when she was admitted to the hospital. Since that time she has been increasingly depressed and has felt hopeless at times. She reports morbid thoughts at times that she wished she were but she denies any S/I. She states she would not harm herself as she knows things will get better. STRESSORS: Pt states two weeks ago she was admitted to the hospital and stated "I two times". She states her physical health has deteriorated and she states she does not feel she can meet her physical needs at home and feels she has poor support. Her hearing is also a big issue for her. PSYCH ROS: Pt reports feeling depressed with low interest and motivation. She reports she cries often and feels helpless at times. She has guilt that she can not take care of herself or her family. She reports having panic type symptoms at times. Primarily when she becomes SOA. She denies james or psychosis. PAST PSYCH: Pt states about one year ago she was dealing with family stress and her PCP placed her on an antidepressant. She states she is not sure of the name but it was helpful. She states in a few weeks she was feeling better and stopped it. She states she has never seen a psychiatrist and has never tried to harm herself. Has never been in a psychiatric hospital. [facility] Patient Stated Medical History Cerebrovascular Accident No Seizures No Hearing Loss Yes Angina Yes: hx Cardiac Arrhythmia Yes: paroxysmal atril fib Coronary Artery Disease Yes Hypertension Yes Hypotension No Myocardial Infarction Yes: 2014 stent- asymptomatic since Other Cardiology Yes: STENT PLACED IN 2013 Asthma Yes Bronchitis Yes Chronic Obstructive Pulmonary Yes: 4L O2 at all times, + SOB with exertion Disease (COPD) Pneumonia Yes Sleep Apnea Yes Diabetes Mellitus Type 1 No Diabetes Mellitus Type 2 No Gastroesophageal Reflux Yes Disease Gastrointestinal Bleeding Yes Hepatitis Yes: TORIBIO Hx Incontinence Yes Anemia Yes Anesthesia Reactions No Blood Transfusions Yes: no reaction Depression Yes Panic Disorder No Post Menopausal Yes Now No Clinic Medical History Hypoxemia (Chronic Medical) Health Safety Manager: Dr. Paul Willard 3L ON Restless leg syndrome (Chronic Medical) Bronchitis (Acute Medical) Nonalcoholic steatohepatitis (TORIBIO) (Chronic Medical) Myocardial infarct (Resolved Medical 10/2013) Iron deficiency anemia (Acute Medical) Diagnosed 12/31/2016 - treated with transfusion 2 units pRBCs. Depression (Chronic Medical) Hypertension (Chronic Medical) High cholesterol (Chronic Medical) Syncope and collapse (Chronic Medical) Patient was anemic and transfused with PRBCs Atrial fibrillation (Chronic Medical) Currently in SR, Started on Sotalol for antiarrhythmic therapy CAD (coronary artery disease), [place] coronary artery (Chronic Medical) Stenting of LAD 11/28/2013 COPD (chronic obstructive pulmonary disease) (Chronic Medical) Hearing loss of right ear (Chronic Medical) Surgical History: * Cardiac catheterization with stent placement in LAD - [address] Perez at [facility]. Medtronic Resolute Integrity RX stent. * Heart cath - 02/20/2012. * Right ear surgery reconstruction - 1959. * section - 07/27/1988. * section - 04/18/1984 Family History: Family History (Last Reviewed 02/21/17 @ 11:37 by Hesham Beltran, [employer] COUNTER CLERK) Daughter Cervical cancer Mother Heart attack High blood pressure Father Cancer - Social History Smoking status: Former smoker (Quit 6 years ago) Current residence: Apartment/Private Home Review of Systems - Psychiatric Psychiatric: Present: anxiety, depression, mood swings Mental Status Exam Vitals: Last Vital Signs Temp 98.6 F 03/12/17 16:15 Pulse 60 03/12/17 16:15 Resp 22 03/12/17 16:15 BP 118/67 03/12/17 16:15 Pulse Ox 96 03/12/17 16:15 Height: 1.7 m Weight: 121.6 kg - Mental Status Exam Muscle Strength/Tone: Weak Dressing: Casual Grooming: Fair Attitude: Cooperative Motor Activity: Normal Eye Contact: Good Speech: Normal Volume: Loud Rhythm: Appropriate Rhythm Orientation: Oriented X4 Mood: Depressed Affect: Sad Rate of Thoughts: Appropriate Rate Thought Organization: Organized Associations: Intact Computation: Appropriate for Education Level Thought Content: Helplessness Perception/Psychotic: Perception Normal Language: Naming Intact Fund of Knowledge: Appropriate Memory: Grossly Intact Suicidal Ideation: Denies, None Homicidal Ideation: Denies, None Insight: Limited Judgement: Limited Impulse Control: Good - Laboratory Result Diagrams: 03/12/17 16:07 09/12/17 16:07 Laboratory Results - last 24 hr 03/12/17 03/12/17 03/12/17 16:07 16:07 16:07 WBC 14.0 H RBC 4.08 Hgb 9.6 L Hct 34.8 L MCV 85.3 MCH 23.5 L MCHC 27.6 L RDW Std Deviation 64.7 H Plt Count 326 MPV 11.1 Immature Gran % (Auto) 0.2 Neut % (Auto) 77.5 H Lymph % (Auto) 15.4 L [place] % (Auto) 6.1 Eos % (Auto) 0.7 Baso % (Auto) 0.1 Neut # 10.9 H Lymph # 2.2 [place] # 0.9 H Eos # 0.1 Baso # 0.0 Abs Immat Gran (auto) 0.03 Turbidity < 20 Sodium 145 H Potassium 4.5 Chloride 101 Carbon Dioxide 36 H Anion Gap 8 BUN 23.0 H Creatinine 1.1 GFR Calculation 51 BUN/Creatinine Ratio 21 Glucose 98 Calculated Osmolality 283 H Calcium 9.8 Magnesium 2.1 Total Bilirubin 0.40 Icterus Index < 2 AST 27 ALT 44 Alkaline Phosphatase 97 Troponin I < 0.012 Total Protein 6.7 Albumin 4.1 Globulin 2.6 Albumin/Globulin Ratio 1.6 Plasma Lactate 0.9 Procalcitonin < 0.05 Specimen Hemolysis < 15 Ur Collection Type Urine Color Urine Clarity Urine pH Ur Specific [place] Urine Protein Urine Glucose (UA) Urine Ketones Urine Occult Blood Urine Nitrate Urine Bilirubin Urine Urobilinogen Ur Leukocyte Esterase Urinalysis Comment 03/12/17 17:39 WBC RBC Hgb Hct MCV MCH MCHC RDW Std Deviation Plt Count MPV Immature Gran % (Auto) Neut % (Auto) Lymph % (Auto) [place] % (Auto) Eos % (Auto) Baso % (Auto) Neut # Lymph # [place] # Eos # Baso # Abs Immat Gran (auto) Turbidity Sodium Potassium Chloride Carbon Dioxide Anion Gap BUN Creatinine GFR Calculation BUN/Creatinine Ratio Glucose Calculated Osmolality Calcium Magnesium Total Bilirubin Icterus Index AST ALT Alkaline Phosphatase Troponin I Total Protein Albumin Globulin Albumin/Globulin Ratio Plasma Lactate Procalcitonin Specimen Hemolysis Ur Collection Type Not provided Urine Color Yellow Urine Clarity Clear Urine pH 6.0 Ur Specific [place] 1.025 Urine Protein Negative Urine Glucose (UA) Negative Urine Ketones Negative Urine Occult Blood Negative Urine Nitrate Negative Urine Bilirubin Negative Urine Urobilinogen 0.2 Ur Leukocyte Esterase Negative Urinalysis Comment Microscopic not ind. Assessment and Plan (1) Major depressive disorder, recurrent episode with anxious distress Problem details: Severe Current visit: Yes Status: Acute Continue medical management. Discussed starting Zoloft 50mg daily to target anxiety and depression. Pt is in agreement. Pt denies S/I and does not meet criteria for IP psych hospitalization. Recommend follow up with [facility] as pt is willing to see a therapist upon discharge. Recommend any home health services or other services available in the community to help with transition back to home
[2017-03-12] MEDS: BUDESONIDE INH.SOLN 0.5mg/2ml NEB AEROSOL SCH (19:25)
[2017-03-12] MEDS: ALBUTEROL/IPRATROPIUM 2.5mg-0.5mg/3ml NEB AEROSOL SCH (19:26)
[2017-03-12] MEDS: PANTOPRAZOLE 40 MG TABLET PO SCH (20:24)
[2017-03-12] MEDS: SOTALOL 80 MG TABLET PO SCH (20:24)
[2017-03-12] MEDS: LISINOPRIL 5 MG TABLET PO SCH (20:24)
[2017-03-12] MEDS: ATORVASTATIN 40 MG TABLET PO SCH (20:25)
[2017-03-12] MEDS: MELATONIN 5 MG TABLET PO SCH (20:25)
[2017-03-12] MEDS: ROPINIROLE 0.25 MG TABLET PO SCH (20:25)
[2017-03-12] MEDS: GUAIFENESIN/D-METHORPHAN 600mg/30mg TABLET PO SCH (20:59)
[2017-03-12] MEDS: LORazepam 1 MG TABLET PO PRN (21:20)
[2017-03-12] MEDS: SALINE 0.65% NASAL SPRAY 44 ML BOTTLE EA NOSTRIL SCH (21:41)
[2017-03-13] MEDS: ALBUTEROL/IPRATROPIUM 2.5mg-0.5mg/3ml NEB AEROSOL SCH ×4 (08:22→19:03)
[2017-03-13] MEDS: BUDESONIDE INH.SOLN 0.5mg/2ml NEB AEROSOL SCH ×2 (08:23→19:03)
[2017-03-13] MEDS: SERTRALINE 50 MG TABLET PO SCH (08:36)
[2017-03-13] MEDS: PredniSONE 20 MG TABLET PO SCH ×3 (08:36→10:09)
[2017-03-13] MEDS: FERROUS SULFATE 324 MG TABLET PO SCH (08:36)
[2017-03-13] MEDS: ASPIRIN 81 MG CHEWABLE TABLET PO SCH (08:36)
[2017-03-13] MEDS: SOTALOL 80 MG TABLET PO SCH ×2 (08:37→22:16)
[2017-03-13] MEDS: CYANOCOBALAMIN (B-12) 500mcg TABLET PO SCH (08:37)
[2017-03-13] MEDS: ENOXAPARIN 40 MG/0.4 ML INJECTION SQ SCH (08:38)
[2017-03-13] MEDS: SALINE 0.65% NASAL SPRAY 44 ML BOTTLE EA NOSTRIL SCH ×4 (08:38→20:28)
[2017-03-13] MEDS: GUAIFENESIN/D-METHORPHAN 600mg/30mg TABLET PO SCH ×2 (08:41→20:25)
[2017-03-13] MEDS: DiltiaZEM CD 360 MG CAPSULE PO SCH (08:41)
[2017-03-13] MEDS ORDERED: FUROSEMIDE 40 MG TABLET PO SCH (09:00)
--- NOTE | 2017-03-13 09:57 | Pulmonology Progress Note ---
Subjective Interval history: Pt currently on O2 at 4L per NC. States she used her home trilogy vent for 4-5 hrs last noc. Still with cough but minimal sputum noted. Does complain of swelling in her legs and doesn't feel the lasix is helping much. Exam Vital signs: Temperature 97.2 F 03/13/17 07:45 Pulse Rate 62 03/13/17 08:37 Respiratory Rate 22 03/13/17 08:20 Blood Pressure 117/60 03/13/17 07:45 Pulse Oximetry 94 03/13/17 08:33 - Constitutional no acute distress, morbidly obese - Routine HEENT Exam Head: Present: normocephalic, atraumatic Eye: Present: PERRL, normal accommodation - Routine Neck Exam Present: supple, full ROM - Routine Respiratory Exam Present: decreased breath sounds - Routine Cardiovascular Exam Present: RRR, no murmur - Routine Abdominal Exam Present: soft, normoactive bowel sounds - Routine Extremities Exam Present: edema, full ROM - Routine Back/Spine/Pelvis Exam Back/Spine: Present: full ROM - Routine Skin Exam Present: intact, dry - Routine Neurological Exam Present: alert, oriented X3, CN II-XII intact - Routine Psychiatric Exam Present: normal affect, normal thought process Progress Note-A&P (1) Acute and chronic respiratory failure with hypercapnia Status: Acute Assessment and plan: Pt currently on O2 at 3L per NC and tolerating, used her home trilogy vent last noc 4-5 hrs, encouraged to increase to 6-8 hrs use. Will cont to follow. Current Visit: No (2) COPD (chronic obstructive pulmonary disease) Status: Chronic Assessment and plan: Pt currently on pulmicort BID and A/A QID, CXR showed improved LLL infiltrates almost resolved. Will continue to follow. Current Visit: No (3) Hypersensitivity pneumonitis Status: Acute Assessment and plan: Increased to 20mg daily, was recently on 8mg at home. Will follow symptoms and wean as able. Does have BLE swelling, I/O + 100ml overnoc. Will change to bumex 1 mg daily, elevate legs and encourage compression socks. Current Visit: Yes (4) MILE (obstructive sleep apnea) Status: Acute Assessment and plan: On home vent for hypercapnic failure Current Visit: Yes - Time Spent With Patient Total time spent is greater than 50% in coordination of care (as documented) at patient's floor/unit and/or counseling patient: less than 15 minutes Sepsis Assessment - Evaluation Sepsis screening result: No Definite Risk
--- NOTE | 2017-03-13 15:36 | Progress Note ---
<Farzana Rivera V - Last Filed: 03/13/17 15:26> Subjective: Ruthie is seen today in follow-up. She continues to require 4 liters of oxygen by nasal cannula to maintain adequate saturations. Overall today her affect is much more positive and she is less emotional. She states that she has learned a lot about her breathing and inhaler use since admission yesterday. Denies pain or GI complaints. Continues to have 2+ bilateral lower ext edema. John hose off during exam. Objective Vital signs: Temperature 97.2 F 03/13/17 07:45 Pulse Rate 56 L 03/13/17 10:17 Respiratory Rate 18 03/13/17 15:01 Blood Pressure 117/60 03/13/17 07:45 Pulse Oximetry 95 03/13/17 11:20 Height/Weight/BMI: Height 1.7 m Weight 123.9 kg Body Mass Index 42.0 - Constitutional Present: no acute distress, well nourished, well developed - Routine HEENT Exam Eye: Present: EOMI ENT: Present: mucous membranes moist, dentition normal - Routine Respiratory Exam Present: crackles, diminished air movement. Absent: wheezes - Routine Cardiovascular Exam Present: RRR, S1, S2. Absent: murmur - Routine Abdominal Exam Present: soft, normoactive bowel sounds, non distended. Absent: tenderness - Routine Extremities Exam Present: edema (2+bilateral lower ext), normal capillary refill - Routine Back/Spine/Pelvis Exam Back/Spine: Present: full ROM - Routine Skin Exam Present: intact, dry, warm - Routine Neurological Exam Present: alert, oriented X3, CN II-XII intact - Routine Lymphatic Exam Lymphatic: Absent: adenopathy - Routine Psychiatric Exam Present: normal affect Results - Labs CBC & Chem 7: 03/13/17 04:33 03/13/17 04:33 Microbiology Results: Microbiology 03/13/17 11:25 Sputum, Expectorated Gram Stain - Final 03/13/17 11:25 Sputum, Expectorated Sputum Culture - Preliminary Culture Initiated - Results Pending Assessment and Plan (1) Acute respiratory failure with hypoxia Current visit: No Status: Acute (2) Severe depression Current visit: Yes Status: Acute Assessment and Plan: Impression Respiratory failure with hypoxia-requiring increased oxygen demands from baseline 3 liters. Acute Depression COPD with chronic oxygen use-3L Coronary artery disease Hypertension Hypercholesterolemia Atrial fibrillation Hearing loss-chronic TORIBIO GERD Restless leg syndrome Pulmonary debility Morbid Obesity Plan Overall motional lability has improved today. Appreciate consultation by Dr. Jimenez, patient started on Zoloft for anxiety and depression. Continue with pulmonary treatment including DuoNeb, budesonide, prednisone 20 milligrams for pulmonary inflammation. Continue with oxygen therapy, currently at 4 liters. Home baseline was 3 liters prior to admission. Continue with home Trilogy ventilation. Overall, patient is improving. Continue to encourage ambulation and work with PT and OT. Did discuss possibility of discharge plan including SNU vs IRU Sepsis Assessment - Evaluation Sepsis screening result: No Definite Risk Hospital Course Summary Disclaimer: The visit summary below is not to be considered part of the above Progress Note. Hospital Course: 03/12/17 16:59 Impression Respiratory failure with hypoxia-requiring increased oxygen demands from baseline 3 liters. Acute Depression COPD with chronic oxygen use-3L Coronary artery disease Hypertension Hypercholesterolemia Atrial fibrillation. Hearing loss-chronic TORIBIO GERD Restless leg syndrome Plan Initially patient is admitted as an outpatient, however, will change her to inpatient following evaluation. Patient's initial saturations on her baseline oxygen. When presented to program development specialist office was low at 81% on 3 liters. Since that time she has required 4 liters of oxygen by nasal cannula to maintain saturations. On admission to [facility]. She is found to be tachypnea, breathing 22 times per minute. Will obtain the following laboratory studies, CBC, CMP, venous lactate, pro calcitonin, troponin and sputum Culture Will obtain a chest x-ray given patient's recent diagnosis of pneumonia. Consultation place to Dr Frye for his recommendations given increased hypoxia and steroid use. MDI- Major depression index score 35= severe depression. Consult placed to Dr Jimenez for his expertise and recommendations on treatment options Monitor on cardiac telemetry given known history of A-fib John Hose to bilateral lower ext for compression given peripheral edema Did discuss in detail with patient and daughter regarding ability to care for self at home. She is interested in rehabilitation options once medically stable with usp goal of returning home with . She does wish to be a Full Code and this order is written Home medications will need to be reviewed and ordered once reconciled. Will discuss further orders and plan of care with attending, Dr Bourgeois At time of discharge medical care is to return to Renetta Darling APRN at [facility] 03/13/17 Plan Overall motional lability has improved today. Appreciate consultation by Dr. Jimenez, patient started on Zoloft for anxiety and depression. Continue with pulmonary treatment including DuoNeb, budesonide, prednisone 20 milligrams for pulmonary inflammation. Continue with oxygen therapy, currently at 4 liters. Home baseline was 3 liters prior to admission. Continue with home Trilogy ventilation. Overall, patient is improving. Continue to encourage ambulation and work with PT and OT. Did discuss possibility of discharge plan including SNU vs IRU <Uri Bourgeois - Last Filed: 03/13/17 17:21> Objective Vital signs: Temperature 96.3 F L 03/13/17 16:00 Pulse Rate 43 L 03/13/17 16:00 Respiratory Rate 20 03/13/17 16:00 Blood Pressure 106/48 03/13/17 16:00 Pulse Oximetry 94 03/13/17 16:00 Height/Weight/BMI: Height 1.7 m Weight 123.9 kg Body Mass Index 42.0 Results - Labs CBC & Chem 7: 03/13/17 04:33 03/13/17 04:33 Microbiology Results: Microbiology 03/13/17 11:25 Sputum, Expectorated Gram Stain - Final 03/13/17 11:25 Sputum, Expectorated Sputum Culture - Preliminary Culture Initiated - Results Pending Assessment and Plan (1) Acute respiratory failure with hypoxia Current visit: No Status: Acute (2) Severe depression Current visit: Yes Status: Acute DVT Prophylaxis: Lovenox Resuscitation Status: Full Code Assessment and Plan: Impression Respiratory failure with hypoxia-requiring increased oxygen demands from baseline 3 liters. Acute Depression COPD with chronic oxygen use-3L Coronary artery disease Hypertension Hypercholesterolemia Atrial fibrillation Hearing loss-chronic TORIBIO GERD Restless leg syndrome Pulmonary debility Morbid Obesity Have independently interviewed and examined pt. Chart reviewed. Case discussed with CM and my THREAD PULLER. Care plan developed with my supervision; agree with above. Having a good day. Was able to wear Vent for about 5 hours last night. Lorazepam helped. Worked with therapy and did well but very winded during walking. No Chest pressure or pain. Eating well. Feels less emotional today. Lungs: decreased bilaterally. Diminished air movement. End expiratory wheezes bilaterally. CV: regular AB: soft obese nt/nd MSE: awake alert appropriate. Plan: Will continue with Prednisone at 20mg-possible taper in near future. Congratulated pt on being able to wear vent-really will help her to feel and do better. Encourage therapy and activities. IRU screen placed-pt not sure if she wants to spend 'that much time' hospitalized, but did advise her that it would be very beneficial to help her lung status if her functional status would improve. Continue with Zoloft to help mood. Lorazepam prn anxiety and air hunger. Hospital Course Summary Disclaimer: The visit summary below is not to be considered part of the above Progress Note.
--- NOTE | 2017-03-13 20:14 | Neuropsych Progress Note ---
[facility] Subjective Date: 03/13/17 - Sujective/Severity of Illness Medications: Acetaminophen (Tylenol Arthritis) 1,300 mg PO TID PRN PRN Reason: Pain Albuterol/Ipratropium (Duoneb) 3 ml AEROSOL RTQID [facility] Last Admin: 03/13/17 19:03 Dose: 3 ml Albuterol/Ipratropium (Duoneb) 3 ml AEROSOL Q4HR PRN PRN Reason: Shortness of air Aspirin (Asa) 81 mg PO DAILY [facility] Last Admin: 03/13/17 08:36 Dose: 81 mg Atorvastatin Calcium (Lipitor) 40 mg PO HS [facility] Last Admin: 03/12/17 20:25 Dose: 40 mg Budesonide (Pulmicort Inhalation) 0.5 mg AEROSOL RTBID [facility] Last Admin: 03/13/17 19:03 Dose: 0.5 mg Bumetanide (Bumex Tab) 1 mg PO DAILY [facility] Cholecalciferol (Vit. D-3) 2,000 unit PO DAILY [facility] Last Admin: 03/13/17 08:36 Dose: 2,000 unit Cyanocobalamin (Vit. B-12) 1,000 mcg PO DAILY [facility] Last Admin: 03/13/17 08:37 Dose: 1,000 mcg Diltiazem HCl (Cardizem Cd) 360 mg PO DAILY [facility] Last Admin: 03/13/17 08:41 Dose: 360 mg Enoxaparin Sodium (Lovenox) 40 mg SQ DAILY [facility] Last Admin: 03/13/17 08:38 Dose: 40 mg Ferrous Sulfate (Feosol) 324 mg PO DAILY [facility] Last Admin: 03/13/17 08:36 Dose: 324 mg Guaifenesin/Dextromethorphan (Mucinex Dm) 1 tab PO BID [facility] Last Admin: 03/13/17 08:41 Dose: 1 tab Lisinopril (Prinivil) 5 mg PO HS [facility] Last Admin: 03/12/17 20:24 Dose: 5 mg Lorazepam (Ativan) 1 mg PO Q4HR PRN PRN Reason: Anxiety/Air hunger/Agitation Last Admin: 03/12/17 21:20 Dose: 1 mg Magnesium Hydroxide (Mom) 30 ml PO DAILY PRN PRN Reason: Constipation Melatonin (Melatonin) 15 mg PO HS [facility] Last Admin: 03/12/17 20:25 Dose: 15 mg Metoprolol Tartrate (Lopressor) 25 mg PO TIDWM [facility] Last Admin: 03/13/17 17:33 Dose: 25 mg Nitroglycerin (Nitrostat) 0.4 mg SL Q5MIN3 PRN PRN Reason: Chest pain Pantoprazole Sodium (Protonix Tab) 40 mg PO [facility] Last Admin: 03/12/17 20:24 Dose: 40 mg Prednisone (Deltasone) 20 mg PO WB [facility] Last Admin: 03/13/17 10:09 Dose: 20 mg Ropinirole HCl (Requip) 0.25 mg PO [facility] Last Admin: 03/12/17 20:25 Dose: 0.25 mg Sertraline HCl (Zoloft) 50 mg PO DAILY [facility] Last Admin: 03/13/17 08:36 Dose: 50 mg Sodium Chloride (Deep Sea Nasal Moisturizing [place]) 2 spray EA NOSTRIL QID [facility] Last Admin: 03/13/17 17:32 Dose: Not Given Sotalol HCl (Betapace) 40 mg PO BID [facility] Last Admin: 03/13/17 08:37 Dose: 40 mg Subjective: Patient seen and chart reviewed. On interview, patient is pleasant and engaging. She reports that her mood is somewhat improved today as she is trying to be positive. She shares with me that she is scared to and also feels guilty for the burden she feels she is placing on her . Patient denies any SI, HI or AVH. Patient denies any adverse side effects related to psychotropic medications and is in agreement with continuing current dose of Zoloft. Start Time: 16:00 Stop Time: 16:20 Mental Status Exam Vitals: Last Vital Signs Temp 96.3 F L 03/13/17 16:00 Pulse 77 03/13/17 18:00 Resp 22 03/13/17 19:03 BP 106/48 03/13/17 16:00 Pulse Ox 92 03/13/17 19:03 Height: 1.7 m Weight: 123.9 kg - Mental Status Exam Muscle Strength/Tone: Weak Dressing: Casual Grooming: Fair Attitude: Cooperative Motor Activity: Normal Eye Contact: Good Speech: Normal Volume: Loud Rhythm: Appropriate Rhythm Orientation: Oriented X4 Mood: Depressed (Tearful when discussing stressors) Rate of Thoughts: Appropriate Rate Thought Organization: Organized Associations: Intact Computation: Appropriate for Education Level Thought Content: Helplessness Perception/Psychotic: Perception Normal Language: Naming Intact Fund of Knowledge: Appropriate Memory: Grossly Intact Suicidal Ideation: Denies, None Homicidal Ideation: Denies, None Insight: Limited Judgement: Limited Impulse Control: Good - Laboratory Result Diagrams: 03/13/17 04:33 03/13/17 04:33 Laboratory Results - last 24 hr 03/13/17 03/13/17 04:33 04:33 WBC 10.8 RBC 3.66 L Hgb 8.7 L Hct 31.8 L MCV 86.9 MCH 23.8 L MCHC 27.4 L RDW Std Deviation 66.1 H Plt Count 251 MPV 11.6 Immature Gran % (Auto) 0.3 Neut % (Auto) 69.6 H Lymph % (Auto) 21.7 L [place] % (Auto) 6.6 Eos % (Auto) 1.6 Baso % (Auto) 0.2 Neut # 7.5 Lymph # 2.4 [place] # 0.7 Eos # 0.2 Baso # 0.0 Abs Immat Gran (auto) 0.03 Turbidity < 20 Sodium 142 Potassium 4.1 Chloride 99 Carbon Dioxide 37 H Anion Gap 6 BUN 23.0 H Creatinine 1.0 GFR Calculation 57 BUN/Creatinine Ratio 23 Glucose 97 Calculated Osmolality 277 Calcium 9.4 Icterus Index < 2 Specimen Hemolysis < 15 Assessment and Plan (1) Major depressive disorder, recurrent episode with anxious distress Problem details: Severe Current visit: Yes Status: Acute Hospital Course Summary Disclaimer: The visit summary below is not to be considered part of the above Progress Note. Hospital Course: 03/12/17 16:59 Impression Respiratory failure with hypoxia-requiring increased oxygen demands from baseline 3 liters. Acute Depression COPD with chronic oxygen use-3L Coronary artery disease Hypertension Hypercholesterolemia Atrial fibrillation. Hearing loss-chronic TORIBIO GERD Restless leg syndrome Plan Initially patient is admitted as an outpatient, however, will change her to inpatient following evaluation. Patient's initial saturations on her baseline oxygen. When presented to city marshal office was low at 81% on 3 liters. Since that time she has required 4 liters of oxygen by nasal cannula to maintain saturations. On admission to [facility]. She is found to be tachypnea, breathing 22 times per minute. Will obtain the following laboratory studies, CBC, CMP, venous lactate, pro calcitonin, troponin and sputum Culture Will obtain a chest x-ray given patient's recent diagnosis of pneumonia. Consultation place to Dr Frye for his recommendations given increased hypoxia and steroid use. MDI- Major depression index score 35= severe depression. Consult placed to Dr Jimenez for his expertise and recommendations on treatment options Monitor on cardiac telemetry given known history of A-fib John Hose to bilateral lower ext for compression given peripheral edema Did discuss in detail with patient and daughter regarding ability to care for self at home. She is interested in rehabilitation options once medically stable with intermediate goal of returning home with . She does wish to be a Full Code and this order is written Home medications will need to be reviewed and ordered once reconciled. Will discuss further orders and plan of care with attending, Dr Bourgeois At time of discharge [facility]17 Plan Overall motional lability has improved today. Appreciate consultation by Dr. Jimenez, patient started on Zoloft for anxiety and depression. Continue with pulmonary treatment including DuoNeb, budesonide, prednisone 20 milligrams for pulmonary inflammation. Continue with oxygen therapy, currently at 4 liters. Home baseline was 3 liters prior to admission. Continue with home Trilogy ventilation. Overall, patient is improving. Continue to encourage ambulation and work with PT and OT. Did discuss possibility of discharge plan including SNU vs IRU 03/13/17 20:13 Psych: Continue Zoloft 50mg PO daily; patient tolerating well thus far and reports slight improvement in mood since initial consult.
[2017-03-13] MEDS: ATORVASTATIN 40 MG TABLET PO SCH (20:24)
[2017-03-13] MEDS: LISINOPRIL 5 MG TABLET PO SCH (20:25)
[2017-03-13] MEDS: MELATONIN 5 MG TABLET PO SCH (20:27)
[2017-03-13] MEDS: ROPINIROLE 0.25 MG TABLET PO SCH (20:28)
[2017-03-13] MEDS: PANTOPRAZOLE 40 MG TABLET PO SCH (20:35)
[2017-03-13] MEDS: LORazepam 1 MG TABLET PO PRN (22:03)
[2017-03-14] MEDS: ALBUTEROL/IPRATROPIUM 2.5mg-0.5mg/3ml NEB AEROSOL SCH ×4 (06:41→19:27)
[2017-03-14] MEDS: BUDESONIDE INH.SOLN 0.5mg/2ml NEB AEROSOL SCH ×2 (06:41→19:27)
[2017-03-14] MEDS: ASPIRIN 81 MG CHEWABLE TABLET PO SCH (08:30)
[2017-03-14] MEDS: SOTALOL 80 MG TABLET PO SCH ×2 (08:30→20:40)
[2017-03-14] MEDS: FERROUS SULFATE 324 MG TABLET PO SCH (08:32)
[2017-03-14] MEDS: DiltiaZEM CD 360 MG CAPSULE PO SCH (08:33)
[2017-03-14] MEDS: BUMETANIDE 1 MG TABLET PO SCH (08:33)
[2017-03-14] MEDS: SERTRALINE 50 MG TABLET PO SCH (08:33)
[2017-03-14] MEDS: PredniSONE 20 MG TABLET PO SCH (08:33)
[2017-03-14] MEDS: SALINE 0.65% NASAL SPRAY 44 ML BOTTLE EA NOSTRIL SCH ×4 (08:35→20:41)
[2017-03-14] MEDS: CYANOCOBALAMIN (B-12) 500mcg TABLET PO SCH (08:35)
[2017-03-14] MEDS: ENOXAPARIN 40 MG/0.4 ML INJECTION SQ SCH (08:35)
[2017-03-14] MEDS: GUAIFENESIN/D-METHORPHAN 600mg/30mg TABLET PO SCH ×2 (08:36→20:42)
--- NOTE | 2017-03-14 15:27 | Pulmonology Progress Note ---
Subjective Interval history: feels much better. minimal cough and sputum. wants to try to go home. on O2 at 3 lpm at rest. using Trilogy over 4 hours at night Exam Vital signs: Temperature 96.9 F 03/14/17 07:19 Pulse Rate 60 03/14/17 08:30 Respiratory Rate 20 03/14/17 10:32 Blood Pressure 116/61 03/14/17 07:19 Pulse Oximetry 94 03/14/17 10:32 - Constitutional no acute distress, mild distress - Routine HEENT Exam Head: Present: normocephalic, atraumatic Eye: Present: EOMI - Routine Neck Exam Present: supple - Routine Respiratory Exam Present: prolonged expiratory phase. Absent: accessory muscle use, wheezes - Routine Cardiovascular Exam Present: RRR Progress Note-A&P - Time Spent With Patient Total time spent is greater than 50% in coordination of care (as documented) at patient's floor/unit and/or counseling patient: less than 15 minutes (1) Hypersensitivity pneumonitis Status: Acute Current Visit: Yes (2) MILE (obstructive sleep apnea) Status: Acute Current Visit: Yes (3) Acute and chronic respiratory failure with hypercapnia Status: Acute Assessment and plan: Discussed with Dr Bourgeois. Patient may go home with home health. continue vent at home. O2 to keep sat >90%. neb treatments with albuterol/iprat/ budesonide. Slow wean of prednisone. I will see as outpatient to follow up. thanks. Current Visit: No (4) COPD (chronic obstructive pulmonary disease) Status: Chronic Current Visit: No Sepsis Assessment - Evaluation Sepsis screening result: No Definite Risk
--- NOTE | 2017-03-14 16:14 | Progress Note ---
<Farzana Rivera V - Last Filed: 03/14/17 15:52> Subjective: Ruthie is seen today in follow up. She states that she is feeling good and breathing continues to be much improved. She is on 4 liters of oxygen by nasal cannula. States she has been able to be up and ambulating both in the room and the hernandez and feels much less short of breath than she did prior to admission. Objective Vital signs: Temperature 96.9 F 03/14/17 07:19 Pulse Rate 60 03/14/17 08:30 Respiratory Rate 20 03/14/17 10:32 Blood Pressure 116/61 03/14/17 07:19 Pulse Oximetry 94 03/14/17 10:32 Height/Weight/BMI: Height 1.7 m Weight 122.2 kg Body Mass Index 42.0 - Constitutional Present: no acute distress, well nourished, well developed - Routine HEENT Exam Eye: Present: EOMI ENT: Present: mucous membranes moist, dentition normal - Routine Respiratory Exam Present: diminished air movement (diminished). Absent: wheezes - Routine Cardiovascular Exam Present: RRR, S1, S2. Absent: murmur - Routine Abdominal Exam Present: soft, normoactive bowel sounds, non distended. Absent: tenderness - Routine Extremities Exam Present: normal capillary refill - Routine Skin Exam Present: dry, warm - Routine Neurological Exam Present: alert, oriented X3, CN II-XII intact - Routine Lymphatic Exam Lymphatic: Absent: adenopathy - Routine Psychiatric Exam Present: normal affect Results - Labs CBC & Chem 7: 03/14/17 04:55 03/14/17 04:55 Microbiology Results: Microbiology 03/13/17 11:25 Sputum, Expectorated Gram Stain - Final 03/13/17 11:25 Sputum, Expectorated Sputum Culture - Preliminary Early growth Assessment and Plan (1) Acute respiratory failure with hypoxia Current visit: No Status: Acute (2) Severe depression Current visit: Yes Status: Acute Assessment and Plan: Impression Respiratory failure with hypoxia-requiring increased oxygen demands from baseline 3 liters. Acute Depression COPD with chronic oxygen use-3L Coronary artery disease Hypertension Hypercholesterolemia Atrial fibrillation Hearing loss-chronic TORIBIO GERD Restless leg syndrome Pulmonary debility Morbid Obesity Plan Continue with oxygen at 4 liters and Trilogy Vent at home. Discussed patient with Dr Frye. Continue with scheduled breathing treatments. Wean down prednisone slowly at time of discharge She feels that her overall status has greatly improved and she feels comfortable with going home. Would like PT and OT to work with her tomorrow morning to determine if she would benefit from home health assistance. Overall, mood and, depression and anxiety seems to be improved. Continue on Zoloft. This will be new at time of discharge Sepsis Assessment - Evaluation Sepsis screening result: No Definite Risk Hospital Course Summary Disclaimer: The visit summary below is not to be considered part of the above Progress Note. Hospital Course: 03/12/17 16:59 Impression Respiratory failure with hypoxia-requiring increased oxygen demands from baseline 3 liters. Acute Depression COPD with chronic oxygen use-3L Coronary artery disease Hypertension Hypercholesterolemia Atrial fibrillation. Hearing loss-chronic TORIBIO GERD Restless leg syndrome Plan Initially patient is admitted as an outpatient, however, will change her to inpatient following evaluation. Patient's initial saturations on her baseline oxygen. When presented to gun repair clerk office was low at 81% on 3 liters. Since that time she has required 4 liters of oxygen by nasal cannula to maintain saturations. On admission to [facility]. She is found to be tachypnea, breathing 22 times per minute. Will obtain the following laboratory studies, CBC, CMP, venous lactate, pro calcitonin, troponin and sputum Culture Will obtain a chest x-ray given patient's recent diagnosis of pneumonia. Consultation place to Dr Frye for his recommendations given increased hypoxia and steroid use. MDI- Major depression index score 35= severe depression. Consult placed to Dr Jimenez for his expertise and recommendations on treatment options Monitor on cardiac telemetry given known history of A-fib John Hose to bilateral lower ext for compression given peripheral edema Did discuss in detail with patient and daughter regarding ability to care for self at home. She is interested in rehabilitation options once medically stable with [facility] goal of returning home with . She does wish to be a Full Code and this order is written Home medications will need to be reviewed and ordered once reconciled. Will discuss further orders and plan of care with attending, Dr Bourgeois At time of discharge medical care is to return to [facility] 03/13/17 Plan Overall motional lability has improved today. Appreciate consultation by Dr. Jimenez, patient started on Zoloft for anxiety and depression. Continue with pulmonary treatment including DuoNeb, budesonide, prednisone 20 milligrams for pulmonary inflammation. Continue with oxygen therapy, currently at 4 liters. Home baseline was 3 liters prior to admission. Continue with home Trilogy ventilation. Overall, patient is improving. Continue to encourage ambulation and work with PT and OT. Did discuss possibility of discharge plan including SNU vs IRU 03/13/17 20:13 Psych: Continue Zoloft 50mg PO daily; patient tolerating well thus far and reports slight improvement in mood since initial consult. 03/14/17 16:14 Plan Continue with oxygen at 4 liters and Trilogy Vent at home. Discussed patient with Dr Frye. Continue with scheduled breathing treatments. Wean down prednisone slowly at time of discharge She feels that her overall status has greatly improved and she feels comfortable with going home. Would like PT and OT to work with her tomorrow morning to determine if she would benefit from home health assistance. Overall, mood and, depression and anxiety seems to be improved. Continue on Zoloft. This will be new at time of discharge <Uri Bourgeois - Last Filed: 03/14/17 18:44> Objective Vital signs: Temperature 97.0 F 03/14/17 16:06 Pulse Rate 64 03/14/17 16:06 Respiratory Rate 20 03/14/17 16:06 Blood Pressure 109/60 03/14/17 16:06 Pulse Oximetry 93 03/14/17 16:06 Height/Weight/BMI: Height 1.7 m Weight 122.2 kg Body Mass Index 42.0 Results - Labs CBC & Chem 7: 03/14/17 04:55 03/14/17 04:55 Microbiology Results: Microbiology 03/13/17 11:25 Sputum, Expectorated Gram Stain - Final 03/13/17 11:25 Sputum, Expectorated Sputum Culture - Preliminary Early growth Assessment and Plan (1) Acute respiratory failure with hypoxia Current visit: No Status: Acute (2) Severe depression Current visit: Yes Status: Acute Resuscitation Status: Full Code Assessment and Plan: Impression Respiratory failure with hypoxia-requiring increased oxygen demands from baseline 3 liters. Acute Depression COPD with chronic oxygen use-3L Coronary artery disease Hypertension Hypercholesterolemia Atrial fibrillation Hearing loss-chronic TORIBIO GERD Restless leg syndrome Pulmonary debility Morbid Obesity Have independently interviewed and examined pt. Chart reviewed. Case discussed with CM and my HEADING AND PRIMING OPERATOR. Care plan developed with my supervision; agree with above. Feels like she is really improving. Working hard with therapy-feels is able to go further and better. Not feeling she needs time in IRU to recover. Breathing better-less SOA and congested. Able to use Vent mask at night for about 4 hours. Feeling less emotional in general. Lungs: decreased, faint end expiratory wheezes bilaterally CV: regular MSE: awake alert appropriate Plan: Encourage continued work with activities as improving condition status will have positive benefit on respiratory status as well as mood. Will decrease Prednisone from 20mg to 15mg tomorrow. Encourage continued use of ventilatory. Discussed nonpharmacological treatments of her edema - stressed sodium reduction and elevation of legs. Potentially could discharge to home tomorrow if continues to do well. Hospital Course Summary Disclaimer: The visit summary below is not to be considered part of the above Progress Note.
[2017-03-14] MEDS: MELATONIN 5 MG TABLET PO SCH (20:42)
[2017-03-14] MEDS: ATORVASTATIN 40 MG TABLET PO SCH (20:42)
[2017-03-14] MEDS: LISINOPRIL 5 MG TABLET PO SCH (20:43)
[2017-03-14] MEDS: PANTOPRAZOLE 40 MG TABLET PO SCH (20:48)
[2017-03-14] MEDS: LORazepam 1 MG TABLET PO PRN (20:48)
[2017-03-14] MEDS: ROPINIROLE 0.25 MG TABLET PO SCH (20:50)
[2017-03-15] MEDS: ALBUTEROL/IPRATROPIUM 2.5mg-0.5mg/3ml NEB AEROSOL SCH ×3 (07:07→15:05)
[2017-03-15] MEDS: BUDESONIDE INH.SOLN 0.5mg/2ml NEB AEROSOL SCH (07:07)
[2017-03-15 07:36] VITALS: TEMP 98.2
[2017-03-15] MEDS ORDERED: PredniSONE 10 MG TABLET PO SCH (08:00)
[2017-03-15] MEDS ORDERED: FERROUS SULFATE 324 MG TABLET PO SCH (08:00)
[2017-03-15] MEDS: DiltiaZEM CD 360 MG CAPSULE PO SCH (09:20)
[2017-03-15] MEDS: BUMETANIDE 1 MG TABLET PO SCH (09:20)
[2017-03-15] MEDS: SOTALOL 80 MG TABLET PO SCH (09:20)
[2017-03-15] MEDS: CYANOCOBALAMIN (B-12) 500mcg TABLET PO SCH (09:21)
[2017-03-15] MEDS: GUAIFENESIN/D-METHORPHAN 600mg/30mg TABLET PO SCH (09:21)
[2017-03-15] MEDS: SALINE 0.65% NASAL SPRAY 44 ML BOTTLE EA NOSTRIL SCH ×2 (09:21→13:59)
[2017-03-15] MEDS: SERTRALINE 50 MG TABLET PO SCH (09:21)
[2017-03-15] MEDS: ENOXAPARIN 40 MG/0.4 ML INJECTION SQ SCH (09:22)
[2017-03-15] MEDS: ASPIRIN 81 MG CHEWABLE TABLET PO SCH (09:23)
[2017-03-15 12:50] VITALS: BP 106/51
[2017-03-15 14:40] VITALS: PULSE 77
[2017-03-15 15:15] VITALS: RESP 16; O2SAT 94
--- NOTE | 2017-03-15 15:44 | Progress Note ---
Subjective: F/U: Acute on chronic respiratory failure Doing fair today-notes she is more tired and fatigued; has been sleeping a lot this afternoon. Slept okay last night. Did go for walk with daughter this morning; shortly after that walk, therapy came by and she walked again. Breathing about the same. No chest pain. Eating well. Stools stable. No ab pain. Urinating well. Objective Vital signs: Temperature 98.2 F 03/15/17 07:35 Pulse Rate 77 03/15/17 14:00 Respiratory Rate 16 03/15/17 15:05 Blood Pressure 106/51 03/15/17 12:46 Pulse Oximetry 94 03/15/17 15:05 Height/Weight/BMI: Height 1.7 m Weight 122 kg Body Mass Index 42.0 - Constitutional Present: no acute distress, well nourished, well developed, morbidly obese, cooperative - Routine HEENT Exam Head: Present: normocephalic, atraumatic Eye: Present: EOMI, PERRL ENT: Present: mucous membranes moist - Routine Respiratory Exam Present: decreased breath sounds, distant breath sounds. Absent: respiratory distress, wheezes - Routine Cardiovascular Exam Present: RRR, no murmur - Routine Abdominal Exam Present: soft, normoactive bowel sounds, non distended, non tender - Routine Extremities Exam Present: cyanosis, clubbing, edema (+1 BLE ), pulses intact - Routine Musculoskeletal Exam Musculoskeletal: Present: no clubbing or cyanosis, normal strength - Routine Skin Exam Present: intact, warm - Routine Neurological Exam Present: alert, oriented X3, CN II-XII intact, moving all extremities, vision grossly intact, hearing grossly intact. Absent: motor deficit - Routine Psychiatric Exam Present: normal affect, normal thought process, cooperative Results - Labs CBC & Chem 7: 03/14/17 04:55 03/15/17 05:33 Microbiology Results: Microbiology 03/13/17 11:25 Sputum, Expectorated Gram Stain - Final 03/13/17 11:25 Sputum, Expectorated Sputum Culture - Preliminary Early growth Assessment and Plan (1) Acute respiratory failure with hypoxia Current visit: No Status: Acute (2) Severe depression Current visit: Yes Status: Acute DVT Prophylaxis: Lovenox Resuscitation Status: Full Code Assessment and Plan: Impression Respiratory failure with hypoxia-requiring increased oxygen demands from baseline 3 liters. COPD with chronic oxygen use-3L Acute Depression Anxiety secondary to air hunger Coronary artery disease Hypertension Hypercholesterolemia Atrial fibrillation Hearing loss-chronic TORIBIO GERD Restless leg syndrome Pulmonary debility Morbid Obesity Plan Will discharge to home. Stable condition. Taper Prednisone: Will use 15mg for 2 days, then 10mg for 3 days, then could decrease to 5mg. Zoloft daily due to depression; may continue lorazepam 0.5mg as needed for anxiety and air hunger. Encourage continued use of home Ventilator. Encourage patient to continue to work to increase functional abilities. [facility] 1 week. F/U with Dr Frye for pulm evaluation as schedules. See orders for details. - Time spent with patient discharge greater than 30 minutes Sepsis Assessment - Evaluation Sepsis screening result: No Definite Risk Hospital Course Summary Disclaimer: The visit summary below is not to be considered part of the above Progress Note. Hospital Course: 03/12/17 Admission Assessment Respiratory failure with hypoxia-requiring increased oxygen demands from baseline 3 liters. Acute Depression COPD with chronic oxygen use-3L Coronary artery disease Hypertension Hypercholesterolemia Atrial fibrillation Hearing loss-chronic TORIBIO GERD Restless leg syndrome Morbid obesity Plan Initially patient is admitted as an outpatient, however, will change her to inpatient following evaluation. Patient's initial saturations on her baseline oxygen. When presented to water resources program director office was low at 81% on 3 liters. Since that time she has required 4 liters of oxygen by nasal cannula to maintain saturations. On admission to [facility]. She is found to be tachypnea, breathing 22 times per minute. Will obtain the following laboratory studies, CBC, CMP, venous lactate, pro calcitonin, troponin and sputum Culture Will obtain a chest x-ray given patient's recent diagnosis of pneumonia. Consultation place to Dr Frye for his recommendations given increased hypoxia and steroid use. MDI- Major depression index score 35= severe depression. Consult placed to Dr Jimenez for his expertise and recommendations on treatment options Monitor on cardiac telemetry given known history of A-fib John Hose to bilateral lower ext for compression given peripheral edema Did discuss in detail with patient and daughter regarding ability to care for self at home. She is interested in rehabilitation options once medically stable with shelter goal of returning home with . She does wish to be a Full Code and this order is written Home medications will need to be reviewed and ordered once reconciled. At time of discharge medical care is to return to [facility]. 03/13/17 Overall motional lability has improved today. Appreciate consultation by Dr. Jimenez, patient started on Zoloft for anxiety and depression. Continue with pulmonary treatment including DuoNeb, budesonide, prednisone 20 milligrams for pulmonary inflammation. Continue with oxygen therapy, currently at 4 liters. Home baseline was 3 liters prior to admission. Continue with home Trilogy ventilation. Overall, patient is improving. Continue to encourage ambulation and work with PT and OT. Did discuss possibility of discharge plan including SNU vs IRU. 03/13/17 20:13 Psych: Continue Zoloft 50mg PO daily; patient tolerating well thus far and reports slight improvement in mood since initial consult. 03/14/17 Continue with oxygen at 4 liters and Trilogy Vent at home. Discussed patient with Dr Frye. Continue with scheduled breathing treatments. Wean down prednisone slowly at time of discharge. She feels that her overall status has greatly improved and she feels comfortable with going home. Would like PT and OT to work with her tomorrow morning to determine if she would benefit from home health assistance. Overall, mood and, depression and anxiety seems to be improved. Continue on Zoloft. This will be new at time of discharge. 03/15/17 Will discharge to home. Stable condition. Taper Prednisone: Will use 15mg for 2 days, then 10mg for 3 days, then could decrease to 5mg. Zoloft daily due to depression; may continue lorazepam 0.5mg as needed for anxiety and air hunger. Encourage continued use of home Ventilator. Encourage patient to continue to work to increase functional abilities. [facility] in 1 week. F/U with Dr Frye for pulm evaluation as schedules. See orders for details.
--- NOTE | 2017-03-15 15:58 | Discharge Summary ---
Discharge Information Date of admission: 03/12/17 18:05 Anticipated date of discharge: 03/15/17 Attending Physician: Uri Bourgeois MD Primary care physician: Renetta Denney APRN Consults: Physician Consult: Yoav Frye Reason For Exam: hypoxia Physician Consult: Shade Jimenez Reason For Exam: depression - Discharge Diagnosis (1) Acute respiratory failure with hypoxia Status: Acute (2) Severe depression Status: Acute Discharge Diagnosis: Discharge diagnosis Respiratory failure with hypoxia-requiring increased oxygen demands from baseline 3 liters. Associated conditions and complications COPD with chronic oxygen use-3L Acute Depression Anxiety secondary to air hunger Coronary artery disease Hypertension Hypercholesterolemia Atrial fibrillation Hearing loss-chronic TORIBIO GERD Restless leg syndrome Pulmonary debility Morbid Obesity - Laboratory Labs: Admit Lab 03/12/17 16:07 WBC 14.0 H Hgb 9.6 L Hct 34.8 L MCV 85.3 Plt Count 326 Neut % (Auto) 77.5 H Admit Lab 03/12/17 16:07 Sodium 145 H Potassium 4.5 Chloride 101 Carbon Dioxide 36 H Anion Gap 8 BUN 23.0 H Creatinine 1.1 GFR Calculation 51 Glucose 98 Calculated Osmolality 283 H Calcium 9.8 Magnesium 2.1 Total Bilirubin 0.40 AST 27 ALT 44 Troponin I < 0.012 Plasma Lactate 0.9 03/14/17 04:55 03/15/17 05:33 - Microbiology Microbiology 03/13/17 11:25 Sputum, Expectorated Gram Stain - Final 03/13/17 11:25 Sputum, Expectorated Sputum Culture - Preliminary Early growth History of Present Illness HPI: Ruthie is a 56 year old female who is known to the hospitalist services as she was recently admitted for A-fib with RVR following a colonoscopy on 02/21/17. She also was found to have pneumonia. She was treated and discharged on 02/27/17 and has been at home with her since that time. Today she presented to see Dr Frye (her major assembly inspector) for posthospitalization follow-up. Upon arrival to the clinic she was on her baseline oxygen of 3 liters, however, was found to be hypoxic at 81%. Ruthie admitted to having significant depression over the past 1 week to the point of making comments to family about not wanting to live. Due to the worsening hypoxia, accompanied with significant feelings of depression and anxiety. The hospitalist services were contacted and accepted patient for direct admission as an outpatient for further evaluation and treatment. Monique is seen on arrival to [facility] accompanied with her daughter. She is alert, oriented, emotionally labile during examination. We discussed in great detail regarding her depression. She states that over the past 2 weeks since discharge she has had severe depression that she attributes to 3 different things. 1- being hard of hearing (only 20% hearing in 1 ear), unable to communicate. 2-physically not feeling well, inability to do daily tasks. 3- feeling afraid that she is going to . Due to the severity of her physical illnesses. Major depression screen, index completed on admission reveals 35 points, indicating severe depression. For complete details of the H&P refer to that document. Objective Vital signs: Temperature 98.2 F 03/15/17 07:35 Pulse Rate 77 03/15/17 14:00 Respiratory Rate 16 03/15/17 15:05 Blood Pressure 106/51 03/15/17 12:46 Pulse Oximetry 94 03/15/17 15:05 Height/Weight/BMI: Height 1.7 m Weight 122 kg Body Mass Index 42.0 Hospital Course This is a general summary of the patient's hospital course. For more details refer to the complete medical record. Hospital course: 03/12/17 Admission Assessment Respiratory failure with hypoxia-requiring increased oxygen demands from baseline 3 liters. Acute Depression COPD with chronic oxygen use-3L Coronary artery disease Hypertension Hypercholesterolemia Atrial fibrillation Hearing loss-chronic TORIBIO GERD Restless leg syndrome Morbid obesity Plan Initially patient is admitted as an outpatient, however, will change her to inpatient following evaluation. Patient's initial saturations on her baseline oxygen. When presented to major assembly inspector office was low at 81% on 3 liters. Since that time she has required 4 liters of oxygen by nasal cannula to maintain saturations. On admission to [facility]. She is found to be tachypnea, breathing 22 times per minute. Will obtain the following laboratory studies, CBC, CMP, venous lactate, pro calcitonin, troponin and sputum Culture Will obtain a chest x-ray given patient's recent diagnosis of pneumonia. Consultation place to Dr Frye for his recommendations given increased hypoxia and steroid use. MDI- Major depression index score 35= severe depression. Consult placed to Dr Jimenez for his expertise and recommendations on treatment options Monitor on cardiac telemetry given known history of A-fib [place] to bilateral lower ext for compression given peripheral edema Did discuss in detail with patient and daughter regarding ability to care for self at home. She is interested in rehabilitation options once medically stable with nursing home goal of returning home with . She does wish to be a Full Code and this order is written Home medications will need to be reviewed and ordered once reconciled. At time of discharge medical care is to return to [facility]. 03/13/17 Overall motional lability has improved today. Appreciate consultation by Dr. Jimenez, patient started on Zoloft for anxiety and depression. Continue with pulmonary treatment including DuoNeb, budesonide, prednisone 20 milligrams for pulmonary inflammation. Continue with oxygen therapy, currently at 4 liters. Home baseline was 3 liters prior to admission. Continue with home Trilogy ventilation. Overall, patient is improving. Continue to encourage ambulation and work with PT and OT. Did discuss possibility of discharge plan including SNU vs IRU. 03/13/17 20:13 Psych: Continue Zoloft 50mg PO daily; patient tolerating well thus far and reports slight improvement in mood since initial consult. 03/14/17 Continue with oxygen at 4 liters and Trilogy Vent at home. Discussed patient with Dr Frye. Continue with scheduled breathing treatments. Wean down prednisone slowly at time of discharge. She feels that her overall status has greatly improved and she feels comfortable with going home. Would like PT and OT to work with her tomorrow morning to determine if she would benefit from home health assistance. Overall, mood and, depression and anxiety seems to be improved. Continue on Zoloft. This will be new at time of discharge. 03/15/17 Will discharge to home. Stable condition. Taper Prednisone: Will use 15mg for 2 days, then 10mg for 3 days, then could decrease to 5mg. Zoloft daily due to depression; may continue lorazepam 0.5mg as needed for anxiety and air hunger. Encourage continued use of home Ventilator. Encourage patient to continue to work to increase functional abilities. [facility] with [facility] in 1 week. F/U with Dr Frye for pulm evaluation as schedules. See orders for details. Time spent with patient: discharge greater than 30 minutes DVT Prophylaxis: Lovenox Discharge Plan - Med Rec/Dispo Referrals/Follow Up: Renetta Denney, LISA [Family Provider] - 1 Week (Hospital follow up. ) Yoav Frye MD [Physician] - (As scheduled ) [place] Instructions: COPD (Chronic Obstructive Pulmonary Disease) (DC), Chronic Respiratory Failure (DC) Additional Instructions: Take 15mg of Prednisone for 2 days, then take 10mg of Prednisone for 3 days, then decrease to 5 mg daily. Prescriptions: New LORazepam [Ativan] 1 mg PO Q4HR PRN #30 tab PRN Reason: Anxiety/Air Hunger/Agitation Sertraline [Zoloft] 50 mg PO DAILY #30 tab Sodium Chloride [[place]] 2 spray EA NOSTRIL QID spray Guaifenesin/Dm [Mucinex Dm] 1 tab PO BID tab.er.12h Continue Furosemide 40 mg PO DAILY #0 Atorvastatin Calcium 40 mg PO HS #0 Fluticasone/Salmeterol [Advair 250-50 Diskus] 1 puff INH BID #0 Pantoprazole Sodium 40 mg PO HS #0 Cholecalciferol (Vitamin D3) [Vitamin D3] 2,000 unit PO DAILY #0 Melatonin 15 mg PO HS Acetaminophen [Arthritis Pain Relief] 1,300 mg PO TID PRN PRN Reason: Pain Ropinirole [Requip] 0.25 mg PO HS DiltiaZEM CD [Cardizem Cd] 360 mg PO DAILY #30 cap Ferrous Sulfate [Iron] 325 mg PO DAILY Lisinopril [Prinivil] 5 mg PO HS Sotalol [Betapace] 40 mg PO BID Albuterol Sulfate [Ventolin Hfa] 2 puff INH Q4-6HR PRN #0 PRN Reason: Prn Orders Aspirin 81 mg PO DAILY #0 Cyanocobalamin (Vitamin B-12) [B-12] 2 tab PO DAILY #0 Nitroglycerin 0.4 mg SL Q5MIN3 PRN PRN Reason: Chest Pain Tiotropium Handihaler [Spiriva] 1 cap INH DAILY predniSONE [Prednisone] 5 mg PO DAILY Discontinued Metoprolol Tartrate [Lopressor] 25 mg PO TIDWM #90 tab PredniSONE [Deltasone] 3 mg PO DAILY Potassium Chloride 20 meq PO DAILY #0 tab Ropinirole [Requip] 0.25 mg PO HS Discharge Instructions/Outpatient Orders: Final Provider Discharge Instructions Location: Determined By Patient Final Provider Discharge Instructions Location: Determined By Patient - Disposition 01 Discharged Home, Self-Care - Attestation Attestation Narrative: 03/15/17 16:09 I have independently interviewed and examined patient prior to discharge. See my progress note from today for details. Medically stable for discharge to home.
== END 2017-03-15 17:00 | disposition home health service, planned readmission (86) | DRG 189 ==
LOC: MED
PROVIDERS: ADMIT Hospitalist; ATTEND Hospitalist

== ENCOUNTER 2017-04-12 16:53 | Inpatient (IN) ==
--- OUTSIDE RECORDS SUMMARY | 2017-04-12 16:58 | External Medical Summary ---
:1960 Author Organization [employer] Care Team Providers Name Role Phone Олег, Renetta Provider Role Unavailable Allergies No Known Allergies Problems Problem Type Condition Code Onset Dates Condition Status Problem Abdominal pain, generalized 789.07 Active Problem Allergic rhinitis 477.9 Active Problem Shortness of breath 786.05 Active Problem Daytime somnolence R40.0 Active Problem Atherosclerotic heart disease of I25.10 Active [place] coronary artery without angina pectoris Problem Chronic obstructive pulmonary J44.9 Active disease, unspecified Problem Essential (primary) hypertension I10 Active Problem Cardiomegaly 429.3 Active Problem Mixed hyperlipidemia E78.2 Active Problem Adjustment disorder with mixed F43.23 Active anxiety and depressed mood Assessment Chronic obstructive pulmonary J44.9 Active disease, unspecified Problem Mixed hyperlipidemia 272.2 Active Problem Coronary atherosclerosis of 414.00 Active unspecified type of vessel, [place] or graft Problem COPD 496 Active Medications No Known Medications Results No Known Results Summary Purpose [employer] Submission
--- OUTSIDE RECORDS SUMMARY | 2017-04-12 16:58 | External Medical Summary ---
:1960 Author Organization [employer] Care Team Providers Name Role Phone Renetta Denney Provider Role Unavailable Allergies No Known Allergies Problems Problem Type Condition Code Onset Dates Condition Status Problem Allergic rhinitis 477.9 Active Problem Shortness of breath 786.05 Active Problem Cardiomegaly 429.3 Active Problem Coronary atherosclerosis of 414.00 Active unspecified type of vessel, [place] or graft Problem Mixed hyperlipidemia 272.2 Active Problem Abdominal pain, generalized 789.07 Active Problem COPD 496 Active Medications Medication Code System Code Instructions Start End Date Status Dosage Date Citalopram [facility] 47104-04 20 MG Orally Oct 05, 1 tablet Hydrobromide 41-01 Once a day 2014 Results No Known Results Summary Purpose [employer] Submission
--- OUTSIDE RECORDS SUMMARY | 2017-04-12 16:58 | External Medical Summary ---
:1960 [facility] Team Providers Name Role Phone [...] of 414.00 Active unspecified type of vessel, [place] or graft Problem Mixed hyperlipidemia 272.2 Active Problem Abdominal pain, generalized 789.07 Active Problem COPD 496 Active Medications Medication Code Code Instructions Start End Status Dosage System Date Date Albuterol Sulfate [facility] 45275-34 (2.5 MG/3ML) November 19, 3 ml 90-52 0.083% 2013 Inhalation four times daily as needed Ventolin HFA [facility] 82565-97 108 (90 Base) 1-2 puffs 82-20 MCG/ACT Inhalation every 4-6 hours Spiriva [facility] 54465-35 18 MCG 1 capsule HandiHaler 75-41 [place] [address]-82 40 MG Orally 1 tablet 99-25 Once a day Advair Diskus [facility] 54120-27 500/50 INHALE ONE 97-00 DOSE BY MOUTH TWICE DAILY Klor-Con M20 [facility] 58062-08 20 MEQ Orally 1 tablet 58-01 [place] [address]-94 325 MG Orally 1 tablet 16-78 Once a day Nitroglycerin [facility] 65400-46 0.4 MG 1 tablet 97-25 Sublingual every under the 5 minutes as tongue and needed for chest allow to pain. Do not dissolve as exceed a total needed of 3 doses in 15 minutes Ipratropium-Albut [facility] 28308-56 0.5-2.5 (3) October 19, 3 ml lucy 23-73 MG/3ML 2013 Inhalation [place] [address]-55 40 MG Orally 1 tablet Calcium 21-05 Once a day Pantoprazole [facility] 51876-61 40 MG Orally Sept 25, 1 tablet Sodium 07-01 Once a day 2014 Lisinopril [facility] 24901-78 5 MG Orally Once 1 tablet 66-01 a day Metoprolol [facility] 16785-40 25 MG Orally 1 tablet Tartrate 18-01 Twice a day Citalopram [facility] 88560-00 20 MG Orally Apr 04, 1/2 tab for Hydrobromide 41-01 Once a day 2014 a week then 1 tab Amoxicillin [facility] 79421-56 500 MG Orally Apr 04, Apr 14, 1 capsule 09-05 Twice a day 2014 2014 Clopidogrel [facility] 35268-39 75 MG Orally 1 tablet Bisulfate 14-05 Once a day Procedures Procedure Coding System Code Date TSH CPT-4 72551 Apr 04, 2015 COMPLETE CBC W/AUTO DIFF WBC CPT-4 99014 Apr 04, 2015 Results No Known Results Summary Purpose [employer] Submission
[2017-04-12 16:59] VITALS: BMI 44.1
--- OUTSIDE RECORDS SUMMARY | 2017-04-12 16:59 | External Medical Summary ---
:1960 Author Organization [employer] Care Team Providers Name Role Phone Олег, Renetta Provider Role Unavailable Allergies No Known Allergies Problems Problem Type Condition Code Onset Dates Condition Status Problem Allergic rhinitis 477.9 Active Problem Shortness of breath 786.05 Active Problem Cardiomegaly 429.3 Active Problem Coronary atherosclerosis of 414.00 Active unspecified type of vessel, [place] or graft Problem Mixed hyperlipidemia 272.2 Active Problem Abdominal pain, generalized 789.07 Active Problem COPD 496 Active Medications Medication Code Code Instructions Start End Date Status Dosage System Date Spiriva [facility] 99082-14 18 MCG Feb 28, 1 capsule HandiHaler 75-41 Inhalation Once 2015 a day Pantoprazole [facility] 15612-99 40 MG Orally Mar 25, 1 tablet Sodium 07-01 Once a day 2014 Atorvastatin [facility] 07007-21 40 MG Orally 1 tablet Calcium 21-05 Once a day Results No Known Results Summary Purpose [employer] Submission
[2017-04-12] MEDS ORDERED: INFLUENZA VAC QIV 2017-18 (Fluarix*)(>=3yo) 0.5ml IM ONE (17:25)
[2017-04-12] MEDS ORDERED: PNEUMOCOCCAL 13 VACCINE 0.5ml INJECTION IM ONE (17:26)
[2017-04-12] MEDS ORDERED: ONDANSETRON 4 MG/2 ML INJECTION IVP PRN (17:58)
[2017-04-12] MEDS ORDERED: ALBUTEROL/IPRATROPIUM 2.5mg-0.5mg/3ml NEB AEROSOL PRN (17:59)
[2017-04-12] MEDS ORDERED: ALBUTEROL 2.5mg/3ml (0.083%) NEB AEROSOL PRN (18:05)
--- NOTE | 2017-04-12 18:48 | Cardiology History & Physical ---
History of Present Illness Chief complaint: SOA HPI: This is a 56 y/o female known to Dr. Blanc for COPD, DM2, Hyperlipidemia, HTN , Tricuspid insufficiency, PAF, CAD with hx stents, who since last Saturday has become increasing SOA to the point she has to sleep in a recliner to catch her breath. She has not been using her home Ventilator. Patient not sure what type of ventilator that she has. Patient admits that her weight has gone up and her swelling has worsened to the point the incision in her lower abdomen hurts. She thinks she has gained over 10# over the course of a week. She admits to having intermittent left chest pain that does not last very long when it comes on but she is usually walking. She is unable to qualify the type of chest pain. Patient was seen at [facility] ER for evaluation of her symptoms - the provider contacted Dr. Blanc for a direct admit Labs from [place], [place] Glucose 129 Sodium 140 potassium 3.9 Trop less than 0.02 Hgb 10.0 Platelets 282 D-Dimer elevated CTA Chest performed in [facility] today Scattered ground-glass opacities throughout both lung suggesting pneumonitis or edema. Focal consolidative opacity identified in the right lower lobe with additional streaks consolidative opacity within the left lingula suggesting a combination of atelectasis and pneumonia. Small bilat pleural effusions. Cardiomegaly, emphysematous changes, cholelithiasis, left renal cyst too small to characterize, right renal hypodensity, low attenuation focus right thyroid lobe Review of Systems - Constitutional Constitutional: Present: fatigue, weight gain. Absent: anorexia - EENMT Eyes: Present: blurry vision Ears: Absent: ear pain Balance: Absent: vertigo Nose: Absent: allergies Mouth/Throat: Absent: changes in swallowing, painful swallowing - Cardiovascular Cardiovascular: Present: chest pain, edema - Respiratory Respiratory: Present: dyspnea, wheezing - Gastrointestinal Gastrointestinal: Absent: abdominal pain, change in bowel habits - Musculoskeletal Musculoskeletal: Absent: abnormal gait - Neurological Neurological: Absent: abnormal speech, loss of vision, numbness PFSH Patient Stated Medical History Cerebrovascular Accident No Seizures No Hearing Loss Yes Angina Yes: hx Cardiac Arrhythmia Yes: paroxysmal atril fib Coronary Artery Disease Yes Hypertension Yes Hypotension No Myocardial Infarction Yes: 2014 stent- asymptomatic since Other Cardiology Yes: STENT PLACED IN 2013 Asthma Yes Bronchitis Yes Chronic Obstructive Pulmonary Yes: 4L O2 at all times, + SOB with exertion Disease (COPD) Pneumonia Yes Sleep Apnea Yes Diabetes Mellitus Type 1 No Diabetes Mellitus Type 2 No Gastroesophageal Reflux Yes Disease Gastrointestinal Bleeding Yes Hepatitis Yes: TORIBIO Hx Incontinence Yes Anemia Yes Anesthesia Reactions No Blood Transfusions Yes: no reaction Depression Yes Panic Disorder No Post Menopausal Yes Now No Clinic Medical History Hypoxemia (Chronic Medical) Housing Liaison: Dr. Paul Willard 3L ON Restless leg syndrome (Chronic Medical) Bronchitis (Acute Medical) Nonalcoholic steatohepatitis (TORIBIO) (Chronic Medical) Myocardial infarct (Resolved Medical 10/2013) Iron deficiency anemia (Acute Medical) Diagnosed 12/31/2016 - treated with transfusion 2 units pRBCs. Depression (Chronic Medical) Hypertension (Chronic Medical) High cholesterol (Chronic Medical) Syncope and collapse (Chronic Medical) Patient was anemic and transfused with PRBCs Atrial fibrillation (Chronic Medical) Currently in SR, Started on Sotalol for antiarrhythmic therapy CAD (coronary artery disease), [place] coronary artery (Chronic Medical) Stenting of LAD 11/28/2013 COPD (chronic obstructive pulmonary disease) (Chronic Medical) Hearing loss of right ear (Chronic Medical) Surgical History: * Cardiac catheterization with stent placement in LAD - [address] Perez at [facility]. Medtronic Resolute Integrity RX stent. * Heart cath - 02/20/2012. * Right ear surgery reconstruction - 1959. * section - 07/27/1988. * section - 04/18/1984 Family History: Family History (Last Reviewed 02/21/17 @ 11:37 by Hesham Beltran, SENIOR INFRASTRUCTURE ENGINEER) Daughter Cervical cancer Mother Heart attack High blood pressure Father Cancer - Social History Smoking status: Former smoker Medications Home Medications Medication Instructions Recorded Confirmed Type Albuterol Sulfate [Ventolin Hfa] 2 puff INH Q4-6HR PRN #0 02/19/12 04/12/17 History Atorvastatin Calcium 40 mg PO HS #0 07/20/14 04/12/17 History Furosemide 40 mg PO DAILY #0 07/20/14 04/12/17 History Aspirin 81 mg PO HS #0 10/24/16 04/12/17 History Fluticasone/Salmeterol [Advair 1 puff INH BID #0 10/24/16 04/12/17 History 250-50 Diskus] Pantoprazole Sodium 40 mg PO HS #0 10/24/16 04/12/17 History Acetaminophen [Arthritis Pain 1,300 mg PO TID PRN 12/31/16 04/12/17 History Relief] Melatonin 15 mg PO HS 12/31/16 04/12/17 History Tiotropium Handihaler [Spiriva] 1 cap INH DAILY 12/31/16 04/12/17 History Ropinirole [Requip] 0.25 mg PO HS 02/20/17 04/12/17 History Ferrous Sulfate [Iron] 325 mg PO DAILY 03/12/17 04/12/17 History Lisinopril [Prinivil] 5 mg PO HS 03/12/17 04/12/17 History Albuterol Sulfate [Proair Hfa] 2 puff INH PRN PRN 04/12/17 04/12/17 History Cyanocobalamin (Vitamin B-12) 2,500 mcg PO DAILY 04/12/17 04/12/17 History [Vitamin B12] Metoprolol Tartrate [Lopressor] 1 tab PO BID 04/12/17 04/12/17 History Allergies Allergy/AdvReac Type Severity Reaction Status Date / Time No Known Allergies Allergy Verified 12/31/16 11:58 Exam Vital signs: Temperature 96.5 F L 04/12/17 17:00 Pulse Rate 109 H 04/12/17 17:00 Respiratory Rate 24 04/12/17 17:00 Blood Pressure 116/66 04/12/17 17:00 Pulse Oximetry 3 L 04/12/17 17:00 - Constitutional mild distress, obese - Routine HEENT Exam Head: Present: normocephalic, atraumatic Eye: Present: EOMI ENT: Present: mucous membranes moist Nose: swollen mucosa Comments: Swollen nasal membranes left greater than right - Routine Neck Exam Absent: carotid bruit Comments: difficult to assess JVD due to large thick neck - Routine Chest/Breast/Axilla Exam Chest wall: Absent: tenderness - Routine Respiratory Exam Present: accessory muscle use, decreased breath sounds, wheezes - Routine Cardiovascular Exam Present: RRR - Routine Abdominal Exam Present: soft Comments: large abdomen but not distended bowel sounds present but difficult to auscultate due to body habitus - Routine Extremities Exam Present: edema. Absent: cyanosis, calf tenderness - Routine Skin Exam Present: intact, dry - Routine Neurological Exam Present: alert, oriented X3, moving all extremities, normal tone - Routine Psychiatric Exam Present: normal affect, cooperative, anxious Results 04/13/17 07:23 04/13/17 07:23 Intake and Output 04/12/17 04/12/17 04/12/17 06:59 14:59 22:59 Other: Weight 124.1 kg Patient Weight 04/13/17 06:59 Weight 124.1 kg Hospital Course This is a general summary of the patient's hospital course. For more details refer to the complete medical record. Assessment and Plan - Assessment and Plan (1) Chest pain Current visit: Yes Status: Acute Troponin level X 3 EKG To rule out ACS as a cause of chest pain and CHF Daily Aspirin (2) COPD exacerbation Current visit: Yes Status: Acute Consult Dr. Frye Start Nebs (3) Acute and chronic respiratory failure with hypoxia Current visit: No Status: Acute Consult Dr. Frye Continue Oxygen 4L/NC Patient unsure of what type of devic she uses at night - she has not been using it Dr. Frye to address Consult Hospitalist - appreciate recs (4) Atrial fibrillation Current visit: Yes Status: Acute - Assessment and Plan Acute on Chronic Diastolic heart failure Start Bumex 2mg IV bolus then 0.5mg/hr drip Daily lab CXR MILE Per Dr. Frye HTN Monitor vitals Restart home medications Patient seen and evaluated by me on the date of this note. I have reviewed lab , radiology, EKG findings and existing records. I have determined this plan of care.
--- NOTE | 2017-04-12 19:06 | Consult Note ---
<Madison Vences - Last Filed: 04/12/17 19:33> Consult Information - Data of Consult Consult date: 04/12/17 Requesting Physician: Froylan Blanc MD Primary Care Provider: Renetta Denney APRN Family Provider: Renetta Denney APRN - Consult Narrative Reason for consult: medical management of noncardiac health issues History of present illness: Patient is a 56-year-old female well-known to hospitalist service given several recent admissions. Patient was a direct admit from her PCP under Dr. Blanc due to increasing swelling and shortness of breath over the past week. She reports she has not been using her trilogy ventilator because she has been out of her anxiety medicine. She states the vent makes her very claustrophobic, and since she doesn't have any anxiety medicine, she could not tolerate this. Patient had an elevated D dimer, thus CTA chest was performed showing scattered ground-glass opacities throughout both lung suggesting pneumonitis or edema. Focal consolidative opacity identified in the right lower lobe with additional streaks consolidative opacity within the left lingula suggesting a combination of atelectasis and pneumonia. Small bilat pleural effusions. PFSH Medical History COPD with chronic oxygen use-3L Depression Anxiety Coronary artery disease -with LAD stent Paroxysmal atrial fibrillation Hypertension Hypercholesterolemia Atrial fibrillation Hearing loss-chronic (right ear) TORIBIO GERD Iron deficiency anemia Restless leg syndrome Pulmonary debility Morbid Obesity Surgical History: * Cardiac catheterization with stent placement in LAD - [address] Perez at [facility]. Medtronic Resolute Integrity RX stent. * Heart cath - 02/20/2012. * Right ear surgery reconstruction - 1959. * section - 07/27/1988. * section - 04/18/1984 Family History: Family History (Last Reviewed 04/12/17 @ 18:46 by Vale Hawthorne, [employer]) Daughter Cervical cancer Mother Heart attack High blood pressure Father Cancer - Social History Smoking status: Former smoker Substance use type: does not use Alcohol intake frequency: does not drink Housing: house Household members: spouse Current occupational status: retired Social history: Primary care provider-Renetta Denney APRN at [facility]. Room Service [place] Dr. Blanc Pediatric Oncologist Dr. Frye Review of Systems All systems PM: 10-point ROS was reviewed, no additional remarkable complaints except - Constitutional Constitutional: Present: chills (has felt feverish) - Cardiovascular Cardiovascular: Present: dyspnea on exertion, edema - Respiratory Respiratory: Present: cough, dyspnea, excessive phlegm production (green). Absent: hemoptysis Medications Home Medications Medication Instructions Recorded Confirmed Type Albuterol Sulfate [Ventolin Hfa] 2 puff INH Q4-6HR PRN #0 02/19/12 04/12/17 History Atorvastatin Calcium 40 mg PO HS #0 07/20/14 04/12/17 History Furosemide 40 mg PO DAILY #0 07/20/14 04/12/17 History Aspirin 81 mg PO HS #0 10/24/16 04/12/17 History Fluticasone/Salmeterol [Advair 1 puff INH BID #0 10/24/16 04/12/17 History 250-50 Diskus] Pantoprazole Sodium 40 mg PO HS #0 10/24/16 04/12/17 History Acetaminophen [Arthritis Pain 1,300 mg PO TID PRN 12/31/16 04/12/17 History Relief] Melatonin 15 mg PO HS 12/31/16 04/12/17 History Tiotropium Handihaler [Spiriva] 1 cap INH DAILY 12/31/16 04/12/17 History Ropinirole [Requip] 0.25 mg PO HS 02/20/17 04/12/17 History Ferrous Sulfate [Iron] 325 mg PO DAILY 03/12/17 04/12/17 History Lisinopril [Prinivil] 5 mg PO HS 03/12/17 04/12/17 History Albuterol Sulfate [Proair Hfa] 2 puff INH PRN PRN 04/12/17 04/12/17 History Cyanocobalamin (Vitamin B-12) 2,500 mcg PO DAILY 04/12/17 04/12/17 History [Vitamin B12] Metoprolol Tartrate [Lopressor] 1 tab PO BID 04/12/17 04/12/17 History Allergies Allergy/AdvReac Type Severity Reaction Status Date / Time No Known Allergies Allergy Verified 12/31/16 11:58 Exam Vital Signs: Temperature 96.5 F L 04/12/17 17:00 Pulse Rate 109 H 04/12/17 17:00 Respiratory Rate 24 04/12/17 17:00 Blood Pressure 116/66 04/12/17 17:00 Pulse Oximetry 3 L 04/12/17 17:00 Height/Weight/BMI: Height 1.68 m Weight 124.1 kg Body Mass Index 44.1 - Constitutional Present: no acute distress, well nourished, well developed, obese - Routine HEENT Exam Head: Present: normocephalic, atraumatic Eye: Present: EOMI - Routine Neck Exam Present: supple. Absent: lymphadenopathy - Routine Respiratory Exam Present: distant breath sounds, diminished air movement - Routine Cardiovascular Exam Present: irregularly irregular. Absent: murmur - Routine Abdominal Exam Present: soft, normoactive bowel sounds, non distended. Absent: tenderness - Routine Extremities Exam Present: no edema (2-3 + b/l LE's up to knees), normal capillary refill - Routine Skin Exam Present: dry, warm - Routine Neurological Exam Present: alert, oriented X3, CN II-XII intact - Routine Psychiatric Exam Present: normal affect, cooperative Results - Labs CBC & Chem 7: 04/12/17 18:53 04/12/17 18:53 - Imaging and Cardiology CTA - chest Additional comments: CTA chest was performed showing scattered ground-glass opacities throughout both lung suggesting pneumonitis or edema. Focal consolidative opacity identified in the right lower lobe with additional streaks consolidative opacity within the left lingula suggesting a combination of atelectasis and pneumonia. Small bilat pleural effusions. Assessment and Plan Assessment and Plan: Assessment Sepsis - based on leukocytosis, tachycardia and pulmonary source of infection Community Acquired Pneumonia Leukocytosis Hypernatremia - POA COPD with chronic oxygen use-3L Acute on chronic CHF Depression Anxiety Coronary artery disease -with LAD stent Atrial fibrillation Hypertension Hypercholesterolemia Hearing loss-chronic (right ear) TORIBIO GERD Iron deficiency anemia Restless leg syndrome Pulmonary debility Morbid Obesity Plan Admitted under Dr. Jayashree shrestha/ hospitalist consult. Obtain BCx2 and sputum culture. Lactate normal. Start Rocephin for probable pneumonia after BC's are collected. SCD's for DVT prophylaxis. Duoneb, pulmicort, acapella for COPD/pneumonia. Dr. Frye has also been consulted. Cardiology to manage diuresis/CHF. Hospital Course Summary Disclaimer: The visit summary below is not to be considered part of the above Progress Note. Hospital Course: Assessment Sepsis - based on leukocytosis, tachycardia and pulmonary source of infection Community Acquired Pneumonia Leukocytosis Hypernatremia - POA COPD with chronic oxygen use-3L Acute on chronic CHF Depression Anxiety Coronary artery disease -with LAD stent Atrial fibrillation Hypertension Hypercholesterolemia Hearing loss-chronic (right ear) TORIBIO GERD Iron deficiency anemia Restless leg syndrome Pulmonary debility Morbid Obesity Plan Admitted under Dr. Blanc w/ hospitalist consult. Obtain BCx2 and sputum culture. Lactate normal. Start Rocephin for probable pneumonia after BC's are collected. SCD's for DVT prophylaxis. Duoneb, pulmicort, acapella for COPD/pneumonia. Dr. Frye has also been consulted. Cardiology to manage diuresis/CHF. <Uri Bourgeois - Last Filed: 04/12/17 20:28> Consult Information - Data of Consult Requesting Physician: Froylan Blanc MD Primary Care Provider: Renetta Denney APRN Family Provider: Renetta Denney APRN [facility] Patient Stated Medical History Cerebrovascular Accident No Seizures No Hearing Loss Yes Angina Yes: hx Cardiac Arrhythmia Yes: paroxysmal atril fib Coronary Artery Disease Yes Hypertension Yes Hypotension No Myocardial Infarction Yes: 2013 stent- asymptomatic since Other Cardiology Yes: STENT PLACED IN 2013 Asthma Yes Bronchitis Yes Chronic Obstructive Pulmonary Yes: 4L O2 at all times, + SOB with exertion Disease (COPD) Pneumonia Yes Sleep Apnea Yes Diabetes Mellitus Type 1 No Diabetes Mellitus Type 2 No Gastroesophageal Reflux Yes Disease Gastrointestinal Bleeding Yes Hepatitis Yes: TORIBIO Hx Incontinence Yes Anemia Yes Anesthesia Reactions No Blood Transfusions Yes: no reaction Depression Yes Panic Disorder No Post Menopausal Yes Now No Clinic Medical History Hypoxemia (Chronic Medical) Pediatric Oncologist: Dr. Paul Willard 3L ON Restless leg syndrome (Chronic Medical) Bronchitis (Acute Medical) Nonalcoholic steatohepatitis (TORIBIO) (Chronic Medical) Myocardial infarct (Resolved Medical 10/2013) Iron deficiency anemia (Acute Medical) Diagnosed 12/31/2016 - treated with transfusion 2 units pRBCs. Depression (Chronic Medical) Hypertension (Chronic Medical) High cholesterol (Chronic Medical) Syncope and collapse (Chronic Medical) Patient was anemic and transfused with PRBCs Atrial fibrillation (Chronic Medical) Currently in SR, Started on Sotalol for antiarrhythmic therapy CAD (coronary artery disease), [place] coronary artery (Chronic Medical) Stenting of LAD 11/28/2013 COPD (chronic obstructive pulmonary disease) (Chronic Medical) Hearing loss of right ear (Chronic Medical) Family History: Family History (Last Reviewed 04/12/17 @ 18:46 by Vale Hawthorne, [employer]) Daughter Cervical cancer Mother Heart attack High blood pressure Father Cancer Exam Vital Signs: Temperature 96.5 F L 04/12/17 17:00 Pulse Rate 109 H 04/12/17 17:00 Respiratory Rate 24 04/12/17 17:00 Blood Pressure 116/66 04/12/17 17:00 Pulse Oximetry 3 L 04/12/17 17:00 Height/Weight/BMI: Height 1.68 m Weight 124.1 kg Body Mass Index 44.1 Results - Labs CBC & Chem 7: 04/12/17 18:53 04/12/17 18:53 Microbiology Results: Microbiology 04/12/17 19:55 Peripheral/Iv Start Blood Culture - Preliminary Culture Initiated - Results Pending 04/12/17 20:01 Peripheral/Iv Start Blood Culture - Preliminary Culture Initiated - Results Pending Assessment and Plan DVT Prophylaxis: SCD's Resuscitation Status: Full Code Assessment and Plan: Assessment Sepsis - based on leukocytosis, tachycardia and pulmonary source of infection Community Acquired Pneumonia Leukocytosis Hypernatremia - POA COPD with chronic oxygen use-3L Acute on chronic CHF Depression Anxiety Coronary artery disease -with LAD stent Atrial fibrillation Hypertension Hypercholesterolemia Hearing loss-chronic (right ear) TORIBIO GERD Iron deficiency anemia Restless leg syndrome Pulmonary debility Morbid Obesity with BMI 44.2 Have independently interviewed and examined pt. Chart reviewed. Case discussed with my PA. Above care plan developed with my supervision; agree with above. Difficulty breathing since 04/07. Progressively more SOA. Congested to chest. Cough with thick yellow sputum. Not able to be ambulatory secondary to significant dyspnea. Still struggling with BiPAP device - hard to wear as gets claustrophobic. Lorazepam dose help, but down to her last pill. Has not been able to get anyone to refill her medications. Not able to sleep at night due to significant breathing problems. Having increase swelling to legs. Appetite stable. No nausea or ab pain. Stools stable. No urinary pain or discomfort. Lungs: decreased breath sounds, diffuse wheezes bilaterally CV: distant EXT: +3 edema MSE: awake alert, anxious Plan: Rocephin for pulmonary coverage. Initial DuoNeb and Budesonide. Acapella and Mucinex DM to help secretions. Continue BIPAP at night-lorazepam to help the associated anxiety. Solumedrol 125mg IV q 6 hours due to wheezing, taper as able. SCD for DVT prevention. Cardiology to initiate diuresis. Monitor lab. Hospital Course Summary Disclaimer: The visit summary below is not to be considered part of the above Progress Note.
[2017-04-12] MEDS: BUMETANIDE DRIP IV SCH (20:13)
[2017-04-12] MEDS: RTU SALINE IV SCH (20:13)
[2017-04-12] MEDS: ATORVASTATIN 40 MG TABLET PO SCH (20:21)
[2017-04-12] MEDS: ASPIRIN 81 MG CHEWABLE TABLET PO SCH (20:21)
[2017-04-12] MEDS: LISINOPRIL 5 MG TABLET PO SCH (20:21)
[2017-04-12] MEDS: GUAIFENESIN/D-METHORPHAN 600mg/30mg TABLET PO SCH (20:21)
[2017-04-12] MEDS: ROPINIROLE 0.25 MG TABLET PO SCH (20:21)
[2017-04-12] MEDS: PANTOPRAZOLE 40 MG TABLET PO SCH (20:21)
[2017-04-12] MEDS: MELATONIN 5 MG TABLET PO SCH (20:21)
[2017-04-12] MEDS: SALINE 0.65% NASAL SPRAY 44 ML BOTTLE EA NOSTRIL SCH (20:22)
[2017-04-12] MEDS: ALBUTEROL/IPRATROPIUM 2.5mg-0.5mg/3ml NEB AEROSOL SCH (21:03)
[2017-04-12] MEDS: BUDESONIDE INH.SOLN 0.5mg/2ml NEB AEROSOL SCH (21:04)
[2017-04-12] MEDS: CEFTRIAXONE 1 G in NS 100 ML IV SCH (22:01)
[2017-04-12] MEDS: LORazepam 1 MG TABLET PO PRN (22:21)
[2017-04-12] MEDS: METHYLPREDNISOLONE SOD SUCC 125mg/2ml INJECTION IVP SCH (22:27)
[2017-04-13] MEDS: LORazepam 1 MG TABLET PO PRN ×2 (02:57→20:10)
[2017-04-13] MEDS: METHYLPREDNISOLONE SOD SUCC 125mg/2ml INJECTION IVP SCH ×4 (02:58→20:13)
[2017-04-13] MEDS: ALBUTEROL 2.5mg/0.5ml (0.5%) NEB AEROSOL SCH ×3 (03:39→12:35)
[2017-04-13] MEDS ORDERED: METOPROLOL 5mg/5ml INJECTION IVP PRN (06:22)
[2017-04-13] MEDS: BUDESONIDE INH.SOLN 0.5mg/2ml NEB AEROSOL SCH ×2 (07:02→20:32)
[2017-04-13] MEDS: ALBUTEROL/IPRATROPIUM 2.5mg-0.5mg/3ml NEB AEROSOL SCH ×2 (07:02→12:35)
[2017-04-13] MEDS: RTU SALINE IV SCH (08:34)
[2017-04-13] MEDS: BUMETANIDE DRIP IV SCH (08:34)
[2017-04-13] MEDS: GUAIFENESIN/D-METHORPHAN 600mg/30mg TABLET PO SCH ×2 (08:36→20:10)
[2017-04-13] MEDS: DiltiaZEM CD 360 MG CAPSULE PO SCH (08:36)
[2017-04-13] MEDS: CYANOCOBALAMIN (B-12) 500mcg TABLET PO SCH (08:37)
[2017-04-13] MEDS: ENOXAPARIN 40 MG/0.4 ML INJECTION SQ SCH (08:37)
[2017-04-13] MEDS ORDERED: FERROUS SULFATE 324 MG TABLET PO SCH (09:00)
[2017-04-13] MEDS ORDERED: DIGOXIN 500 MCG/2 ML INJECTION IVP ONE ×2 (10:00→10:09)
[2017-04-13] MEDS: SALINE 0.65% NASAL SPRAY 44 ML BOTTLE EA NOSTRIL SCH ×4 (12:28→20:16)
[2017-04-13] MEDS: TIOTROPIUM 18mcg/cap HANDIHALER ORAL INH SCH (13:21)
--- NOTE | 2017-04-13 15:07 | Progress Note ---
Subjective: F/U: Pneumonia, COPD with exacerbation Doing slightly better. Still notes SOA and cough/congestion. Mobilizing sputum. Not having pain with breathing. Urinating every hour with Bumex drip. Weight with decrease from admission. Eating well. No ab pain. No f/c. Objective Vital signs: Temperature 96.2 F L 04/13/17 07:20 Pulse Rate 73 04/13/17 14:00 Respiratory Rate 20 04/13/17 13:22 Blood Pressure 121/89 04/13/17 11:08 Pulse Oximetry 93 04/13/17 07:20 Height/Weight/BMI: Height 1.68 m Weight 121 kg Body Mass Index 44.1 - Constitutional Present: well nourished, well developed, morbidly obese, cooperative - Routine HEENT Exam Head: Present: normocephalic, atraumatic Eye: Present: EOMI, PERRL - Routine Respiratory Exam Present: decreased breath sounds, prolonged expiratory phase, crackles, diminished air movement. Absent: respiratory distress, wheezes - Routine Cardiovascular Exam Present: irregular rhythm, irregularly irregular - Routine Abdominal Exam Present: soft, non distended, non tender. Absent: normoactive bowel sounds ( decreased ) - Routine Extremities Exam Present: edema (+3 BLE ) - Routine Musculoskeletal Exam Musculoskeletal: Present: no clubbing or cyanosis, normal strength - Routine Skin Exam Present: dry, warm - Routine Neurological Exam Present: alert, oriented X3, CN II-XII intact, moving all extremities, vision grossly intact, hearing grossly intact ([id number]). Absent: motor deficit, altered mental status - Routine Psychiatric Exam Present: normal affect, normal thought process, cooperative. Absent: agitated, paranoid Results - Labs CBC & Chem 7: 04/13/17 07:23 04/13/17 07:23 Microbiology Results: Microbiology 04/13/17 00:12 Sputum, Expectorated Gram Stain - Final 04/13/17 00:12 Sputum, Expectorated Sputum Culture - Preliminary Culture Initiated - Results Pending 04/12/17 19:55 Peripheral/Iv Start Blood Culture - Preliminary Culture Initiated - Results Pending 04/12/17 20:01 Peripheral/Iv Start Blood Culture - Preliminary Culture Initiated - Results Pending Assessment and Plan (1) Pneumonia Current visit: No Status: Acute DVT Prophylaxis: SCD's Resuscitation Status: Full Code Assessment and Plan: Assessment Sepsis - based on leukocytosis, tachycardia and pulmonary source of infection Community Acquired Pneumonia Leukocytosis Hypernatremia - POA COPD with acute exacerbation Chronic oxygen use-3L Chronic hypercapnic respiratory failure - has BiPAP. Acute on chronic CHF Depression Anxiety Coronary artery disease -with LAD stent Atrial fibrillation Hypertension Hypercholesterolemia Hearing loss-chronic (right ear) TORIBIO GERD Iron deficiency anemia Restless leg syndrome Pulmonary debility Morbid Obesity with BMI 44.2 Plan Will continue with Rocephin for pulmonary coverage Decrease Solu-Medrol to 62.5mg IV q 6 hours. Stop Duoneb due to tachycardia - will start Xopenex TID and restart home Spiriva. Continue Acapella and Mucinex. Lorazepam as needed to help anxiety. Weight decreasing with Bumex drip - monitor potassium and creatinine. Continue with supportive care. Time spent with patient 25 minutes. Hospital Course Summary Disclaimer: The visit summary below is not to be considered part of the above Progress Note. Hospital Course: Assessment Sepsis - based on leukocytosis, tachycardia and pulmonary source of infection Community Acquired Pneumonia Leukocytosis Hypernatremia - POA COPD with chronic oxygen use-3L Acute on chronic CHF Depression Anxiety Coronary artery disease -with LAD stent Atrial fibrillation Hypertension Hypercholesterolemia Hearing loss-chronic (right ear) TORIBIO GERD Iron deficiency anemia Restless leg syndrome Pulmonary debility Morbid Obesity Plan Admitted under Dr. Jayashree shrestha/ hospitalist consult. Obtain BCx2 and sputum culture. Lactate normal. Start Rocephin for probable pneumonia after BC's are collected. SCD's for DVT prophylaxis. Duoneb, pulmicort, acapella for COPD/pneumonia. Dr. Frye has also been consulted. Cardiology to manage diuresis/CHF. 04/13/17 Hospitalist Will continue with Rocephin for pulmonary coverage Decrease Solu-Medrol to 62.5mg IV q 6 hours. Stop Duoneb due to tachycardia - will start Xopenex TID and restart home Spiriva. Continue Acapella and Mucinex. Lorazepam as needed to help anxiety. Weight decreasing with Bumex drip - monitor potassium and creatinine. Continue with supportive care.
--- NOTE | 2017-04-13 16:45 | Cardiology Progress Note ---
Subjective Principal diagnosis: CHF <Ngozi Mcmillantney D - 04/13/17 16:47> Exam Vital signs: Temperature 96.9 F 04/16/17 08:05 Pulse Rate 68 04/16/17 08:05 Respiratory Rate 20 04/16/17 11:41 Blood Pressure 115/76 04/16/17 08:05 Pulse Oximetry 97 04/16/17 08:40 <Froyaln Blanc - 04/16/17 12:46> Temperature 96.2 F L 04/13/17 07:20 Pulse Rate 73 04/13/17 14:00 Respiratory Rate 20 04/13/17 13:22 Blood Pressure 121/89 04/13/17 11:08 Pulse Oximetry 93 04/13/17 07:20 <Joselyn-Benny,Sydnee D - 04/13/17 16:47> - Constitutional no acute distress <[place]-BennySydnee D - 04/13/17 16:47> - Routine HEENT Exam Head: Present: atraumatic <[place]-Sydnee Zapata D - 04/13/17 16:47> Eye: Present: EOMI <[place]-BennySydnee D - 04/13/17 16:47> ENT: Present: mucous membranes moist <[place]-Sydnee Zapata D - 04/13/17 16:47> - Routine Neck Exam Absent: JVD <[place]-BennySydnee D - 04/13/17 16:47> - Routine Respiratory Exam Present: wheezes, distant breath sounds. Absent: accessory muscle use <[place]- BennySydnee D - 04/13/17 16:47> Comments: intermittent exp wheezes <[place]-BennySydnee D - 04/13/17 16:47> - Routine Cardiovascular Exam Present: RRR <[place]-Sydnee Zapata D - 04/13/17 16:47> - Routine Abdominal Exam Present: soft, non tender <[place]-Sydnee Zapata D - 04/13/17 16:47> - Routine Extremities Exam Present: edema <Joselyn-Sydnee Zapata D - 04/13/17 16:47> - Routine Skin Exam Present: intact <[place]Sydnee Zapata D - 04/13/17 16:47> - Routine Neurological Exam Present: alert <TreemarlenaSydnee D - 04/13/17 16:47> - Routine Psychiatric Exam Present: normal affect <TreeddGerhardSydnee D - 04/13/17 16:47> Assessment and Plan - Assessment and Plan (1) CAD (coronary artery disease), [place] coronary artery Problem details: Stenting of LAD 11/28/2013 Current visit: No Status: Chronic (2) Acute and chronic respiratory failure with hypoxia Current visit: No Status: Acute (3) MILE (obstructive sleep apnea) Current visit: No Status: Acute (4) Chest pain Current visit: Yes Status: Acute (5) COPD exacerbation Current visit: Yes Status: Acute (6) Atrial fibrillation Current visit: Yes Status: Acute <Froylan Blanc - 04/16/17 12:46> (1) Acute and chronic respiratory failure with hypoxia Current visit: No Status: Acute (2) Chest pain Current visit: Yes Status: Acute (3) COPD exacerbation Current visit: Yes Status: Acute (4) Atrial fibrillation Current visit: Yes Status: Acute <HipolitoSydnee D - 04/13/17 16:41> - Attestation Attestation Narrative: 04/16/17 12:46 Recommendation After examining the patient I agree with the above assessment. I am involved in the formulation of the patient's plan of care. <Froylan Blanc - 04/16/17 12:46> Hospital Course Summary Disclaimer: The visit summary below is not to be considered part of the above Progress Note. <Froylan Blanc - 04/16/17 12:46> The visit summary below is not to be considered part of the above Progress Note. <HipolitoSydnee D - 04/13/17 16:47> Hospital Course: Assessment Sepsis - based on leukocytosis, tachycardia and pulmonary source of infection Community Acquired Pneumonia Leukocytosis Hypernatremia - POA COPD with chronic oxygen use-3L Acute on chronic CHF Depression Anxiety Coronary artery disease -with LAD stent Atrial fibrillation Hypertension Hypercholesterolemia Hearing loss-chronic (right ear) TORIBIO GERD Iron deficiency anemia Restless leg syndrome Pulmonary debility Morbid Obesity Plan Admitted under Dr. Blanc w/ hospitalist consult. Obtain BCx2 and sputum culture. Lactate normal. Start Rocephin for probable pneumonia after BC's are collected. SCD's for DVT prophylaxis. Duoneb, pulmicort, acapella for COPD/pneumonia. Dr. Frye has also been consulted. Cardiology to manage diuresis/CHF. 04/13/17 Hospitalist Will continue with Rocephin for pulmonary coverage Decrease Solu-Medrol to 62.5mg IV q 6 hours. Stop Duoneb due to tachycardia - will start Xopenex TID and restart home Spiriva. Continue Acapella and Mucinex. Lorazepam as needed to help anxiety. Weight decreasing with Bumex drip - monitor potassium and creatinine. Continue with supportive care. 04/13/17 16:44 Acute on Chronic Diastolic heart failure Start Bumex 2mg IV bolus then 0.5mg/hr drip Daily lab CXR MILE Per Dr. Frye HTN Monitor vitals Restart home medications Patient seen and evaluated by me on the date of this note. I have reviewed lab , radiology, EKG findings and existing records. I have determined this plan of care. <Sydnee Mcmillan - 04/13/17 16:47>
[2017-04-13] MEDS ORDERED: PNEUMOCOCCAL VAC ADMIN CHARGE INJ ONE (17:00)
[2017-04-13] MEDS ORDERED: INFLUENZA VAC. INJ. ADMIN CHARGE INJ ONE (17:00)
[2017-04-13] MEDS: CEFTRIAXONE 1 G in NS 100 ML IV SCH (20:09)
[2017-04-13] MEDS: ASPIRIN 81 MG CHEWABLE TABLET PO SCH (20:10)
[2017-04-13] MEDS: LISINOPRIL 5 MG TABLET PO SCH (20:10)
[2017-04-13] MEDS: ROPINIROLE 0.25 MG TABLET PO SCH (20:10)
[2017-04-13] MEDS: MELATONIN 5 MG TABLET PO SCH (20:10)
[2017-04-13] MEDS: ATORVASTATIN 40 MG TABLET PO SCH (20:10)
[2017-04-13] MEDS: PANTOPRAZOLE 40 MG TABLET PO SCH (20:19)
[2017-04-14] MEDS ORDERED: DiltiaZEM IR 30 MG TABLET PO ONE (03:00)
[2017-04-14] MEDS ORDERED: DIGOXIN 500 MCG/2 ML INJECTION IVP ONE (04:50)
[2017-04-14] MEDS: METHYLPREDNISOLONE SOD SUCC 125mg/2ml INJECTION IVP SCH ×2 (05:25→09:23)
[2017-04-14] MEDS: BUDESONIDE INH.SOLN 0.5mg/2ml NEB AEROSOL SCH (08:03)
[2017-04-14] MEDS: FERROUS SULFATE 324 MG TABLET PO SCH (09:24)
[2017-04-14] MEDS: GUAIFENESIN/D-METHORPHAN 600mg/30mg TABLET PO SCH ×2 (09:24→21:07)
[2017-04-14] MEDS: CYANOCOBALAMIN (B-12) 500mcg TABLET PO SCH (09:24)
[2017-04-14] MEDS: DiltiaZEM CD 360 MG CAPSULE PO SCH (09:24)
[2017-04-14] MEDS: BUMETANIDE DRIP IV SCH (09:25)
[2017-04-14] MEDS: ENOXAPARIN 40 MG/0.4 ML INJECTION SQ SCH (09:25)
[2017-04-14] MEDS: RTU SALINE IV SCH (09:25)
[2017-04-14] MEDS: SALINE 0.65% NASAL SPRAY 44 ML BOTTLE EA NOSTRIL SCH ×4 (09:26→21:08)
[2017-04-14] MEDS: TIOTROPIUM 18mcg/cap HANDIHALER ORAL INH SCH (10:24)
--- NOTE | 2017-04-14 10:59 | XRay Report ---
Indication: dyspnea PROCEDURE: XR chest 1V: Encounter: Initial Comparison: March 12, 2017 Findings: Bilateral lower lobe airspace opacities, greater on the right with possible trace right effusion. No pneumothorax. Cardiac silhouette remains enlarged. Mediastinal contours are grossly stable. Pulmonary vascularity is slightly enlarged with cephalization. Impression: Mild pulmonary edema. Superimposed atelectasis or pneumonia is possible in the right lower lobe. .
--- NOTE | 2017-04-14 11:09 | Progress Note ---
<Edna Bernal - Last Filed: 04/14/17 11:06> Subjective: Ruthie is seen today in follow up. Reports feeling a bit better overall. SOA is slightly improved. HR remains variable, tachycardic & irregular. RN reports HR is 110-140 usually. Patient is fairly asx. despite elevated HR. Pt. does not report any pain or other concerns. Chart is reviewed for collateral information. Objective Vital signs: Temperature 95.8 F L 04/14/17 08:00 Pulse Rate 102 H 04/14/17 08:00 Respiratory Rate 20 04/14/17 10:25 Blood Pressure 123/69 04/14/17 08:00 Pulse Oximetry 94 04/14/17 08:14 Rhythm: Atrial Fibrillation with RVR Height/Weight/BMI: Height 1.68 m Weight 121 kg Body Mass Index 44.1 - Constitutional Present: no acute distress, morbidly obese, cooperative - Routine HEENT Exam Head: Present: normocephalic, atraumatic Eye: Present: EOMI, PERRL, normal accommodation - Routine Respiratory Exam Present: decreased breath sounds, crackles (Bases, faint.), diminished air movement. Absent: accessory muscle use - Routine Cardiovascular Exam Present: S1, S2, irregular rhythm, irregularly irregular - Routine Abdominal Exam Present: soft, normoactive bowel sounds, non tender - Routine Extremities Exam Present: edema, non tender, full ROM - Routine Musculoskeletal Exam Musculoskeletal: Present: normal strength, moving extremities well - Routine Skin Exam Present: intact, dry, warm - Routine Neurological Exam Present: alert, oriented X3, moving all extremities - Routine Psychiatric Exam Present: normal affect, cooperative Results - Labs CBC & Chem 7: 04/14/17 04:16 04/14/17 04:16 Microbiology Results: Microbiology 04/13/17 00:12 Sputum, Expectorated Gram Stain - Final 04/13/17 00:12 Sputum, Expectorated Sputum Culture - Preliminary Early growth 04/12/17 19:55 Peripheral/Iv Start Blood Culture - Preliminary No Growth After 1 Day 04/12/17 20:01 Peripheral/Iv Start Blood Culture - Preliminary No Growth After 1 Day - Impressions Reviewed CXR. Assessment and Plan (1) Pneumonia Current visit: No Status: Acute DVT Prophylaxis: Lovenox GI Prophylaxis: Protonix Resuscitation Status: Full Code Assessment and Plan: Assessment Sepsis - based on leukocytosis, tachycardia and pulmonary source of infection Community Acquired Pneumonia Leukocytosis Hypernatremia - POA COPD with acute exacerbation Chronic oxygen use-3L Chronic hypercapnic respiratory failure - has BiPAP. Acute on chronic CHF Depression Anxiety Coronary artery disease -with LAD stent Atrial fibrillation Hypertension Hypercholesterolemia Hearing loss-chronic (right ear) TORIBIO GERD Iron deficiency anemia Restless leg syndrome Pulmonary debility Morbid Obesity with BMI 44.2 Plan 04/14/17 Slow improvement. Labs starting to look dry- consider changing to scheduled diuretics and DC Bumex gtt. Will defer to CV re: diuretic management. Weight not recorded yet today. HR remains variable- on BB/CCB. Chronic variable atrial fib- possible anticoagulation on DC? Continue O2/Nebs/Bipap at home. Chronic respiratory failure per Dr. Frye. Continue on PO iron for Macrocytic/DAVID. Leukocytosis progressing due to IV Solumedrol. Consider change to Prednisone soon. Labs, documentation, imaging reviewed. High risk- IV Bumex gtt, O2 and BiPap. HR remains uncontrolled. - Time spent with patient Time with patient PN: 35 minutes Hospital Course Summary Disclaimer: The visit summary below is not to be considered part of the above Progress Note. Hospital Course: Assessment Sepsis - based on leukocytosis, tachycardia and pulmonary source of infection Community Acquired Pneumonia Leukocytosis Hypernatremia - POA COPD with chronic oxygen use-3L Acute on chronic CHF Depression Anxiety Coronary artery disease -with LAD stent Atrial fibrillation Hypertension Hypercholesterolemia Hearing loss-chronic (right ear) TORIBIO GERD Iron deficiency anemia Restless leg syndrome Pulmonary debility Morbid Obesity Plan Admitted under Dr. Jayashree shrestha/ hospitalist consult. Obtain BCx2 and sputum culture. Lactate normal. Start Rocephin for probable pneumonia after BC's are collected. SCD's for DVT prophylaxis. Duoneb, pulmicort, acapella for COPD/pneumonia. Dr. Frye has also been consulted. Cardiology to manage diuresis/CHF. 04/13/17 Hospitalist Will continue with Rocephin for pulmonary coverage Decrease Solu-Medrol to 62.5mg IV q 6 hours. Stop Duoneb due to tachycardia - will start Xopenex TID and restart home Spiriva. Continue Acapella and Mucinex. Lorazepam as needed to help anxiety. Weight decreasing with Bumex drip - monitor potassium and creatinine. Continue with supportive care. 04/13/17 16:44 Acute on Chronic Diastolic heart failure Start Bumex 2mg IV bolus then 0.5mg/hr drip Daily lab CXR MILE Per Dr. Frye HTN Monitor vitals Restart home medications Patient seen and evaluated by me on the date of this note. I have reviewed lab , radiology, EKG findings and existing records. I have determined this plan of care. 04/14/17 11:16 Slow improvement. Labs starting to look dry- consider changing to scheduled diuretics and DC Bumex gtt. Will defer to CV re: diuretic management. Weight not recorded yet today. HR remains variable- on BB/CCB. Chronic variable atrial fib- possible anticoagulation on DC? Continue O2/Nebs/Bipap at home. Chronic respiratory failure per Dr. Frye. Continue on PO iron for Macrocytic/DAVID. Leukocytosis progressing due to IV Solumedrol. Consider change to Prednisone soon. Labs, documentation, imaging reviewed. <Uri Bourgeois - Last Filed: 04/14/17 14:45> Objective Vital signs: Temperature 95.8 F L 04/14/17 08:00 Pulse Rate 128 H 04/14/17 08:00 Respiratory Rate 20 04/14/17 10:25 Blood Pressure 130/67 04/14/17 11:19 Pulse Oximetry 94 04/14/17 08:14 Height/Weight/BMI: Height 1.68 m Weight 120.6 kg Body Mass Index 44.1 Results - Labs CBC & Chem 7: 04/14/17 04:16 04/14/17 04:16 Microbiology Results: Microbiology 04/13/17 00:12 Sputum, Expectorated Gram Stain - Final 04/13/17 00:12 Sputum, Expectorated Sputum Culture - Preliminary Early growth 04/12/17 19:55 Peripheral/Iv Start Blood Culture - Preliminary No Growth After 1 Day 04/12/17 20:01 Peripheral/Iv Start Blood Culture - Preliminary No Growth After 1 Day Assessment and Plan (1) Pneumonia Current visit: No Status: Acute Assessment and Plan: Assessment Sepsis - based on leukocytosis, tachycardia and pulmonary source of infection Community Acquired Pneumonia Leukocytosis Hypernatremia - POA COPD with acute exacerbation Chronic oxygen use-3L Chronic hypercapnic respiratory failure - has BiPAP. Acute on chronic CHF Depression Anxiety Coronary artery disease -with LAD stent Atrial fibrillation Hypertension Hypercholesterolemia Hearing loss-chronic (right ear) TORIBIO GERD Iron deficiency anemia Restless leg syndrome Pulmonary debility Morbid Obesity with BMI 44.2 Have independently interviewed and examined pt. Chart reviewed. Case discussed with my [employer]RAFTER [employer]. Care plan developed with my supervision; agree with above. Feels like she is doing better. Breathing is much easier-less SOA and congested. No pain with breathing. Heart rate still problematic. Eating well-no nausea, ab pain, mouth pain, or pain with swallowing. Stools stable. Legs less swollen. Still having significant problems tolerating BiPAP. Lungs: decreased, little air movement. No wheezes or distress. CV: distant AB: soft obese nt/nd EXT: +2 edema bilaterally MSE: awake alert appropriate Plan: Continue Rocephin for pulm coverage. Will stop Solu-Medrol and start oral Prednisone 40mg daily tomorrow. Repeat CXR in am. Continue with supportive care. Monitor lab. Time spent with patient care 25 minutes. Hospital Course Summary Disclaimer: The visit summary below is not to be considered part of the above Progress Note.
[2017-04-14] MEDS: METOPROLOL 5mg/5ml INJECTION IVP PRN (11:14)
--- NOTE | 2017-04-14 16:43 | Cardiology Progress Note ---
Subjective Principal diagnosis: CHF <Joselyn-Ngozi Zapatatney D - 04/14/17 16:48> Exam Vital signs: Temperature 96.9 F 04/16/17 08:05 Pulse Rate 68 04/16/17 08:05 Respiratory Rate 20 04/16/17 11:41 Blood Pressure 115/76 04/16/17 08:05 Pulse Oximetry 97 04/16/17 08:40 <Froylan Blanc - 04/16/17 12:50> Temperature 95.3 F L 04/14/17 16:28 Pulse Rate 81 04/14/17 16:28 Respiratory Rate 22 04/14/17 16:28 Blood Pressure 111/64 04/14/17 16:28 Pulse Oximetry 97 04/14/17 16:28 <Joselyn-Sydnee Zapata D - 04/14/17 16:48> - Constitutional no acute distress <Joselyn-Ngozi Zapatatney D - 04/14/17 16:48> - Routine HEENT Exam Eye: Present: EOMI <Joselyn-Sydnee Zapata D - 04/14/17 16:48> ENT: Present: mucous membranes moist <Joselyn-Ngozi Zapatatney D - 04/14/17 16:48> - Routine Respiratory Exam Present: decreased breath sounds <Wheelwright-Ngozi Zapatatney D - 04/14/17 16:48> - Routine Cardiovascular Exam Present: irregular rhythm, irregularly irregular <Wheelwright-Ngozi Zapatatney D - 04/14 16:48> - Routine Abdominal Exam Present: soft <Wheelwright-Ngozi Zapatatney D - 04/14/17 16:48> - Routine Extremities Exam Present: edema <Wheelwright-Ngozi Zapatatney D - 04/14/17 16:48> - Routine Skin Exam Present: dry <Wheelwright-Ngozi aZpatatney D - 04/14/17 16:48> - Routine Neurological Exam Present: alert, oriented X3 <Wheelwright-Ngozi Zapatatney D - 04/14/17 16:48> - Routine Psychiatric Exam Present: normal affect <Wheelwright-Ngozi Zapatatney D - 04/14/17 16:48> Assessment and Plan - Assessment and Plan (1) CAD (coronary artery disease), [place] coronary artery Problem details: Stenting of LAD 11/28/2013 Current visit: No Status: Chronic (2) Acute and chronic respiratory failure with hypoxia Current visit: No Status: Acute (3) MILE (obstructive sleep apnea) Current visit: No Status: Acute (4) Chest pain Current visit: Yes Status: Acute (5) COPD exacerbation Current visit: Yes Status: Acute (6) Atrial fibrillation Current visit: Yes Status: Acute <Froylan Blanc - 04/16/17 12:50> (1) Acute and chronic respiratory failure with hypoxia Current visit: No Status: Acute (2) Chest pain Current visit: Yes Status: Acute (3) COPD exacerbation Current visit: Yes Status: Acute (4) Atrial fibrillation Current visit: Yes Status: Acute <Sydnee Mcmillan - 04/14/17 16:49> - Attestation Attestation Narrative: 04/16/17 12:50 Recommendation After examining the patient I agree with the above assessment. I am involved in the formulation of the patient's plan of care. <Froylan Blanc - 04/16/17 12:50> Hospital Course Summary Disclaimer: The visit summary below is not to be considered part of the above Progress Note. <Froylan Blanc - 04/16/17 12:50> The visit summary below is not to be considered part of the above Progress Note. <Sydnee Mcimllan - 04/14/17 16:48> Hospital Course: Assessment Sepsis - based on leukocytosis, tachycardia and pulmonary source of infection Community Acquired Pneumonia Leukocytosis Hypernatremia - POA COPD with chronic oxygen use-3L Acute on chronic CHF Depression Anxiety Coronary artery disease -with LAD stent Atrial fibrillation Hypertension Hypercholesterolemia Hearing loss-chronic (right ear) TORIBIO GERD Iron deficiency anemia Restless leg syndrome Pulmonary debility Morbid Obesity Plan Admitted under Dr. Blanc w/ hospitalist consult. Obtain BCx2 and sputum culture. Lactate normal. Start Rocephin for probable pneumonia after BC's are collected. SCD's for DVT prophylaxis. Duoneb, pulmicort, acapella for COPD/pneumonia. Dr. Frye has also been consulted. Cardiology to manage diuresis/CHF. 04/13/17 Hospitalist Will continue with Rocephin for pulmonary coverage Decrease Solu-Medrol to 62.5mg IV q 6 hours. Stop Duoneb due to tachycardia - will start Xopenex TID and restart home Spiriva. Continue Acapella and Mucinex. Lorazepam as needed to help anxiety. Weight decreasing with Bumex drip - monitor potassium and creatinine. Continue with supportive care. 04/13/17 16:44 Acute on Chronic Diastolic heart failure Start Bumex 2mg IV bolus then 0.5mg/hr drip Daily lab CXR MILE Per Dr. Frye HTN Monitor vitals Restart home medications Patient seen and evaluated by me on the date of this note. I have reviewed lab , radiology, EKG findings and existing records. I have determined this plan of care. 04/14/17 1650 Bumex gtt stopped.start bumex 2mg IV TID Acute MECCA- Team Assistant up to 1.4 today Weight down 3 kg HR <110 afib all night. Dig IV and Metoprolol IV not effective. Change Metoprolol to 75mg po TID. HR now <100 Chronic afib- start Eliquis 2.5 BID; Team Assistant elevated today Continue O2/Nebs/Bipap at home. Chronic respiratory failure per Dr. Frye. Continue on PO iron for Macrocytic/DAVID. Leukocytosis progressing due to IV Solumedrol. Labs, documentation, imaging reviewed. <Sydnee Mcmillan - 04/14/17 16:50> Addendum entered and electronically signed by Sydnee Mcmillan APRN 16:52: correction: Eliquis 5mg po BID- PAF
[2017-04-14] MEDS: ASPIRIN 81 MG CHEWABLE TABLET PO SCH (21:07)
[2017-04-14] MEDS: LISINOPRIL 5 MG TABLET PO SCH (21:07)
[2017-04-14] MEDS: ATORVASTATIN 40 MG TABLET PO SCH (21:07)
[2017-04-14] MEDS: PANTOPRAZOLE 40 MG TABLET PO SCH (21:08)
[2017-04-14] MEDS: APIXABAN 5 MG TABLET PO SCH (21:08)
[2017-04-14] MEDS: CEFTRIAXONE 1 G in NS 100 ML IV SCH (21:08)
[2017-04-14] MEDS: MELATONIN 5 MG TABLET PO SCH (21:08)
[2017-04-14] MEDS: ROPINIROLE 0.25 MG TABLET PO SCH (21:08)
[2017-04-14] MEDS: LORazepam 1 MG TABLET PO PRN (21:45)
[2017-04-15] MEDS: BUDESONIDE INH.SOLN 0.5mg/2ml NEB AEROSOL SCH ×3 (06:29→21:56)
[2017-04-15] MEDS ORDERED: PredniSONE 20 MG TABLET PO SCH (08:00)
--- NOTE | 2017-04-15 08:29 | XRay Report ---
Indication: COPD XR chest 2V: Comparison: 04/12/2017 Technique: Single portable upright chest Findings: Patient continues to show mild cardiac prominence with increased interstitial pulmonary markings. No focal prequel consolidations or significant pleural effusions are seen. There is perhaps minimal improvement since previous study with slightly less interstitial prominence Impression: Patient continues to demonstrate mild cardiac prominence with some interstitial prominence suggesting mild underlying interstitial edema. Slight improvement in the lung bases suggested. .
[2017-04-15] MEDS: TIOTROPIUM 18mcg/cap HANDIHALER ORAL INH SCH (08:44)
[2017-04-15] MEDS: FERROUS SULFATE 324 MG TABLET PO SCH (10:47)
[2017-04-15] MEDS: DiltiaZEM CD 360 MG CAPSULE PO SCH (10:49)
[2017-04-15] MEDS: APIXABAN 5 MG TABLET PO SCH ×2 (10:49→20:46)
[2017-04-15] MEDS: CYANOCOBALAMIN (B-12) 500mcg TABLET PO SCH (10:49)
[2017-04-15] MEDS: GUAIFENESIN/D-METHORPHAN 600mg/30mg TABLET PO SCH ×2 (10:49→20:43)
[2017-04-15] MEDS: SALINE 0.65% NASAL SPRAY 44 ML BOTTLE EA NOSTRIL SCH ×4 (10:49→23:16)
--- NOTE | 2017-04-15 11:57 | Pulmonology Consult Note ---
History of Present Illness Consult date: 04/15/17 Requesting physician: Froylan Blanc Reason for consult: COPD History of present illness: This is a 56 yo female with a recent hospitalization in January for A/C respiratory failure, pneumonia, COPD and atrial fibrillation. She was dismissed home with a trilogy ventilator to mask and states she has been using up untill last Saturday. She has noticed increased SOB and lower extremity swelling since last Saturday04/06/17 that became worse throughout the week. She was seen at her PCP's office and had a CT scan that showed interstitial infiltrates likely edema and she was [place] [facility]. She states she wasn't using her home vent as she ran out of anxiety meds and was unable to use it. On admit her CXR showed cardiomegaly and vascular congestion, WBC 12.6, procalcitonin <0.5. She currently is on her home O2 of 4.5L per NC, she has her home trilogy vent at bedside. We have been consulted for her pulmonary issues and appreciate the consult. Review of Systems - Constitutional Constitutional: Present: weight gain - EENT Eyes: Present: as per HPI Nose: Present: as per HPI - Cardiovascular Cardiovascular: Present: dyspnea on exertion, edema - Respiratory Respiratory: Present: dyspnea, dyspnea on exertion, chest congestion - Gastrointestinal Gastrointestinal: Present: as per HPI - Genitourinary Genitourinary: Present: as per HPI - Musculoskeletal Musculoskeletal: Present: as per HPI - Integumentary/Breasts Integumentary: Present: as per HPI - Neurological Neurological: Present: as per HPI - Psychiatric Psychiatric: Present: as per HPI - Hematologic/Lymphatic Hematologic/Lymphatic: Present: as per HPI - Allergic/Immunologic Allergic/Immunologic: Present: as per HPI [facility] Patient Stated Medical History Cerebrovascular Accident No Seizures No Hearing Loss Yes Angina Yes: hx Cardiac Arrhythmia Yes: paroxysmal atril fib Coronary Artery Disease Yes Hypertension Yes Hypotension No Myocardial Infarction Yes: 2013 stent- asymptomatic since Other Cardiology Yes: STENT PLACED IN 2013 Asthma Yes Bronchitis Yes Chronic Obstructive Pulmonary Yes: 4L O2 at all times, + SOB with exertion Disease (COPD) Pneumonia Yes Sleep Apnea Yes Diabetes Mellitus Type 1 No Diabetes Mellitus Type 2 No Gastroesophageal Reflux Yes Disease Gastrointestinal Bleeding Yes Hepatitis Yes: TORIBIO Hx Incontinence Yes Anemia Yes Anesthesia Reactions No Blood Transfusions Yes: no reaction Depression Yes Panic Disorder No Post Menopausal Yes Now No Clinic Medical History Hypoxemia (Chronic Medical) 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 Depression (Chronic Medical) Hypertension (Chronic Medical) High cholesterol (Chronic Medical) Syncope and collapse (Chronic Medical) Patient was anemic and transfused with PRBCs Atrial fibrillation (Chronic Medical) Currently in SR, Started on Sotalol for antiarrhythmic therapy CAD (coronary artery disease), [place] coronary artery (Chronic Medical) Stenting of LAD 11/28/2013 COPD (chronic obstructive pulmonary disease) (Chronic Medical) Hearing loss of right ear (Chronic Medical) Surgical History: * Cardiac catheterization with stent placement in LAD - [address] Perez at [facility]. Medtronic Resolute Integrity RX stent. * Heart cath - 02/20/2012. * Right ear surgery reconstruction - 1959. * section - 07/27/1988. * section - 04/18/1984 Family History: Family History (Last Reviewed 04/12/17 @ 18:46 by Vale Hawthorne, ADMINISTRATIVE SERVICES MANAGER) Daughter Cervical cancer Mother Heart attack High blood pressure Father Cancer - Social History Smoking status: Former smoker Medications Home Medications Medication Instructions Recorded Confirmed Type Albuterol Sulfate [Ventolin Hfa] 2 puff INH Q4-6HR PRN #0 02/19/12 04/12/17 History Atorvastatin Calcium 40 mg PO HS #0 07/20/14 04/12/17 History Furosemide 40 mg PO DAILY #0 07/20/14 04/12/17 History Aspirin 81 mg PO HS #0 10/24/16 04/12/17 History Fluticasone/Salmeterol [Advair 1 puff INH BID #0 10/24/16 04/12/17 History 250-50 Diskus] Pantoprazole Sodium 40 mg PO HS #0 10/24/16 04/12/17 History Acetaminophen [Arthritis Pain 1,300 mg PO TID PRN 12/31/16 04/12/17 History Relief] Melatonin 15 mg PO HS 12/31/16 04/12/17 History Tiotropium Handihaler [Spiriva] 1 cap INH DAILY 12/31/16 04/12/17 History Ropinirole [Requip] 0.25 mg PO HS 02/20/17 04/12/17 History Ferrous Sulfate [Iron] 325 mg PO DAILY 03/12/17 04/12/17 History Lisinopril [Prinivil] 5 mg PO HS 03/12/17 04/12/17 History Albuterol Sulfate [Proair Hfa] 2 puff INH PRN PRN 04/12/17 04/12/17 History Cyanocobalamin (Vitamin B-12) 2,500 mcg PO DAILY 04/12/17 04/12/17 History [Vitamin B12] Metoprolol Tartrate [Lopressor] 1 tab PO BID 04/12/17 04/12/17 History Allergies Allergy/AdvReac Type Severity Reaction Status Date / Time No Known Allergies Allergy Verified 12/31/16 11:58 Exam Vital signs: Temperature 96.6 F L 04/15/17 08:00 Pulse Rate 80 04/15/17 08:00 Respiratory Rate 18 04/15/17 08:44 Blood Pressure 117/61 04/15/17 08:00 Pulse Oximetry 97 04/15/17 08:00 - Constitutional no acute distress, morbidly obese - Routine HEENT Exam Head: Present: normocephalic, atraumatic Eye: Present: EOMI, PERRL ENT: Present: mucous membranes moist - Routine Neck Exam Present: supple, full ROM - Routine Respiratory Exam Present: decreased breath sounds - Routine Cardiovascular Exam Present: RRR, no murmur - Routine Abdominal Exam Present: soft, normoactive bowel sounds - Routine Extremities Exam Present: edema, full ROM - Routine Back/Spine/Pelvis Exam Back/Spine: Present: full ROM - Routine Skin Exam Present: intact, dry - Routine Neurological Exam Present: alert, oriented X3, CN II-XII intact - Routine Psychiatric Exam Present: normal affect, normal thought process Results - Laboratory Findings CBC and BMP: 04/15/17 03:54 04/15/17 03:54 Abnormal lab findings: Abnormal Labs 04/12/17 04/12/17 04/12/17 18:53 18:53 23:03 WBC 12.6 H Hgb 10.8 L MCH 24.4 L MCHC 28.1 L RDW Std Deviation 56.8 H MPV Neut % (Auto) 76.5 H Lymph % (Auto) 16.2 L Neut # (Auto) 9.6 H Neutrophils % (Manual) Lymphocytes % (Manual) Metamyelocytes % Neutrophils # (Manual) Lymphocytes # (Manual) Sodium 146 H Chloride Carbon Dioxide 37 H BUN Creatinine BUN/Creatinine Ratio Glucose Calculated Osmolality Calcium Alkaline Phosphatase 163 H B-Natriuretic Peptide 1660 H Specimen Hemolysis 38 H 04/13/17 04/13/17 04/14/17 07:23 07:23 04:16 WBC 13.6 H 19.4 H D Hgb 11.4 L 10.8 L MCH 24.5 L 24.2 L MCHC 28.6 L 28.7 L RDW Std Deviation 55.6 H 53.7 H MPV Neut % (Auto) Lymph % (Auto) Neut # (Auto) Neutrophils % (Manual) 91.0 H 95.0 H Lymphocytes % (Manual) 8.0 L 1.0 L Metamyelocytes % 1.0 H Neutrophils # (Manual) 12.4 H 18.4 H Lymphocytes # (Manual) 0.2 L Sodium Chloride 93 L Carbon Dioxide 38 H BUN Creatinine BUN/Creatinine Ratio Glucose 182 H Calculated Osmolality 282 H Calcium 10.3 H Alkaline Phosphatase B-Natriuretic Peptide Specimen Hemolysis 04/14/17 04/15/17 04/15/17 04:16 03:54 03:54 WBC 21.9 H Hgb 10.8 L MCH 24.1 L MCHC 28.4 L RDW Std Deviation 53.5 H MPV 12.6 H Neut % (Auto) Lymph % (Auto) Neut # (Auto) Neutrophils % (Manual) 87.0 H Lymphocytes % (Manual) 7.0 L Metamyelocytes % Neutrophils # (Manual) 19.1 H Lymphocytes # (Manual) Sodium Chloride 91 L 91 L Carbon Dioxide 39 H 37 H BUN 36.0 H D 55.0 H* D Creatinine 1.4 H D 1.5 H D BUN/Creatinine Ratio 37 H Glucose 187 H 164 H Calculated Osmolality 284 H 292 H Calcium Alkaline Phosphatase B-Natriuretic Peptide Specimen Hemolysis - Diagnostic Findings Chest x-ray: image reviewed (as per HPI) Assessment and Plan - Assessment and Plan (1) Chronic hypercapnic respiratory failure Current visit: Yes Status: Acute (2) COPD (chronic obstructive pulmonary disease) Current visit: No Status: Chronic (3) Atrial fibrillation Problem details: Currently in SR, Started on Sotalol for antiarrhythmic therapy Current visit: No Status: Chronic - Assessment and Plan Pt currently on her home O2 at 4.5L per NC, home vent in room. Encouraged use of her home vent qHs and prn naps. Strongly suggested she adhere to the use of her vent as this increase her risk of atrial fibrillation and CHF exacerbation. CXR improving congestion noted on 2mg TID per CV. WBC elevated likely related to prednisone 40mg, currently on rocephin sputum pending. Recent Hx of H influenzae. Cont Bt's with pulmicort and a/a q4hr prn.
--- NOTE | 2017-04-15 12:27 | Cardiology Progress Note ---
Subjective Principal diagnosis: CHF <Angeline Bell - 04/15/17 12:28> Interval history: Ruthie is seen in follow up for AFib with RVR and CHF exacerbation. She is sitting by the window in the sun. She denies dyspnea or breathing difficulty, chest pain or pressure. She has many questions about low sodium foods and management of weight at home. Education provided about hidden sodium in foods and ideas for low sodium meals provided. <Angeline Bell - 04/15/17 12:28> Exam Vital signs: Temperature 96.9 F 04/16/17 08:05 Pulse Rate 71 04/16/17 16:00 Respiratory Rate 18 04/16/17 16:13 Blood Pressure 115/76 04/16/17 08:05 Pulse Oximetry 97 04/16/17 08:40 <Froylan Blanc - 04/18/17 14:44> Temperature 96.6 F L 04/15/17 08:00 Pulse Rate 80 04/15/17 08:00 Respiratory Rate 18 04/15/17 08:44 Blood Pressure 117/61 04/15/17 08:00 Pulse Oximetry 97 04/15/17 08:00 <Angeline Bell - 04/15/17 12:28> - Constitutional no acute distress, morbidly obese, cooperative <Angeline Bell - 04/15/17 12: 28> - Routine HEENT Exam Head: Present: normocephalic <Angeline Bell 04/15/17 12:28> ENT: Present: mucous membranes moist <Angeline Bell 04/15/17 12:28> - Routine Neck Exam Absent: JVD, carotid bruit <Angeline Bell - 04/15/17 12:28> - Routine Chest/Breast/Axilla Exam Chest wall: Absent: tenderness <Angeline Bell 04/15/17 12:28> - Routine Respiratory Exam Present: CTA bilaterally, diminished air movement. Absent: rales, wheezes < Angeline Bell - 04/15/17 12:28> - Routine Cardiovascular Exam Present: irregular rhythm. Absent: JVD <Angeline Bell 04/15/17 12:28> - Routine Abdominal Exam Present: soft, normoactive bowel sounds <Angeline Bell - 04/15/17 12:28> - Routine Extremities Exam Present: edema <Angeline Bell - 04/15/17 12:28> - Routine Skin Exam Present: intact, dry, warm <Angeline Bell - 04/15/17 12:28> - Routine Neurological Exam Present: alert, oriented X3 <Angeline Bell - 04/15/17 12:28> - Routine Psychiatric Exam Present: normal affect, normal thought process <Angeline Bell - 04/15/17 12: 28> - Additional findings Additional findings: Abnormal Lab Results 04/15/17 04/15/17 04/15/17 03:54 03:54 03:54 WBC 21.9 H RBC 4.48 Hgb 10.8 L Hct 38.0 MCV 84.8 MCH 24.1 L MCHC 28.4 L RDW Std Deviation 53.5 H Plt Count 338 MPV 12.6 H Immature Gran % (Auto) Not performed Neut % (Auto) Not performed Lymph % (Auto) Not performed [place] % (Auto) Not performed Eos % (Auto) Not performed Baso % (Auto) Not performed Neut # (Auto) Not performed Lymph # (Auto) Not performed [place] # (Auto) Not performed Eos # (Auto) Not performed Baso # (Auto) Not performed Abs Immat Gran (auto) Not performed Neutrophils % (Manual) 87.0 H Band Neutrophils % 4.0 Lymphocytes % (Manual) 7.0 L Monocytes % (Manual) 2.0 Neutrophils # (Manual) 19.1 H Band Neutrophils # 0.9 Lymphocytes # (Manual) 1.5 Monocytes # (Manual) 0.4 Poikilocytosis 1+ Anisocytosis 1+ Ovalocytes 1+ RBC Morph Comment Abnormal Turbidity < 20 Sodium 142 Potassium 3.6 Chloride 91 L Carbon Dioxide 37 H Anion Gap 14 BUN 55.0 H* D Creatinine 1.5 H D GFR Calculation 36 BUN/Creatinine Ratio 37 H Glucose 164 H Calculated Osmolality 292 H Calcium 9.2 Magnesium 2.1 Icterus Index < 2 B-Natriuretic Peptide 2180 H Specimen Hemolysis < 15 Acetaminophen (Tylenol Arthritis) 1,300 mg PO TID PRN PRN Reason: Pain Last Admin: 04/13/17 20:22 Dose: 1,300 mg Albuterol/Ipratropium (Duoneb) 3 ml AEROSOL Q4HR PRN PRN Reason: Shortness of air Apixaban (Eliquis) 5 mg PO BID [facility] Last Admin: 04/15/17 10:49 Dose: 5 mg Aspirin (Asa) 81 mg PO HS [facility] Last Admin: 04/14/17 21:07 Dose: 81 mg Atorvastatin Calcium (Lipitor) 40 mg PO HS [facility] Last Admin: 04/14/17 21:07 Dose: 40 mg Budesonide (Pulmicort Inhalation) 0.5 mg AEROSOL RTBID [facility] Stop: 04/19/17 07:01 Last Admin: 04/15/17 07:05 Dose: 0.5 mg Bumetanide (Bumex Inj) 2 mg IVP TID [facility] Last Admin: 04/14/17 21:07 Dose: 2 mg Cyanocobalamin (Vit. B-12) 2,500 mcg PO DAILY [facility] Last Admin: 04/15/17 10:49 Dose: 2,500 mcg Diltiazem HCl (Cardizem Cd) 360 mg PO DAILY [facility] Last Admin: 04/15/17 10:49 Dose: 360 mg Ferrous Sulfate (Feosol) 324 mg PO WB [facility] Last Admin: 04/15/17 10:47 Dose: 324 mg Guaifenesin/Dextromethorphan (Mucinex Dm) 1 tab PO BID [facility] Last Admin: 04/15/17 10:49 Dose: 1 tab Ceftriaxone Sodium 1 g/ Sodium (Chloride) 100 mls @ 200 mls/hr IV Q24H [facility] Last Infusion: 04/14/17 21:38 Dose: Infused Levalbuterol HCl (Xopenex 1.25mg/3ml) 1.25 mg AEROSOL RTTID [facility] Last Admin: 04/15/17 07:05 Dose: 1.25 mg Lisinopril (Prinivil) 5 mg PO HS [facility] Last Admin: 04/14/17 21:07 Dose: 5 mg Lorazepam (Ativan) 1 mg PO Q4HR PRN PRN Reason: Anxiety/Air hunger/Agitation Last Admin: 04/14/17 21:45 Dose: 1 mg Melatonin (Melatonin) 15 mg PO HS [facility] Last Admin: 04/14/17 21:08 Dose: 15 mg Metoprolol Tartrate (Lopressor) 5 mg IVP Q6H PRN PRN Reason: Tachycardia Last Admin: 04/14/17 11:14 Dose: 5 mg Metoprolol Tartrate (Lopressor) 75 mg PO 0800,1500,2100 [facility] Last Admin: 04/15/17 10:48 Dose: 75 mg Ondansetron HCl (Zofran) 4 mg IVP Q6H PRN PRN Reason: Nausea Pantoprazole Sodium (Protonix Tab) 40 mg PO HS [facility] Last Admin: 04/14/17 21:08 Dose: 40 mg Prednisone (Deltasone) 40 mg PO WB [facility] Last Admin: 04/15/17 10:47 Dose: 40 mg Ropinirole HCl (Requip) 0.25 mg PO HS [facility] Last Admin: 04/14/17 21:08 Dose: 0.25 mg Sodium Chloride (Deep Sea Nasal Moisturizing [place]) 2 spray EA NOSTRIL QID [facility] Last Admin: 04/15/17 10:49 Dose: 1 spray Sodium Chloride (Iv Flush) 10 ml IV PRN PRN PRN Reason: Flushing Tiotropium [place] (Spiriva) 1 cap ORAL INH DAILY [facility] Last Admin: 04/15/17 08:44 Dose: 1 cap <Angeline Bell - 04/15/17 12:28> Assessment and Plan - Assessment and Plan (1) CAD (coronary artery disease), [place] coronary artery Problem details: Stenting of LAD 11/28/2013 Status: Chronic (2) Acute and chronic respiratory failure with hypoxia Status: Acute (3) MILE (obstructive sleep apnea) Status: Chronic (4) Chest pain Status: Acute (5) COPD exacerbation Status: Acute (6) Atrial fibrillation Status: Chronic <Froylan Blanc - 04/18/17 14:44> (1) Acute and chronic respiratory failure with hypoxia Status: Acute Improved. Ready for discharge soon (2) Chest pain Status: Acute (3) COPD exacerbation Status: Acute (4) CAD (coronary artery disease), [place] coronary artery Problem details: Stenting of LAD 11/28/2013 Status: Chronic (5) MILE (obstructive sleep apnea) Status: Acute (6) Atrial fibrillation Status: Acute Rate controlled with Cardizem and Metoprolol. Continue Eliquis for anticoagulation. <Angeline Bell - 04/16/17 14:23> - Attestation Attestation Narrative: 04/18/17 14:44 Recommendation After examining the patient I agree with the above assessment. I am involved in the formulation of the patient's plan of care. <JayashreeFroylan - 04/18/17 14:44> Hospital Course Summary Disclaimer: The visit summary below is not to be considered part of the above Progress Note. <JayashreeFroylan - 04/18/17 14:44> The visit summary below is not to be considered part of the above Progress Note. <Angeline Bell - 04/15/17 12:28> Hospital Course: Assessment Sepsis - based on leukocytosis, tachycardia and pulmonary source of infection Community Acquired Pneumonia Leukocytosis Hypernatremia - POA COPD with chronic oxygen use-3L Acute on chronic CHF Depression Anxiety Coronary artery disease -with LAD stent Atrial fibrillation Hypertension Hypercholesterolemia Hearing loss-chronic (right ear) TORIBIO GERD Iron deficiency anemia Restless leg syndrome Pulmonary debility Morbid Obesity Plan Admitted under Dr. Blanc w/ hospitalist consult. Obtain BCx2 and sputum culture. Lactate normal. Start Rocephin for probable pneumonia after BC's are collected. SCD's for DVT prophylaxis. Duoneb, pulmicort, acapella for COPD/pneumonia. Dr. Frye has also been consulted. Cardiology to manage diuresis/CHF. 04/13/17 Hospitalist Will continue with Rocephin for pulmonary coverage Decrease Solu-Medrol to 62.5mg IV q 6 hours. Stop Duoneb due to tachycardia - will start Xopenex TID and restart home Spiriva. Continue Acapella and Mucinex. Lorazepam as needed to help anxiety. Weight decreasing with Bumex drip - monitor potassium and creatinine. Continue with supportive care. 04/13/17 16:44 Acute on Chronic Diastolic heart failure Start Bumex 2mg IV bolus then 0.5mg/hr drip Daily lab CXR MILE Per Dr. Frye HTN Monitor vitals Restart home medications Patient seen and evaluated by me on the date of this note. I have reviewed lab , radiology, EKG findings and existing records. I have determined this plan of care. 04/14/17 1650 Bumex gtt stopped.start bumex 2mg IV TID Acute MECCA- Manager Fiber up to 1.4 today Weight down 3 kg HR <110 afib all night. Dig IV and Metoprolol IV not effective. Change Metoprolol to 75mg po TID. HR now <100 Chronic afib- start Eliquis 2.5 BID; Manager Fiber elevated today Continue O2/Nebs/Bipap at home. Chronic respiratory failure per Dr. Frye. Continue on PO iron for Macrocytic/DAVID. Leukocytosis progressing due to IV Solumedrol. Labs, documentation, imaging reviewed. <Angeline Bell - 04/15/17 12:28>
--- NOTE | 2017-04-15 14:22 | Progress Note ---
<Madison Vences - Last Filed: 04/15/17 14:19> Subjective: Pt seen sitting in her chair this morning. She reports she is feeling better but her "lungs hurt" when she coughs. She reports sleeping well. Bowels are moving. Feels like heart rate is slowing down. No chest pain. Breathing is improving. Appetite is ok. Objective Vital signs: Temperature 96.6 F L 04/15/17 08:00 Pulse Rate 80 04/15/17 08:00 Respiratory Rate 16 04/15/17 12:41 Blood Pressure 117/61 04/15/17 08:00 Pulse Oximetry 100 04/15/17 12:41 Height/Weight/BMI: Height 1.68 m Weight 120.6 kg Body Mass Index 44.1 - Constitutional Present: no acute distress, well nourished, well developed, obese - Routine HEENT Exam ENT: Present: mucous membranes moist - Routine Respiratory Exam Present: decreased breath sounds, CTA bilaterally. Absent: wheezes - Routine Cardiovascular Exam Present: irregularly irregular. Absent: murmur - Routine Abdominal Exam Present: soft, normoactive bowel sounds, non distended. Absent: tenderness - Routine Extremities Exam Present: edema (1-2+ b/l), normal capillary refill - Routine Skin Exam Present: dry, warm - Routine Neurological Exam Present: alert, oriented X3 - Routine Lymphatic Exam Lymphatic: Absent: adenopathy - Routine Psychiatric Exam Present: normal affect, cooperative Results - Labs CBC & Chem 7: 04/15/17 03:54 04/15/17 03:54 Microbiology Results: Microbiology 04/13/17 00:12 Sputum, Expectorated Gram Stain - Final 04/13/17 00:12 Sputum, Expectorated Sputum Culture - Preliminary Early growth 04/12/17 19:55 Peripheral/Iv Start Blood Culture - Preliminary No Growth After 2 Days 04/12/17 20:01 Peripheral/Iv Start Blood Culture - Preliminary No Growth After 2 Days - Imaging and Cardiology Chest x-ray Additional comments: Impression: Patient continues to demonstrate mild cardiac prominence with some interstitial prominence suggesting mild underlying interstitial edema. Slight improvement in the lung bases suggested. Assessment and Plan (1) Pneumonia Current visit: No Status: Acute Assessment and Plan: Assessment Sepsis - based on leukocytosis, tachycardia and pulmonary source of infection Community Acquired Pneumonia Leukocytosis Hypernatremia - POA COPD with acute exacerbation Chronic oxygen use-3L Chronic hypercapnic respiratory failure - has BiPAP. Acute on chronic CHF Depression Anxiety Coronary artery disease -with LAD stent Assessment: Atrial fibrillation - started on anticoagulation this hospitalization MECCA - likely secondary to diuretics Leukocytosis - likely steroid induced Hypertension Hypercholesterolemia Hearing loss-chronic (right ear) TORIBIO GERD Iron deficiency anemia Restless leg syndrome Pulmonary debility Morbid Obesity with BMI 44.2 Plan: Continue Rocephin for pulmonary coverage. Converted to oral Prednisone 40mg daily today. Continue with supportive care. Monitor lab - renal function worsening on diuretics. (Cardiology managing.) Hospital Course Summary Disclaimer: The visit summary below is not to be considered part of the above Progress Note. Hospital Course: Assessment Sepsis - based on leukocytosis, tachycardia and pulmonary source of infection Community Acquired Pneumonia Leukocytosis Hypernatremia - POA COPD with chronic oxygen use-3L Acute on chronic CHF Depression Anxiety Coronary artery disease -with LAD stent Atrial fibrillation Hypertension Hypercholesterolemia Hearing loss-chronic (right ear) TORIBIO GERD Iron deficiency anemia Restless leg syndrome Pulmonary debility Morbid Obesity Plan Admitted under Dr. Jayashree shrestha/ hospitalist consult. Obtain BCx2 and sputum culture. Lactate normal. Start Rocephin for probable pneumonia after BC's are collected. SCD's for DVT prophylaxis. Duoneb, pulmicort, acapella for COPD/pneumonia. Dr. Frye has also been consulted. Cardiology to manage diuresis/CHF. 04/13/17 Hospitalist Will continue with Rocephin for pulmonary coverage Decrease Solu-Medrol to 62.5mg IV q 6 hours. Stop Duoneb due to tachycardia - will start Xopenex TID and restart home Spiriva. Continue Acapella and Mucinex. Lorazepam as needed to help anxiety. Weight decreasing with Bumex drip - monitor potassium and creatinine. Continue with supportive care. 04/13/17 Acute on Chronic Diastolic heart failure Start Bumex 2mg IV bolus then 0.5mg/hr drip Daily lab CXR MILE Per Dr. Frye HTN Monitor vitals Restart home medications Patient seen and evaluated by me on the date of this note. I have reviewed lab , radiology, EKG findings and existing records. I have determined this plan of care. 04/14/17 Bumex gtt stopped.start bumex 2mg IV TID Acute MECCA- Clinical Evaluator up to 1.4 today Weight down 3 kg HR <110 afib all night. Dig IV and Metoprolol IV not effective. Change Metoprolol to 75mg po TID. HR now <100 Chronic afib- start Eliquis 2.5 BID; Clinical Evaluator elevated today Continue O2/Nebs/Bipap at home. Chronic respiratory failure per Dr. Frye. Continue on PO iron for Macrocytic/DAVID. Leukocytosis progressing due to IV Solumedrol. Will stop Solu-Medrol and start oral Prednisone 40mg daily tomorrow. Repeat CXR in am. 04/15/17 Continue Rocephin for pulmonary coverage. Converted to oral Prednisone 40mg daily today. Continue with supportive care. Monitor lab - renal function worsening on diuretics. (Cardiology managing.) <Uri Bourgeois - Last Filed: 04/15/17 17:04> Objective Vital signs: Temperature 97.6 F 04/15/17 15:05 Pulse Rate 69 04/15/17 15:05 Respiratory Rate 18 04/15/17 15:05 Blood Pressure 108/49 04/15/17 15:05 Pulse Oximetry 97 04/15/17 15:05 Height/Weight/BMI: Height 1.68 m Weight 120.6 kg Body Mass Index 44.1 Results - Labs CBC & Chem 7: 04/15/17 03:54 04/15/17 03:54 Microbiology Results: Microbiology 04/13/17 00:12 Sputum, Expectorated Gram Stain - Final 04/13/17 00:12 Sputum, Expectorated Sputum Culture - Preliminary Early growth 04/12/17 19:55 Peripheral/Iv Start Blood Culture - Preliminary No Growth After 2 Days 04/12/17 20:01 Peripheral/Iv Start Blood Culture - Preliminary No Growth After 2 Days Assessment and Plan (1) Pneumonia Current visit: No Status: Acute Resuscitation Status: Full Code Assessment and Plan: Assessment Sepsis - based on leukocytosis, tachycardia and pulmonary source of infection Community Acquired Pneumonia Leukocytosis Hypernatremia - POA Acute Kidney Injury - secondary to diuresis COPD with acute exacerbation Chronic oxygen use-3L Chronic hypercapnic respiratory failure - has BiPAP. Acute on chronic CHF Depression Anxiety Coronary artery disease -with LAD stent Atrial fibrillation - anticoagulation initiate Hypertension Hypercholesterolemia Hearing loss-chronic (right ear) TORIBIO GERD Iron deficiency anemia Restless leg syndrome Pulmonary debility Morbid Obesity with BMI 44.2 Have independently interviewed and examined pt. Chart reviewed. Case discussed with my PA. Care plan developed with my supervision; agree with above. Improving. Breathing easier-less SOA and congested. Able to move around more without becoming as winded. Wore BIPAP ventilatory during nap this afternoon without problems. Eating well (wants larger portions). No ab pain. LE edema decreasing slightly. Lungs: decreased, little air movement. No wheezes or crackles. CV: distant EXT: +2 edema MSE: awake alert appropriate Plan: Discussed about use of BIPAP-encourage continue adherence. Pt was wondering about increasing dose of lorazepam, but we decided to keep dose at 1mg. Patient does understand the potential for dependency/abuse. Encourage activities - will consult PT/OT due to her cardiopulmonary debility. Will decrease Prednisone to 30mg daily starting tomorrow to help decrease potential for fluid accumulation. Monitor lab. Time spent with patient care 35 minutes. Hospital Course Summary Disclaimer: The visit summary below is not to be considered part of the above Progress Note.
[2017-04-15] MEDS: SALINE FLUSH 10ml SYRINGE IV PRN ×2 (15:56→20:48)
[2017-04-15] MEDS: ASPIRIN 81 MG CHEWABLE TABLET PO SCH (20:45)
[2017-04-15] MEDS: LISINOPRIL 5 MG TABLET PO SCH (20:46)
[2017-04-15] MEDS: CEFTRIAXONE 1 G in NS 100 ML IV SCH (20:51)
[2017-04-15] MEDS: MELATONIN 5 MG TABLET PO SCH (20:52)
[2017-04-15] MEDS: ROPINIROLE 0.25 MG TABLET PO SCH (20:52)
[2017-04-15] MEDS: ATORVASTATIN 40 MG TABLET PO SCH (20:52)
[2017-04-15] MEDS: PANTOPRAZOLE 40 MG TABLET PO SCH (20:52)
[2017-04-15] MEDS: LORazepam 1 MG TABLET PO PRN (21:47)
[2017-04-16] MEDS ORDERED: NS FLUSH BAG 500ml IV PRN (05:13)
[2017-04-16] MEDS: SALINE FLUSH 10ml SYRINGE IV PRN ×2 (06:48→09:33)
[2017-04-16] MEDS ORDERED: PredniSONE 10 MG TABLET PO SCH (08:00)
[2017-04-16 08:08] VITALS: BP 115/76; TEMP 96.9
[2017-04-16] MEDS: FERROUS SULFATE 324 MG TABLET PO SCH (08:14)
[2017-04-16] MEDS: BUDESONIDE INH.SOLN 0.5mg/2ml NEB AEROSOL SCH (08:45)
[2017-04-16 08:52] VITALS: O2SAT 97
[2017-04-16] MEDS: CYANOCOBALAMIN (B-12) 500mcg TABLET PO SCH (09:34)
[2017-04-16] MEDS: APIXABAN 5 MG TABLET PO SCH (09:34)
[2017-04-16] MEDS: SALINE 0.65% NASAL SPRAY 44 ML BOTTLE EA NOSTRIL SCH (09:34)
[2017-04-16] MEDS: DiltiaZEM CD 360 MG CAPSULE PO SCH (09:34)
[2017-04-16] MEDS: GUAIFENESIN/D-METHORPHAN 600mg/30mg TABLET PO SCH (09:34)
[2017-04-16] MEDS: TIOTROPIUM 18mcg/cap HANDIHALER ORAL INH SCH (11:41)
--- NOTE | 2017-04-16 14:31 | Discharge Summary ---
<Angeline Bell - Last Filed: 04/16/17 21:22> Discharge Information Date of admission: 04/12/17 16:53 Anticipated date of discharge: 04/16/17 Attending Physician: Froylan Blanc MD Primary care physician: Renetta Denney APRN Consults: 04/12/17 18:09 Physician Consult [CONS] Routine Consulting Provider: Uri Bourgeois Reason For Exam: medical management Ordering Provider has Notified Software Reverse Engineer: Yes 04/12/17 18:10 Physician Consult [CONS] Routine Consulting Provider: Yoav Frye Reason For Exam: SOA, COPD Ordering Provider has Notified Software Reverse Engineer: No - Discharge Diagnosis (1) Acute and chronic respiratory failure with hypoxia Status: Acute Discharge Diagnosis: Bumex 2mg po BID, repeat BMP and Mag in 1 week (2) Chest pain Status: Acute (3) COPD exacerbation Status: Acute Discharge Diagnosis: Home with Amoxicillin 500mg TID X [address] Bourgeois (4) CAD (coronary artery disease), [place] coronary artery Status: Chronic (5) MILE (obstructive sleep apnea) Status: Chronic (6) Atrial fibrillation Status: Chronic Discharge Diagnosis: Eliquis 5mg po BID for anticoagulation, samples and discount card given Continue Cardizem and Metoprolol 75mg po TID for rate control - Laboratory Labs: 04/15/17 03:54 04/16/17 04:00 Laboratory Tests 04/12/17 04/12/17 04/12/17 18:53 18:53 18:53 WBC 12.6 H RBC 4.42 Hgb 10.8 L Hct 38.4 MCV 86.9 MCH 24.4 L MCHC 28.1 L RDW Std Deviation 56.8 H Plt Count 286 MPV 11.4 Immature Gran % (Auto) 0.2 Neut % (Auto) 76.5 H Lymph % (Auto) 16.2 L Mclennan % (Auto) 5.6 Eos % (Auto) 1.2 Baso % (Auto) 0.3 Neut # (Auto) 9.6 H Lymph # (Auto) 2.0 Mclennan # (Auto) 0.7 Eos # (Auto) 0.2 Baso # (Auto) 0.0 Abs Immat Gran (auto) 0.03 Neutrophils % (Manual) Band Neutrophils % Lymphocytes % (Manual) Monocytes % (Manual) Metamyelocytes % Neutrophils # (Manual) Band Neutrophils # Lymphocytes # (Manual) Monocytes # (Manual) Metamyelocytes # Poikilocytosis Anisocytosis Tear Drop Cells Ovalocytes Stomatocytes RBC Morph Comment Turbidity < 20 Sodium 146 H Potassium 3.8 Chloride 98 Carbon Dioxide 37 H Anion Gap 11 BUN 11.0 Creatinine 1.0 GFR Calculation 57 BUN/Creatinine Ratio 11 Glucose 99 Calculated Osmolality 280 Calcium 9.8 Magnesium 2.0 Total Bilirubin 0.40 Conjugated Bilirubin 0.00 Unconjugated Bilirubin 0.10 Icterus Index < 2 AST 20 ALT 37 Alkaline Phosphatase 163 H Troponin I < 0.012 B-Natriuretic Peptide 1660 H Total Protein 7.6 Albumin 4.2 Globulin 3.4 Albumin/Globulin Ratio 1.2 Plasma Lactate 1.4 Procalcitonin < 0.05 TSH 0.96 Specimen Hemolysis < 15 04/12/17 04/12/17 04/13/17 23:03 23:03 07:23 WBC 13.6 H RBC 4.65 Hgb 11.4 L Hct 39.9 MCV 85.8 MCH 24.5 L MCHC 28.6 L RDW Std Deviation 55.6 H Plt Count 320 MPV 12.2 Immature Gran % (Auto) Not performed Neut % (Auto) Not performed Lymph % (Auto) Not performed Mclennan % (Auto) Not performed Eos % (Auto) Not performed Baso % (Auto) Not performed Neut # (Auto) Not performed Lymph # (Auto) Not performed Mclennan # (Auto) Not performed Eos # (Auto) Not performed Baso # (Auto) Not performed Abs Immat Gran (auto) Not performed Neutrophils % (Manual) 91.0 H Band Neutrophils % Lymphocytes % (Manual) 8.0 L Monocytes % (Manual) Metamyelocytes % 1.0 H Neutrophils # (Manual) 12.4 H Band Neutrophils # Lymphocytes # (Manual) 1.1 Monocytes # (Manual) Metamyelocytes # 0.1 Poikilocytosis 2+ Anisocytosis 1+ Tear Drop Cells 1+ Ovalocytes 2+ Stomatocytes 2+ RBC Morph Comment Abnormal Turbidity Sodium Potassium Chloride Carbon Dioxide Anion Gap BUN Creatinine GFR Calculation BUN/Creatinine Ratio Glucose Calculated Osmolality Calcium Magnesium Total Bilirubin Conjugated Bilirubin Unconjugated Bilirubin Icterus Index AST ALT Alkaline Phosphatase Troponin I < 0.012 B-Natriuretic Peptide Total Protein Albumin Globulin Albumin/Globulin Ratio Plasma Lactate 1.9 Procalcitonin TSH Specimen Hemolysis 38 H 04/13/17 04/13/17 04/14/17 07:23 07:23 04:16 WBC 19.4 H D RBC 4.46 Hgb 10.8 L Hct 37.6 MCV 84.3 MCH 24.2 L MCHC 28.7 L RDW Std Deviation 53.7 H Plt Count 322 MPV 12.1 Immature Gran % (Auto) Not performed Neut % (Auto) Not performed Lymph % (Auto) Not performed Mclennan % (Auto) Not performed Eos % (Auto) Not performed Baso % (Auto) Not performed Neut # (Auto) Not performed Lymph # (Auto) Not performed Mclennan # (Auto) Not performed Eos # (Auto) Not performed Baso # (Auto) Not performed Abs Immat Gran (auto) Not performed Neutrophils % (Manual) 95.0 H Band Neutrophils % 3.0 Lymphocytes % (Manual) 1.0 L Monocytes % (Manual) 1.0 Metamyelocytes % Neutrophils # (Manual) 18.4 H Band Neutrophils # 0.6 Lymphocytes # (Manual) 0.2 L Monocytes # (Manual) 0.2 Metamyelocytes # Poikilocytosis 1+ Anisocytosis 1+ Tear Drop Cells 1+ Ovalocytes Stomatocytes RBC Morph Comment Abnormal Turbidity < 20 Sodium 143 Potassium 4.4 Chloride 93 L Carbon Dioxide 38 H Anion Gap 12 BUN 17.0 D Creatinine 1.0 GFR Calculation 57 BUN/Creatinine Ratio 17 Glucose 182 H Calculated Osmolality 282 H Calcium 10.3 H Magnesium Total Bilirubin Conjugated Bilirubin Unconjugated Bilirubin Icterus Index < 2 AST ALT Alkaline Phosphatase Troponin I < 0.012 B-Natriuretic Peptide Total Protein Albumin Globulin Albumin/Globulin Ratio Plasma Lactate Procalcitonin TSH Specimen Hemolysis < 15 < 15 04/14/17 04/15/17 04/15/17 04:16 03:54 03:54 WBC 21.9 H RBC 4.48 Hgb 10.8 L Hct 38.0 MCV 84.8 MCH 24.1 L MCHC 28.4 L RDW Std Deviation 53.5 H Plt Count 338 MPV 12.6 H Immature Gran % (Auto) Not performed Neut % (Auto) Not performed Lymph % (Auto) Not performed Mclennan % (Auto) Not performed Eos % (Auto) Not performed Baso % (Auto) Not performed Neut # (Auto) Not performed Lymph # (Auto) Not performed Mclennan # (Auto) Not performed Eos # (Auto) Not performed Baso # (Auto) Not performed Abs Immat Gran (auto) Not performed Neutrophils % (Manual) 87.0 H Band Neutrophils % 4.0 Lymphocytes % (Manual) 7.0 L Monocytes % (Manual) 2.0 Metamyelocytes % Neutrophils # (Manual) 19.1 H Band Neutrophils # 0.9 Lymphocytes # (Manual) 1.5 Monocytes # (Manual) 0.4 Metamyelocytes # Poikilocytosis 1+ Anisocytosis 1+ Tear Drop Cells Ovalocytes 1+ Stomatocytes RBC Morph Comment Abnormal Turbidity < 20 < 20 Sodium 141 142 Potassium 3.8 3.6 Chloride 91 L 91 L Carbon Dioxide 39 H 37 H Anion Gap 11 14 BUN 36.0 H D 55.0 H* D Creatinine 1.4 H D 1.5 H D GFR Calculation 39 36 BUN/Creatinine Ratio 26 37 H Glucose 187 H 164 H Calculated Osmolality 284 H 292 H Calcium 9.7 9.2 Magnesium 2.1 Total Bilirubin Conjugated Bilirubin Unconjugated Bilirubin Icterus Index < 2 < 2 AST ALT Alkaline Phosphatase Troponin I B-Natriuretic Peptide Total Protein Albumin Globulin Albumin/Globulin Ratio Plasma Lactate Procalcitonin TSH Specimen Hemolysis < 15 < 15 04/15/17 04/16/17 03:54 04:00 WBC RBC Hgb Hct MCV MCH MCHC RDW Std Deviation Plt Count MPV Immature Gran % (Auto) Neut % (Auto) Lymph % (Auto) Mclennan % (Auto) Eos % (Auto) Baso % (Auto) Neut # (Auto) Lymph # (Auto) Mclennan # (Auto) Eos # (Auto) Baso # (Auto) Abs Immat Gran (auto) Neutrophils % (Manual) Band Neutrophils % Lymphocytes % (Manual) Monocytes % (Manual) Metamyelocytes % Neutrophils # (Manual) Band Neutrophils # Lymphocytes # (Manual) Monocytes # (Manual) Metamyelocytes # Poikilocytosis Anisocytosis Tear Drop Cells Ovalocytes Stomatocytes RBC Morph Comment Turbidity < 20 Sodium 141 Potassium 3.6 Chloride 93 L Carbon Dioxide 38 H Anion Gap 10 BUN 58.0 H* Creatinine 1.3 H D GFR Calculation 42 BUN/Creatinine Ratio 45 H Glucose 138 H Calculated Osmolality 289 H Calcium 9.0 Magnesium Total Bilirubin Conjugated Bilirubin Unconjugated Bilirubin Icterus Index < 2 AST ALT Alkaline Phosphatase Troponin I B-Natriuretic Peptide 2180 H Total Protein Albumin Globulin Albumin/Globulin Ratio Plasma Lactate Procalcitonin TSH Specimen Hemolysis < 15 - Microbiology Microbiology 04/13/17 00:12 Sputum, Expectorated Gram Stain - Final 04/13/17 00:12 Sputum, Expectorated Sputum Culture - Final Normal Respiratory Priya 04/12/17 19:55 Peripheral/Iv Start Blood Culture - Preliminary No Growth After 3 Days 04/12/17 20:01 Peripheral/Iv Start Blood Culture - Preliminary No Growth After 3 Days - Radiology Radiology: Date of Exam: 04/15/17 Ordering Provider: Edna Bernal APRN Type of Exam(s): XR chest 2V Reason for Exam(s): COPD Indication: COPD XR chest 2V: Comparison: 04/12/2017 Technique: Single portable upright chest Findings: Patient continues to show mild cardiac prominence with increased interstitial pulmonary markings. No focal prequel consolidations or significant pleural effusions are seen. There is perhaps minimal improvement since previous study with slightly less interstitial prominence Impression: Patient continues to demonstrate mild cardiac prominence with some interstitial prominence suggesting mild underlying interstitial edema. Slight improvement in the lung bases suggested. Date of Exam: 04/12/17 Ordering Provider: Uri Bourgeois MD Type of Exam(s): XR chest 1V Reason for Exam(s): dyspnea Indication: dyspnea PROCEDURE: XR chest 1V: Encounter: Initial Comparison: March 12, 2017 Findings: Bilateral lower lobe airspace opacities, greater on the right with possible trace right effusion. No pneumothorax. Cardiac silhouette remains enlarged. Mediastinal contours are grossly stable. Pulmonary vascularity is slightly enlarged with cephalization. Impression: Mild pulmonary edema. Superimposed atelectasis or pneumonia is possible in the right lower lobe. History of Present Illness HPI: This is a 56 y/o female known to Dr. Blanc for COPD, DM2, Hyperlipidemia, HTN , Tricuspid insufficiency, PAF, CAD with hx stents, who since last Saturday has become increasing SOA to the point she has to sleep in a recliner to catch her breath. She has not been using her home Ventilator. Patient not sure what type of ventilator that she has. Patient admits that her weight has gone up and her swelling has worsened to the point the incision in her lower abdomen hurts. She thinks she has gained over 10# over the course of a week. She admits to having intermittent left chest pain that does not last very long when it comes on but she is usually walking. She is unable to qualify the type of chest pain. Patient was seen at [facility] ER for evaluation of her symptoms - the provider contacted Dr. Blanc for a direct admit Labs from [place], [place] Glucose 129 Sodium 140 potassium 3.9 Trop less than 0.02 Hgb 10.0 Platelets 282 D-Dimer elevated CTA Chest performed in [facility] today Scattered ground-glass opacities throughout both lung suggesting pneumonitis or edema. Focal consolidative opacity identified in the right lower lobe with additional streaks consolidative opacity within the left lingula suggesting a combination of atelectasis and pneumonia. Small bilat pleural effusions. Cardiomegaly, emphysematous changes, cholelithiasis, left renal cyst too small to characterize, right renal hypodensity, low attenuation focus right thyroid lobe Hospital Course This is a general summary of the patient's hospital course. For more details refer to the complete medical record. Hospital course: Assessment Sepsis - based on leukocytosis, tachycardia and pulmonary source of infection Community Acquired Pneumonia Leukocytosis Hypernatremia - POA COPD with chronic oxygen use-3L Acute on chronic CHF Depression Anxiety Coronary artery disease -with LAD stent Atrial fibrillation Hypertension Hypercholesterolemia Hearing loss-chronic (right ear) TORIBIO GERD Iron deficiency anemia Restless leg syndrome Pulmonary debility Morbid Obesity Plan Admitted under Dr. Blanc w/ hospitalist consult. Obtain BCx2 and sputum culture. Lactate normal. Start Rocephin for probable pneumonia after BC's are collected. SCD's for DVT prophylaxis. Duoneb, pulmicort, acapella for COPD/pneumonia. Dr. Frye has also been consulted. Cardiology to manage diuresis/CHF. 04/13/17 Hospitalist Will continue with Rocephin for pulmonary coverage Decrease Solu-Medrol to 62.5mg IV q 6 hours. Stop Duoneb due to tachycardia - will start Xopenex TID and restart home Spiriva. Continue Acapella and Mucinex. Lorazepam as needed to help anxiety. Weight decreasing with Bumex drip - monitor potassium and creatinine. Continue with supportive care. 04/13/17 16:44 Acute on Chronic Diastolic heart failure Start Bumex 2mg IV bolus then 0.5mg/hr drip Daily lab CXR MILE Per Dr. Frye HTN Monitor vitals Restart home medications Patient seen and evaluated by me on the date of this note. I have reviewed lab , radiology, EKG findings and existing records. I have determined this plan of care. 04/14/17 1650 Bumex gtt stopped.start bumex 2mg IV TID Acute MECCA- [employer] Manager up to 1.4 today Weight down 3 kg HR <110 afib all night. Dig IV and Metoprolol IV not effective. Change Metoprolol to 75mg po TID. HR now <100 Chronic afib- start Eliquis 2.5 BID; [employer] elevated today Continue O2/Nebs/Bipap at home. Chronic respiratory failure per Dr. Frye. Continue on PO iron for Macrocytic/DAVID. Leukocytosis progressing due to IV Solumedrol. Labs, documentation, imaging reviewed. Time spent with patient: 25 - 35 minutes DVT Prophylaxis: Eliquis Exam Vital signs: Temperature 96.9 F 04/16/17 08:05 Pulse Rate 68 04/16/17 08:05 Respiratory Rate 20 04/16/17 11:41 Blood Pressure 115/76 04/16/17 08:05 Pulse Oximetry 97 04/16/17 08:40 - Constitutional no acute distress, well nourished, cooperative - Routine HEENT Exam Head: Present: normocephalic ENT: Present: mucous membranes moist - Routine Neck Exam Absent: JVD, carotid bruit - Routine Chest/Breast/Axilla Exam Chest wall: Absent: tenderness - Routine Respiratory Exam Present: CTA bilaterally, diminished air movement. Absent: rales, wheezes - Routine Cardiovascular Exam Present: no murmur, irregular rhythm. Absent: JVD - Routine Abdominal Exam Present: soft, normoactive bowel sounds - Routine Extremities Exam Present: edema - Routine Skin Exam Present: intact, dry, warm - Routine Neurological Exam Present: alert, oriented X3 - Routine Psychiatric Exam Present: normal affect, normal thought process Results 04/15/17 03:54 04/16/17 04:00 Comprehensive Metabolic Panel 04/16/17 Range/Units 04:00 Sodium 141 (134-144) MEQ/L Potassium 3.6 (3.6-5) MEQ/L Chloride 93 L (98-107) MEQ/L Carbon Dioxide 38 H (22-30) MEQ/L BUN 58.0 H* (7-17) MG/DL Creatinine 1.3 H D (0.7-1.2) MG/DL Glucose 138 H (65-110) MG/DL Calcium 9.0 (8.4-10.2) MG/DL Intake and Output 04/15/17 04/16/17 04/16/17 22:59 06:59 14:59 Intake Total 1254 / 1254 500 / 500 360 / 360 Output Total 200 / 200 625 / 625 Balance 1054 / 1054 -125 / -125 360 / 360 Intake: IV 100 / 100 Ceftriaxone 1 g In Ns 100 100 / 100 ml @ 200 mls/hr IV Q24H NIGEL Rx#:[id number] Oral 1154 / 1154 500 / 500 360 / 360 Output: Urine 200 / 200 625 / 625 Other: Urine Appearance Clear Clear Urine Color Yellow Yellow Weight 262 lb 2.074 oz Patient Weight 04/17/17 06:59 Weight 262 lb 2.074 oz - Imaging and Cardiology EKG results: image reviewed Discharge Plan - Med Rec/Dispo Referrals/Follow Up: Froylan Blanc MD [Physician] - 3 Weeks (May 03, 2017 at 9:30am ) Renetta Denney APRN [Family Provider] - 1 Week (April 23, 2017 at 10:45 am Labs will be drawn at this appt. ) [place] Instructions: [facility] [place] Congestive Heart Failure Additional Instructions: Follow up with Renetta Denney next week. Have lab drawn next week on Saturday. Prescriptions: New Apixaban [Eliquis] 5 mg PO BID #60 tab Metoprolol Tartrate [Lopressor] 75 mg PO 0800,1500,2100 #135 tab PredniSONE [Deltasone] 20 mg PO WB #7 tab Amoxicillin 1 cap PO Q8H #12 cap Bumetanide Tab [Bumex Tab] 2 mg PO 0900,1400 #120 tab Continue Atorvastatin Calcium 40 mg PO HS #0 Fluticasone/Salmeterol [Advair 250-50 Diskus] 1 puff INH BID #0 Pantoprazole Sodium 40 mg PO HS #0 Melatonin 15 mg PO HS Acetaminophen [Arthritis Pain Relief] 1,300 mg PO TID PRN PRN Reason: Pain Ropinirole [Requip] 0.25 mg PO HS DiltiaZEM CD [Cardizem Cd] 360 mg PO DAILY #30 cap Ferrous Sulfate [Iron] 325 mg PO DAILY Lisinopril [Prinivil] 5 mg PO HS Sodium Chloride [Deep Sea] 2 spray EA NOSTRIL QID spray Cyanocobalamin (Vitamin B-12) [Vitamin B12] 2,500 mcg PO DAILY Albuterol Sulfate [Proair Hfa] 2 puff INH PRN PRN PRN Reason: Respiratory Distress LORazepam [Ativan] 1 mg PO Q4HR PRN #30 tab PRN Reason: Anxiety/Air Hunger/Agitation Albuterol Sulfate [Ventolin Hfa] 2 puff INH Q4-6HR PRN #0 PRN Reason: Prn Orders Tiotropium Handihaler [Spiriva] 1 cap INH DAILY Discontinued Furosemide 40 mg PO DAILY #0 Aspirin 81 mg PO HS #0 Metoprolol Tartrate [Lopressor] 1 tab PO BID - Disposition 86 Home Health Service <Froylan Blanc - Last Filed: 04/18/17 14:51> Discharge Information Date of admission: 04/12/17 16:53 Attending Physician: Froylan Blanc MD Primary care physician: Renetta Denney, LISA Consults: 04/12/17 18:09 Physician Consult [CONS] Routine Consulting Provider: Uri Bourgeois Reason For Exam: medical management Ordering Provider has Notified Software Reverse Engineer: Yes 04/12/17 18:10 Physician Consult [CONS] Routine Consulting Provider: Yoav Frye Reason For Exam: SOA, COPD Ordering Provider has Notified Software Reverse Engineer: No - Discharge Diagnosis (1) CAD (coronary artery disease), [place] coronary artery Status: Chronic (2) Acute and chronic respiratory failure with hypoxia Status: Acute (3) MILE (obstructive sleep apnea) Status: Chronic (4) Chest pain Status: Acute (5) COPD exacerbation Status: Acute (6) Atrial fibrillation Status: Chronic - Laboratory Labs: 04/15/17 03:54 04/16/17 04:00 - Microbiology Microbiology 04/12/17 19:55 Peripheral/Iv Start Blood Culture - Final No Growth After 5 Days 04/12/17 20:01 Peripheral/Iv Start Blood Culture - Final No Growth After 5 Days 04/13/17 00:12 Sputum, Expectorated Gram Stain - Final 04/13/17 00:12 Sputum, Expectorated Sputum Culture - Final Normal Respiratory Priya Hospital Course This is a general summary of the patient's hospital course. For more details refer to the complete medical record. Exam Vital signs: Temperature 96.9 F 04/16/17 08:05 Pulse Rate 71 04/16/17 16:00 Respiratory Rate 18 04/16/17 16:13 Blood Pressure 115/76 04/16/17 08:05 Pulse Oximetry 97 04/16/17 08:40 Results 04/15/17 03:54 04/16/17 04:00 Discharge Plan - Med Rec/Dispo - Attestation Attestation Narrative: 04/18/17 14:51 Recommendation After examining the patient I agree with the above assessment. I am involved in the formulation of the patient's plan of care.
[2017-04-16 16:20] VITALS: RESP 18
[2017-04-16 16:30] VITALS: PULSE 71
[2017-04-17] MEDS ORDERED: PredniSONE 20 MG TABLET PO SCH (08:00)
[2017-04-17] MEDS ORDERED: BUMETANIDE 1 MG TABLET PO SCH (09:00)
--- NOTE | 2017-04-17 15:20 | Right on Track Program ---
Right on Track Program Date of Discharge: 04/16/17 Home Medications: Home Medications Medication Instructions Recorded Confirmed Albuterol Sulfate [Ventolin Hfa] 2 puff INH Q4-6HR PRN #0 02/19/12 04/12/17 Atorvastatin Calcium 40 mg PO HS #0 07/20/14 04/12/17 Fluticasone/Salmeterol [Advair 1 puff INH BID #0 10/24/16 04/12/17 250-50 Diskus] Pantoprazole Sodium 40 mg PO HS #0 10/24/16 04/12/17 Acetaminophen [Arthritis Pain 1,300 mg PO TID PRN 12/31/16 04/12/17 Relief] Melatonin 15 mg PO HS 12/31/16 04/12/17 Tiotropium Handihaler [Spiriva] 1 cap INH DAILY 12/31/16 04/12/17 Ropinirole [Requip] 0.25 mg PO HS 02/20/17 04/12/17 Ferrous Sulfate [Iron] 325 mg PO DAILY 03/12/17 04/12/17 Lisinopril [Prinivil] 5 mg PO HS 03/12/17 04/12/17 Albuterol Sulfate [Proair Hfa] 2 puff INH PRN PRN 04/12/17 04/12/17 Cyanocobalamin (Vitamin B-12) 2,500 mcg PO DAILY 04/12/17 04/12/17 [Vitamin B12] Previous Rx's Medication Instructions Recorded DiltiaZEM CD [Cardizem Cd] 360 mg PO DAILY #30 cap 02/27/17 Sodium Chloride [Deep Sea] 2 spray EA NOSTRIL QID spray 03/15/17 Amoxicillin 1 cap PO Q8H #12 cap 04/16/17 Apixaban [Eliquis] 5 mg PO BID #60 tab 04/16/17 Bumetanide Tab [Bumex Tab] 2 mg PO 0900,1400 #120 tab 04/16/17 LORazepam [Ativan] 1 mg PO Q4HR PRN #30 tab 04/16/17 Metoprolol Tartrate [Lopressor] 75 mg PO 0800,1500,2100 #135 tab 04/16/17 PredniSONE [Deltasone] 20 mg PO WB #7 tab 04/16/17 - Right on Track Program Phone call 04/17/17 Date: 04/24/17 Right on Track Program: 24 Hour Follow-Up Discharge Summary Received: Yes Care Plan Received: Yes Follow Up: Follow Up Appointment Scheduled Education: Diagnosis Education Reviewed Referral: Social Work, Primary Care Physician, Home Health ([facility]) Comments: LACE = 10 I spoke to Ruthie's DPOA, Tonie, on 04/17/17. Tonie informed me that she actually goes by "Britt" when she's not in the hospital (and sometimes "Sandrine") . She was able to get all of her Rx filled. At this time, she has no urgent concerns. Home Health services are being utilized. She has f/u appointments planned. Recommendations For Follow-up: 1. F/U with PCP and specialists as planned (PCP: [facility]) 2. Home visit planned on 04/24/17 3. Continue Home Health Services [id number] VISIT Date: 04/24/17 Right on Track Program: 7-14 Day Oird-rb-Poae Discharge Summary Received: Yes Care Plan Received: Yes Follow Up: Follow up Tests Reviewed, Follow Up Appointment Scheduled Education: Diagnosis Education Reviewed Referral: Social Work, Primary Care Physician Comments: SUBJECTIVE I visited "Marilu" at her home in [place] on 04/24/17. She has a PMH of chronic respiratory failure, COPD, CAD, MILE, A-fib, tricuspid insufficiency. During her recent hospitalization she was heavily diuresed for pulmonary edema and subsequently had a mild increase in her creatinine up to 1.4. She was [facility] from [facility] on 04/[facility]. Her small house smelled strongly of cigarette/ cigar smoke. She had pets including a dog and a parrot in an unkempt cage (her cleans the cage), and there was mention of a cat. She was wearing her oxygen and was able to ambulate well through the rooms of her house without becoming dyspneic. She feels like the new heart medications are helping. She wears her home-vent mask "most of the time" when she naps. She doesn't put it on when she goes to bed at night because she feels like she's suffocating. When she wakes up between 4-5 am every morning, she then puts her mask on, and sleeps until 9. She takes Ativan before bed and feels like this has been helpful. She has been under some emotional distress because 2/3 children do not communicate well with her. She became tearful when talking about this situation. She feels like shes has very little support at home.There is a man about her son's age whom she refers to as her "surrogate son" - she reports intermittent positive support from him. She is on a limited financial income and cannot afford healthy food choices and sometimes can't afford gas to get to her appointments. She actually became tearful about 3 times during the visit. She used to be on an antidepressant (she can't recall the name of it), but didn' t like it and didn't feel like it was helpful so she stopped it on her own about a month ago. She made the statement "Sometimes I don't know why I'm still here", but denied suicidality and then stated she's here for a purpose, she just doesn't know what that is yet. She has been weighing herself everyday, with a goal weight of 262 lbs. On 04/18/17 she received a new scale from [facility], and her weight has increased from 260 on 04/18 to 265 on . She reports an increase in leg swelling without increasing dyspnea. She denies chest pain. She knows she should be on a low-sodium diet but admits to eating cold-cut and grilled cheese sandwiches and "a few" potato chips; she prepares homemade soups and avoids canned soups. She is highly anxious about getting her "heart zapped", describing that she's " twice already" and isn' t ready to yet. She is able to complete all of her ADLs. She rates her quality of life as "fair". Depression screen: inconsistent, as described. She does not seem to have much support at home. Nutrition: She reports that she understands the implications of a sodium-rich diet, but cannot easily follow a low-sodium diet (suspect combination of personal choices and limited funding to purchase healthy food options). Self-management: She has not been using her home Trilogy as intended. She lynnette with her stressors by "yelling" at her , crying "a lot", and meditating. Her medications are organized nicely into a pill box organizer per [facility]. She is weighing herself daily compliments of the scale provided by [facility]. Medication Reconciliation: Reviewed all medications with her, and they were consistent with the discharge packet. We specifically reviewed why she is taking Eliquis, metoprolol, and bumetanide. We discussed the habit-forming potential of lorazepam, and she insists she is only taking it at night because she is afraid of addiction. The discontinued meds of Lasix, ASA, and former metoprolol dose were excluded. OBJECTIVE EXAM General: A&O x3; pleasant but at times tearful. No acute distress. Neuro: Facial structures symmetric. Moves all extremities equally. Ambulates with a steady gait. HEENT: Sclera anicteric; No thrush; neck is supple. CV/circulation: Heart was irregularly irregular. Her skin was warm and dry. She had 4+ pitting edema in both legs. Pulm: Lungs were clear b/l. O2 was in place. Abdomen: Nontender. Large area of ecchymosis (suspect from Lovenox injection). Vertical scar to lower abdomen. Discussed With Patient and Caregiver: Yes Recommendations For Follow-up: ASSESSMENT & PLAN Chronic respiratory failure, COPD, MILE, morbid obesity - Encouraged using Trilogy more often; ie use ALWAYS when she naps and at least try to place it earlier than 4-5 am (she often awakens before that time). - Counseled on the benefits of using Trilogy. - Verified that smokes outside. - Ativan is helpful. CAD, A-fib, tricuspid insufficiency - Reviewed pathophysiology of A-fib and why it may cause heart failure, stroke. - Appointment is scheduled with Dr. Qureshi (stitchdown thread laster) on . - Counseled her on a low-sodium diet and encouraged her to weigh herself daily. - Discussed with her Home Health Nurse - she will bring reading materials and provide further education on CHF mgt. and diet. - Alerted Angeline Bell APRN with Dr. Blanc about 5-lb weight gain over 6 days and 4+ pitting edema to both legs. She may need additional diuretics. - Labs done yesterday were reportedly stable - BUN was 50 but Creatinine, K, & Mg were in normal ranges. - Appointment is scheduled with Dr. Blanc for 05/03/17. - Encouraged increasing her activity level to help with both her breathing, weight control, and lower extremity swelling. Depression & poor support system - Will discuss with Renetta Denney APRN at [facility] to see if a social services manager or behavioral health specialist could get involved. - Financial limitations greatly affect ability to reach optimal outcomes. - Based on her tearfulness and anxiety she would likely benefit from an antidepressant/psychiatric follow up, if she would agree.
== END 2017-04-16 18:15 | disposition home health service (06) | DRG 871 ==
LOC: MED 16:53
PROVIDERS: ADMIT Internal Medicine Cardiovascular Disease; ATTEND Internal Medicine Cardiovascular Disease